=== PATIENT | male | born 1960 | race Caucasian/White ===

== ENCOUNTER 2020-06-08 12:43 | Emergency (ER) | payer MEDICARE ==
[~2020-06-08] VITALS: Ht 182.8 cm; Wt 90.7 kg
[~2020-06-08 12:43] MED LIST: ACHD5005 PO; ASP325TEC PO; ASP81CT PO; ATOR80TA PO; CARV3.122 PO; CHLO500T2 PO; CLOP75TA PO; CYCL10TA9 PO; GERD MEDICATION; HCT25T PO; ISM30TCR PO; ISOS30TA3 PO; LISI2.5T85 PO; MTP25TSR PO; NAPR-915 PO; PANT20TA2 PO; PNT40TEC PO; PRV20T PO; RANI-10 PO; RANO500T2 PO; RNT150T PO; TRAM50TA2 PO; TRM50T PO
[2020-06-08 13:00] VITALS: BP 125/80
[2020-06-08] MEDS ORDERED: KETOROLAC 30 MG/ML VIAL IM STA (13:07)
[2020-06-08] MEDS ORDERED: ORPHENADRINE 60 MG/2 ML (NORFLEX) AMP (ED ONLY) IM STA (13:07)
--- NOTE | 2020-06-08 13:10 | ED Upper Extremity ---
General Chief Complaint: Upper Extremity Stated Complaint: R SIDED NECK,BACK AND ARM PAIN Source: patient Exam Limitations: no limitations History of Present Illness Date Seen by Provider: Jun 08, 2020 Time Seen by Provider: 13:09 Initial Comments 60-year-old male presents with right sided posterior trapezius/lateral neck pain with pain it's in his right arm. Reports that he had a little bit of numbness in his fingers a results morning. Patient reports it started after couple days ago when he was replacing a heater core and vehicle. Reports his gotten worse since then. Patient denies any acute injury or trauma to the arm. Patient does not have any chest pain, shortness of breath fevers or chills. Pain gets worse with arm movement or neck movement. Allergies and Home Medications Allergies Coded Allergies: No Known Drug Allergies (Unverified , 04/20/10) Home Medications Cyclobenzaprine HCl 10 Mg Tablet, 10 MG PO Q8H Prescribed by: TACOS PATEL on 06/19/162004 Naproxen 500 Mg Tablet, 500 MG PO BID Prescribed by: TACOS PATEL on 06/19/162004 Patient Home Medication List Home Medication List Reviewed: Yes Review of Systems Constitutional: no symptoms reported EENTM: no symptoms reported Respiratory: no symptoms reported Cardiovascular: no symptoms reported Gastrointestinal: no symptoms reported Genitourinary: no symptoms reported Musculoskeletal: see HPI Skin: no symptoms reported Psychiatric/Neurological: No Symptoms Reported Past Jsqfnpi-Hwwxjd-Hbbftu Hx Past Med/Social Hx: Reviewed Nursing Past Med/Soc Hx Patient Social History Type Used: Cigarettes Recent Foreign Travel: No Contact w/Someone Who Travel: No Recent Hopitalizations: No Immunizations Up To Date Tetanus Booster (TDap): Less than 5yrs Date of Pneumonia Vaccine: Sep 04, 2012 Date of Influenza Vaccine: May 02, 2012 Seasonal Allergies Seasonal Allergies: Yes Past Medical History Appendectomy, Cardiac, Coronary Stent, Orthopedic Coronary Artery Disease, Heart Attack, High Cholesterol, Hypertension, Hypotens ion Headaches /Migraines Reproductive Disorders: No Sexually Transmitted Disease: No HIV/AIDS: No Gastroesophageal Reflux, Sandoval's Esophagus, Diverticulosis, Esophagitis Degenerate Disk Disease, Arthritis, Chronic Back Pain Physical Exam Vital Signs Vital Signs - First Documented 06/08/20 13:00 Temp 36.0 Pulse 93 Resp 18 B/P (MAP) 125/80 (95) Pulse Ox 97 O2 Delivery Room Air Capillary Refill : Height, Weight, BMI Height: 6'2" Weight: 210lbs. 0.0oz. [id number]; 28.0 BMI Method:Stated General Appearance: WD/WN, no apparent distress Neck: tender lateral (right side); No tender midline; other (symptoms are totally reproducible with palpation of the trapezius and lateral neck. Any rotation of the neck. Reproduces symptoms along with resistance of his head or even his arm through most range of motion) Cardiovascular: normal peripheral pulses, regular rate, rhythm Respiratory: lungs clear, normal breath sounds Shoulder: normal ROM, soft tissue tenderness Progress/Results/Core Measures Results/Orders My Orders Orders - LEY,CHELSEA L DO Ketorolac Injection (Toradol Injection) (06/08/20 13:07) Orphenadrine Inj (Ed Only) (Norflex Inje (06/08/20 13:07) Vital Signs/I&O 06/08/20 13:00 Temp 36.0 Pulse 93 Resp 18 B/P (MAP) 125/80 (95) Pulse Ox 97 O2 Delivery Room Air Departure Impression Primary Impression: Strain of right trapezius muscle Qualified Codes: S46.811A - Strain of other muscles, fascia and tendons at shoulder and upper arm level, right arm, initial encounter Additional Impression: Cervical strain, acute Qualified Codes: S16.1XXA - Strain of muscle, fascia and tendon at neck level, initial encounter Disposition: 01 HOME, SELF-CARE Condition: Stable Departure-Patient Inst. Referrals: [facility] (PCP/Family) Primary Care Physician Patient Instructions: Cervical Muscle Strain, Neck Pain Exercises, Muscle Strain ED Add. Discharge Instructions: Warm moist heat to the affected area 3-4 times daily 4% topical lidocaine with menthol to affected area as directed on package All discharge instructions reviewed with patient and/or family. Voiced understanding. Scripts Naproxen (Naprosyn) 500 Mg Tablet 500 MG PO BID, #30 TAB 0 Refills Prov: LEY,CHELSEA L DO 06/08/20 Cyclobenzaprine HCl (Cyclobenzaprine HCl) 10 Mg Tablet 10 MG PO Q8H PRN for SPASMS, #15 TAB 0 Refills Prov: LEY,CHELSEA L DO 06/08/20 LEY,CHELSEA L DO Jun 08, 2020 13:10
[2020-06-08] MEDS ORDERED: CYCL10TA9 PO (13:40)
[2020-06-08] MEDS ORDERED: NAPR-1071 PO (13:40)
== END 2020-06-08 13:44 | disposition home or self-care (01) ==
LOC: EDUNIT# 12:43 → ER 12:44
DX: S46.811A Strain of other muscles, fascia and tendons at shoulder and upper arm level, right arm, initial encounter (principal); S16.1XXA Strain of muscle, fascia and tendon at neck level, initial encounter; I25.2 Old myocardial infarction; Z95.5 Presence of coronary angioplasty implant and graft; X16.XXXA Contact with hot heating appliances, radiators and pipes, initial encounter
CPT/HCPCS: 99284

== ENCOUNTER 2020-12-14 12:21 | Emergency (ER) | payer MEDICARE ==
[~2020-12-14] VITALS: Ht 182 cm; Wt 83.0 kg
[~2020-12-14 12:21] MED LIST changes: +NAPR-1071 PO
--- NOTE | 2020-12-14 12:28 | ED Neurological Problem ---
General Chief Complaint: Neuro-Stroke Like Symptoms Stated Complaint: STROKE Source: patient Exam Limitations: no limitations History of Present Illness Date Seen by Provider: Dec 14, 2020 Time Seen by Provider: 12:25 Initial Comments To ER by EMS from home with reports of sudden onset left-sided weakness shortly after 11 AM today. At 11 AM he was normal. He recently quit taking all of his medications because he felt like they were making him sick. Primary care is [facility]. Ports that he worked out in the heat extensively yesterday and did have a headache yesterday evening. Timing/Duration: 1-3 hours Severity: moderate Associated Symptoms: numbness in legs/feet, slurred speech Allergies and Home Medications Allergies Coded Allergies: No Known Drug Allergies (Unverified , 04/20/10) Home Medications Cyclobenzaprine HCl 10 Mg Tablet, 10 MG PO Q8H Prescribed by: TACOS PATEL on 06/19/162004 Cyclobenzaprine HCl 10 Mg Tablet, 10 MG PO Q8H PRN for SPASMS Prescribed by: CHELSEA LEY on 06/08/20 134 Naproxen 500 Mg Tablet, 500 MG PO BID Prescribed by: TACOS PATEL on 06/19/162004 Naproxen 500 Mg Tablet, 500 MG PO BID Prescribed by: CHELSEA LEY on 06/08/20 1340 Patient Home Medication List Home Medication List Reviewed: Yes Review of Systems Review of Systems Constitutional: see HPI Eyes: No Symptoms Reported Ears, Nose, Mouth, Throat: no symptoms reported Respiratory: no symptoms reported Cardiovascular: no symptoms reported Genitourinary: no symptoms reported Musculoskeletal: no symptoms reported Skin: no symptoms reported Psychiatric/Neurological: No Symptoms Reported Endocrine: No Symptoms Reported Hematologic/Lymphatic: No Symptoms Reported Past Atlydhx-Cbyspi-Valrgd Hx Patient Social History Type Used: Cigarettes Recent Hopitalizations: No Immunizations Up To Date Tetanus Booster (TDap): Less than 5yrs Date of Pneumonia Vaccine: Sep 04, 2012 Date of Influenza Vaccine: May 02, 2012 Seasonal Allergies Seasonal Allergies: Yes Past Medical History Surgeries: Yes (carpal tunnel, appy, heart cath.) Appendectomy, Cardiac, Coronary Stent, Orthopedic Respiratory: No Cardiac: Yes (MULTIPLE STENTS) Coronary Artery Disease, Heart Attack, High Cholesterol, Hypertension, Hypotension Neurological: Yes Headaches /Migraines Reproductive Disorders: No Sexually Transmitted Disease: No HIV/AIDS: No Gastrointestinal: Yes (HX DIVERTICULITIS) Gastroesophageal Reflux, Sandoval's Esophagus, Diverticulosis, Esophagitis Musculoskeletal: Yes Degenerate Disk Disease, Arthritis, Chronic Back Pain Endocrine: Yes (BORDERLINE DM--NO MEDICATIONS) Cancer: Yes (ESOPHAGEAL) Psychosocial: No Integumentary: No Blood Disorders: No (skin tears easily) Physical Exam Vital Signs Vital Signs - First Documented 12/14/20 12:44 Temp 36.6 Pulse 93 Resp 16 B/P (MAP) 142/97 (112) Pulse Ox 95 O2 Delivery Room Air Capillary Refill : Height, Weight, BMI Height: 6'2" Weight: 210lbs. 0.0oz. 95.757905uh; 27.00 BMI Method:Stated General Appearance: WD/WN, no apparent distress HEENT: PERRL/EOMI, normal ENT inspection Respiratory: no respiratory distress, no accessory muscle use Gastrointestinal: normal bowel sounds, non tender, soft Neurologic/Psychiatric: alert, normal mood/affect, oriented x 3 Crainal Nerves: normal hearing, normal speech, PERRL Stroke Onset of Symptoms Date of Onset of Symptoms: Dec 14, 2020 Time of Symptom Onset: 11:10 Onset of Symptoms: Yes Symptoms onset unknown: No NIH Stroke Scale Assessment Select: Initial Level of Consciousness: 0=Alert (0), Level of Consciousness- Questions: 0=Answers both month/age (0), LOC Commands: 0=Performs both tasks (0), Gaze: Forced Deviation (2), Visual Esparza: 0=No visual loss (0), Facial Movement (Facial Paresis): 2=Partial paralysis (2), Motor Function-Arms Right: 0=No drift (0), Motor Function-Arms Left: 4=No movement (4), Motor Function-Legs Right: 0=No drift (0), Motor Function-Legs Left: 4=No movement (4), Limb Ataxia: 0=Absent (0), Sensory: 1=Mild to Moderate loss (1), Best Language: 0=No aphasia (0), Dysarthria: 0=Normal (0), Extinction & Inattention: 2=ProfoundHemiInattention (2), Total: 15 Stroke Thrombolytic Exclusion Age 18 or Over: No Acute intenal hemorrhage: No History of CVA: No Uncontrolled Coagulation Defec: No Intracranial Hemorrhage: No Severe Hypertension: No GI or Bleed: No Subarachnoid Hemorrhage: No Intracranial Neoplasm/Aneurysm: No Oral Anticoagulants: No Surgery or Trauma: No Puncture of Non-Compressible V: No Recent CPR: No Diabetic Hemorrhagic Retinopat: No Organ Biopsy: No Recent Obstetric Delivery: No Glucose: No Significant Hepatic Dysfunctio: No NIH Stoke Scale >22: No Bacterial Endocarditis: No Pericarditis: No Improving Symptoms: No Platelets: No TPA Contraindication: No IV - TPa Received IV - TPa Procedure Performed?: Yes IV - TPa Date: Dec 14, 2020 IV - TPa Time: 13:09 Progress/Results/Core Measures Results/Orders Lab Results Laboratory Tests Test 12/14/20 12:39 12/14/20 12:42 12/14/20 12:52 Range/Units White Blood Count 8.2 4.3-11.0 10^3/uL Red Blood Count 5.16 4.30-5.52 10^6/uL Hemoglobin 16.0 13.3-17.7 g/dL Hematocrit 46 40-54 % Mean Corpuscular Volume 88 80-99 fL Mean Corpuscular Hemoglobin 31 25-34 pg Mean Corpuscular Hemoglobin Concent 35 32-36 g/dL Red Cell Distribution Width 12.5 10.0-14.5 % Platelet Count 327 130-400 10^3/uL Mean Platelet Volume 9.8 9.0-12.2 fL Immature Granulocyte % (Auto) 0 % Neutrophils (%) (Auto) 57 42-75 % Lymphocytes (%) (Auto) 30 12-44 % Monocytes (%) (Auto) 8 0-12 % Eosinophils (%) (Auto) 4 0-10 % Basophils (%) (Auto) 1 0-10 % Neutrophils # (Auto) 4.7 1.8-7.8 10^3/uL Lymphocytes # (Auto) 2.4 1.0-4.0 10^3/uL Monocytes # (Auto) 0.7 0.0-1.0 10^3/uL Eosinophils # (Auto) 0.3 0.0-0.3 10^3/uL Basophils # (Auto) 0.1 0.0-0.1 10^3/uL Immature Granulocyte # (Auto) 0.0 0.0-0.1 10^3/uL Prothrombin Time 13.7 12.2-14.7 SEC INR Comment 1.0 0.8-1.4 Activated Partial Thromboplast Time 25 24-35 SEC D-Dimer 0.45 0.00-0.49 UG/ML Sodium Level 132 L 135-145 MMOL/L Potassium Level 4.1 3.6-5.0 MMOL/L Chloride Level 100 98-107 MMOL/L Carbon Dioxide Level 21 21-32 MMOL/L Anion Gap 11 5-14 MMOL/L Blood Urea Nitrogen 14 7-18 MG/DL Creatinine 1.01 0.60-1.30 MG/DL Estimat Glomerular Filtration Rate > 60 BUN/Creatinine Ratio 14 Glucose Level 440 *H 70-105 MG/DL Calcium Level 8.7 8.5-10.1 MG/DL Corrected Calcium 9.0 8.5-10.1 MG/DL Total Bilirubin 0.5 0.1-1.0 MG/DL Aspartate Amino Transf (AST/SGOT) 11 5-34 U/L Alanine Aminotransferase (ALT/SGPT) 18 0-55 U/L Alkaline Phosphatase 95 40-136 U/L Troponin I < 0.028 <0.028 NG/ML Total Protein 7.0 6.4-8.2 GM/DL Albumin 3.6 3.2-4.5 GM/DL Glucometer 391 H 70-110 MG/DL Urine Color YELLOW Urine Clarity SL CLOUDY Urine pH 6.0 5-9 Urine Specific [place] 1.020 1.016-1.022 Urine Protein NEGATIVE NEGATIVE Urine Glucose (UA) 3+ H NEGATIVE Urine Ketones NEGATIVE NEGATIVE Urine Nitrite NEGATIVE NEGATIVE Urine Bilirubin NEGATIVE NEGATIVE Urine Urobilinogen 0.2 < = 1.0 MG/DL Urine Leukocyte Esterase NEGATIVE NEGATIVE Urine RBC (Auto) NEGATIVE NEGATIVE Urine RBC RARE /HPF Urine WBC NONE /HPF Urine Squamous Epithelial Cells 0-2 /HPF Urine Crystals NONE /LPF Urine Bacteria NEGATIVE /HPF Urine Casts NONE /LPF Urine Mucus NEGATIVE /LPF Urine Culture Indicated NO My Orders Orders - AYAD RENDON [employer] Cbc With Automated Diff (12/14/20 12:24) Protime With Inr (12/14/20 12:24) Partial Thromboplastin Time (12/14/20 12:24) Comprehensive Metabolic Panel (12/14/20 12:24) Fibrin Degradation Products (12/14/20 12:24) Troponin I (12/14/20 12:24) Ua Culture If Indicated (12/14/20 12:24) Chest 1 View, Ap/Pa Only (12/14/20 12:24) Ekg Tracing (12/14/20 12:24) Accucheck Stat ONCE (12/14/20 12:24) Ed Iv/Invasive Line Start (12/14/20 12:24) Ed Iv/Invasive Line Start (12/14/20 12:24) Vital Signs Stroke Patient Q15M (12/14/20 12:24) Ct Head Wo-R/O Stroke (12/14/20 12:24) O2 (12/14/20 12:24) Intake & Output 06,14,22 (12/14/20 12:24) Monitor-Rhythm Ecg Trace Only (12/14/20 12:24) Dysphagia Screening Tool (12/14/20 12:24) Post Thrombolytic Adminstratio (12/14/20 12:24) Alteplase (Activase) (Activase Injection (12/14/20 12:45) Post Thrombolytic Adminstratio (12/14/20 12:40) Ct Angio Head/Neck (12/14/20 12:44) Alteplase (Activase) (Activase Injection (12/14/20 13:00) Post Thrombolytic Adminstratio (12/14/20 12:48) Iohexol Injection (Omnipaque 350 Mg/Ml 1 (12/14/20 13:00) Received Contrast (Hold Metformin- Contr (12/14/20 13:00) Sodium Chloride Flush (Catheter Flush Sy (12/14/20 13:00) Ns (Ivpb) (Sodium Chloride 0.9% Ivpb Bag (12/14/20 13:00) Alteplase (Activase) (Activase Injection (12/14/20 13:00) Alteplase (Activase) (Activase Injection (12/14/20 13:30) Lactated Ringers (Lr 1000 Ml Iv Solution (12/14/20 14:30) Medications Given in ED Vital Signs/I&O 12/14/20 12/14/20 12/14/20 12:21 12:44 15:06 Temp 36.6 Pulse 93 100 Resp 16 16 B/P (MAP) 142/97 (112) 151/121 Pulse Ox 95 96 O2 Delivery Room Air Room Air Initial ECG Impression Date: Dec 14, 2020 Initial ECG Impression Time: 12:40 Initial ECG Rate: 93 Initial ECG Rhythm: Normal Sinus Initial ECG Intervals: Normal Initial ECG Impression: Normal Diagnostic Imaging Diagonstic Imaging: Xray Comments NAME: ALBERTA HESTER [facility] REC#: [id number] PT STATUS: REG ER : 1960 PHYSICIAN: AYAD RENDON APRN ADMIT DATE: 12/14/20/ER Draft Date of Exam:12/14/20 CT HEAD WO-R/O STROKE PROCEDURE: CT head wo r/o stroke. TECHNIQUE: Multiple contiguous axial images were obtained through the brain without the use of intravenous contrast. Auto Exposure Controls were utilized during the CT exam to meet ALARA standards for radiation dose reduction. INDICATION: Neuro deficit, dizzy and fall. Left-sided weakness. COMPARISON: CT head from 11/12/2014. FINDINGS: No intracranial hyperdense hemorrhage or space-occupying mass. No hydrocephalus or midline shift. Mantilla-white matter differentiation is preserved. There is a small amount of periventricular white matter hypoattenuation that is most compatible with chronic microvascular ischemic disease. No sagging of brainstem. Pituitary is unremarkable. No concerning calvarial lesion. Mastoid air cells are clear. Small mucosal retention cysts in the right maxillary sinus is unchanged. Other paranasal sinuses are clear. Orbits are unremarkable. IMPRESSION: 1. No acute intracranial hemorrhage or features of large territorial infarct. Dictated on workstation # [id number] Dict: 12/14/20 1241 Trans: 12/14/20 1246 [facility] [id number] Interpreted by: CAN VITALE MD Electronically signed by: NAME: ALBERTA HESTER [facility] REC#: [id number] PT STATUS: REG ER : 1960 PHYSICIAN: AYAD RENDON APRN ADMIT DATE: 12/14/20/ER Draft Date of Exam:12/14/20 CT ANGIO HEAD/NECK PROCEDURE: CT angiography of the head and CT angiography of the neck with and without contrast. TECHNIQUE: Contiguous noncontrast images were obtained from the skull base through the vertex. After intravenous contrast administration, helical CT angiography of the neck was performed. Source data was reformatted into 3D MIP projections. Delayed post contrast acquisition was also obtained. Auto Exposure Controls were utilized during the CT exam to meet ALARA standards for radiation dose reduction. INDICATION: Dizziness and left-sided weakness. Artificial intelligence for large vessel occlusion screening as requested by ordering provider. COMPARISON: Noncontrast head from earlier same day. FINDINGS: CTA NECK: The common carotid arteries are patent without dissection or high-grade stenosis. Atherosclerotic plaquing at the origin of the internal carotid arteries results in less than 20% luminal narrowing per NASCET criteria. The cervical divisions of bilateral internal carotid arteries are patent without stenosis. The left vertebral artery is dominant with hypoplastic but patent right vertebral artery. There are scattered atherosclerotic plaques throughout the vertebral arteries but no severe luminal narrowing. No cervical lymphadenopathy. Emphysema is noted in the lung apices. Thyroid is normal. Multilevel rbcqrjqw-yr-kdfjdp degenerative changes throughout the cervical spine. CTA HEAD: Bilateral distal internal carotid arteries are patent and without terminal aneurysm. There is a nonocclusive filling defect in the distal M1 segment of the right MCA resulting in approximately 50 to 75% luminal narrowing. However, there is no occlusion of the M2 divisions of the MCA. The left M1 and M2 divisions are patent. No anterior communicating artery aneurysm. The anterior cerebral arteries are patent. Basilar artery is widely patent without terminal aneurysm. The posterior cerebral arteries are patent centrally. No posterior communicating artery aneurysm. Dural venous sinuses remain patent. No pathologic enhancement on delayed-phase imaging. IMPRESSION: 1. There is a focus of high-grade stenosis in the distal M1 division of the right MCA resulting in approximately 50 to 75% luminal narrowing. However, there is no occlusion of the M2 divisions of the right middle cerebral artery. 2. No additional focus of intracranial stenosis or large vessel occlusion. 3. No high-grade stenosis or arterial occlusion within the neck arteries. Finding of distal right M1 stenosis was called to Ayad Rendon by Can Vitale at 01:47 p.m. on 12/14/2020. Dictated on workstation # [id number] Dict: 12/14/20 1337 Trans: 12/14/20 1358 [id number] [id number] Interpreted by: CAN VITALE MD Electronically signed by: Departure Communication (Admissions) 1352-GCS score remains 14, symptoms are unchanged. Activase is infusing. Radiology called to report a thrombus in the distal M1 on the right. Not totally occlusive but there is about 70% luminal narrowing because of the thrombus. I spoke with transfer center nurse at [facility] who will discuss the case with Dr. Franco and they will call back with further recommendations. [facility] has called back with Dr. Franco, recommends transfer to their facility for thrombectomy. Patient and updated, agree with the plan Impression Primary Impression: Cerebrovascular accident due to cerebral artery occlusion Disposition: 02 XFER SHT-TRM HOSP Condition: Stable Transfer Transfer Reason: Exceeds level of care Time Spoke to Accepting Phy: 14:15 Departure-Patient Inst. Referrals: [facility] (PCP/Family) Primary Care Physician AYAD RENDON APRN Dec 14, 2020 12:28
[2020-12-14 12:44] LABS: BASOPHILS # (AUTO) 0.1 10^3/uL (0.0-0.1); BASOPHILS % (AUTO) 1 % (0-10); EOSINOPHILS # (AUTO) 0.3 10^3/uL (0.0-0.3); EOSINOPHILS % (AUTO) 4 % (0-10); HEMATOCRIT 46 % (40-54); LYMPHOCYTES # (AUTO) 2.4 10^3/uL (1.0-4.0); LYMPHOCYTES % (AUTO) 30 % (12-44); MEAN CORPUSCULAR HEMOGLOBIN 31 pg (25-34); MEAN CORPUSCULAR HGB CONC 35 g/dL (32-36); MEAN CORPUSCULAR VOLUME 88 fL (80-99); MEAN PLATELET VOLUME 9.8 fL (9.0-12.2); MONOCYTES # (AUTO) 0.7 10^3/uL (0.0-1.0); MONOCYTES % (AUTO) 8 % (0-12); NEUTROPHILS # (AUTO) 4.7 10^3/uL (1.8-7.8); NEUTROPHILS % (AUTO) 57 % (42-75); PLATELET COUNT 327 10^3/uL (130-400); WHITE BLOOD COUNT 8.2 10^3/uL (4.3-11.0)
[2020-12-14] MEDS ORDERED: ALTEPLASE 100 MG/VIAL (ACTIVASE) IV ONE ×4 (12:45→13:30)
--- NOTE | 2020-12-14 12:46 | Diagnostic Imaging Report ---
PROCEDURE: CT head wo r/o stroke. TECHNIQUE: Multiple contiguous axial images were obtained through the brain without the use of intravenous contrast. Auto Exposure Controls were utilized during the CT exam to meet ALARA standards for radiation dose reduction. INDICATION: Neuro deficit, dizzy and fall. Left-sided weakness. COMPARISON: CT head from 11/12/2014. FINDINGS: No intracranial hyperdense hemorrhage or space-occupying mass. No hydrocephalus or midline shift. Mantilla-white matter differentiation is preserved. There is a small amount of periventricular white matter hypoattenuation that is most compatible with chronic microvascular ischemic disease. No sagging of brainstem. Pituitary is unremarkable. No concerning calvarial lesion. Mastoid air cells are clear. Small mucosal retention cysts in the right maxillary sinus is unchanged. Other paranasal sinuses are clear. Orbits are unremarkable. IMPRESSION: 1. No acute intracranial hemorrhage or features of large territorial infarct. Dictated by: Dictated on workstation # [id number]
[2020-12-14 12:58] LABS: BILIRUBIN,URINE NEGATIVE (NEGATIVE); CLARITY,URINE SL CLOUDY; COLOR,URINE YELLOW; GLUCOSE, URINE (UA) 3+ (NEGATIVE); KETONES,URINE NEGATIVE (NEGATIVE); LEUKOCYTE ESTERASE ,URINE NEGATIVE (NEGATIVE); NITRITE,URINE NEGATIVE (NEGATIVE); PROTEIN,URINE NEGATIVE (NEGATIVE)
[2020-12-14 12:58] LABS: ALBUMIN 3.6 GM/DL (3.2-4.5); CHLORIDE 100 MMOL/L (98-107); POTASSIUM 4.1 MMOL/L (3.6-5.0); SODIUM 132 MMOL/L (135-145)
[2020-12-14 12:59] LABS: CALCIUM 8.7 MG/DL (8.5-10.1)
[2020-12-14] MEDS ORDERED: NS 100 ML (IVPB) BAG IV ONE (13:00)
[2020-12-14] MEDS ORDERED: HOLD METFORMIN - RECEIVED CONTRAST 20 ML VIAL IV SCH (13:00)
[2020-12-14] MEDS ORDERED: IOHEXOL 350 MG/ML 100 ML (OMNIPAQUE 350) VIAL IV ONE (13:00)
[2020-12-14] MEDS ORDERED: CATHETER FLUSH 10 ML SYR IV PRN (13:00)
[2020-12-14 13:02] LABS: BILIRUBIN,TOTAL 0.5 MG/DL (0.1-1.0); CARBON DIOXIDE 21 MMOL/L (21-32)
[2020-12-14 13:03] LABS: FIBRIN DEGRADATION PRODUCTS 0.45 UG/ML (0.00-0.49); PROTHROMBIN TIME PATIENT 13.7 SEC (12.2-14.7)
[2020-12-14 13:04] LABS: ALKALINE PHOSPHATASE 95 U/L (40-136); CREATININE SERUM 1.01 MG/DL (0.60-1.30); GFR ESTIMATED > 60
[2020-12-14 13:05] LABS: BUN/CREATININE RATIO 14
[2020-12-14 13:06] LABS: RBC,URINE RARE /HPF
[2020-12-14 13:07] LABS: BACTERIA,URINE NEGATIVE /HPF; SQUAMOUS EPITHELIAL CELL,UR 0-2 /HPF
[2020-12-14 13:07] LABS: ALANINE AMINOTRANSFERASE 18 U/L (0-55)
[2020-12-14 13:10] LABS: GLUCOSE 440 MG/DL (70-105)
--- NOTE | 2020-12-14 13:18 | Diagnostic Imaging Report ---
PATIENT HISTORY: Stroke. Left-sided weakness. TECHNIQUE: Single frontal view of the chest. COMPARISON: 09/04/2012. FINDINGS: The lung volumes are large. No focal consolidation is seen. No large pleural effusion or pneumothorax is seen. The cardiomediastinal silhouette is normal in size and contour. No acute osseous abnormality is seen. IMPRESSION: Large lung volumes with no acute pulmonary abnormality seen. Dictated by: Dictated on workstation # [id number]
--- NOTE | 2020-12-14 13:59 | Diagnostic Imaging Report ---
PROCEDURE: CT angiography of the head and CT angiography of the neck with and without contrast. TECHNIQUE: Contiguous noncontrast images were obtained from the skull base through the vertex. After intravenous contrast administration, helical CT angiography of the neck was performed. Source data was reformatted into 3D MIP projections. Delayed post contrast acquisition was also obtained. Auto Exposure Controls were utilized during the CT exam to meet ALARA standards for radiation dose reduction. INDICATION: Dizziness and left-sided weakness. Artificial intelligence for large vessel occlusion screening as requested by ordering provider. COMPARISON: Noncontrast head from earlier same day. FINDINGS: CTA NECK: The common carotid arteries are patent without dissection or high-grade stenosis. Atherosclerotic plaquing at the origin of the internal carotid arteries results in less than 20% luminal narrowing per NASCET criteria. The cervical divisions of bilateral internal carotid arteries are patent without stenosis. The left vertebral artery is dominant with hypoplastic but patent right vertebral artery. There are scattered atherosclerotic plaques throughout the vertebral arteries but no severe luminal narrowing. No cervical lymphadenopathy. Emphysema is noted in the lung apices. Thyroid is normal. Multilevel pncblbve-wl-sbdqhv degenerative changes throughout the cervical spine. CTA HEAD: Bilateral distal internal carotid arteries are patent and without terminal aneurysm. There is a nonocclusive filling defect in the distal M1 segment of the right MCA resulting in approximately 50 to 75% luminal narrowing. However, there is no occlusion of the M2 divisions of the MCA. The left M1 and M2 divisions are patent. No anterior communicating artery aneurysm. The anterior cerebral arteries are patent. Basilar artery is widely patent without terminal aneurysm. The posterior cerebral arteries are patent centrally. No posterior communicating artery aneurysm. Dural venous sinuses remain patent. No pathologic enhancement on delayed-phase imaging. IMPRESSION: 1. There is a focus of high-grade stenosis in the distal M1 division of the right MCA resulting in approximately 50 to 75% luminal narrowing. However, there is no occlusion of the M2 divisions of the right middle cerebral artery. 2. No additional focus of intracranial stenosis or large vessel occlusion. 3. No high-grade stenosis or arterial occlusion within the neck arteries. Finding of distal right M1 stenosis was called to [place] Rendon by Can Vitale at 01:47 p.m. on 12/14/2020. Dictated by: Dictated on workstation # [id number]
[2020-12-14] MEDS ORDERED: LACTATED RINGERS 1,000 ML IV SCH (14:30)
[2020-12-14 15:06] VITALS: BP 151/121
== END 2020-12-14 15:06 | disposition short-term general hospital (02) ==
LOC: ER 12:22
DX: I63.59 Cerebral infarction due to unspecified occlusion or stenosis of other cerebral artery (principal); I10 Essential (primary) hypertension; I25.2 Old myocardial infarction
CPT/HCPCS: 36415; 51702; 70450; 70496; 70498; 71045; 80053; 81000; 82947; 84484; 85025; 85379; 85610; 85730; 93005; 93041

== ENCOUNTER 2020-12-20 11:26 | Inpatient (IN) | payer MEDICARE ==
[~2020-12-20] VITALS: Ht 188 cm; Wt 82.4 kg
[2020-12-20] MEDS ORDERED: INSU100I14 SQ (13:29)
[2020-12-20] MEDS ORDERED: ASPI-999 PO (13:29)
[2020-12-20] MEDS ORDERED: INSU100I10 SQ (13:29)
[2020-12-20] MEDS ORDERED: MTP25TSR PO (13:29)
[2020-12-20] MEDS ORDERED: ATOR40TA70 PO (13:29)
[2020-12-20] MEDS ORDERED: ONDANSETRON 4 MG (ZOFRAN) ORAL DISSOLVE TAB PO PRN (13:45)
[2020-12-20] MEDS ORDERED: LOPERAMIDE 2 MG (IMODIUM) TABLET PO PRN (13:45)
[2020-12-20] MEDS ORDERED: guaiFENesin/CODEINE (ROBITUSSIN AC) 10ML UDC PO PRN (13:45)
[2020-12-20] MEDS ORDERED: MELATONIN 3 MG TABLET PO PRN (13:45)
[2020-12-20] MEDS ORDERED: LACTULOSE SYRUP 10GM/15ML (ENULOSE) 30ML UDC PO PRN (13:45)
[2020-12-20] MEDS ORDERED: BISACODYL 10 MG SUPP (DULCOLAX) PR PRN (13:45)
[2020-12-20] MEDS ORDERED: DOCUSATE SODIUM 100 MG (COLACE) CAP PO PRN (13:45)
[2020-12-20] MEDS ORDERED: diphenhydrAMINE 25 MG TAB (BENADRYL) PO PRN (13:45)
[2020-12-20] MEDS ORDERED: ACETAMINOPHEN 325 MG TABLET PO PRN (13:45)
[2020-12-20] MEDS ORDERED: FLEET ENEMA ADULT 1 EA BTL PR PRN (13:45)
[2020-12-20 16:42] VITALS: BP 152/96
[2020-12-20] MEDS: HYDROcodone/APAP 5 MG/325 MG (LORTAB) TAB PO PRN ×2 (17:03→21:36)
[2020-12-20] MEDS: inSUlin ASPART (NovoLOG) 1 UNIT/0.01 ML (CHARGE PER UNIT) SC SCH ×2 (17:30→21:00)
--- NOTE | 2020-12-20 17:57 | PM&R Post Admission Assessment ---
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 He presented to the ER on 12/14/2020 with left-sided wea kness and slurred speech and was given TPA after corresponding with [facility] was found to have a thrombosis in the right middle cerebral artery. He currently denies any pain. He reports his bowels are moving and bladder function is normal. He has been for 16 years. Smoking cessation counseled. He will need aggressive rehab to regain function of the left-sided weakness and dysarthria and increase independence in ADLs. LUPE BAE note: Name: Eriberto Gregorio Date Of : 1960 Age: 60 years Admit date: 12/14/2020 Discharge date: 12/20/2020 Discharge Attending: Dr Hayes Discharge Summary Completed By: Jorge Herbert MD Service: Neurology Stroke Reason for hospitalization: Thrombosis of right middle cerebral artery [I66.01] Primary Discharge Diagnosis: Same as Above Hospital Diagnoses: Hospital Problems Active Problems * (Principal) Acute ischemic right MCA stroke (HCC) CAD (coronary artery disease) Uncontrolled type II diabetes mellitus (HCC) Essential hypertension Left hemiparesis (HCC) Dysarthria Tissue plasminogen activator (tPA) administered at other facility within 24 hours before current admission Metabolic acidosis Dyslipidemia Hyponatremia Oropharyngeal dysphagia Leukocytosis Significant Past Medical History CAD (coronary artery disease) Cigarette smoker Diabetes mellitus, type II (HCC) Essential hypertension History of transient ischemic attack (TIA) Allergies Patient has no known allergies. Brief Hospital Course The patient was admitted and the following issues were addressed during this hospitalization: (with pertinent details including admission exam/imaging/labs). Mr Gregorio is a 60M with a PMH of DMII, HTN, prior TIA, and CAD who presented to OSH on 12/14 with L hemiparesis, R gaze preference, and slurred speech. CTA at OSH showed non-occlusive R M1 thrombus. He received tPA and was transferred for EVT. Found to have recanalization in IR with TICI3 without need for intervention. Patient was subsequently admitted to the NeuroICU. He was started on ASA 81mg qday 24hrs after tPA. MRI imaging demonstrated small to mod acute infarct extending from R caudate body to post R lentiform nucleus, small acute R frontal lobe infarcts, small hemorrhagic conversion at post R lentiform nucleus, chronic microvascular disease. His LDL was 161 and was started on atorvastatin 40mg qday. His A1C was 11.9 and endocrine was consulted and he was discharged an insuline regimen as below. He was briefly trialed on metformin, but it caused diarrhea. His echo demonstrated LVEF 30-35% and grade I diastolic dysfunction. Cardiology was consulted who recommended starting metoprolol SL 25mg qday while inpatient. They recommended lisinopril 5mg qday and spironolactone 12.5mg qday at discharge. Patient also was placed on 2L fluid restriction and 2gm sodium diet. He was seen by tobacco cessation who recommended wellbutrin and nicotine inhaler. He had a nicotine inhaler started at discharge. He was advanced to a mechanical soft diet prior to discharge. He was discharged to [facility] in stable condition on 12/20/20. He will be sent an event monitor. Etiology -> likely cardioembolic NIHSS -> 10 Discharge exam -> L facial droop, R gaze preference, L hemiparesis Past Cwooiax-Uxpbjh-Ylspnt Hx Past Med/Social Hx: Reviewed Nursing Past Med/Soc Hx, Reviewed and Corrections made Patient Social History Marrital Status: Employed/Student: unemployed Alcohol Use: Regular Use Smoking Status: Current Everyday Smoker Type Used: Cigarettes Recent Hopitalizations: No Immunizations Up To Date Tetanus Booster (TDap): Less than 5yrs Date of Pneumonia Vaccine: Sep 04, 2012 Date of Influenza Vaccine: May 02, 2012 Seasonal Allergies Seasonal Allergies: Yes Past Medical History Surgeries: Appendectomy, Cardiac, Coronary Stent, Orthopedic Cardiac: Coronary Artery Disease, Heart Attack, High Cholesterol, Hypertension, Hypotension Neurological: Headaches /Migraines Reproductive: No Sexually Transmitted Disease: No HIV/AIDS: No Gastrointestinal: Gastroesophageal Reflux, Sandoval's Esophagus, Diverticulosis, Esophagitis Musculoskeletal: Degenerate Disk Disease, Arthritis, Chronic Back Pain History of Blood Disorders: No (skin tears easily) PM&R Allergy/Meds/Data Review Allergies Coded Allergies: No Known Drug Allergies (Unverified , 04/20/10) Home Medications Scheduled Aspirin (Aspirin), 81 MG PO DAILY, (Reported) Atorvastatin Calcium (Atorvastatin Calcium), 40 MG PO HS, (Reported) Insulin Aspart (Novolog Flexpen), 8 UNITS SQ TIDWM, (Reported) Insulin Glargine,Hum.rec.anlog (Lantus Solostar), 18 UNIT SQ HS, (Reported) Metoprolol Succinate (Metoprolol Succinate), 25 MG PO DAILY, (Reported) Discontinued Medications Cyclobenzaprine HCl (Cyclobenzaprine HCl), 10 MG PO Q8H Discontinued Reason: No Longer Taking Cyclobenzaprine HCl (Cyclobenzaprine HCl), 10 MG PO Q8H PRN for SPASMS Discontinued Reason: No Longer Taking Naproxen (Naproxen), 500 MG PO BID Discontinued Reason: No Longer Taking Naproxen (Naprosyn), 500 MG PO BID Discontinued Reason: No Longer Taking Current Medications Current Medications Reviewed Laboratory Data Laboratory Tests 12/20/20 17:29: Glucometer 241H Review of Systems Constitutional: see HPI, malaise, weakness Psychiatric/Neurological: Depressed, Weakness Physical Exam Physical Exam Vital Signs Vital Signs - First Documented 12/20/20 16:42 Temp 36.0 Pulse 84 Resp 20 B/P (MAP) 152/96 (114) Pulse Ox 97 O2 Delivery Room Air Capillary Refill : Height, Weight, BMI Height: 6'2" Weight: 210lbs. 0.0oz. [id number]; 23.62 BMI Method:Stated General Appearance: No Apparent Distress, WD/WN, Chronically ill, Thin Eyes: Bilateral Eye Normal Inspection, Bilateral Eye PERRL HEENT: PERRL/EOMI, Normal ENT Inspection, Pharynx Normal Neck: Full Range of Motion, Normal Inspection, Non Tender, Supple, Carotid Bruit Respiratory: Chest Non Tender, Lungs Clear, Normal Breath Sounds, No Accessory Muscle Use, No Respiratory Distress Cardiovascular: Regular Rate, Rhythm, No Edema, No Gallop, No JVD, No Murmur, Normal Peripheral Pulses Gastrointestinal: Normal Bowel Sounds, No Organomegaly, No Pulsatile Mass, Non Tender, Soft Back: Normal Inspection, No CVA Tenderness, No Vertebral Tenderness Extremity: Normal Capillary Refill, Normal Inspection, Normal Range of Motion (Except left side weakness 2/5), Non Tender, No Calf Tenderness, No Pedal Edema Neurologic/Psychiatric: Alert, Oriented x3, No Motor/Sensory Deficits, Abnormal Gait, Depressed Affect, Motor Weakness (Left side weakness) Skin: Normal Color, Warm/Dry Lymphatic: No Adenopathy PM&R Medical Assessment & Plan REHAB/MEDICAL ASSESSMENT AND PLAN: REHAB IMPAIRMENT GROUP: CVA ETIOLOGIC DIAGNOSIS: CVA The comorbidities that impact the patients function and/or functional outcome by: Diabetes [id number], noncompliance, smoking history REHAB PLAN: The patient is being admitted to our comprehensive inpatient rehabilitation facility and can tolerate the intensity of service consisting of at least: 180 minutes of therapy a day, 5 out of 7 days a week Rehab treatment will consist of: PT and OT will help increase ambulatory function with assistive devices in addition to increasing ADL independence in order to return home to live with his independently The patient/family has a good understanding of our discharge process and will benefit from an interdisciplinary inpatient rehabilitation program. The patient has potential to make improvement and is in need of at least two of the following multidisciplinary therapies including but not limited to physical, occupational, speech, and prosthetics and orthotics. Additionally the patient will need services from respiratory, nutritional services, wound care, psychology, etc. (Customize this to each patient). Given the patients complex condition and risk of further medical complications, rehabilitation services cannot be safely or effectively provided at a lower level of care such as a senior living facility. BARRIERS TO DISCHARGE: Left-sided weakness ESTIMATED LOS: 10 days DISPOSITION: Home RELEVANT CHANGES SINCE PREADMISSION SCREENING: I have compared the patients medical and functional status at the time of the preadmission screening and there are: no changes PROGNOSIS: Guarded REHABILITATION GOALS: 1. PT and OT will help increase ambulatory function with assistive devices in addition to increasing ADL independence in order to return home to live with his independently All the above goals were reviewed with the patient and he/she is in agreement. By signing this document, I acknowledge that I have personally performed a full physical examination on this patient within 24 hours of admission to this inpatient rehabilitation facility and have determined the patient to be able to tolerate the above course of treatment at an intensive level for a reasonable period of time. I will be completing a detailed individualized Plan of Care for this patient by day #4 of the patients stay based upon the Preadmission Screen, the Post-Admission Evaluation, and the therapy evaluations. Admission Dx/Comorbidities: (1) Cerebrovascular accident due to cerebral artery occlusion Status: Acute ICD Codes: I63.50 - Cerebral infarction due to unspecified occlusion or st enosis of unspecified cerebral artery (2) Diabetes ICD Codes: E11.9 - Type 2 diabetes mellitus without complications (3) Smoker ICD Codes: F17.200 - Nicotine dependence, unspecified, uncomplicated (4) Hypertension ICD Codes: I10 - Essential (primary) hypertension (5) CAD (coronary artery disease) ICD Codes: I25.10 - Atherosclerotic heart disease of [place] coronary artery without angina pectoris (6) Left-sided weakness ICD Codes: R53.1 - Weakness (7) Dysarthria ICD Codes: R47.1 - Dysarthria and anarthria (8) Non-compliance Status: Acute Assessment/Plan Assessment and Plan Assess & Plan/Chief Complaint Assessment: CVA with left-sided weakness Current smoker Hypertension Diabetes insulin requiring CAD Hypertension Plan: Monitor closely Insulin Nicotine patch Inpatient rehab protocol BOYD MICHAELS DO Dec 20, 2020 17:57
[2020-12-20] MEDS ORDERED: NON-FORMULARY MEDICATION 1 EA EA (Insulin Aspart (Novolog Flexpen) 8 UNITS) SQ SCH (18:00)
[2020-12-20] MEDS ORDERED: NICOTINE 21 MG (NICODERM) PATCH TD NR (18:15)
[2020-12-20] MEDS: CALCIUM CARBONATE 500 MG (TUMS) TAB.CHEW PO PRN ×2 (18:28→23:08)
[2020-12-20] MEDS: ALPRAZolam 0.25 MG (XANAX) TAB PO PRN (18:46)
[2020-12-20 20:00] VITALS: BP 112/66
[2020-12-20] MEDS ORDERED: INSULIN GLARGINE HUM REC ANLOG 18 UNIT SQ SCH (21:00)
[2020-12-20] MEDS ORDERED: [UNRECOGNIZED DRUG - OTHER] SQ SCH (21:00)
[2020-12-20] MEDS: SENNA W/DOCUSATE (SENOKOT S) TABLET PO SCH (21:41)
[2020-12-20] MEDS: polyethylene glycoL POWDER 17 GM (MIRALAX) PACK PO SCH (21:41)
[2020-12-20] MEDS: DOCUSATE SODIUM 100 MG (COLACE) CAP PO SCH (21:41)
[2020-12-21] MEDS: inSUlin ASPART (NovoLOG) 1 UNIT/0.01 ML (CHARGE PER UNIT) SC SCH ×7 (06:00→20:56)
[2020-12-21 06:36] LABS: BASOPHILS # (AUTO) 0.1 10^3/uL (0.0-0.1); BASOPHILS % (AUTO) 1 % (0-10); EOSINOPHILS # (AUTO) 0.4 10^3/uL (0.0-0.3); EOSINOPHILS % (AUTO) 4 % (0-10); HEMATOCRIT 48 % (40-54); HEMOGLOBIN 16.5 g/dL (13.3-17.7); LYMPHOCYTES # (AUTO) 4.3 10^3/uL (1.0-4.0); LYMPHOCYTES % (AUTO) 42 % (12-44); MEAN CORPUSCULAR HEMOGLOBIN 31 pg (25-34); MEAN CORPUSCULAR HGB CONC 34 g/dL (32-36); MEAN CORPUSCULAR VOLUME 89 fL (80-99); MEAN PLATELET VOLUME 9.6 fL (9.0-12.2); MONOCYTES % (AUTO) 10 % (0-12); NEUTROPHILS # (AUTO) 4.3 10^3/uL (1.8-7.8); NEUTROPHILS % (AUTO) 43 % (42-75); PLATELET COUNT 417 10^3/uL (130-400); WHITE BLOOD COUNT 10.1 10^3/uL (4.3-11.0)
[2020-12-21 06:52] LABS: ALANINE AMINOTRANSFERASE 46 U/L (0-55); ALBUMIN 3.7 GM/DL (3.2-4.5); ALKALINE PHOSPHATASE 87 U/L (40-136); BILIRUBIN,TOTAL 0.5 MG/DL (0.1-1.0); BUN/CREATININE RATIO 16; CALCIUM 9.4 MG/DL (8.5-10.1); CARBON DIOXIDE 26 MMOL/L (21-32); CHLORIDE 103 MMOL/L (98-107); CREATININE SERUM 0.82 MG/DL (0.60-1.30); GFR ESTIMATED > 60; GLUCOSE 122 MG/DL (70-105); POTASSIUM 4.7 MMOL/L (3.6-5.0); SODIUM 136 MMOL/L (135-145)
[2020-12-21 07:49] VITALS: BP 122/67
[2020-12-21] MEDS: NICOTINE PATCH REMOVAL TP SCH (08:38)
[2020-12-21] MEDS: ASPIRIN 81 MG CHEW (CHILDREN'S ASA) PO SCH (08:39)
[2020-12-21] MEDS: ALPRAZolam 0.25 MG (XANAX) TAB PO PRN ×2 (08:39→19:45)
[2020-12-21] MEDS: CALCIUM CARBONATE 500 MG (TUMS) TAB.CHEW PO PRN (08:39)
[2020-12-21] MEDS: DOCUSATE SODIUM 100 MG (COLACE) CAP PO SCH ×2 (08:39→20:03)
[2020-12-21] MEDS: SENNA W/DOCUSATE (SENOKOT S) TABLET PO SCH ×2 (08:39→20:03)
[2020-12-21] MEDS: NICOTINE 21 MG (NICODERM) PATCH TD SCH (08:39)
[2020-12-21] MEDS: polyethylene glycoL POWDER 17 GM (MIRALAX) PACK PO SCH ×2 (08:40→20:03)
--- NOTE | 2020-12-21 09:28 | Occupational Therapy Eval ---
OT Evaluation-General/PLF Medical Diagnosis Admission Date Dec 20, 2020 at 16:27 Medical Diagnosis: CVA with left hemiparesis Onset Date: Dec 14, 2020 Therapy Diagnosis Therapy Diagnosis: Left sided weakness, Decreased ADL skills Height/Weight Height (Feet): 6 Height (Inches): 2 Weight (Pounds): 210 Weight (Ounces): 0.0 Precautions Precautions/Isolations: Fall Prevention, Standard Precautions Weight Bear Status Weight Bearing Restriction: Weight Bearing/Tolerated Referral Physician: Dr. Boone Referral Reason: Activity Tolerance, Self Care, Evaluation/Treatment, Strengthening/ROM Medical History Pertinent Medical History: Arthritis, COPD, HTN Additional Medical History Multiple back surgeries, DDD, OA, Stable angina, COPD Reviewed History: Yes Social History Home: Single Level Current Living Status: Spouse Entry Into Home: Stairs With Railing Steps Into Home: 1 ADL-Prior Level of Function SCALE: Activities may be completed with or without assistive devices. 9-Cvryaqgdvw-ssxuhgu completes the activity by him/herself with no assistance from a helper. 5-Set-up or Clean-up Assistance-helper sets up or cleans up; patient completes activity. [place] assists only prior to or following the activity. 4-Supervision or Touching Assistance-helper provides verbal cues and/or touching/steadying and/or contact guard assistance as patient completes ac tivity. Assistance may be provided throughout the activity or intermittently. 3-Partial/Moderate Assistance-helper does LESS THAN HALF the effort. [place] lifts, holds or supports trunk or limbs, but provides less than half the effort. 2-Substantial/Maximal Assistance-helper does MORE THAN HALF the effort. [place] lifts or holds trunk or limbs and provides more than half the effort. 7-Nqflreqti-pivqmw does ALL the effort. Patient does none of the effort to complete the activity. Or, the assistance of 2 or more helpers is required for the patient to complete the activity. If activity was not attempted, code reason: 7-Patient Refused. 9-Not Applicable-not attempted and the patient did not perform the activity before the current illness, exacerbation or injury. 10-Not Attempted due to Environmental Limitations-(lack of equipment, weather restraints, etc.). 88-Not Attempted due to Medical Conditions or Safety Concerns. ADL PLOF Comments Pt. states that he was independent with daily tasks such as bathing, dressing Self Care: Independent Functional Cognition: Independent DME/Equipment: Bath Chair, Tub/Shower (Large cast iron tub) DME/Equipment Comments Pt. does have cane Occupation: Disabled Drive Self: Yes OT Current Status Subjective No pain reported Appearance Pt. up in wheelchair with PT when OT entered therapy gym. Mental Status/Objective Patient Orientation: Person, Place Current Glasses/Contacts: Yes Hand Dominance: Right Upper Extremity ROM Right- WFL Left- Flaccid ADL-Treatment Eating (QC): 4 (Observed pt. drink water and take pills. No issues noted. However, did not observe food.) Oral Hygiene (QC): 88 Shower/Bathe Self (QC): 2 (Pt. able to wash upper body with assist for under arms. Required assist to wash left foot and rear ryder area while seated on shower chair.) Upper Body Dressing (QC): 2 (Hospital gown tied as shirt.) Lower Body Dressing (QC): 2 (Brief) On/Off Footwear (QC): 2 Toileting Hygiene (QC): 88 Other Treatments Pt. seen for co-treatment with PT due to need of skilled assistance x 2 for low endurance, poor strength and mobility, and decreased left sided awareness. PT focused on transfers/mobility, LE, while OT assessed UE and ADL skills. Pt. stood in parallel bars twice with max assist, and ambulated with max assist of one, and min assist of another and wheelchair follow. Pt. taken to therapy shower room and showered with max assist for sit-stand at bar with chair replacement. Noted pt. has some difficulty attending to left side without cues. Difficulty tracking to left with cues. Taken to room and transferred to bed with max assist. Sit-stand with mod assist. All needs met. Education OT Patient Education: Correct positioning, Modified ADL techniques, Progress toward Goal/Update tx plan, Purpose of tx/functional activities, Reviewed precautions, Rehab process, Transfer techniques Teaching Recipient: Patient Teaching Methods: Demonstration, Discussion Response to Teaching: Verbalize Understanding, Return Demonstration, Reinforcement Needed OT Short Term Goals Short Term Goals Time Frame: Jan 04, 2021 Eatin Oral hygiene: 4 Toileting hygiene: 3 Shower/bathe self: 3 Upper body dressin Lower body dressin Putting on/taking off footwear: 3 OT Half-Way Goals Half-Way Goals Time Frame: Jan 11, 2021 Eating (QC): 6 Oral Hygiene (QC): 5 Toileting Hygiene (QC): 5 Shower/Bathe Self (QC): 4 Upper Body Dressing (QC): 5 Lower Body Dressing (QC): 4 On/Off Footwear (QC): 5 Additional Goals: 1-Demonstrate ADL Tasks, 2-Verbalize Understanding, 3- ImproveStrength/[place] 1=Demonstrate adherence to instructed precautions during ADL tasks. 2=Patient will verbalize/demonstrate understanding of assistive devices/mod ifications for ADL. 3=Patient will improve strength/tolerance for activity to enable patient to perform ADL's. OT Education/Plan Problem List/Assessment Assessment: Decreased Activ Tolerance, Decreased UE Strength, Dependent Transfers, Impaired Bed Mobility, Impaired Coordination, Impaired Funct Balance, Impaired I ADL's, Impaired Self-Care Skills, Restricted Funct UE ROM, Visual- Perceptual Deficit Discharge Recommendations Plan/Recommendations: Continue POC Therapy Discharge Recommendati: Post Acute OT Treatment Plan/Plan of Care Treatment,Training & Education: Yes Patient would benefit from OT for education, treatment and training to promote independence in ADL's, mobility, safety and/or upper extremity function for ADL's. Plan of Care: ADL Retraining, Functional Mobility, UE Funct Exercise/Act, UE Neuromus Re-Ed/Coord, Visual/Perceptual Retrain Treatment Duration: Jan 11, 2021 Frequency: At least 5 of 7 days/Wk (IRF) Estimated Hrs Per Day: 1.5 hours per day Agreement: Yes Rehab Potential: Good Time/GCodes Start Time: 08:15 Stop Time: 09:15 Total Time Billed (hr/min): 60 Billed Treatment Time 1, EVH x 10minutes, ADL x 50minutes [id number]- OT eval [id number]- Co-treatment with PT SHERRY HAYS OT Dec 21, 2020 09:28
--- NOTE | 2020-12-21 09:39 | PM&R Progress Note ---
Subjective HPI/CC On Admission Date Seen by Provider: Dec 21, 2020 Time Seen by Provider: 09:00 Subjective/Events-last exam 12/21/2020: Patient doing pretty well Sleeping currently Was tearful a little bit today Bowels moved 2 days ago laxatives given Tums will be given on a regular basis so started Protonix in the morning and Pepcid at night Review of Systems General: Fatigue, Malaise Neurological: Weakness, Incoordination Objective Exam Vital Signs Vital Signs Date Time Temp Pulse Resp B/P (MAP) Pulse Ox O2 Delivery O2 Flow Rate FiO2 12/21/20 20:00 36.2 90 16 125/76 (92) 96 Room Air Capillary Refill : General Appearance: No Apparent Distress, WD/WN, Chronically ill, Thin HEENT: PERRL/EOMI, Normal ENT Inspection, Pharynx Normal Neck: Full Range of Motion, Normal Inspection, Non Tender, Supple, Carotid Bruit Respiratory: Chest Non Tender, Lungs Clear, Normal Breath Sounds, No Accessory Muscle Use, No Respiratory Distress Cardiovascular: Regular Rate, Rhythm, No Edema, No Gallop, No JVD, No Murmur, Normal Peripheral Pulses Gastrointestinal: Normal Bowel Sounds, No Organomegaly, No Pulsatile Mass, Non Tender, Soft Back: Normal Inspection, No CVA Tenderness, No Vertebral Tenderness Extremity: Normal Capillary Refill, Normal Inspection, Normal Range of Motion (Except left side weakness 2/5), Non Tender, No Calf Tenderness, No Pedal Edema Neurologic/Psychiatric: Alert, Oriented x3, No Motor/Sensory Deficits, Abnormal Gait, Depressed Affect, Motor Weakness (Left side weakness) Skin: Normal Color, Warm/Dry Lymphatic: No Adenopathy Results/Procedures Lab Laboratory Tests 12/21/20 06:29 Patient resulted labs reviewed. FIM Transfers Therapy Code Descriptions/Definitions Functional [place] Measure: 0=Not Assessed/NA 4=Minimal Assistance 1=Total Assistance 5=Supervision or Setup 2=Maximal Assistance 6=Modified [place] 3=Moderate Assistance 7=Complete IndependenceSCALE: Activities may be completed with or without assistive devices. 7-Jpccmmtysz-zbzqdpm completes the activity by him/herself with no assistance from a helper. 5-Set-up or Clean-up Assistance-helper sets up or cleans up; patient completes activity. [place] assists only prior to or following the activity. 4-Supervision or Touching Assistance-helper provides verbal cues and/or touching/steadying and/or contact guard assistance as patient completes activity. Assistance may be provided throughout the activity or intermittently. 3-Partial/Moderate Assistance-helper does LESS THAN HALF the effort. [place] lifts, holds or supports trunk or limbs, but provides less than half the effort. 2-Substantial/Maximal Assistance-helper does MORE THAN HALF the effort. [place] lifts or holds trunk or limbs and provides more than half the effort. 4-Ohzunikxh-nvbnbj does ALL the effort. Patient does none of the effort to complete the activity. Or, the assistance of 2 or more helpers is required for the patient to complete the activity. If activity was not attempted, code reason: 7-Patient Refused. 9-Not Applicable-not attempted and the patient did not perform the activity before the current illness, exacerbation or injury. 10-Not Attempted due to Environmental Limitations-(lack of equipment, weather restraints, etc.). 88-Not Attempted due to Medical Conditions or Safety Concerns. ADL-Treatment Eating (QC): 4 (Observed pt. drink water and take pills. No issues noted. However, did not observe food.) Oral Hygiene (QC): 88 Shower/Bathe Self (QC): 2 (Pt. able to wash upper body with assist for under arms. Required assist to wash left foot and rear ryder area while seated on shower chair.) Upper Body Dressing (QC): 2 (Hospital gown tied as shirt.) Lower Body Dressing (QC): 2 (Brief) On/Off Footwear (QC): 2 Toileting Hygiene (QC): 88 Assessment/Plan Assessment and Plan Assess & Plan/Chief Complaint Assessment: CVA with left-sided weakness Current smoker Hypertension Diabetes insulin requiring CAD Hypertension GERD Plan: Monitor closely Insulin Nicotine patch Inpatient rehab protocol 12/21/2020: Monitor blood pressure GERD treatment Aggressive treatment for left-sided weakness (1) Cerebrovascular accident due to cerebral artery occlusion Status: Acute (2) Diabetes (3) Smoker (4) Hypertension (5) CAD (coronary artery disease) (6) Left-sided weakness (7) Dysarthria (8) Non-compliance Status: Acute BOYD MICHAELS DO Dec 21, 2020 09:39
[2020-12-21] MEDS ORDERED: PANTOPRAZOLE 40 MG (PROTONIX) TAB PO ONE (09:45)
--- NOTE | 2020-12-21 09:59 | Physical Therapy Evaluation ---
PT Evaluation-General Medical Diagnosis Admission Date Dec 20, 2020 at 16:27 Medical Diagnosis: CVA with left hemiparesis Onset Date: Dec 14, 2020 Therapy Diagnosis Therapy Diagnosis: impaired mobility, strength, endurance, balance Height/Weight Height (Feet): 6 Height (Inches): 2 Weight (Pounds): 210 Weight (Ounces): 0.0 Precautions Precautions/Isolations: Fall Prevention, Standard Precautions Referral Physician: Leah Boone DO Reason for Referral: Evaluation/Treatment Medical History Pertinent Medical History: Arthritis, COPD, HTN Reviewed History: Yes Social History Home: Single Level Current Living Status: Spouse Entry Into Home: Stairs Without Railing PT Steps Into Home: 1 Prior Prior Level of Function SCALE: Activities may be completed with or without assistive devices. 2-Orqmnhcdvq-kcecgiu completes the activity by him/herself with no assistance from a helper. 5-Set-up or Clean-up Assistance-helper sets up or cleans up; patient completes activity. [place] assists only prior to or following the activity. 4-Supervision or Touching Assistance-helper provides verbal cues and/or touching/steadying and/or contact guard assistance as patient completes activity. Assistance may be provided throughout the activity or intermittently. 3-Partial/Moderate Assistance-helper does LESS THAN HALF the effort. [place] lifts, holds or supports trunk or limbs, but provides less than half the effort. 2-Substantial/Maximal Assistance-helper does MORE THAN HALF the effort. [place] lifts or holds trunk or limbs and provides more than half the effort. 0-Yijdhwamh-xqmzbk does ALL the effort. Patient does none of the effort to complete the activity. Or, the assistance of 2 or more helpers is required for the patient to complete the activity. If activity was not attempted, code reason: 7-Patient Refused. 9-Not Applicable-not attempted and the patient did not perform the activity before the current illness, exacerbation or injury. 10-Not Attempted due to Environmental Limitations-(lack of equipment, weather restraints, etc.). 88-Not Attempted due to Medical Conditions or Safety Concerns. Bed Mobility: 6 Transfers (B,C,W/C): 6 Gait: 6 Stairs: 6 Indoor Mobility (Ambulation): Independent Stairs: Independent PT Evaluation-Current Subjective Patient in bed pre tx, agrees to PT has4-5/10 pain in left side hip and back. Will be co-treating with OT for part of tx due to poor patient mobility, strength, endurance, balance, left hemiparesis, coordinate UE and LE during activity, safety and reduce risk of falls. Pt/Family Goals to be independent at home Objective Patient Orientation: Normal For Age ROM/Strength ROM Lower Extremities WNL Strength Lower Extremities RLE 5/5 grossly, LLE (hip flexion 1/5, knee flexion 0/5, knee extension 1/5, dorsiflexion 0/5) Neuromuscular (Tone, Coordination, Reflexes) Patient appears to have intact peripheral vision but has difficulty with tracking on both sides. Sensory Vision: Wears Glasses Hearing: Functional Hand Dominance: Right Sensation Right Lower Extremit: Intact Sensation Left Lower Extremity: Impaired Transfers Roll Left & Right (QC): 4 Sit to Lying (QC): 3 Lying to Sitting/Side of Bed(Q: 3 Sit to Stand (QC): 3 Chair/Sea-oh-Ulvli Xfer(QC): 3 Toilet Transfer (QC): 3 Car Transfer (QC): 3 Patient performs bed mobility with SBA, supine <-> sit min assist, sit <-> stand min assist, transfers min/mod assist, car transfer mod assist. Patient needs cues for safety and positioning, he can be impulsive. Gait Does the Patient Walk?: Yes Mode of Locomotion: Both Anticipated Mode of Locomotion: Both Walk 10 feet (QC): 88 Walk 50 ft with 2 Turns(QC): 88 Walk 150 ft (QC): 88 Walking 10ft/uneven surface-QC: 88 Distance: 6'x2 Gait Assistive Device: Parallel Bars Comments/Gait Description Patient can ambulate 6' in the parallel bars with mod assist. He needs his left knee blocked to prevent buckling and needs assist advancing his left leg. Patient would benefit from a left knee immobilizer and AFO Wheelchair Training Does the Pt Use a Wheelchair?: Yes Distance: 150'x2 Wheel 50 ft with 2 turns (QC): 3 Wheel 150 ft (QC): 3 Type of Wheelchair: Manual Patient needs occasional assist through doorways and around obstacles. Stairs 1 Step (curb) (QC): 88 4 Steps (QC): 88 12 Steps (QC): 88 Balance Sitting Static: Fair Sitting Dynamic: Fair Standing Static: Poor Standing Dynamic: Poor Picking up an Object (QC): 88 Treatment PT performed bed mobility and transfers, ambulation, WC mobiltiy, balance and safety during dressing and bathing, OT performed bathing and dressing, UE positioning and safety during activity. Assessment/Needs Patient has impaired mobility, strength, endurance, balance. Patient in room with OT to continue for a bit for ADL's. Patient needs min to mod assist for transfers and he can be impulsive. Patient has possible neglect, its hard to tell, tracking is poor. Rehab Potential: Fair PT Short Term Goals Short Term Goals Time Frame: Dec 28, 2020 Roll Left & Right: 6 Sit to lyin Lying to sitting on side of be: 4 Sit to stand: 4 Chair/hxm-ja-cesds transfer: 4 Walk 10 feet: 3 PT Automotive Service Assistant Goals Shelter Goals PT Automotive Service Assistant Goals Time Frame: Jan 11, 2021 Roll Left & Right (QC): 6 Sit to Lying (QC): 6 Lying-Sitting on Side/Bed(QC): 6 Sit to Stand (QC): 5 Chair/Wof-gm-Xejum Xfer(QC): 5 Toilet Transfer (QC): 5 Car Transfer (QC): 5 Does the Patient Walk: Yes Walk 10 feet (QC): 4 Walk 50ft with 2 Turns (QC): 4 Walk 150 ft (QC): 88 Walking 10ft on Uneven Surface: 4 1 Step (curb) (QC): 3 4 Steps (QC): 88 12 Steps (QC): 88 Picking up an Object (QC): 88 Wheel 50 feet with 2 turns (QC: 6 Wheel 150 feet: 6 PT Plan Problem List Problem List: Activity Tolerance, Functional Strength, Safety, Balance, Gait, Transfer, Bed Mobility, ROM Treatment/Plan Treatment Plan: Continue Plan of Care Treatment Plan: Bed Mobility, Education, Functional Activity Simba, Functional Strength, Group Therapy, Gait, Safety, Therapeutic Exercise, Transfers Treatment Duration: Jan 11, 2021 Frequency: At least 5 of 7 days/Wk (IRF) Estimated Hrs Per Day: 1.5 hours per day Patient and/or Family Agrees t: Yes Safety Risks/Education Patient Education: Gait Training, Transfer Techniques, Correct Positioning, W/C Management, Safety Issues Teaching Recipient: Patient Teaching Methods: Demonstration, Discussion Response to Teaching: Reinforcement Needed Discharge Recommendations Plan Patient will perform bed mobility and transfer training, balance and endurance training, functional strengthening, stair training, gait training, and education, to improve functional mobility and independence at home. Therapy Discharge Recommendati: Scheduled Assistance, Home & Family, Post Acute PT Time/GCodes Time In: 799 Time Out: 899 Total Billed Treatment Time: 50 Total Billed Treatment 1 visit EVM 15' FA 35' PT eval from [id number], OT eval from [id number], co-treat from [id number] GABRIELLE LALA PT Dec 21, 2020 09:59
--- NOTE | 2020-12-21 13:58 | Physical Therapy Daily Note ---
PT Daily Note-Current Subjective Patient in bed pre tx, agrees to PT, voiced no complaints of pain. Will be co- treating with OT due to poor patient mobility, strength, endurance, left hemiparesis, coordinate UE and LE during activity, safety and reduce risk of falls. Patient needs repositioned in order to help him finish his food, he can also sit on the side of the bed and finish it as well as work on sitting balance. Appearance Patient in WC at bedside post tx with nurse call, phone, tray, all needs met, instructed to call nurse if he needs to get back to bed. Mental Status Patient Orientation: Person, Place, Situation Transfers SCALE: Activities may be completed with or without assistive devices. 0-Nyqykhzypt-sdiqeug completes the activity by him/herself with no assistance from a helper. 5-Set-up or Clean-up Assistance-helper sets up or cleans up; patient completes activity. [place] assists only prior to or following the activity. 4-Supervision or Touching Assistance-helper provides verbal cues and/or cj maryanne/steadying and/or contact guard assistance as patient completes activity. Assistance may be provided throughout the activity or intermittently. 3-Partial/Moderate Assistance-helper does LESS THAN HALF the effort. [place] lifts, holds or supports trunk or limbs, but provides less than half the effort. 2-Substantial/Maximal Assistance-helper does MORE THAN HALF the effort. [place] lifts or holds trunk or limbs and provides more than half the effort. 9-Fjqxhgxdh-egzxcr does ALL the effort. Patient does none of the effort to complete the activity. Or, the assistance of 2 or more helpers is required for the patient to complete the activity. If activity was not attempted, code reason: 7-Patient Refused. 9-Not Applicable-not attempted and the patient did not perform the activity before the current illness, exacerbation or injury. 10-Not Attempted due to Environmental Limitations-(lack of equipment, weather restraints, etc.). 88-Not Attempted due to Medical Conditions or Safety Concerns. Lying to Sitting/Side of Bed(Q: 3 Sit to Stand (QC): 3 Chair/Ffr-ng-Brjxy Xfer(QC): 3 Wheelchair Training Does the Pt Use a Wheelchair?: Yes Wheel 50 ft with 2 turns (QC): 3 Wheel 150 ft (QC): 3 Type of Wheelchair: Manual 400'x2, min assist through doorways and around obstacles, patient tends to veer to the left side and needs cues to get back to the center of the hallway. Exercises standing x2 working on maintaining balance and therapist assist with left knee buckling Treatments PT worked on bed mobility and transfers, sitting balance, standing balance, WC mobility, OT worked on UE positioning and safety during activity Assessment Current Status: Fair Progress it seems more evident that patient has some left neglect PT Short Term Goals Short Term Goals Time Frame: Dec 28, 2020 Roll Left & Right: 6 Sit to lyin Lying to sitting on side of be: 4 Sit to stand: 4 Chair/jpp-uf-cqvoc transfer: 4 Walk 10 feet: 3 PT Custodial Goals Golf Player Assistant Goals PT Custodial Goals Time Frame: Jan 11, 2021 Roll Left & Right (QC): 6 Sit to Lying (QC): 6 Lying-Sitting on Side/Bed(QC): 6 Sit to Stand (QC): 5 Chair/Lrk-cm-Ahbvk Xfer(QC): 5 Toilet Transfer (QC): 5 Car Transfer (QC): 5 Does the Patient Walk: Yes Walk 10 feet (QC): 4 Walk 50ft with 2 Turns (QC): 4 Walk 150 ft (QC): 88 Walking 10ft on Uneven Surface: 4 1 Step (curb) (QC): 3 4 Steps (QC): 88 12 Steps (QC): 88 Picking up an Object (QC): 88 Wheel 50 feet with 2 turns (QC: 6 Wheel 150 feet: 6 PT Plan Problem List Problem List: Activity Tolerance, Functional Strength, Safety, Balance, Gait, Transfer, Bed Mobility, ROM Treatment/Plan Treatment Plan: Continue Plan of Care Treatment Plan: Bed Mobility, Education, Functional Activity Simba, Functional Strength, Group Therapy, Gait, Safety, Therapeutic Exercise, Transfers Treatment Duration: Jan 11, 2021 Frequency: At least 5 of 7 days/Wk (IRF) Estimated Hrs Per Day: 1.5 hours per day Patient and/or Family Agrees t: Yes Safety Risks/Education Patient Education: Transfer Techniques, Correct Positioning, W/C Management, Safety Issues Teaching Recipient: Patient Teaching Methods: Demonstration, Discussion Response to Teaching: Reinforcement Needed Time/GCodes Time In: 1300 Time Out: 1400 Total Billed Treatment Time: 60 Total Billed Treatment 1 visit FA 60' co-treated for 60' GABRIELLE LALA PT Dec 21, 2020 13:58
--- NOTE | 2020-12-21 14:10 | Occupational Ther Daily Note ---
OT Current Status-Daily Note Subjective No pain reported. Mental Status/Objective Patient Orientation: Person, Place ADL-Treatment Therapy Code Descriptions/Definitions Functional [place] Measure: 0=Not Assessed/NA 4=Minimal Assistance 1=Total Assistance 5=Supervision or Setup 2=Maximal Assistance 6=Modified [place] 3=Moderate Assistance 7=Complete IndependenceSCALE: Activities may be completed with or without assistive devices. 2-Wlmnaewdvl-oepsavm completes the activity by him/herself with no assistance from a helper. 5-Set-up or Clean-up Assistance-helper sets up or cleans up; patient completes activity. [place] assists only prior to or following the activity. 4-Supervision or Touching Assistance-helper provides verbal cues and/or touching/steadying and/or contact guard assistance as patient completes activity. Assistance may be provided throughout the activity or intermittently. 3-Partial/Moderate Assistance-helper does LESS THAN HALF the effort. [place] lifts, holds or supports trunk or limbs, but provides less than half the effort. 2-Substantial/Maximal Assistance-helper does MORE THAN HALF the effort. [place] lifts or holds trunk or limbs and provides more than half the effort. 4-Fuwgqukqq-xslzyc does ALL the effort. Patient does none of the effort to complete the activity. Or, the assistance of 2 or more helpers is required for the patient to complete the activity. If activity was not attempted, code reason: 7-Patient Refused. 9-Not Applicable-not attempted and the patient did not perform the activity before the current illness, exacerbation or injury. 10-Not Attempted due to Environmental Limitations-(lack of equipment, weather restraints, etc.). 88-Not Attempted due to Medical Conditions or Safety Concerns. Eating (QC): 5 (Set up and increased time to feed self.) On/Off Footwear: 2 Other Treatment Pt. seen this date for OT/PT co-treatment due to need of skilled assistance x 2. OT facilitated weight shifts and UE positioning in stance while PT focused on LE positioning and education for correct posture when standing. Pt. transferred to wheelchair and taken outside. Stood at wall with min x 2, with arm sling on for best positioning. Noted increased left sided neglect with functional task. Worked on left sided awareness and wheelchair propulsion. Pt. up in wheelchair at end of treatment. All needs met. Education OT Patient Education: Correct positioning, Modified ADL techniques, Progress toward Goal/Update tx plan, Purpose of tx/functional activities, Reviewed precautions, Rehab process, Transfer techniques Teaching Recipient: Patient Teaching Methods: Demonstration, Discussion Response to Teaching: Verbalize Understanding, Return Demonstration OT Short Term Goals Short Term Goals Time Frame: Jan 04, 2021 Eatin Oral hygiene: 4 Toileting hygiene: 3 Shower/bathe self: 3 Upper body dressin Lower body dressin Putting on/taking off footwear: 3 OT Benefits Representative Goals Benefits Representative Goals Time Frame: Jan 11, 2021 Eating (QC): 6 Oral Hygiene (QC): 5 Toileting Hygiene (QC): 5 Shower/Bathe Self (QC): 4 Upper Body Dressing (QC): 5 Lower Body Dressing (QC): 4 On/Off Footwear (QC): 5 Additional Goals: 1-Demonstrate ADL Tasks, 2-Verbalize Understanding, 3- ImproveStrength/Simba 1=Demonstrate adherence to instructed precautions during ADL tasks. 2=Patient will verbalize/demonstrate understanding of assistive devices/modifications for ADL. 3=Patient will improve strength/tolerance for activity to enable patient to perform ADL's. OT Education/Plan Problem List/Assessment Assessment: Decreased Activ Tolerance, Decreased UE Strength, Dependent Transfers, Impaired Funct Balance, Impaired I ADL's, Impaired Self-Care Skills, Restricted Funct UE ROM, Visual-Perceptual Deficit Discharge Recommendations Plan/Recommendations: Continue POC Treatment Plan/Plan of Care Treatment,Training & Education: Yes Patient would benefit from OT for education, treatment and training to promote independence in ADL's, mobility, safety and/or upper extremity function for ADL's. Plan of Care: ADL Retraining, Functional Mobility, UE Funct Exercise/Act, UE Neuromus Re-Ed/Coord, Visual/Perceptual Retrain Treatment Duration: Jan 11, 2021 Frequency: At least 5 of 7 days/Wk (IRF) Estimated Hrs Per Day: 1.5 hours per day Agreement: Yes Rehab Potential: Fair Time/GCodes Start Time: 13:00 Stop Time: 14:00 Total Time Billed (hr/min): 60 Billed Treatment Time 1, FA x 4 SHERRY HAYS OT Dec 21, 2020 14:10
[2020-12-21] MEDS: FAMOTIDINE 20 MG (PEPCID) TABLET PO SCH (19:45)
[2020-12-21] MEDS: HYDROcodone/APAP 5 MG/325 MG (LORTAB) TAB PO PRN (19:45)
[2020-12-21 20:00] VITALS: BP 125/76
--- NOTE | 2020-12-21 20:59 | Individualized Plan of Care ---
Individualized Plan of Care Rehab Nursing IPOC Order Admission Date Dec 20, 2020 at 16:27 Current Orders Orders Admission Order(Inpt,Obs,Sdc) (12/20/20 13:33) Vital Signs: Per Unit Policy ( 16,00 (12/20/20 13:33) Matt [place] (12/20/20 13:33) Sequential Compression Device .admit (12/20/20 13:33) Cabin Agent-Inpt Rehab Con (12/20/20 13:33) Rehab Nursing Orders-Ipoc (12/20/20 13:33) Physical Therapy Rehab Orders (12/20/20 13:33) Occupational Therapy Rehab Ord (12/20/20 13:33) Speech Therapy Rehab Orders (12/20/20 13:33) Cbc With Automated Diff (12/21/20 06:00) Comprehensive Metabolic Panel (12/21/20 06:00) Precautions (Aru) (12/20/20 13:33) Rehab-Intensity Of Therapy (12/20/20 13:33) Initiate Admission Nursing Pro .admission (12/20/20 13:33) Acetaminophen Tablet/Caplet (Tylenol T (12/20/20 13:45) Alprazolam Tablet (Xanax Tablet) (12/20/20 13:45) Calcium Carbonate Chew Tablet (Antacid C (12/20/20 13:45) Diphenhydramine Tablet (Benadryl Tablet) (12/20/20 13:45) Docusate Sodium Capsule (Colace Capsule) (12/20/20 21:00) Docusate Sodium Capsule (Colace Capsule) (12/20/20 13:45) Bisacodyl Suppository (Dulcolax Supposit (12/20/20 13:45) Lactulose Oral Solution (Enulose Oral So (12/20/20 13:45) Na Phos/Na Biphos Enema (Fleet Enema Lionel (12/20/20 13:45) Guaifenesin/Codeine Syrup (Robitussin Ac (12/20/20 13:45) Hydrocodone/Apap 5/325 Tablet (Lortab 5 (12/20/20 13:45) Loperamide Tablet (Imodium Tablet) (12/20/20 13:45) Melatonin Tablet (Melatonin Tablet) (12/20/20 13:45) Polyethylene Glycol Powder Pkt (Miralax (12/20/20 21:00) Ondansetron Oral Dissolve Tab (Zofran (12/20/20 13:45) Senna S Tablet (Senokot S Tablet) (12/20/20 21:00) Tramadol Tablet (Ultram Tablet) (12/20/20 13:45) Initiate Admission Nursing Pro .admission (12/20/20 13:33) Admission Arrival Bed Request (12/20/20 16:27) Aspirin Chewable Tablet (Baby Aspirin Ch (12/21/20 09:00) Atorvastatin Tablet (Lipitor) (12/20/20 21:00) Metoprolol Succinate (Xl) Tab (Toprol Xl (12/21/20 09:00) (Nf) Insulin Aspart (Novolog Flexpen) (12/20/20 18:00) (Nf) Insulin Glargine,Hum.Rec.Anlog (Guilherme (12/20/20 21:00) Cho 90g/M 0snack (25-2900 Lucien) (12/20/20 Dinner) Accucheck Achs ACHS (12/20/20 17:13) Insulin Aspart (Novolog) (Novolog (Charg (12/20/20 21:00) Insulin Aspart (Novolog) (Novolog (Charg (12/20/20 18:00) Insulin Determir (Per Unit) (Levemir (Pe (12/20/20 21:00) Nicotine Patch (Nicoderm Patch) (12/21/20 09:00) Nicotine Patch (Nicoderm Patch) (12/20/20 18:15) Patch Removal (Patch Removal) (12/21/20 08:59) Hemoglobin A1c (12/21/20 06:17) Pantoprazole Tablet (Protonix Tablet) (12/21/20 09:45) Pantoprazole Tablet (Protonix Tablet) (12/22/20 09:00) Famotidine Tablet (Pepcid Tablet) (12/21/20 21:00) Patient Visit (12/21/20 ) Pt Eval Moderate Complexity (12/21/20 ) Functional Activities, Ea 15 (12/21/20 ) Rehab Nursing Orders: Ongoing Assess. of Cognitive Status, Ongoing Assess. of Function Status, Bladder Management, Bladder Scan, Bladder Training, Bowel Management, Bowel Training, Disease Management & Educaiton, DVT Prophylaxis, Fall Prevention, Fluid/Electrolyte/Nutrition Mgmt, Infection Prevention, Medication Management & Education, Management of Risks & Complications, Management of Skin Intergrity, Nutrition Management, Pain Management, Patient/Family Support, Safety Management Intensity of Therapy to be met Patient to be seen: Min.3h per day/5 of 7d PT IPOC Problem List: Activity Tolerance, Functional Strength, Safety, Balance, Gait, Transfer, Bed Mobility, ROM Treatment Plan: Continue Plan of Care Bed Mobility, Education, Functional Activity Simba, Functional Strength, Group Therapy, Gait, Safety, Therapeutic Exercise, Transfers Treatment Duration: Jan 11, 2021 Frequency: At least 5 of 7 days/Wk (IRF) Estimated Hrs Per Day: 1.5 hours per day OT IPOC Problems: Decreased Activ Tolerance, Decreased UE Strength, Dependent Transfers, Impaired Funct Balance, Impaired I ADL's, Impaired Self-Care Skills, Restricted Funct UE ROM, Visual-Perceptual Deficit OT Treatment, Training and Edu: Yes Plan of Care: ADL Retraining, Functional Mobility, UE Funct Exercise/Act, UE Neuromus Re-Ed/Coord, Visual/Perceptual Retrain Treatment Duration: Jan 11, 2021 Frequency: At least 5 of 7 days/Wk (IRF) Estimated Hrs Per Day: 1.[address] IPOC Speech Therapy Treatment Plan: Discontinue ST Treatment Duration: Dec 21, 2020 Frequency: Modified Program (IRF) Estimated Hrs Per Day: Other Cabin Agent/Case Mgmt Cabin Agent/Case Managemen: Discharge Planning Dietitian/Hand Umbrella Tipper Dietitian/Hand Umbrella Tipper to monitor nutritional status and make changes and/or recommendations as needed and work with speech pathology on dietary upgrades as the occur. Physician IPOC Medical Issues being managed closely and that require the 24 hour availability of a physician: Recent stroke with cardiac dysfunction will require close monitoring for extension of the stroke and further decompensation Medical Issues: Bowel/Bladder Function, DVT Prophylaxis, Falls Precautions, Fluid/Electrolyte/Nutrition Balance, Infection Protection, Pain Management Brief Synthesis of Preadmission Screen, Post-Admission Evaluation, and Therapy Evaluations: PT and OT will focus on regaining function of the left sided weakness with the use of assistive devices and increasing ADL independence in order to return to independent living with his at home Medical Prognosis: Fair Anticipated Length of Stay: 14 days BOYD MICHAELS DO Dec 21, 2020 20:59
[2020-12-22] MEDS: inSUlin ASPART (NovoLOG) 1 UNIT/0.01 ML (CHARGE PER UNIT) SC SCH ×7 (06:09→21:08)
[2020-12-22 07:37] VITALS: BP 142/93
[2020-12-22] MEDS: polyethylene glycoL POWDER 17 GM (MIRALAX) PACK PO SCH ×2 (08:07→21:11)
[2020-12-22] MEDS: SENNA W/DOCUSATE (SENOKOT S) TABLET PO SCH ×2 (08:08→21:08)
[2020-12-22] MEDS: ASPIRIN 81 MG CHEW (CHILDREN'S ASA) PO SCH (08:08)
[2020-12-22] MEDS: PANTOPRAZOLE 40 MG (PROTONIX) TAB PO SCH (08:08)
[2020-12-22] MEDS: DOCUSATE SODIUM 100 MG (COLACE) CAP PO SCH ×2 (08:08→21:08)
[2020-12-22] MEDS: NICOTINE 21 MG (NICODERM) PATCH TD SCH (08:08)
[2020-12-22] MEDS: NICOTINE PATCH REMOVAL TP SCH (08:08)
[2020-12-22] MEDS: ALPRAZolam 0.25 MG (XANAX) TAB PO PRN (08:09)
--- NOTE | 2020-12-22 09:45 | PM&R Progress Note ---
Subjective HPI/CC On Admission Date Seen by Provider: Dec 22, 2020 Time Seen by Provider: 10:00 Subjective/Events-last exam 12/22/2020: Pt is doing okay today He is very cranky He would like to go smoke Last bowel movement was three days ago, pt was given laxatives Pt had a fall in the rehab unit He wants to go home so badly, but he needs to stay to recover 12/21/2020: Patient doing pretty well Sleeping currently Was tearful a little bit today Bowels moved 2 days ago laxatives given Tums will be given on a regular basis so started Protonix in the morning and Pepcid at night Review of Systems General: Fatigue, Malaise Neurological: Weakness, Incoordination Objective Exam Vital Signs Vital Signs Date Time Temp Pulse Resp B/P (MAP) Pulse Ox O2 Delivery O2 Flow Rate FiO2 12/22/20 20:00 Room Air 12/22/20 20:00 36.1 88 20 130/78 (95) 96 Capillary Refill : General Appearance: No Apparent Distress, WD/WN, Chronically ill, Thin HEENT: PERRL/EOMI, Normal ENT Inspection, Pharynx Normal Neck: Full Range of Motion, Normal Inspection, Non Tender, Supple, Carotid Bruit Respiratory: Chest Non Tender, Lungs Clear, Normal Breath Sounds, No Accessory Muscle Use, No Respiratory Distress Cardiovascular: Regular Rate, Rhythm, No Edema, No Gallop, No JVD, No Murmur, Normal Peripheral Pulses Gastrointestinal: Normal Bowel Sounds, No Organomegaly, No Pulsatile Mass, Non Tender, Soft Back: Normal Inspection, No CVA Tenderness, No Vertebral Tenderness Extremity: Normal Capillary Refill, Normal Inspection, Normal Range of Motion (Except left side weakness 2/5), Non Tender, No Calf Tenderness, No Pedal Edema Neurologic/Psychiatric: Alert, Oriented x3, No Motor/Sensory Deficits, Abnormal Gait, Depressed Affect, Motor Weakness (Left side weakness) Skin: Normal Color, Warm/Dry Lymphatic: No Adenopathy Results/Procedures Lab Patient resulted labs reviewed. FIM Transfers Therapy Code Descriptions/Definitions Functional [place] Measure: 0=Not Assessed/NA 4=Minimal Assistance 1=Total Assistance 5=Supervision or Setup 2=Maximal Assistance 6=Modified [place] 3=Moderate Assistance 7=Complete IndependenceSCALE: Activities may be completed with or without assistive devices. 1-Muoouqtocz-nmyytpt completes the activity by him/herself with no assistance from a helper. 5-Set-up or Clean-up Assistance-helper sets up or cleans up; patient completes activity. [place] assists only prior to or following the activity. 4-Supervision or Touching Assistance-helper provides verbal cues and/or touching/steadying and/or contact guard assistance as patient completes activity. Assistance may be provided throughout the activity or intermittently. 3-Partial/Moderate Assistance-helper does LESS THAN HALF the effort. [place] lifts, holds or supports trunk or limbs, but provides less than half the effort. 2-Substantial/Maximal Assistance-helper does MORE THAN HALF the effort. [place] lifts or holds trunk or limbs and provides more than half the effort. 5-Qtknykwwy-ijjkxf does ALL the effort. Patient does none of the effort to complete the activity. Or, the assistance of 2 or more helpers is required for the patient to complete the activity. If activity was not attempted, code reason: 7-Patient Refused. 9-Not Applicable-not attempted and the patient did not perform the activity before the current illness, exacerbation or injury. 10-Not Attempted due to Environmental Limitations-(lack of equipment, weather restraints, etc.). 88-Not Attempted due to Medical Conditions or Safety Concerns. Roll Left to Right (QC): 4 Sit to Lying (QC): 3 Sit to Stand (QC): 3 Chair/Urh-ig-Lxzwu Xfer(QC): 3 Car Transfer (QC): 3 Gait Training Does the Patient Walk?: Yes Walk 10 feet (QC): 88 Walk 50 ft with 2 Turns(QC): 88 Walk 150 ft (QC): 88 Walking 10ft/uneven surface-QC: 88 Gait Assistive Device: Parallel Bars Wheelchair Training Does the Pt Use a Wheelchair?: Yes Distance: 150'x2 Wheel 50 ft with 2 turns (QC): 3 Wheel 150 ft (QC): 3 Type of Wheelchair: Manual Stair Training 1 Step (curb) (QC): 88 4 Steps (QC): 88 12 Steps (QC): 88 Balance Picking up an Object (QC): 88 ADL-Treatment Eating (QC): 5 (Set up and increased time to feed self.) Oral Hygiene (QC): 88 Shower/Bathe Self (QC): 2 (Pt. able to wash upper body with assist for under arms. Required assist to wash left foot and rear ryder area while seated on shower chair.) Upper Body Dressing (QC): 2 (Hospital gown tied as shirt.) Lower Body Dressing (QC): 2 (Brief) On/Off Footwear (QC): 2 Toileting Hygiene (QC): 88 Assessment/Plan Assessment and Plan Assess & Plan/Chief Complaint Assessment: CVA with left-sided weakness Current smoker Hypertension Diabetes insulin requiring CAD Hypertension GERD Plan: Monitor closely Insulin Nicotine patch Inpatient rehab protocol 12/21/2020: Monitor blood pressure GERD treatment Aggressive treatment for left-sided weakness 12/22/2020: Nicotine patch Xanax as needed for nicotine withdrawal Supportive care Fall risk (1) Cerebrovascular accident due to cerebral artery occlusion Status: Acute (2) Diabetes (3) Smoker (4) Hypertension (5) CAD (coronary artery disease) (6) Left-sided weakness (7) Dysarthria (8) Non-compliance Status: Acute BOYD MICHAELS DO Dec 22, 2020 09:45
--- NOTE | 2020-12-22 10:01 | Occupational Ther Daily Note ---
OT Current Status-Daily Note Subjective No pain reported. Pt. does state he feels nauseated at end of treatment after standing multiple times. Pt. requests to lay down in bed. Mental Status/Objective Patient Orientation: Person, Place ADL-Treatment Therapy Code Descriptions/Definitions Functional [place] Measure: 0=Not Assessed/NA 4=Minimal Assistance 1=Total Assistance 5=Supervision or Setup 2=Maximal Assistance 6=Modified [place] 3=Moderate Assistance 7=Complete IndependenceSCALE: Activities may be completed with or without assistive devices. 9-Mcyojhelue-ijzufsq completes the activity by him/herself with no assistance from a helper. 5-Set-up or Clean-up Assistance-helper sets up or cleans up; patient completes activity. [place] assists only prior to or following the activity. 4-Supervision or Touching Assistance-helper provides verbal cues and/or touching/steadying and/or contact guard assistance as patient completes activity. Assistance may be provided throughout the activity or intermittently. 3-Partial/Moderate Assistance-helper does LESS THAN HALF the effort. [place] lifts, holds or supports trunk or limbs, but provides less than half the effort. 2-Substantial/Maximal Assistance-helper does MORE THAN HALF the effort. [place] lifts or holds trunk or limbs and provides more than half the effort. 1-Lgymlijly-jrvpgk does ALL the effort. Patient does none of the effort to complete the activity. Or, the assistance of 2 or more helpers is required for the patient to complete the activity. If activity was not attempted, code reason: 7-Patient Refused. 9-Not Applicable-not attempted and the patient did not perform the activity before the current illness, exacerbation or injury. 10-Not Attempted due to Environmental Limitations-(lack of equipment, weather restraints, etc.). 88-Not Attempted due to Medical Conditions or Safety Concerns. Lower Body Dressing (QC): 1 (Pt. able to thread right LE, but requires assist to thread left. Max assist of one person to stand pt. while another person dons boxer shorts over hips.) On/Off Footwear: 1 (Pt. dependent for socks, shoes, AFO brace.) Other Treatment Pt. seen this date for partial co-treatment with PT/OT due to need of skilled assessment x 2. Pt. sitting on EOB with PT when OT entered room. PT working on transfers and mobility while OT assessed UE placement during transfers, as well as ADL skills. Pt. requires dependent assist for footwear. Pt. has on brief and it is taken off after he is standing. PT assists with sit-stand with mod/max assist for balance while OT tears off in stance. Dons boxer shorts over hips in standing. Pt. transfers to wheelchair and is taken to therapy gym. Practiced self propulsion with cues for left sided neglect. Pt. will often bump into items on left side. PT donned knee brace on left knee, and therapy worked on sit-restorer paper and prints parallel bars. Required mod/max x 2 due to brace. At first stands, OT had placed arm sling on left UE for better positioning in standing. However, at later time OT doffed sling and positioned hand onto bar to work on grasp and weight shifts during stance. Pt. able to stand approximately 3-4 times, 2-3 minutes each time. OT completes gentle PROM to left UE after PT leaves, and pt. reports feeling nauseated. Went to room and transferred to bed with mod assist. All needs met. Education OT Patient Education: Correct positioning, Modified ADL techniques, Progress toward Goal/Update tx plan, Purpose of tx/functional activities, Reviewed precautions, Rehab process, Transfer techniques Teaching Recipient: Patient Teaching Methods: Demonstration, Discussion Response to Teaching: Verbalize Understanding, Return Demonstration OT Short Term Goals Short Term Goals Time Frame: Jan 04, 2021 Eatin Oral hygiene: 4 Toileting hygiene: 3 Shower/bathe self: 3 Upper body dressin Lower body dressin Putting on/taking off footwear: 3 OT [facility] Goals Property Loss Insurance Claim Adjuster Goals Time Frame: Jan 11, 2021 Eating (QC): 6 Oral Hygiene (QC): 5 Toileting Hygiene (QC): 5 Shower/Bathe Self (QC): 4 Upper Body Dressing (QC): 5 Lower Body Dressing (QC): 4 On/Off Footwear (QC): 5 Additional Goals: 1-Demonstrate ADL Tasks, 2-Verbalize Understanding, 3- ImproveStrength/Simba 1=Demonstrate adherence to instructed precautions during ADL tasks. 2=Patient will verbalize/demonstrate understanding of assistive devices/modifications for ADL. 3=Patient will improve strength/tolerance for activity to enable patient to perform ADL's. OT Education/Plan Problem List/Assessment Assessment: Decreased Activ Tolerance, Decreased UE Strength, Dependent Transfers, Impaired Bed Mobility, Impaired Coordination, Impaired Funct Balance, Impaired I ADL's, Impaired Self-Care Skills, Restricted Funct UE ROM, Visual- Perceptual Deficit Discharge Recommendations Plan/Recommendations: Continue POC Therapy Discharge Recommendati: Post Acute OT Treatment Plan/Plan of Care Treatment,Training & Education: Yes Patient would benefit from OT for education, treatment and training to promote independence in ADL's, mobility, safety and/or upper extremity function for ADL's. Plan of Care: ADL Retraining, Functional Mobility, UE Funct Exercise/Act, UE Neuromus Re-Ed/Coord, Visual/Perceptual Retrain Treatment Duration: Jan 11, 2021 Frequency: At least 5 of 7 days/Wk (IRF) Estimated Hrs Per Day: 1.5 hours per day Agreement: Yes Rehab Potential: Fair Time/GCodes Start Time: 08:30 Stop Time: 09:30 Total Time Billed (hr/min): 60 Billed Treatment Time 1, FA x 60minutes - Co-treat with PT - no co treatment SHERRY HAYS OT Dec 22, 2020 10:01
--- NOTE | 2020-12-22 10:01 | Physical Therapy Daily Note ---
PT Daily Note-Current Subjective Pt. in bed, agrees to Rx. States he feels he is making progress, "but I still cant use that left arm" No pain c/o Pain Numeric Pain Scale: 0-No Pain Location: No Pain Reported Mental Status Patient Orientation: Normal For Age Attachments: Other-See Comments (AFO and knee immoblizer left knee, sling left arm) Transfers SCALE: Activities may be completed with or without assistive devices. 6-Ljkltiiiea-igvqrig completes the activity by him/herself with no assistance from a helper. 5-Set-up or Clean-up Assistance-helper sets up or cleans up; patient completes activity. [place] assists only prior to or following the activity. 4-Supervision or Touching Assistance-helper provides verbal cues and/or touching/steadying and/or contact guard assistance as patient completes activity. Assistance may be provided throughout the activity or intermittently. 3-Partial/Moderate Assistance-helper does LESS THAN HALF the effort. [place] lifts, holds or supports trunk or limbs, but provides less than half the effort. 2-Substantial/Maximal Assistance-helper does MORE THAN HALF the effort. [place] lifts or holds trunk or limbs and provides more than half the effort. 4-Dqbmzfiem-bwitqa does ALL the effort. Patient does none of the effort to complete the activity. Or, the assistance of 2 or more helpers is required for the patient to complete the activity. If activity was not attempted, code reason: 7-Patient Refused. 9-Not Applicable-not attempted and the patient did not perform the activity before the current illness, exacerbation or injury. 10-Not Attempted due to Environmental Limitations-(lack of equipment, weather restraints, etc.). 88-Not Attempted due to Medical Conditions or Safety Concerns. Roll Left & Right (QC): 6 Sit to Lying (QC): 3 Lying to Sitting/Side of Bed(Q: 3 Sit to Stand (QC): 3 Chair/Zis-zj-Ojjoz Xfer(QC): 3 mod assist 1-2 TRFs ,bed and chair Gait Training Does the Patient Walk?: Yes Gait Assistive Device: Parallel Bars 7 ft x 2 mod assist of 1-2, immoblizer to stabilize LLE knee, pt. requires max assist to advance LLE and to wt shift, w/c to fillow up . PT assist with LLE advance and step as OT directs and assist LUE in sling and stabilizes trunk Wheelchair Training Does the Pt Use a Wheelchair?: Yes Wheel 50 ft with 2 turns (QC): 5 Wheel 150 ft (QC): 5 Type of Wheelchair: Manual pt. needs cued for safety on L as well as slowing movement etc and awareness Exercises Supine Ex: Bridging, Ankle pumps (HC stretch left 4 x 20 s), Quad Set, Rolling, Glut sets, Heel Slides, Scooting, Straight leg raise, Hip abd/add (assisted) Supine Reps: 15 Seated Therapy Exercises: Sit to stand, Long arc quads Seated Reps: 15 Standing: Sit to Stand Neuromuscular mirror used in stance at //bars with OT for feed back, alignment and stability and awareness etc. OT PT co Rx for sit to stand, stance and pre gait, body awareness and gait in // bars Treatments Bed exercises, bed mobility TRFs, w/c mob, gait and stance PT OT co Rx Assessment Current Status: Good Progress pt. gives full effort PT Short Term Goals Short Term Goals Time Frame: Dec 28, 2020 Roll Left & Right: 6 Sit to lyin Lying to sitting on side of be: 4 Sit to stand: 4 Chair/tvi-tx-anrrd transfer: 4 Walk 10 feet: 3 PT Executive Producer [employer] Goals Executive Producer [employer] Goals PT Executive Producer [employer] Goals Time Frame: Jan 11, 2021 Roll Left & Right (QC): 6 Sit to Lying (QC): 6 Lying-Sitting on Side/Bed(QC): 6 Sit to Stand (QC): 5 Chair/Eht-bh-Qojlv Xfer(QC): 5 Toilet Transfer (QC): 5 Car Transfer (QC): 5 Does the Patient Walk: Yes Walk 10 feet (QC): 4 Walk 50ft with 2 Turns (QC): 4 Walk 150 ft (QC): 88 Walking 10ft on Uneven Surface: 4 1 Step (curb) (QC): 3 4 Steps (QC): 88 12 Steps (QC): 88 Picking up an Object (QC): 88 Wheel 50 feet with 2 turns (QC: 6 Wheel 150 feet: 6 PT Plan Treatment/Plan Treatment Plan: Continue Plan of Care Treatment Plan: Bed Mobility, Education, Functional Activity [place], Functional Strength, Group Therapy, Gait, Safety, Therapeutic Exercise, Transfers Treatment Duration: Jan 11, 2021 Frequency: At least 5 of 7 days/Wk (IRF) Estimated Hrs Per Day: 1.5 hours per day Patient and/or Family Agrees t: Yes Safety Risks/Education Patient Education: Gait Training, Transfer Techniques, Correct Positioning, W/C Management, Disease Process, Safety Issues Teaching Recipient: Patient Teaching Methods: Demonstration, Discussion Response to Teaching: Verbalize Understanding, Return Demonstration, Reinforcement Needed Time/GCodes Time In: 755 Time Out: 915 Total Billed Treatment Time: 80 Total Billed Treatment 1,EX30m,WC15m,GT15m,FA20 MELISSA SCHUSTER ELEVATOR TECHNICIAN Dec 22, 2020 10:01
[2020-12-22] MEDS: HYDROcodone/APAP 5 MG/325 MG (LORTAB) TAB PO PRN ×2 (13:11→17:09)
--- NOTE | 2020-12-22 14:56 | Therapy Group Daily Note ---
Therapy Daily Group Note Patient Education Topic Exercises, Other List Below (planning for DC) Exercises LE Seated Exercise, UE Exercise Session Ratio (pt:therapist): 3:1 Goal of Session: UE/LE Strengthing, Other (list) (benefits of exercise) Goal Met for this Session: Yes Pt Benefit of Group: Contributions to Others, Increased Functional Strength, Socialization Other/Notes Pt. participated in group PT OT session. Pt. came and went in w/c . Pts all introduced themselves and shared briefly. Pts were educated on the benefits of exercise and all participated in seated U&L extremity exercises . Pts also participated in game of word association and used large foam rolling dice for this activity. Pts. were all supportive of one another and discussed staying focused on their goals and staying positive and driven. Pt. to room after Rx wi th [place] at hand and al needs met Start Time: 13:00 Stop Time: 14:00 Total Billed Treatment Time: 60 Total Billed Treatment 1,GRP 60 m MELISSA SCHUSTER BASS SINGER Dec 22, 2020 14:56
[2020-12-22] MEDS: ALPRAZolam 1 MG (XANAX) TAB PO PRN ×2 (15:48→21:53)
[2020-12-22 20:00] VITALS: BP 130/78
[2020-12-22] MEDS: FAMOTIDINE 20 MG (PEPCID) TABLET PO SCH (21:08)
[2020-12-23] MEDS: inSUlin ASPART (NovoLOG) 1 UNIT/0.01 ML (CHARGE PER UNIT) SC SCH ×7 (07:27→20:21)
[2020-12-23 07:29] VITALS: BP 116/87
[2020-12-23] MEDS: PANTOPRAZOLE 40 MG (PROTONIX) TAB PO SCH (08:59)
[2020-12-23] MEDS: SENNA W/DOCUSATE (SENOKOT S) TABLET PO SCH ×3 (08:59→20:21)
[2020-12-23] MEDS: ASPIRIN 81 MG CHEW (CHILDREN'S ASA) PO SCH (08:59)
[2020-12-23] MEDS: DOCUSATE SODIUM 100 MG (COLACE) CAP PO SCH ×3 (09:00→20:21)
[2020-12-23] MEDS: NICOTINE PATCH REMOVAL TP SCH (09:00)
[2020-12-23] MEDS: NICOTINE 21 MG (NICODERM) PATCH TD SCH (09:00)
--- NOTE | 2020-12-23 09:01 | Physical Therapy Daily Note ---
PT Daily Note-Current Subjective Patient in bed pre tx, agrees to PT, voices no complaints of pain. Will be co- treating with OT for part of tx due to poor patient mobility, strength, endurance, left hemiparesis, coordinate UE and LE during activity, safety and reduce risk of falls. Appearance Patient in shower to continue with OT Mental Status Patient Orientation: Person, Place, Situation Transfers SCALE: Activities may be completed with or without assistive devices. 8-Vqilagpnsk-ckoqwnu completes the activity by him/herself with no assistance from a helper. 5-Set-up or Clean-up Assistance-helper sets up or cleans up; patient completes activity. [place] assists only prior to or following the activity. 4-Supervision or Touching Assistance-helper provides verbal cues and/or touching/steadying and/or contact guard assistance as patient completes activity. Assistance may be provided throughout the activity or intermittently. 3-Partial/Moderate Assistance-helper does LESS THAN HALF the effort. [place] lifts, holds or supports trunk or limbs, but provides less than half the effort. 2-Substantial/Maximal Assistance-helper does MORE THAN HALF the effort. [place] lifts or holds trunk or limbs and provides more than half the effort. 0-Nykfdowki-qozbmd does ALL the effort. Patient does none of the effort to complete the activity. Or, the assistance of 2 or more helpers is required for the patient to complete the activity. If activity was not attempted, code reason: 7-Patient Refused. 9-Not Applicable-not attempted and the patient did not perform the activity before the current illness, exacerbation or injury. 10-Not Attempted due to Environmental Limitations-(lack of equipment, weather restraints, etc.). 88-Not Attempted due to Medical Conditions or Safety Concerns. Roll Left & Right (QC): 3 Lying to Sitting/Side of Bed(Q: 3 Sit to Stand (QC): 3 Chair/Jmo-nv-Cbzjw Xfer(QC): 3 min/mod assist with sit to stand and transfers, patient needed dressed and was dependent for LE and mod assist for UE Gait Training Distance: 10'x2 Walk 10 feet (QC): 2 Gait Persons Needed: 1 Gait Assistive Device: Walker Tobias Patient ambulates with a left AFO and knee immobilizer, he needs assist with weight shifting and advancing his left foot and balance in general, cues for foot placement and positioning Wheelchair Training Does the Pt Use a Wheelchair?: Yes Wheel 50 ft with 2 turns (QC): 3 Type of Wheelchair: Manual Exercises standing in parallel bars x3 working on reaching while maintaining balance Treatments PT worked on dressing, bed mobility and transfers, ambulation, balance, OT worked on balance training, assisted with UE positioning and safety during activity Assessment Current Status: Fair Progress leans fairly hard to the left side during ambulation but can shift weight to unload left leg to step but takes a lot of effort PT Short Term Goals Short Term Goals Time Frame: Dec 28, 2020 Roll Left & Right: 6 Sit to lyin Lying to sitting on side of be: 4 Sit to stand: 4 Chair/jyn-hg-lloyd transfer: 4 Walk 10 feet: 3 PT Tim[employer] Inspector Goals [employer] Goals PT Timers Inspector Goals Time Frame: Jan 11, 2021 Roll Left & Right (QC): 6 Sit to Lying (QC): 6 Lying-Sitting on Side/Bed(QC): 6 Sit to Stand (QC): 5 Chair/Qfc-gc-Ppccm Xfer(QC): 5 Toilet Transfer (QC): 5 Car Transfer (QC): 5 Does the Patient Walk: Yes Walk 10 feet (QC): 4 Walk 50ft with 2 Turns (QC): 4 Walk 150 ft (QC): 88 Walking 10ft on Uneven Surface: 4 1 Step (curb) (QC): 3 4 Steps (QC): 88 12 Steps (QC): 88 Picking up an Object (QC): 88 Wheel 50 feet with 2 turns (QC: 6 Wheel 150 feet: 6 PT Plan Problem List Problem List: Activity Tolerance, Functional Strength, Safety, Balance, Gait, Transfer, Bed Mobility, ROM Treatment/Plan Treatment Plan: Continue Plan of Care Treatment Plan: Bed Mobility, Education, Functional Activity [place], Functional Strength, Group Therapy, Gait, Safety, Therapeutic Exercise, Transfers Treatment Duration: Jan 11, 2021 Frequency: At least 5 of 7 days/Wk (IRF) Estimated Hrs Per Day: 1.5 hours per day Patient and/or Family Agrees t: Yes Safety Risks/Education Patient Education: Gait Training, Transfer Techniques, Correct Positioning, W/C Management, Safety Issues Teaching Recipient: Patient Teaching Methods: Demonstration, Discussion Response to Teaching: Reinforcement Needed Time/GCodes Time In: 0800 Time Out: 0900 Total Billed Treatment Time: 60 Total Billed Treatment 1 visit FA 45' NM 15' co-treated with OT from [id number] GABRIELLE LALA PT Dec 23, 2020 09:01
[2020-12-23] MEDS: polyethylene glycoL POWDER 17 GM (MIRALAX) PACK PO SCH ×2 (09:47→22:08)
[2020-12-23] MEDS: HYDROcodone/APAP 5 MG/325 MG (LORTAB) TAB PO PRN ×2 (09:48→17:43)
[2020-12-23] MEDS: ALPRAZolam 1 MG (XANAX) TAB PO PRN ×2 (09:48→16:25)
--- NOTE | 2020-12-23 10:02 | Occupational Ther Daily Note ---
OT Current Status-Daily Note Subjective Pt. reports 4/10 pain "all over" and nursing gives him pain medication at end of session. Mental Status/Objective Patient Orientation: Person, Place, Time ADL-Treatment Therapy Code Descriptions/Definitions Functional [place] Measure: 0=Not Assessed/NA 4=Minimal Assistance 1=Total Assistance 5=Supervision or Setup 2=Maximal Assistance 6=Modified [place] 3=Moderate Assistance 7=Complete IndependenceSCALE: Activities may be completed with or without assistive devices. 5-Alikahqbss-ryqjdov completes the activity by him/herself with no assistance from a helper. 5-Set-up or Clean-up Assistance-helper sets up or cleans up; patient completes activity. [place] assists only prior to or following the activity. 4-Supervision or Touching Assistance-helper provides verbal cues and/or touching /steadying and/or contact guard assistance as patient completes activity. Assistance may be provided throughout the activity or intermittently. 3-Partial/Moderate Assistance-helper does LESS THAN HALF the effort. [place] lifts, holds or supports trunk or limbs, but provides less than half the effort. 2-Substantial/Maximal Assistance-helper does MORE THAN HALF the effort. [place] lifts or holds trunk or limbs and provides more than half the effort. 8-Zigvghqxs-opqhco does ALL the effort. Patient does none of the effort to complete the activity. Or, the assistance of 2 or more helpers is required for the patient to complete the activity. If activity was not attempted, code reason: 7-Patient Refused. 9-Not Applicable-not attempted and the patient did not perform the activity before the current illness, exacerbation or injury. 10-Not Attempted due to Environmental Limitations-(lack of equipment, weather restraints, etc.). 88-Not Attempted due to Medical Conditions or Safety Concerns. Oral Hygiene (QC): 7 (Pt. declines and states that his teeth are "bad.") Shower/Bathe Self (QC): 3 (Mod assist overall. Pt. requires assist to wash under left UE, and to dry thoroughly.) Upper Body Dressing (QC): 2 Lower Body Dressing (QC): 1 (Pt. is able to thread right LE through boxer shorts and regular shorts, but unable to thread left LE. Requires assistance to stand, and assist of another person to don over hips.) On/Off Footwear: 2 Other Treatment Pt. seen for partial co-treatment with PT due to low endurance and assist x 2 needed for standing balance/reaching/endurance. PT focused on standing upright and balance while OT facilitated weight shift and reach with right UE. Required max assist for sit-stand. Pt. able to let go of parallel bar and reach in all planes, but has difficulty attending to left side visually. Pt. had to adjust stance several times and hold bar to regain balance. PT left and OT assisted pt. with shower /dressing. Worked on wheelchair mobility to therapy gym with min assist due to left sided neglect, and pt. tolerated left UE stretch in all planes, as well as e-stim x 7 matt-amps to wrist extensors and finger flexors. Tolerated well x 8 minutes each area, with movement noted during trial. No active movement of UE noted. Pt. taken back to room. Transferred to bed with mod assist. All needs met. Education OT Patient Education: Correct positioning, Exercise program, Modified ADL techniques, Progress toward Goal/Update tx plan, Purpose of tx/functional a ctivities, Reviewed precautions, Rehab process, Transfer techniques, W/C management Teaching Recipient: Patient Teaching Methods: Demonstration, Discussion Response to Teaching: Verbalize Understanding, Return Demonstration OT Short Term Goals Short Term Goals Time Frame: Jan 04, 2021 Eatin Oral hygiene: 4 Toileting hygiene: 3 Shower/bathe self: 3 Upper body dressin Lower body dressin Putting on/taking off footwear: 3 OT Hospice Patient Care Secretary Goals Hospice Patient Care Secretary Goals Time Frame: Jan 11, 2021 Eating (QC): 6 Oral Hygiene (QC): 5 Toileting Hygiene (QC): 5 Shower/Bathe Self (QC): 4 Upper Body Dressing (QC): 5 Lower Body Dressing (QC): 4 On/Off Footwear (QC): 5 Additional Goals: 1-Demonstrate ADL Tasks, 2-Verbalize Understanding, 3- ImproveStrength/[place] 1=Demonstrate adherence to instructed precautions during ADL tasks. 2=Patient will verbalize/demonstrate understanding of assistive devices/modifications for ADL. 3=Patient will improve strength/tolerance for activity to enable patient to perform ADL's. OT Education/Plan Problem List/Assessment Assessment: Decreased Activ Tolerance, Decreased UE Strength, Dependent Transfe rs, Impaired Bed Mobility, Impaired Coordination, Impaired Funct Balance, Impaired I ADL's, Impaired Self-Care Skills, Restricted Funct UE ROM, Visual- Perceptual Deficit Discharge Recommendations Plan/Recommendations: Continue POC Treatment Plan/Plan of Care Treatment,Training & Education: Yes Patient would benefit from OT for education, treatment and training to promote independence in ADL's, mobility, safety and/or upper extremity function for ADL's. Plan of Care: ADL Retraining, Functional Mobility, UE Funct Exercise/Act, UE Neuromus Re-Ed/Coord, Visual/Perceptual Retrain Treatment Duration: Jan 11, 2021 Frequency: At least 5 of 7 days/Wk (IRF) Estimated Hrs Per Day: 1.5 hours per day Agreement: Yes Rehab Potential: Fair Time/GCodes Start Time: 08:30 Stop Time: 10:00 Total Time Billed (hr/min): 90 Billed Treatment Time [id number] 1, FA x 30minutes- Co-treat with PT [id number] ADL x 30minutes, NM x 30minutes SHERRY HAYS OT Dec 23, 2020 10:02
--- NOTE | 2020-12-23 10:57 | PM&R Progress Note ---
Subjective HPI/CC On Admission Date Seen by Provider: Dec 23, 2020 Time Seen by Provider: 11:00 Subjective/Events-last exam 12/23/2020: Patient very irritable Hopefully he can adjust his attitude or he may very well leave AGAINST MEDICAL ADVICE Had a fall yesterday without injury Bowels moved on 12/19 giving laxatives Bed alarm initiated 12/22/2020: Pt is doing okay today He is very cranky He would like to go smoke Last bowel movement was three days ago, pt was given laxatives Pt had a fall in the rehab unit He wants to go home so badly, but he needs to stay to recover 12/21/2020: Patient doing pretty well Sleeping currently Was tearful a little bit today Bowels moved 2 days ago laxatives given Tums will be given on a regular basis so started Protonix in the morning and Pepcid at night Review of Systems General: Fatigue, Malaise Neurological: Weakness, Incoordination Objective Exam Vital Signs Vital Signs Date Time Temp Pulse Resp B/P (MAP) Pulse Ox O2 Delivery O2 Flow Rate FiO2 12/23/20 20:00 36.0 81 20 125/77 (93) 97 Room Air Capillary Refill : General Appearance: No Apparent Distress, WD/WN, Chronically ill, Thin HEENT: PERRL/EOMI, Normal ENT Inspection, Pharynx Normal Neck: Full Range of Motion, Normal Inspection, Non Tender, Supple, Carotid Bruit Respiratory: Chest Non Tender, Lungs Clear, Normal Breath Sounds, No Accessory Muscle Use, No Respiratory Distress Cardiovascular: Regular Rate, Rhythm, No Edema, No Gallop, No JVD, No Murmur, Normal Peripheral Pulses Gastrointestinal: Normal Bowel Sounds, No Organomegaly, No Pulsatile Mass, Non Tender, Soft Back: Normal Inspection, No CVA Tenderness, No Vertebral Tenderness Extremity: Normal Capillary Refill, Normal Inspection, Normal Range of Motion (Except left side weakness 2/5), Non Tender, No Calf Tenderness, No Pedal Edema Neurologic/Psychiatric: Alert, Oriented x3, No Motor/Sensory Deficits, Abnormal Gait, Depressed Affect, Motor Weakness (Left side weakness) Skin: Normal Color, Warm/Dry Lymphatic: No Adenopathy Results/Procedures Lab Patient resulted labs reviewed. FIM Transfers Therapy Code Descriptions/Definitions Functional [place] Measure: 0=Not Assessed/NA 4=Minimal Assistance 1=Total Assistance 5=Supervision or Setup 2=Maximal Assistance 6=Modified [place] 3=Moderate Assistance 7=Complete IndependenceSCALE: Activities may be completed with or without assistive devices. 8-Ofxtnruyez-wonyvjq completes the activity by him/herself with no assistance from a helper. 5-Set-up or Clean-up Assistance-helper sets up or cleans up; patient completes activity. [employer] assists only prior to or following the activity. 4-Supervision or Touching Assistance-helper provides verbal cues and/or touching/steadying and/or contact guard assistance as patient completes activity. Assistance may be provided throughout the activity or intermittently. 3-Partial/Moderate Assistance-helper does LESS THAN HALF the effort. [employer] lifts, holds or supports trunk or limbs, but provides less than half the effort. 2-Substantial/Maximal Assistance-helper does MORE THAN HALF the effort. [employer] lifts or holds trunk or limbs and provides more than half the effort. 7-Histjbgqh-kdsjdj does ALL the effort. Patient does none of the effort to complete the activity. Or, the assistance of 2 or more helpers is required for the patient to complete the activity. If activity was not attempted, code reason: 7-Patient Refused. 9-Not Applicable-not attempted and the patient did not perform the activity before the current illness, exacerbation or injury. 10-Not Attempted due to Environmental Limitations-(lack of equipment, weather restraints, etc.). 88-Not Attempted due to Medical Conditions or Safety Concerns. Roll Left to Right (QC): 3 Sit to Lying (QC): 3 Sit to Stand (QC): 3 Chair/Fus-gy-Cdjzj Xfer(QC): 3 Car Transfer (QC): 3 Gait Training Does the Patient Walk?: Yes Distance: 10'x2 Walk 10 feet (QC): 2 Walk 50 ft with 2 Turns(QC): 88 Walk 150 ft (QC): 88 Walking 10ft/uneven surface-QC: 88 Gait Persons Needed: 1 Gait Assistive Device: Walker Tobias Wheelchair Training Does the Pt Use a Wheelchair?: Yes Distance: 150'x2 Wheel 50 ft with 2 turns (QC): 3 Wheel 150 ft (QC): 5 Type of Wheelchair: Manual Stair Training 1 Step (curb) (QC): 88 4 Steps (QC): 88 12 Steps (QC): 88 Balance Picking up an Object (QC): 88 ADL-Treatment Eating (QC): 5 (Set up and increased time to feed self.) Oral Hygiene (QC): 7 (Pt. declines and states that his teeth are "bad.") Shower/Bathe Self (QC): 3 (Mod assist overall. Pt. requires assist to wash under left UE, and to dry thoroughly.) Upper Body Dressing (QC): 2 Lower Body Dressing (QC): 1 (Pt. is able to thread right LE through boxer shorts and regular shorts, but unable to thread left LE. Requires assistance to stand, and assist of another person to don over hips.) On/Off Footwear (QC): 2 Toileting Hygiene (QC): 88 Assessment/Plan Assessment and Plan Assess & Plan/Chief Complaint Assessment: CVA with left-sided weakness Current smoker Hypertension Diabetes insulin requiring CAD Hypertension GERD Plan: Monitor closely Insulin Nicotine patch Inpatient rehab protocol 12/21/2020: Monitor blood pressure GERD treatment Aggressive treatment for left-sided weakness 12/22/2020: Nicotine patch Xanax as needed for nicotine withdrawal Supportive care Fall risk 12/23/2020: Supportive care for irritable status Monitor closely (1) Cerebrovascular accident due to cerebral artery occlusion Status: Acute (2) Diabetes (3) Smoker (4) Hypertension (5) CAD (coronary artery disease) (6) Left-sided weakness (7) Dysarthria (8) Non-compliance Status: Acute BOYD MICHAELS DO Dec 23, 2020 10:57
--- NOTE | 2020-12-23 13:12 | ST Cognitive Linguistic Eval ---
Speech Evaluation-General Medical Diagnosis CVA with left hemiparesis Onset Date: Dec 14, 2020 Therapy Diagnosis Therapy Diagnosis: Cognitive-communication, Dysarthria Referral Referring Physician: Dr. Boone Medical History Pertinent Medical History: Arthritis, COPD, HTN Reviewed History: Yes Social History Current Living Status: Spouse Speech PLF-Current Status Prior Level of Function Patient lived at home with his where he was independent for his daily needs. Subjective Patient was pleasant and cooperative with the cognitive-communication assessment. Language Eval: Auditory Comprehends Simple Yes/No Ques: Functional Indent/Objects Multiple [place]: Functional Ident/Pics in Multiple [place]: Functional Follows 1-Step Commands: Functional Follows Complex Directions: Functional Follows General Conversations: Functional Language Eval: Verbal Language Completes Spontaneous Greeting: Functional Produces Auto, Serial Info: Functional Imitates Simple Words/Phrases: Functional Word Finding: Functional Requests Basic Needs: Functional States Basic Personal Info: Functional Expresses Complex Ideas: Mild Objective Cognitive Domain Attention: WNL Memory: Mild Problem Solving: Functional Executive Functions: WNL Visuospatial Skills: WNL Composite Severity Rating: WNL Clock Drawing Severity Rating: Mild Objective Formal/Standardized Tests [facility] Status ([facility]) Results 25/30, Mild Neurocognitive Disorder Oral Motor/Speech Production Patient exhibits mild dysarthria Impression Patient is a pleasant 60 y/o male who was admitted to the ARU s/p CVA. Patient was given the SLUMS at bedside with a score of 25/30 obtained. Patient's score is within the MNCD range of function. Patient also exhibits mild dysarthria with decreased speech intelligibility. Patient will receive skilled ST for cognitive-communication. Speech Patient Assess Expression of Ideas/Wants: Exhibits (3) Understanding Verbal Content: Usually Understands (3) Brief Interview-Mental Status: Yes Repetition of Three Words: Three (3) Temporal Orientation: Year: Correct (3) Temporal Orientation: Month: Accurate within 5 days(2) Temporal Orientation: Day: Correct (1) Recall : Wear to say "Sock": Yes,after cueing (1) Recall : Color: Yes, after cueing (1) Recall : Bed: Yes, no cue required (2) Memory/Recall Ability: Current season, That he or she is in a hsp/hsp unit Speech Short Term Goals Short Term Goals Short Term Goals 1) Patient will complete memory tasks at 90% or greater with minimal cues. 2) Patient will complete speech tasks at 90% or greater with minimal cues. Speech Intermediate Goals [place] Goals Patient will improve cognitive-communication abilities in order to complete daily tasks with minimal assist. Speech-Plan Patient/Family Goals Patient/Family Goals: Patient plans on returning to his home where he lives with his . Treatment Plan Speech Therapy Treatment Plan: Continue Plan of Care Treatment Duration: Dec 29, 2020 Frequency: 4 times per week (Patient will receive skilled ST 4-5x per week) Estimated Hrs Per Day: .5 hour per day Rehab Potential: Fair Barriers to Learning: Patient's recent CVA, cognitive deficits Pt/Family Agrees to Plan: Yes Safety Risks/Education Teaching Recipient: Patient Teaching Methods: Discussion Response to Teaching: Verbalize Understanding Education Topics Provided: Safety and communication Time Speech Therapy Time In: 10:00 Speech Therapy Time Out: 10:30 Total Billed Time: 30 Billed Treatment Time 1JACQUELINE SPSNDCOMP No [place], BETHAN[address] ST Dec 23, 2020 13:12
--- NOTE | 2020-12-23 14:15 | Occupational Ther Daily Note ---
OT Current Status-Daily Note Subjective No pain reported. Appearance Pt. in bed asleep. Does wake up and agrees to work with therapy. Noted pt. had been incontinent of urine. Mental Status/Objective Patient Orientation: Person, Place ADL-Treatment Therapy Code Descriptions/Definitions Functional [place] Measure: 0=Not Assessed/NA 4=Minimal Assistance 1=Total Assistance 5=Supervision or Setup 2=Maximal Assistance 6=Modified [place] 3=Moderate Assistance 7=Complete IndependenceSCALE: Activities may be completed with or without assistive devices. 2-Qxykiyyfgo-cbcecyz completes the activity by him/herself with no assistance from a helper. 5-Set-up or Clean-up Assistance-helper sets up or cleans up; patient completes activity. [place] assists only prior to or following the activity. 4-Supervision or Touching Assistance-helper provides verbal cues and/or touching/steadying and/or contact guard assistance as patient completes a ctivity. Assistance may be provided throughout the activity or intermittently. 3-Partial/Moderate Assistance-helper does LESS THAN HALF the effort. [place] lifts, holds or supports trunk or limbs, but provides less than half the effort. 2-Substantial/Maximal Assistance-helper does MORE THAN HALF the effort. [place] lifts or holds trunk or limbs and provides more than half the effort. 8-Xqmygphgq-ppmmxw does ALL the effort. Patient does none of the effort to complete the activity. Or, the assistance of 2 or more helpers is required for the patient to complete the activity. If activity was not attempted, code reason: 7-Patient Refused. 9-Not Applicable-not attempted and the patient did not perform the activity before the current illness, exacerbation or injury. 10-Not Attempted due to Environmental Limitations-(lack of equipment, weather restraints, etc.). 88-Not Attempted due to Medical Conditions or Safety Concerns. Lower Body Dressing (QC): 1 (Max assist to doff/don boxers and shorts over feet. Max assist of one person in stance and assist of another person to don over hips.) Toileting Hygiene (QC): 1 Other Treatment Pt. seen for co-treatment with PT due to need of skilled assistance x 2. Pt. transferred supine-sit with max assist. Stood with max assist while another person doffed shorts down over hips. Pt. sat back down and OT donned clean shorts over feet and up to thighs. PT assisted pt. again in stance while OT donned pants over hips. Pt. does attempt to help with donning shorts himself, but his balance becomes heavy to one side and he is cued to attempt upright posture and grasp PT appropriately. Transferred to wheelchair and taken to therapy gym. Stood in parallel bars x 3 without AFO or knee brace on. Max assist x 1-2 at times with assist for correct hand placement on bars, upright posture, and attention to left side. Large mirror placed in front of pt., and pt. cued to mirror upright image. Difficulty "tucking bottom" and bringing shoulders back. All needs met back in chair and pt. up in gym with PT. Education OT Patient Education: Correct positioning, Modified ADL techniques, Progress toward Goal/Update tx plan, Purpose of tx/functional activities, Reviewed precautions, Rehab process, Transfer techniques, W/C management Teaching Recipient: Patient Teaching Methods: Demonstration, Discussion Response to Teaching: Verbalize Understanding, Return Demonstration OT Short Term Goals Short Term Goals Time Frame: Jan 04, 2021 Eatin Oral hygiene: 4 Toileting hygiene: 3 Shower/bathe self: 3 Upper body dressin Lower body dressin Putting on/taking off footwear: 3 OT Coordinator Of [employer] Services Goals Alf Goals Time Frame: Jan 11, 2021 Eating (QC): 6 Oral Hygiene (QC): 5 Toileting Hygiene (QC): 5 Shower/Bathe Self (QC): 4 Upper Body Dressing (QC): 5 Lower Body Dressing (QC): 4 On/Off Footwear (QC): 5 Additional Goals: 1-Demonstrate ADL Tasks, 2-Verbalize Understanding, 3- ImproveStrength/[place] 1=Demonstrate adherence to instructed precautions during ADL tasks. 2=Patient will verbalize/demonstrate understanding of assistive devices/modifications for ADL. 3=Patient will improve strength/tolerance for activity to enable patient to perform ADL's. OT Education/Plan Problem List/Assessment Assessment: Decreased Activ Tolerance, Decreased Safety Aware, Decreased UE Strength, Dependent Transfers, Impaired Bed Mobility, Impaired Cognition, Impaired Coordination, Impaired Funct Balance, Impaired I ADL's, Impaired Self- Care Skills, Restricted Funct UE ROM, Visual-Perceptual Deficit Discharge Recommendations Plan/Recommendations: Continue POC Therapy Discharge Recommendati: 24 Hour Supervision, Home & Family, Post Acute OT Treatment Plan/Plan of Care Treatment,Training & Education: Yes Patient would benefit from OT for education, treatment and training to promote independence in ADL's, mobility, safety and/or upper extremity function for ADL's. Plan of Care: ADL Retraining, Functional Mobility, UE Funct Exercise/Act, UE Neuromus Re-Ed/Coord, Visual/Perceptual Retrain Treatment Duration: Jan 11, 2021 Frequency: At least 5 of 7 days/Wk (IRF) Estimated Hrs Per Day: 1.5 hours per day Agreement: Yes Rehab Potential: Fair Time/GCodes Start Time: 13:25 Stop Time: 14:00 Total Time Billed (hr/min): 35 Billed Treatment Time 1, ADL x 15minutes, FA x 20minutes SHERRY HAYS OT Dec 23, 2020 14:15
--- NOTE | 2020-12-23 14:34 | Physical Therapy Daily Note ---
PT Daily Note-Current Subjective Patient in bed pre tx, agrees to PT, has no complaints of pain. Will be co- treating with OT for part of tx due to poor patient mobility, strength, endurance, balance, left hemiparesis, coordinate UE and LE during activity, safety and reduce risk of falls. Appearance Patient in bed post tx with nurse call, phone, tray, bed alarm on. Mental Status Patient Orientation: Person, Place, Situation Transfers SCALE: Activities may be completed with or without assistive devices. 4-Tzbqinkrdm-uykfovg completes the activity by him/herself with no assistance from a helper. 5-Set-up or Clean-up Assistance-helper sets up or cleans up; patient completes activity. [place] assists only prior to or following the activity. 4-Supervision or Touching Assistance-helper provides verbal cues and/or touching/steadying and/or contact guard assistance as patient completes activ ity. Assistance may be provided throughout the activity or intermittently. 3-Partial/Moderate Assistance-helper does LESS THAN HALF the effort. [place] lifts, holds or supports trunk or limbs, but provides less than half the effort. 2-Substantial/Maximal Assistance-helper does MORE THAN HALF the effort. [place] lifts or holds trunk or limbs and provides more than half the effort. 2-Sdvdubpjq-gkgfml does ALL the effort. Patient does none of the effort to complete the activity. Or, the assistance of 2 or more helpers is required for the patient to complete the activity. If activity was not attempted, code reason: 7-Patient Refused. 9-Not Applicable-not attempted and the patient did not perform the activity before the current illness, exacerbation or injury. 10-Not Attempted due to Environmental Limitations-(lack of equipment, weather restraints, etc.). 88-Not Attempted due to Medical Conditions or Safety Concerns. Roll Left & Right (QC): 6 Sit to Lying (QC): 3 Lying to Sitting/Side of Bed(Q: 3 Sit to Stand (QC): 3 Chair/Orc-dp-Mlpio Xfer(QC): 3 Patient performs supine to sit with min assist, needs pants changed, stands to get pants down, sits and gets pants off and new ones on, stands to pull pants up, transfers to and goes to gym. Wheelchair Training Does the Pt Use a Wheelchair?: Yes Wheel 50 ft with 2 turns (QC): 3 Type of Wheelchair: Manual 120'x2, needs assist going through doorways and around obstacles due to neglect Exercises standing in parallel bars x3 with mod assist working on positioning with mirror and weight shifting and putting weight through left arm and leg. NuStep Minutes: 15 NuStep Workload: 3 Treatments PT performed bed mobility and transfers, standing, LE strengthening, assisted with standing and balance during dressing, OT worked on dressing, UE positioning and safety during activity. Assessment Current Status: Fair Progress very little control of left leg, needs assist to lock knee when standing PT Short Term Goals Short Term Goals Time Frame: Dec 28, 2020 Roll Left & Right: 6 Sit to lyin Lying to sitting on side of be: 4 Sit to stand: 4 Chair/mry-ck-rslom transfer: 4 Walk 10 feet: 3 PT Sugar Trucker Goals Custodial Goals PT Custodial Goals Time Frame: Jan 11, 2021 Roll Left & Right (QC): 6 Sit to Lying (QC): 6 Lying-Sitting on Side/Bed(QC): 6 Sit to Stand (QC): 5 Chair/Leb-ob-Ntaay Xfer(QC): 5 Toilet Transfer (QC): 5 Car Transfer (QC): 5 Does the Patient Walk: Yes Walk 10 feet (QC): 4 Walk 50ft with 2 Turns (QC): 4 Walk 150 ft (QC): 88 Walking 10ft on Uneven Surface: 4 1 Step (curb) (QC): 3 4 Steps (QC): 88 12 Steps (QC): 88 Picking up an Object (QC): 88 Wheel 50 feet with 2 turns (QC: 6 Wheel 150 feet: 6 PT Plan Problem List Problem List: Activity Tolerance, Functional Strength, Safety, Balance, Gait, Transfer, Bed Mobility, ROM Treatment/Plan Treatment Plan: Continue Plan of Care Treatment Plan: Bed Mobility, Education, Functional Activity Simba, Functional Strength, Group Therapy, Gait, Safety, Therapeutic Exercise, Transfers Treatment Duration: Jan 11, 2021 Frequency: At least 5 of 7 days/Wk (IRF) Estimated Hrs Per Day: 1.5 hours per day Patient and/or Family Agrees t: Yes Safety Risks/Education Patient Education: Transfer Techniques, Correct Positioning, W/C Management, Safety Issues Teaching Recipient: Patient Teaching Methods: Demonstration, Discussion Response to Teaching: Reinforcement Needed Time/GCodes Time In: 1330 Time Out: 1430 Total Billed Treatment Time: 60 Total Billed Treatment 1 visit EX 15' FA 45' co-treated with OT from [id number] GABRIELLE LALA PT Dec 23, 2020 14:34
--- NOTE | 2020-12-23 15:12 | Occupational Ther Daily Note ---
OT Current Status-Daily Note Subjective No pain reported. Appearance Pt. in bed. Agrees to OT treatment. ADL-Treatment Therapy Code Descriptions/Definitions Functional [place] Measure: 0=Not Assessed/NA 4=Minimal Assistance 1=Total Assistance 5=Supervision or Setup 2=Maximal Assistance 6=Modified [place] 3=Moderate Assistance 7=Complete IndependenceSCALE: Activities may be completed with or without assistive devices. 6-Xukcngldor-hqamrgg completes the activity by him/herself with no assistance from a helper. 5-Set-up or Clean-up Assistance-helper sets up or cleans up; patient completes activity. [place] assists only prior to or following the activity. 4-Supervision or Touching Assistance-helper provides verbal cues and/or touching/steadying and/or contact guard assistance as patient completes activity. Assistance may be provided throughout the activity or intermittently. 3-Partial/Moderate Assistance-helper does LESS THAN HALF the effort. [place] li fts, holds or supports trunk or limbs, but provides less than half the effort. 2-Substantial/Maximal Assistance-helper does MORE THAN HALF the effort. [place] lifts or holds trunk or limbs and provides more than half the effort. 0-Ovtwgxwlh-fspgvg does ALL the effort. Patient does none of the effort to complete the activity. Or, the assistance of 2 or more helpers is required for the patient to complete the activity. If activity was not attempted, code reason: 7-Patient Refused. 9-Not Applicable-not attempted and the patient did not perform the activity before the current illness, exacerbation or injury. 10-Not Attempted due to Environmental Limitations-(lack of equipment, weather restraints, etc.). 88-Not Attempted due to Medical Conditions or Safety Concerns. Other Treatment OT provided gentle PROM to left UE in all planes while pt. supine. Pt. tolerated stretch to shoulder in flexion, elbow in flexion, and wrist/fingers in flexion/extension. No active tone noted. Gentle compressions provided at shoulder level for stability due to emerging subluxation. Will continue to monitor this and provide appropriate positioning/taping if needed. Pt. tolerated all stretch well. All needs met and bed alarm on when OT left room. Pt. with call light. Education OT Patient Education: Correct positioning, Exercise program, Progress toward Goal/Update tx plan, Purpose of tx/functional activities, Reviewed precautions, Rehab process Teaching Recipient: Patient OT Short Term Goals Short Term Goals Time Frame: Jan 04, 2021 Eatin Oral hygiene: 4 Toileting hygiene: 3 Shower/bathe self: 3 Upper body dressin Lower body dressin Putting on/taking off footwear: 3 OT Boat Wrapper Goals Senior Care Goals Time Frame: Jan 11, 2021 Eating (QC): 6 Oral Hygiene (QC): 5 Toileting Hygiene (QC): 5 Shower/Bathe Self (QC): 4 Upper Body Dressing (QC): 5 Lower Body Dressing (QC): 4 On/Off Footwear (QC): 5 Additional Goals: 1-Demonstrate ADL Tasks, 2-Verbalize Understanding, 3- ImproveStrength/Simba 1=Demonstrate adherence to instructed precautions during ADL tasks. 2=Patient will verbalize/demonstrate understanding of assistive devices/modifications for ADL. 3=Patient will improve strength/tolerance for activity to enable patient to perform ADL's. OT Education/Plan Discharge Recommendations Plan/Recommendations: Continue POC Treatment Plan/Plan of Care Treatment,Training & Education: Yes Patient would benefit from OT for education, treatment and training to promote independence in ADL's, mobility, safety and/or upper extremity function for ADL's. Plan of Care: ADL Retraining, Functional Mobility, UE Funct Exercise/Act, UE Neuromus Re-Ed/Coord, Visual/Perceptual Retrain Treatment Duration: Jan 11, 2021 Frequency: At least 5 of 7 days/Wk (IRF) Estimated Hrs Per Day: 1.5 hours per day Agreement: Yes Rehab Potential: Fair Time/GCodes Start Time: 14:45 Stop Time: 15:00 Total Time Billed (hr/min): 15 Billed Treatment Time 1, Ex SHERRY HAYS OT Dec 23, 2020 15:11
[2020-12-23 20:00] VITALS: BP 125/77
[2020-12-23] MEDS: FAMOTIDINE 20 MG (PEPCID) TABLET PO SCH (20:21)
[2020-12-24] MEDS: inSUlin ASPART (NovoLOG) 1 UNIT/0.01 ML (CHARGE PER UNIT) SC SCH ×7 (06:14→21:31)
[2020-12-24 07:12] VITALS: BP 138/66
[2020-12-24] MEDS: SENNA W/DOCUSATE (SENOKOT S) TABLET PO SCH ×2 (07:51→21:29)
[2020-12-24] MEDS: PANTOPRAZOLE 40 MG (PROTONIX) TAB PO SCH (07:51)
[2020-12-24] MEDS: polyethylene glycoL POWDER 17 GM (MIRALAX) PACK PO SCH ×2 (07:51→21:34)
[2020-12-24] MEDS: HYDROcodone/APAP 5 MG/325 MG (LORTAB) TAB PO PRN ×2 (07:51→21:29)
[2020-12-24] MEDS: DOCUSATE SODIUM 100 MG (COLACE) CAP PO SCH ×2 (07:51→21:29)
[2020-12-24] MEDS: ASPIRIN 81 MG CHEW (CHILDREN'S ASA) PO SCH (07:51)
[2020-12-24] MEDS: ALPRAZolam 1 MG (XANAX) TAB PO PRN (07:51)
[2020-12-24] MEDS: NICOTINE PATCH REMOVAL TP SCH (07:52)
[2020-12-24] MEDS: NICOTINE 21 MG (NICODERM) PATCH TD SCH (07:52)
--- NOTE | 2020-12-24 08:59 | Physical Therapy Daily Note ---
PT Daily Note-Current Subjective Patient in bed pre tx, agrees to PT, has no complaints of pain. Will be co- treating with OT due to poor patient mobility, strength, endurance, balance, left hemiparesis, coordinate UE and LE during activity, safety and reduce risk of falls. Appearance Patient in recliner post tx, will continue for a bit with OT Mental Status Patient Orientation: Person, Place, Situation Transfers SCALE: Activities may be completed with or without assistive devices. 2-Tgffcdjbbq-nhmlamx completes the activity by him/herself with no assistance from a helper. 5-Set-up or Clean-up Assistance-helper sets up or cleans up; patient completes activity. [place] assists only prior to or following the activity. 4-Supervision or Touching Assistance-helper provides verbal cues and/or touching/steadying and/or contact guard assistance as patient completes activity. Assistance may be provided throughout the activity or intermittently. 3-Partial/Moderate Assistance-helper does LESS THAN HALF the effort. [place] lifts, holds or supports trunk or limbs, but provides less than half the effort. 2-Substantial/Maximal Assistance-helper does MORE THAN HALF the effort. [place] lifts or holds trunk or limbs and provides more than half the effort. 2-Ptlksnqlv-bmmyvo does ALL the effort. Patient does none of the effort to complete the activity. Or, the assistance of 2 or more helpers is required for the patient to complete the activity. If activity was not attempted, code reason: 7-Patient Refused. 9-Not Applicable-not attempted and the patient did not perform the activity before the current illness, exacerbation or injury. 10-Not Attempted due to Environmental Limitations-(lack of equipment, weather restraints, etc.). 88-Not Attempted due to Medical Conditions or Safety Concerns. Roll Left & Right (QC): 3 Lying to Sitting/Side of Bed(Q: 3 Sit to Stand (QC): 3 Chair/Ekw-mn-[place] Xfer(QC): 3 Patient transfers to , transported to his restroom to the shower and stand pivot to the shower bench OT undressing along the way, after sitting undresses all the way and performs shower, then transfers to , OT dressing along the way, sits in and finishes dressing. Gait Training Distance: 20'x2 Walk 10 feet (QC): 2 Gait Assistive Device: Walker Tobias WC follow, max assist for balance and advancing his left leg. Patient wears a left AFO and knee immobilizer. Wheelchair Training Does the Pt Use a Wheelchair?: Yes Wheel 50 ft with 2 turns (QC): 3 Type of Wheelchair: Manual 100'x2 Treatments PT performed bed mobility and transfers, balance and positioning during bathing and dressing, ambulation, WC mobility, OT performed bathing and dressing, UE positioning and safety during activity. Assessment Current Status: Poor Progress no change in functional mobility PT Short Term Goals Short Term Goals Time Frame: Dec 28, 2020 Roll Left & Right: 6 Sit to lyin Lying to sitting on side of be: 4 Sit to stand: 4 Chair/rfy-ua-ibbhb transfer: 4 Walk 10 feet: 3 PT Condominium Manager Goals Detention Goals PT Condominium Manager Goals Time Frame: Jan 11, 2021 Roll Left & Right (QC): 6 Sit to Lying (QC): 6 Lying-Sitting on Side/Bed(QC): 6 Sit to Stand (QC): 5 Chair/Lhd-ef-Qlgko Xfer(QC): 5 Toilet Transfer (QC): 5 Car Transfer (QC): 5 Does the Patient Walk: Yes Walk 10 feet (QC): 4 Walk 50ft with 2 Turns (QC): 4 Walk 150 ft (QC): 88 Walking 10ft on Uneven Surface: 4 1 Step (curb) (QC): 3 4 Steps (QC): 88 12 Steps (QC): 88 Picking up an Object (QC): 88 Wheel 50 feet with 2 turns (QC: 6 Wheel 150 feet: 6 PT Plan Problem List Problem List: Activity Tolerance, Functional Strength, Safety, Balance, Gait, Transfer, Bed Mobility, ROM Treatment/Plan Treatment Plan: Continue Plan of Care Treatment Plan: Bed Mobility, Education, Functional Activity Simba, Functional Strength, Group Therapy, Gait, Safety, Therapeutic Exercise, Transfers Treatment Duration: Jan 11, 2021 Frequency: At least 5 of 7 days/Wk (IRF) Estimated Hrs Per Day: 1.5 hours per day Patient and/or Family Agrees t: Yes Safety Risks/Education Patient Education: Gait Training, Transfer Techniques, Correct Positioning, W/C Management, Safety Issues Teaching Recipient: Patient Teaching Methods: Demonstration, Discussion Response to Teaching: Reinforcement Needed Time/GCodes Time In: 0800 Time Out: 0900 Total Billed Treatment Time: 60 Total Billed Treatment 1 visit FA 60' co-treated with OT from [id number] GABRIELLE LALA PT Dec 24, 2020 08:59
--- NOTE | 2020-12-24 09:32 | Occupational Ther Daily Note ---
OT Current Status-Daily Note Subjective Pt agrees to tx. In bed upon entry, wet from urine. Pt expresses unable to keep urinal straight in the night and soils the bed. Pt is educated on male diapers to wrap around penis for extra protection. Pt states may try. Pt states slight pain in back. Mental Status/Objective Patient Orientation: Person, Place, Situation ADL-Treatment Therapy Code Descriptions/Definitions Functional [place] Measure: 0=Not Assessed/NA 4=Minimal Assistance 1=Total Assistance 5=Supervision or Setup 2=Maximal Assistance 6=Modified [place] 3=Moderate Assistance 7=Complete IndependenceSCALE: Activities may be completed with or without assistive devices. 9-Qvgtdgsiyc-lzpcgld completes the activity by him/herself with no assistance from a helper. 5-Set-up or Clean-up Assistance-helper sets up or cleans up; patient completes activity. [place] assists only prior to or following the activity. 4-Supervision or Touching Assistance-helper provides verbal cues and/or touching/steadying and/or contact guard assistance as patient completes activity. Assistance may be provided throughout the activity or intermittently. 3-Partial/Moderate Assistance-helper does LESS THAN HALF the effort. [place] lifts, holds or supports trunk or limbs, but provides less than half the effort. 2-Substantial/Maximal Assistance-helper does MORE THAN HALF the effort. [place] lifts or holds trunk or limbs and provides more than half the effort. 1-Kvfuhuesb-dwjmjo does ALL the effort. Patient does none of the effort to complete the activity. Or, the assistance of 2 or more helpers is required for the patient to complete the activity. If activity was not attempted, code reason: 7-Patient Refused. 9-Not Applicable-not attempted and the patient did not perform the activity before the current illness, exacerbation or injury. 10-Not Attempted due to Environmental Limitations-(lack of equipment, weather restraints, etc.). 88-Not Attempted due to Medical Conditions or Safety Concerns. Eating (QC): 6 (IND eating with RUE) Oral Hygiene (QC): 6 Bathing Location: L Arm, R Arm, L Upper Leg, R Upper Leg, L Lower Leg (including foot), R Lower Leg (including foot), Chest, Abdomen, Perineal Area Shower/Bathe Self (QC): 3 (completes on shower bench within room, compeltes all tasks with SBA-CGA in sit. Requires CGA-min A during bending tasks, able to correct self, though min A for increased bending to L foot washing. Pt instructed on safety and use of LHS rather than washcloth in this case. Pt stands with PT assist while OT washes bottom with max A.) Upper Body Dressing (QC): 3 (min A LUE threading and assist pulling down in back. Pt doffs with IND.) Lower Body Dressing (QC): 1 (Ax2, however, pt able to thread BLE with CGA (pt brings LLE over R knee to thread LLE) then pulls to proximal knees. Sit to stand with PT while OT adjusts pants over hips) On/Off Footwear: 3 (min A supporting LLE on knee as pt completes. Pt dons B socks with good ability.) Toileting Hygiene (QC): 1 (TD due to need of Ax2 (PT assists with transfer and OT completes bottom care)) Toilet Transfer (QC): 3 (mod A) Other Treatment Pt bed mob with PT assist, sit to stand and SPT to the w/c with PT assist (max- mod A). Use of shower bench at this time, increased need of CGA due to decreased balance and slight impulsivity as pt bends to wash LEs/ feet and has decreased core strength. Pt able to correct with min A-CGA. Pt completes washing/ dressing LE in sit, SPT to L side with PT assist into w/c. Pt dresses in w/c with UB and requires assist for buttoning/ zipping pants. Pt is pushed to gym, shoes donned with L AFO applied. Pt completes 2 rounds of ambulation task with PT assist/ OT following with w/c. Pt is pushed back to gym, min A transfer from w/c to chair to R side. In this position, L shoulder taped due to c/o "ache/ heaviness". Humeral head approximated into socket with note of posterior sublux (slight, less than 1 finger width). Pt educated on the neurological benefits of approximation within the correct position. Pt states "more comfortable" post taping. However, tape on increased shoulder hair, may not be comfortable over time. Pt left in chair with food in front of pt, all needs met, call light in reach, LEs elevated and LUE supported by pillows. Education OT Patient Education: Correct positioning, Exercise program, Modified ADL techniques, Progress toward Goal/Update tx plan, Purpose of tx/functional activities, Rehab process, Safety issues, Transfer techniques Teaching Recipient: Patient Teaching Methods: Demonstration, Discussion Response to Teaching: Verbalize Understanding, Return Demonstration, Reinforcement Needed OT Short Term Goals Short Term Goals Time Frame: Jan 04, 2021 Eatin Oral hygiene: 4 Toileting hygiene: 3 Shower/bathe self: 3 Upper body dressin Lower body dressin Putting on/taking off footwear: 3 OT Senior Living Goals Individual Pension Consultant Goals Time Frame: Jan 11, 2021 Eating (QC): 6 Oral Hygiene (QC): 5 Toileting Hygiene (QC): 5 Shower/Bathe Self (QC): 4 Upper Body Dressing (QC): 5 Lower Body Dressing (QC): 4 On/Off Footwear (QC): 5 Additional Goals: 1-Demonstrate ADL Tasks, 2-Verbalize Understanding, 3- ImproveStrength/Simba 1=Demonstrate adherence to instructed precautions during ADL tasks. 2=Patient will verbalize/demonstrate understanding of assistive devices/modifications for ADL. 3=Patient will improve strength/tolerance for activity to enable patient to perform ADL's. OT Education/Plan Problem List/Assessment Assessment: Decreased Activ Tolerance, Decreased UE Strength, Dependent Transfers, Impaired Bed Mobility, Impaired Coordination, Impaired Funct Balance, Impaired I ADL's, Impaired Self-Care Skills Discharge Recommendations Plan/Recommendations: Continue POC Therapy Discharge Recommendati: Home & Family, Post Acute OT Treatment Plan/Plan of Care Treatment,Training & Education: Yes Patient would benefit from OT for education, treatment and training to promote independence in ADL's, mobility, safety and/or upper extremity function for ADL's. Plan of Care: ADL Retraining, Functional Mobility, UE Funct Exercise/Act, UE Neuromus Re-Ed/Coord, Visual/Perceptual Retrain Treatment Duration: Jan 11, 2021 Frequency: At least 5 of 7 days/Wk (IRF) Estimated Hrs Per Day: 1.5 hours per day Agreement: Yes Rehab Potential: Fair Time/GCodes Start Time: 08:00 Stop Time: 09:15 Total Time Billed (hr/min): 75 Billed Treatment Time 1, ADL 2, EX 2, NM= 75 NOEMI WALLACE OTR Dec 24, 2020 09:32
--- NOTE | 2020-12-24 11:45 | Physical Therapy Daily Note ---
PT Daily Note-Current Subjective Patient in bed pre tx, agrees to PT, has no complaints of pain. Appearance Patient in bed post tx with nurse call, phone, tray, bed alarm on. Mental Status Patient Orientation: Person, Place, Situation Transfers SCALE: Activities may be completed with or without assistive devices. 2-Ylsxczmrvz-hqppvll completes the activity by him/herself with no assistance from a helper. 5-Set-up or Clean-up Assistance-helper sets up or cleans up; patient completes activity. [place] assists only prior to or following the activity. 4-Supervision or Touching Assistance-helper provides verbal cues and/or touching/steadying and/or contact guard assistance as patient completes activity. Assistance may be provided throughout the activity or intermittently. 3-Partial/Moderate Assistance-helper does LESS THAN HALF the effort. [place] lifts, holds or supports trunk or limbs, but provides less than half the effort. 2-Substantial/Maximal Assistance-helper does MORE THAN HALF the effort. [place] lifts or holds trunk or limbs and provides more than half the effort. 7-Ftmvbwzrw-lwtnju does ALL the effort. Patient does none of the effort to complete the activity. Or, the assistance of 2 or more helpers is required for the patient to complete the activity. If activity was not attempted, code reason: 7-Patient Refused. 9-Not Applicable-not attempted and the patient did not perform the activity before the current illness, exacerbation or injury. 10-Not Attempted due to Environmental Limitations-(lack of equipment, weather restraints, etc.). 88-Not Attempted due to Medical Conditions or Safety Concerns. Exercises Supine Ex: Ankle pumps (RLE only), Quad Set, Glut sets, Heel Slides (AAROM on left side), Short Arc Quads (AAROM on left side), Straight leg raise (AAROM on left side), Hip abd/add (AAROM on left side) LLE stretching in all planes Treatments BLE strengthening and LLE stretching Assessment Current Status: Poor Progress Patient had very little voluntary movement in left leg PT Short Term Goals Short Term Goals Time Frame: Dec 28, 2020 Roll Left & Right: 6 Sit to lyin Lying to sitting on side of be: 4 Sit to stand: 4 Chair/mrz-yc-fqwwo transfer: 4 Walk 10 feet: 3 PT Prison Goals Flame Cutting Machine Operator Helper Goals PT Flame Cutting Machine Operator Helper Goals Time Frame: Jan 11, 2021 Roll Left & Right (QC): 6 Sit to Lying (QC): 6 Lying-Sitting on Side/Bed(QC): 6 Sit to Stand (QC): 5 Chair/Hcz-vx-Ljgvw Xfer(QC): 5 Toilet Transfer (QC): 5 Car Transfer (QC): 5 Does the Patient Walk: Yes Walk 10 feet (QC): 4 Walk 50ft with 2 Turns (QC): 4 Walk 150 ft (QC): 88 Walking 10ft on Uneven Surface: 4 1 Step (curb) (QC): 3 4 Steps (QC): 88 12 Steps (QC): 88 Picking up an Object (QC): 88 Wheel 50 feet with 2 turns (QC: 6 Wheel 150 feet: 6 PT Plan Problem List Problem List: Activity Tolerance, Functional Strength, Safety, Balance, Gait, Transfer, Bed Mobility, ROM Treatment/Plan Treatment Plan: Continue Plan of Care Treatment Plan: Bed Mobility, Education, Functional Activity Simba, Functional Strength, Group Therapy, Gait, Safety, Therapeutic Exercise, Transfers Treatment Duration: Jan 11, 2021 Frequency: At least 5 of 7 days/Wk (IRF) Estimated Hrs Per Day: 1.5 hours per day Patient and/or Family Agrees t: Yes Safety Risks/Education Patient Education: Correct Positioning, Safety Issues Teaching Recipient: Patient Teaching Methods: Demonstration, Discussion Response to Teaching: Reinforcement Needed Time/GCodes Time In: 1130 Time Out: 1145 Total Billed Treatment Time: 15 Total Billed Treatment 1 visit EX Kirt' GABRIELLE LALA PT Dec 24, 2020 11:45
--- NOTE | 2020-12-24 13:41 | Speech Therapy Daily Note ---
Speech Daily Progress Note Subjective Date Seen by Provider: Dec 24, 2020 Time Seen by Provider: 00:30 Patient was resting in his bed following his other therapies. Objective Patient completed speech exercises to improve speech rate and intelligibility at 60% with moderate verbal and/or visual cues. Assessment Assessment Current Status: Fair Progress Treatment Plan Continue Plan of Care Speech Short Term Goals Short Term Goals Short Term Goals 1) Patient will complete memory tasks at 90% or greater with minimal cues. 2) Patient will complete speech tasks at 90% or greater with minimal cues. Speech Rrts Goals Usp Goals Patient will improve cognitive-communication abilities in order to complete daily tasks with minimal assist. Speech-Plan Patient/Family Goals Patient/Family Goals: Patient plans on returning to his home where he lives with his . Treatment Plan Speech Therapy Treatment Plan: Continue Plan of Care Treatment Duration: Dec 31, 2020 Frequency: 4 times per week (Patient will receive skilled ST 4-5x per week) Estimated Hrs Per Day: .5 hour per day Rehab Potential: Fair Barriers to Learning: Patient's recent CVA Pt/Family Agrees to Plan: Yes Safety Risks/Education Teaching Recipient: Patient Teaching Methods: Demonstration, Discussion Response to Teaching: Verbalize Understanding, Return Demonstration Education Topics Provided: Continued safety and communication Time Speech Therapy Time In: 10:30 Speech Therapy Time Out: 11:00 Total Billed Time: 30 Billed Treatment Time JACQUELINE Lopez [facility] Dec 24, 2020 13:41
--- NOTE | 2020-12-24 14:12 | PM&R Progress Note ---
Subjective HPI/CC On Admission Date Seen by Provider: Dec 24, 2020 Time Seen by Provider: 14:15 Subjective/Events-last exam 12/24/2020: Patient doing a little better Better attitude Approved a PET pass Lactulose will be given due to constipation Very blood sugars 12/23/2020: Patient very irritable Hopefully he can adjust his attitude or he may very well leave AGAINST MEDICAL ADVICE Had a fall yesterday without injury Bowels moved on 12/19 giving laxatives Bed alarm initiated 12/22/2020: Pt is doing okay today He is very cranky He would like to go smoke Last bowel movement was three days ago, pt was given laxatives Pt had a fall in the rehab unit He wants to go home so badly, but he needs to stay to recover 12/21/2020: Patient doing pretty well Sleeping currently Was tearful a little bit today Bowels moved 2 days ago laxatives given Tums will be given on a regular basis so started Protonix in the morning and Pepcid at night Review of Systems General: Fatigue, Malaise Objective Exam Vital Signs Vital Signs Date Time Temp Pulse Resp B/P (MAP) Pulse Ox O2 Delivery O2 Flow Rate FiO2 12/24/20 21:30 92 Room Air 12/24/20 20:00 36.4 88 16 104/77 (86) Capillary Refill : General Appearance: No Apparent Distress, WD/WN, Chronically ill, Thin HEENT: PERRL/EOMI, Normal ENT Inspection, Pharynx Normal Neck: Full Range of Motion, Normal Inspection, Non Tender, Supple, Carotid Bruit Respiratory: Chest Non Tender, Lungs Clear, Normal Breath Sounds, No Accessory Muscle Use, No Respiratory Distress Cardiovascular: Regular Rate, Rhythm, No Edema, No Gallop, No JVD, No Murmur, Normal Peripheral Pulses Gastrointestinal: Normal Bowel Sounds, No Organomegaly, No Pulsatile Mass, Non Tender, Soft Back: Normal Inspection, No CVA Tenderness, No Vertebral Tenderness Extremity: Normal Capillary Refill, Normal Inspection, Normal Range of Motion (Except left side weakness 2/5), Non Tender, No Calf Tenderness, No Pedal Edema Neurologic/Psychiatric: Alert, Oriented x3, No Motor/Sensory Deficits, Abnormal Gait, Depressed Affect, Motor Weakness (Left side weakness) Skin: Normal Color, Warm/Dry Lymphatic: No Adenopathy Results/Procedures Lab Patient resulted labs reviewed. FIM Transfers Therapy Code Descriptions/Definitions Functional [facility] Measure: 0=Not Assessed/NA 4=Minimal Assistance 1=Total Assistance 5=Supervision or Setup 2=Maximal Assistance 6=Modified [facility] 3=Moderate Assistance 7=Complete IndependenceSCALE: Activities may be completed with or without assistive devices. 5-Mqltbiygok-hbhbhsz completes the activity by him/herself with no assistance from a helper. 5-Set-up or Clean-up Assistance-helper sets up or cleans up; patient completes activity. [place] assists only prior to or following the activity. 4-Supervision or Touching Assistance-helper provides verbal cues and/or touching/steadying and/or contact guard assistance as patient completes activity. Assistance may be provided throughout the activity or intermittently. 3-Partial/Moderate Assistance-helper does LESS THAN HALF the effort. [place] lifts, holds or supports trunk or limbs, but provides less than half the effort. 2-Substantial/Maximal Assistance-helper does MORE THAN HALF the effort. [place] lifts or holds trunk or limbs and provides more than half the effort. 8-Ubfsdlhgc-xfzoqp does ALL the effort. Patient does none of the effort to complete the activity. Or, the assistance of 2 or more helpers is required for the patient to complete the activity. If activity was not attempted, code reason: 7-Patient Refused. 9-Not Applicable-not attempted and the patient did not perform the activity before the current illness, exacerbation or injury. 10-Not Attempted due to Environmental Limitations-(lack of equipment, weather restraints, etc.). 88-Not Attempted due to Medical Conditions or Safety Concerns. Roll Left to Right (QC): 3 Sit to Lying (QC): 3 Sit to Stand (QC): 3 Chair/Bvd-xl-Gontd Xfer(QC): 3 Car Transfer (QC): 3 Gait Training Does the Patient Walk?: Yes Distance: 20'x2 Walk 10 feet (QC): 2 Walk 50 ft with 2 Turns(QC): 88 Walk 150 ft (QC): 88 Walking 10ft/uneven surface-QC: 88 Gait Persons Needed: 1 Gait Assistive Device: Walker Tobias Wheelchair Training Does the Pt Use a Wheelchair?: Yes Distance: 150'x2 Wheel 50 ft with 2 turns (QC): 3 Wheel 150 ft (QC): 5 Type of Wheelchair: Manual Stair Training 1 Step (curb) (QC): 88 4 Steps (QC): 88 12 Steps (QC): 88 Balance Picking up an Object (QC): 88 ADL-Treatment Eating (QC): 6 (IND eating with RUE) Oral Hygiene (QC): 6 Bathing Location: L Arm, R Arm, L Upper Leg, R Upper Leg, L Lower Leg (including foot), R Lower Leg (including foot), Chest, Abdomen, Perineal Area Shower/Bathe Self (QC): 3 (completes on shower bench within room, compeltes all tasks with SBA-CGA in sit. Requires CGA-min A during bending tasks, able to correct self, though min A for increased bending to L foot washing. Pt instructed on safety and use of LHS rather than washcloth in this case. Pt stands with PT assist while OT washes bottom with max A.) Upper Body Dressing (QC): 3 (min A LUE threading and assist pulling down in back. Pt doffs with IND.) Lower Body Dressing (QC): 1 (Ax2, however, pt able to thread BLE with CGA (pt brings LLE over R knee to thread LLE) then pulls to proximal knees. Sit to stand with PT while OT adjusts pants over hips) On/Off Footwear (QC): 3 (min A supporting LLE on knee as pt completes. Pt dons B socks with good ability.) Toileting Hygiene (QC): 1 (TD due to need of Ax2 (PT assists with transfer and OT completes bottom care)) Toilet Transfer (QC): 3 (mod A) Assessment/Plan Assessment and Plan Assess & Plan/Chief Complaint Assessment: CVA with left-sided weakness Current smoker Hypertension Diabetes insulin requiring CAD Hypertension GERD Plan: Monitor closely Insulin Nicotine patch Inpatient rehab protocol 12/21/2020: Monitor blood pressure GERD treatment Aggressive treatment for left-sided weakness 12/22/2020: Nicotine patch Xanax as needed for nicotine withdrawal Supportive care Fall risk 12/23/2020: Supportive care for irritable status Monitor closely 12/24/2020: Supportive care Pet Pass Bowel regimen (1) Cerebrovascular accident due to cerebral artery occlusion Status: Acute (2) Diabetes (3) Smoker (4) Hypertension (5) CAD (coronary artery disease) (6) Left-sided weakness (7) Dysarthria (8) Non-compliance Status: Acute BOYD MICHAELS DO Dec 24, 2020 14:12
[2020-12-24 20:00] VITALS: BP 104/77
[2020-12-24] MEDS: FAMOTIDINE 20 MG (PEPCID) TABLET PO SCH (21:28)
--- NOTE | 2020-12-25 05:03 | PM&R Progress Note ---
Subjective HPI/CC On Admission Date Seen by Provider: Dec 25, 2020 Time Seen by Provider: 07:45 Subjective/Events-last exam 12/25/20: Pet pass will be given today Dog is "misfit" and she is 110 pounds and is 4 yo BM yesterday a large amount after laxatives since admit Sugar 183 12/24/2020: Patient doing a little better Better attitude Approved a PET pass Lactulose will be given due to constipation Very blood sugars 12/23/2020: Patient very irritable Hopefully he can adjust his attitude or he may very well leave AGAINST MEDICAL ADVICE Had a fall yesterday without injury Bowels moved on 12/19 giving laxatives Bed alarm initiated 12/22/2020: Pt is doing okay today He is very cranky He would like to go smoke Last bowel movement was three days ago, pt was given laxatives Pt had a fall in the rehab unit He wants to go home so badly, but he needs to stay to recover 12/21/2020: Patient doing pretty well Sleeping currently Was tearful a little bit today Bowels moved 2 days ago laxatives given Tums will be given on a regular basis so started Protonix in the morning and Pepcid at night Review of Systems Neurological: Weakness, Incoordination Objective Exam Vital Signs Vital Signs Date Time Temp Pulse Resp B/P (MAP) Pulse Ox O2 Delivery O2 Flow Rate FiO2 12/25/20 07:06 36.4 77 20 107/71 (83) 97 Room Air Capillary Refill : General Appearance: No Apparent Distress, WD/WN, Chronically ill, Thin HEENT: PERRL/EOMI, Normal ENT Inspection, Pharynx Normal Neck: Full Range of Motion, Normal Inspection, Non Tender, Supple, Carotid Bruit Respiratory: Chest Non Tender, Lungs Clear, Normal Breath Sounds, No Accessory Muscle Use, No Respiratory Distress Cardiovascular: Regular Rate, Rhythm, No Edema, No Gallop, No JVD, No Murmur, Normal Peripheral Pulses Gastrointestinal: Normal Bowel Sounds, No Organomegaly, No Pulsatile Mass, Non Tender, Soft Back: Normal Inspection, No CVA Tenderness, No Vertebral Tenderness Extremity: Normal Capillary Refill, Normal Inspection, Normal Range of Motion (Except left side weakness 2/5), Non Tender, No Calf Tenderness, No Pedal Edema Neurologic/Psychiatric: Alert, Oriented x3, No Motor/Sensory Deficits, Abnormal Gait, Depressed Affect, Motor Weakness (Left side weakness) Skin: Normal Color, Warm/Dry Lymphatic: No Adenopathy Results/Procedures Lab Patient resulted labs reviewed. FIM Transfers Therapy Code Descriptions/Definitions Functional [place] Measure: 0=Not Assessed/NA 4=Minimal Assistance 1=Total Assistance 5=Supervision or Setup 2=Maximal Assistance 6=Modified [place] 3=Moderate Assistance 7=Complete IndependenceSCALE: Activities may be completed with or without assistive devices. 7-Tcnseglydc-mdpgdmg completes the activity by him/herself with no assistance from a helper. 5-Set-up or Clean-up Assistance-helper sets up or cleans up; patient completes activity. [place] assists only prior to or following the activity. 4-Supervision or Touching Assistance-helper provides verbal cues and/or touching/steadying and/or contact guard assistance as patient completes activity. Assistance may be provided throughout the activity or intermittently. 3-Partial/Moderate Assistance-helper does LESS THAN HALF the effort. [place] lifts, holds or supports trunk or limbs, but provides less than half the effort. 2-Substantial/Maximal Assistance-helper does MORE THAN HALF the effort. [place] lifts or holds trunk or limbs and provides more than half the effort. 7-Yfbvgkipf-evxayc does ALL the effort. Patient does none of the effort to complete the activity. Or, the assistance of 2 or more helpers is required for the patient to complete the activity. If activity was not attempted, code reason: 7-Patient Refused. 9-Not Applicable-not attempted and the patient did not perform the activity before the current illness, exacerbation or injury. 10-Not Attempted due to Environmental Limitations-(lack of equipment, weather restraints, etc.). 88-Not Attempted due to Medical Conditions or Safety Concerns. Roll Left to Right (QC): 3 Sit to Lying (QC): 3 Sit to Stand (QC): 3 Chair/Awj-dv-Zuxbg Xfer(QC): 3 Car Transfer (QC): 3 Gait Training Does the Patient Walk?: Yes Distance: 20'x2 Walk 10 feet (QC): 2 Walk 50 ft with 2 Turns(QC): 88 Walk 150 ft (QC): 88 Walking 10ft/uneven surface-QC: 88 Gait Persons Needed: 1 Gait Assistive Device: Walker Tobias Wheelchair Training Does the Pt Use a Wheelchair?: Yes Distance: 150'x2 Wheel 50 ft with 2 turns (QC): 3 Wheel 150 ft (QC): 5 Type of Wheelchair: Manual Stair Training 1 Step (curb) (QC): 88 4 Steps (QC): 88 12 Steps (QC): 88 Balance Picking up an Object (QC): 88 ADL-Treatment Eating (QC): 6 (IND eating with RUE) Oral Hygiene (QC): 6 Bathing Location: L Arm, R Arm, L Upper Leg, R Upper Leg, L Lower Leg (including foot), R Lower Leg (including foot), Chest, Abdomen, Perineal Area Shower/Bathe Self (QC): 3 (completes on shower bench within room, compeltes all tasks with SBA-CGA in sit. Requires CGA-min A during bending tasks, able to correct self, though min A for increased bending to L foot washing. Pt instructe d on safety and use of LHS rather than washcloth in this case. Pt stands with PT assist while OT washes bottom with max A.) Upper Body Dressing (QC): 3 (min A LUE threading and assist pulling down in back. Pt doffs with IND.) Lower Body Dressing (QC): 1 (Ax2, however, pt able to thread BLE with CGA (pt brings LLE over R knee to thread LLE) then pulls to proximal knees. Sit to stand with PT while OT adjusts pants over hips) On/Off Footwear (QC): 3 (min A supporting LLE on knee as pt completes. Pt dons B socks with good ability.) Toileting Hygiene (QC): 1 (TD due to need of Ax2 (PT assists with transfer and OT completes bottom care)) Toilet Transfer (QC): 3 (mod A) Assessment/Plan Assessment and Plan Assess & Plan/Chief Complaint Assessment: CVA with left-sided weakness Current smoker Hypertension Diabetes insulin requiring CAD Hypertension GERD Plan: Monitor closely Insulin Nicotine patch Inpatient rehab protocol 12/21/2020: Monitor blood pressure GERD treatment Aggressive treatment for left-sided weakness 12/22/2020: Nicotine patch Xanax as needed for nicotine withdrawal Supportive care Fall risk 12/23/2020: Supportive care for irritable status Monitor closely 12/24/2020: Supportive care Pet Pass Bowel regimen 12/25/20: Pet pass Monitor closely Improved attitude since fall 2 days ago (1) Cerebrovascular accident due to cerebral artery occlusion Status: Acute (2) Diabetes (3) Smoker (4) Hypertension (5) CAD (coronary artery disease) (6) Left-sided weakness (7) Dysarthria (8) Non-compliance Status: Acute BOYD MICHAELS DO Dec 25, 2020 05:03
[2020-12-25] MEDS: inSUlin ASPART (NovoLOG) 1 UNIT/0.01 ML (CHARGE PER UNIT) SC SCH ×7 (06:14→21:35)
[2020-12-25 07:06] VITALS: BP 107/71
[2020-12-25] MEDS: NICOTINE PATCH REMOVAL TP SCH (08:11)
[2020-12-25] MEDS: SENNA W/DOCUSATE (SENOKOT S) TABLET PO SCH ×2 (08:12→21:48)
[2020-12-25] MEDS: PANTOPRAZOLE 40 MG (PROTONIX) TAB PO SCH (08:12)
[2020-12-25] MEDS: HYDROcodone/APAP 5 MG/325 MG (LORTAB) TAB PO PRN ×3 (08:12→21:41)
[2020-12-25] MEDS: NICOTINE 21 MG (NICODERM) PATCH TD SCH (08:12)
[2020-12-25] MEDS: DOCUSATE SODIUM 100 MG (COLACE) CAP PO SCH ×2 (08:12→21:48)
[2020-12-25] MEDS: ASPIRIN 81 MG CHEW (CHILDREN'S ASA) PO SCH (08:12)
[2020-12-25] MEDS: polyethylene glycoL POWDER 17 GM (MIRALAX) PACK PO SCH ×2 (08:13→21:48)
--- NOTE | 2020-12-25 08:16 | Physical Therapy Daily Note ---
PT Daily Note-Current Subjective Agreeable to PT. Reprots he did not sleep well last night, could not get comfortable. His dog is coming to visit today and he is looking forward to this. Transfers SCALE: Activities may be completed with or without assistive devices. 6-Gcwyjwxctn-wuoovoj completes the activity by him/herself with no assistance from a helper. 5-Set-up or Clean-up Assistance-helper sets up or cleans up; patient completes activity. [place] assists only prior to or following the activity. 4-Supervision or Touching Assistance-helper provides verbal cues and/or touching/steadying and/or contact guard assistance as patient completes activity. Assistance may be provided throughout the activity or intermittently. 3-Partial/Moderate Assistance-helper does LESS THAN HALF the effort. [place] lifts, holds or supports trunk or limbs, but provides less than half the effort. 2-Substantial/Maximal Assistance-helper does MORE THAN HALF the effort. [place] lifts or holds trunk or limbs and provides more than half the effort. 6-Psqmdosyj-yihpgr does ALL the effort. Patient does none of the effort to complete the activity. Or, the assistance of 2 or more helpers is required for the patient to complete the activity. If activity was not attempted, code reason: 7-Patient Refused. 9-Not Applicable-not attempted and the patient did not perform the activity before the current illness, exacerbation or injury. 10-Not Attempted due to Environmental Limitations-(lack of equipment, weather restraints, etc.). 88-Not Attempted due to Medical Conditions or Safety Concerns. Sit to Lying (QC): 4 Lying to Sitting/Side of Bed(Q: 4 (SBA with sit to from Supine for safety but able to complete without touch assist. ) Sit to Stand (QC): 4 (CGA with sit to stand. ) Chair/Kus-ti-Uamsq Xfer(QC): 4 (CGA and turns to the right, reaching across for the arm of the chair. ) Gait Training Pt walked 8 ' x 4 in // bars with min assist; intermittent assist to advance left LE and skilled cues for left knee extension. AFO L. Wheelchair Training Wheel 50 ft with 2 turns (QC): 4 Wheel 150 ft (QC): 4 (SBA for safety due to decreased awareness left side. ) Assessment Current Status: Good Progress No LOB noted with SPT and able to transfer to the right fairly well. Did not attempt to the left. Poor quad control in standing but with cues and time able to extend. Pt in bed post treatment with call light in reach. PT Short Term Goals Short Term Goals Time Frame: Dec 28, 2020 Roll Left & Right: 6 Sit to lyin Lying to sitting on side of be: 4 Sit to stand: 4 Chair/yvv-pm-mdigw transfer: 4 Walk 10 feet: 3 PT Mcfp Goals Mcfp Goals PT Mcfp Goals Time Frame: Jan 11, 2021 Roll Left & Right (QC): 6 Sit to Lying (QC): 6 Lying-Sitting on Side/Bed(QC): 6 Sit to Stand (QC): 5 Chair/Nin-kh-Eaeae Xfer(QC): 5 Toilet Transfer (QC): 5 Car Transfer (QC): 5 Does the Patient Walk: Yes Walk 10 feet (QC): 4 Walk 50ft with 2 Turns (QC): 4 Walk 150 ft (QC): 88 Walking 10ft on Uneven Surface: 4 1 Step (curb) (QC): 3 4 Steps (QC): 88 12 Steps (QC): 88 Picking up an Object (QC): 88 Wheel 50 feet with 2 turns (QC: 6 Wheel 150 feet: 6 PT Plan Problem List Problem List: Activity Tolerance, Functional Strength, Safety, Balance, Gait, Transfer, Bed Mobility Treatment/Plan Treatment Plan: Continue Plan of Care Treatment Plan: Bed Mobility, Education, Functional Activity [place], Functional Strength, Group Therapy, Gait, Safety, Therapeutic Exercise, Transfers Treatment Duration: Jan 11, 2021 Frequency: At least 5 of 7 days/Wk (IRF) Estimated Hrs Per Day: 1.5 hours per day Patient and/or Family Agrees t: Yes Safety Risks/Education Patient Education: Safety Issues Teaching Recipient: Patient Teaching Methods: Discussion Response to Teaching: Reinforcement Needed Time/GCodes Time In: 730 Time Out: 810 Total Billed Treatment Time: 40 Total Billed Treatment visit FA 30 WC 10 JUAN PUGA PT Dec 25, 2020 08:16
[2020-12-25 20:00] VITALS: BP 116/72
[2020-12-25] MEDS: FAMOTIDINE 20 MG (PEPCID) TABLET PO SCH (21:39)
[2020-12-26] MEDS: inSUlin ASPART (NovoLOG) 1 UNIT/0.01 ML (CHARGE PER UNIT) SC SCH ×7 (05:54→21:31)
[2020-12-26 08:29] VITALS: BP 140/79
[2020-12-26] MEDS: NICOTINE PATCH REMOVAL TP SCH (08:58)
[2020-12-26] MEDS: DOCUSATE SODIUM 100 MG (COLACE) CAP PO SCH ×2 (08:58→21:26)
[2020-12-26] MEDS: PANTOPRAZOLE 40 MG (PROTONIX) TAB PO SCH (08:58)
[2020-12-26] MEDS: ALPRAZolam 1 MG (XANAX) TAB PO PRN (08:59)
[2020-12-26] MEDS: ASPIRIN 81 MG CHEW (CHILDREN'S ASA) PO SCH (08:59)
[2020-12-26] MEDS: SENNA W/DOCUSATE (SENOKOT S) TABLET PO SCH ×2 (08:59→21:26)
[2020-12-26] MEDS: NICOTINE 21 MG (NICODERM) PATCH TD SCH (08:59)
[2020-12-26] MEDS: polyethylene glycoL POWDER 17 GM (MIRALAX) PACK PO SCH ×2 (08:59→21:35)
--- NOTE | 2020-12-26 17:18 | PM&R Progress Note ---
Subjective HPI/CC On Admission Date Seen by Provider: Dec 26, 2020 Time Seen by Provider: 17:20 Subjective/Events-last exam 12/26/20: Patient doing better Marital problems stated to the nurse Tearful at times, Xanax given Pet pass pending BM 12/24 Temp 99.2 12/25/20: Pet pass will be given today Dog is "misfit" and she is 110 pounds and is 4 yo BM yesterday a large amount after laxatives since admit Sugar 183 12/24/2020: Patient doing a little better Better attitude Approved a PET pass Lactulose will be given due to constipation Very blood sugars 12/23/2020: Patient very irritable Hopefully he can adjust his attitude or he may very well leave AGAINST MEDICAL ADVICE Had a fall yesterday without injury Bowels moved on 12/19 giving laxatives Bed alarm initiated 12/22/2020: Pt is doing okay today He is very cranky He would like to go smoke Last bowel movement was three days ago, pt was given laxatives Pt had a fall in the rehab unit He wants to go home so badly, but he needs to stay to recover 12/21/2020: Patient doing pretty well Sleeping currently Was tearful a little bit today Bowels moved 2 days ago laxatives given Tums will be given on a regular basis so started Protonix in the morning and P epcid at night Review of Systems General: Fatigue, Malaise Neurological: Weakness, Incoordination Objective Exam Vital Signs Vital Signs Date Time Temp Pulse Resp B/P (MAP) Pulse Ox O2 Delivery O2 Flow Rate FiO2 12/26/20 21:27 98 Room Air 12/26/20 20:00 36.4 88 16 110/66 (81) Capillary Refill : General Appearance: No Apparent Distress, WD/WN, Chronically ill, Thin HEENT: PERRL/EOMI, Normal ENT Inspection, Pharynx Normal Neck: Full Range of Motion, Normal Inspection, Non Tender, Supple, Carotid Bru it Respiratory: Chest Non Tender, Lungs Clear, Normal Breath Sounds, No Accessory Muscle Use, No Respiratory Distress Cardiovascular: Regular Rate, Rhythm, No Edema, No Gallop, No JVD, No Murmur, Normal Peripheral Pulses Gastrointestinal: Normal Bowel Sounds, No Organomegaly, No Pulsatile Mass, Non Tender, Soft Back: Normal Inspection, No CVA Tenderness, No Vertebral Tenderness Extremity: Normal Capillary Refill, Normal Inspection, Normal Range of Motion (Except left side weakness 2/5), Non Tender, No Calf Tenderness, No Pedal Edema Neurologic/Psychiatric: Alert, Oriented x3, No Motor/Sensory Deficits, Abnormal Gait, Depressed Affect, Motor Weakness (Left side weakness) Skin: Normal Color, Warm/Dry Lymphatic: No Adenopathy Results/Procedures Lab Laboratory Tests 12/27/20 05:15 Patient resulted labs reviewed. FIM Transfers Therapy Code Descriptions/Definitions Functional [place] Measure: 0=Not Assessed/NA 4=Minimal Assistance 1=Total Assistance 5=Supervision or Setup 2=Maximal Assistance 6=Modified [place] 3=Moderate Assistance 7=Complete IndependenceSCALE: Activities may be completed with or without assistive devices. 3-Cngdnqkpcp-taiwskl completes the activity by him/herself with no assistance from a helper. 5-Set-up or Clean-up Assistance-helper sets up or cleans up; patient completes activity. [place] assists only prior to or following the activity. 4-Supervision or Touching Assistance-helper provides verbal cues and/or to uching/steadying and/or contact guard assistance as patient completes activity. Assistance may be provided throughout the activity or intermittently. 3-Partial/Moderate Assistance-helper does LESS THAN HALF the effort. [place] lifts, holds or supports trunk or limbs, but provides less than half the effort. 2-Substantial/Maximal Assistance-helper does MORE THAN HALF the effort. [place] lifts or holds trunk or limbs and provides more than half the effort. 7-Rybbfpkmm-qdhkkk does ALL the effort. Patient does none of the effort to complete the activity. Or, the assistance of 2 or more helpers is required for the patient to complete the activity. If activity was not attempted, code reason: 7-Patient Refused. 9-Not Applicable-not attempted and the patient did not perform the activity before the current illness, exacerbation or injury. 10-Not Attempted due to Environmental Limitations-(lack of equipment, weather restraints, etc.). 88-Not Attempted due to Medical Conditions or Safety Concerns. Roll Left to Right (QC): 3 Sit to Lying (QC): 4 Sit to Stand (QC): 4 (CGA with sit to stand. ) Chair/Wni-mo-Iasey Xfer(QC): 4 (CGA and turns to the right, reaching across for the arm of the chair. ) Car Transfer (QC): 3 Gait Training Does the Patient Walk?: Yes Distance: 20'x2 Walk 10 feet (QC): 2 Walk 50 ft with 2 Turns(QC): 88 Walk 150 ft (QC): 88 Walking 10ft/uneven surface-QC: 88 Gait Persons Needed: 1 Gait Assistive Device: Walker Tobias Wheelchair Training Does the Pt Use a Wheelchair?: Yes Distance: 150'x2 Wheel 50 ft with 2 turns (QC): 4 Wheel 150 ft (QC): 4 (SBA for safety due to decreased awareness left side. ) Type of Wheelchair: Manual Stair Training 1 Step (curb) (QC): 88 4 Steps (QC): 88 12 Steps (QC): 88 Balance Picking up an Object (QC): 88 ADL-Treatment Eating (QC): 6 (IND eating with RUE) Oral Hygiene (QC): 6 Bathing Location: L Arm, R Arm, L Upper Leg, R Upper Leg, L Lower Leg (including foot), R Lower Leg (including foot), Chest, Abdomen, Perineal Area Shower/Bathe Self (QC): 3 (completes on shower bench within room, compeltes all tasks with SBA-CGA in sit. Requires CGA-min A during bending tasks, able to correct self, though min A for increased bending to L foot washing. Pt instructed on safety and use of LHS rather than washcloth in this case. Pt stands with PT assist while OT washes bottom with max A.) Upper Body Dressing (QC): 3 (min A LUE threading and assist pulling down in back. Pt doffs with IND.) Lower Body Dressing (QC): 1 (Ax2, however, pt able to thread BLE with CGA (pt brings LLE over R knee to thread LLE) then pulls to proximal knees. Sit to stand with PT while OT adjusts pants over hips) On/Off Footwear (QC): 3 (min A supporting LLE on knee as pt completes. Pt dons B socks with good ability.) Toileting Hygiene (QC): 1 (TD due to need of Ax2 (PT assists with transfer and OT completes bottom care)) Toilet Transfer (QC): 3 (mod A) Assessment/Plan Assessment and Plan Assess & Plan/Chief Complaint Assessment: CVA with left-sided weakness Current smoker Hypertension Diabetes insulin requiring CAD Hypertension GERD Plan: Monitor closely Insulin Nicotine patch Inpatient rehab protocol 12/21/2020: Monitor blood pressure GERD treatment Aggressive treatment for left-sided weakness 12/22/2020: Nicotine patch Xanax as needed for nicotine withdrawal Supportive care Fall risk 12/23/2020: Supportive care for irritable status Monitor closely 12/24/2020: Supportive care Pet Pass Bowel regimen 12/25/20: Pet pass Monitor closely Improved attitude since fall 2 days ago 12/26/20: Intense therapy Monitor BP and BS (1) Cerebrovascular accident due to cerebral artery occlusion Status: Acute (2) Diabetes (3) Smoker (4) Hypertension (5) CAD (coronary artery disease) (6) Left-sided weakness (7) Dysarthria (8) Non-compliance Status: Acute BOYD MICHAELS DO Dec 26, 2020 17:18
[2020-12-26 20:00] VITALS: BP 110/66
[2020-12-26] MEDS: HYDROcodone/APAP 5 MG/325 MG (LORTAB) TAB PO PRN (21:26)
[2020-12-26] MEDS: FAMOTIDINE 20 MG (PEPCID) TABLET PO SCH (21:26)
[2020-12-27 05:20] LABS: BASOPHILS # (AUTO) 0.1 10^3/uL (0.0-0.1); BASOPHILS % (AUTO) 1 % (0-10); EOSINOPHILS # (AUTO) 0.3 10^3/uL (0.0-0.3); EOSINOPHILS % (AUTO) 3 % (0-10); HEMATOCRIT 49 % (40-54); HEMOGLOBIN 16.8 g/dL (13.3-17.7); LYMPHOCYTES # (AUTO) 4.6 10^3/uL (1.0-4.0); LYMPHOCYTES % (AUTO) 43 % (12-44); MEAN CORPUSCULAR HEMOGLOBIN 31 pg (25-34); MEAN CORPUSCULAR HGB CONC 34 g/dL (32-36); MEAN CORPUSCULAR VOLUME 89 fL (80-99); MEAN PLATELET VOLUME 9.4 fL (9.0-12.2); MONOCYTES # (AUTO) 1.1 10^3/uL (0.0-1.0); MONOCYTES % (AUTO) 11 % (0-12); NEUTROPHILS # (AUTO) 4.5 10^3/uL (1.8-7.8); NEUTROPHILS % (AUTO) 42 % (42-75); PLATELET COUNT 433 10^3/uL (130-400); WHITE BLOOD COUNT 10.7 10^3/uL (4.3-11.0)
[2020-12-27 05:29] LABS: ALBUMIN 3.8 GM/DL (3.2-4.5)
[2020-12-27 05:30] LABS: CHLORIDE 103 MMOL/L (98-107); POTASSIUM 4.7 MMOL/L (3.6-5.0); SODIUM 135 MMOL/L (135-145)
[2020-12-27 05:31] LABS: CALCIUM 9.2 MG/DL (8.5-10.1)
[2020-12-27 05:32] LABS: GLUCOSE 163 MG/DL (70-105); TOTAL PROTEIN 7.3 GM/DL (6.4-8.2)
[2020-12-27 05:33] LABS: CARBON DIOXIDE 19 MMOL/L (21-32)
[2020-12-27 05:34] LABS: BILIRUBIN,TOTAL 0.4 MG/DL (0.1-1.0)
[2020-12-27 05:36] LABS: ALKALINE PHOSPHATASE 83 U/L (40-136); CREATININE SERUM 0.86 MG/DL (0.60-1.30); GFR ESTIMATED > 60
[2020-12-27 05:37] LABS: BUN/CREATININE RATIO 26
[2020-12-27 05:39] LABS: ALANINE AMINOTRANSFERASE 34 U/L (0-55)
[2020-12-27] MEDS: inSUlin ASPART (NovoLOG) 1 UNIT/0.01 ML (CHARGE PER UNIT) SC SCH ×7 (06:01→20:27)
--- NOTE | 2020-12-27 06:30 | PM&R Progress Note ---
Subjective HPI/CC On Admission Date Seen by Provider: Dec 27, 2020 Time Seen by Provider: 10:45 Subjective/Events-last exam 12/27/2020: Pt in good spirits today No bowel movement for 3 days Blood sugar 163 Doing well visited today 12/26/20: Patient doing better Marital problems stated to the nurse Tearful at times, Xanax given Pet pass pending BM 12/24 Temp 99.2 12/25/20: Pet pass will be given today Dog is "misfit" and she is 110 pounds and is 4 yo BM yesterday a large amount after laxatives since admit Sugar 183 12/24/2020: Patient doing a little better Better attitude Approved a PET pass Lactulose will be given due to constipation Very blood sugars 12/23/2020: Patient very irritable Hopefully he can adjust his attitude or he may very well leave AGAINST MEDICAL ADVICE Had a fall yesterday without injury Bowels moved on 12/19 giving laxatives Bed alarm initiated 12/22/2020: Pt is doing okay today He is very cranky He would like to go smoke Last bowel movement was three days ago, pt was given laxatives Pt had a fall in the rehab unit He wants to go home so badly, but he needs to stay to recover 12/21/2020: Patient doing pretty well Sleeping currently Was tearful a little bit today Bowels moved 2 days ago laxatives given Tums will be given on a regular basis so started Protonix in the morning and Pepcid at night Review of Systems General: Fatigue, Malaise Neurological: Weakness, Incoordination Objective Exam Vital Signs Vital Signs Date Time Temp Pulse Resp B/P (MAP) Pulse Ox O2 Delivery O2 Flow Rate FiO2 12/27/20 20:01 35.9 93 18 117/76 (90) 95 Room Air Capillary Refill : General Appearance: No Apparent Distress, WD/WN, Chronically ill, Thin HEENT: PERRL/EOMI, Normal ENT Inspection, Pharynx Normal Neck: Full Range of Motion, Normal Inspection, Non Tender, Supple, Carotid Bruit Respiratory: Chest Non Tender, Lungs Clear, Normal Breath Sounds, No Accessory Muscle Use, No Respiratory Distress Cardiovascular: Regular Rate, Rhythm, No Edema, No Gallop, No JVD, No Murmur, Normal Peripheral Pulses Gastrointestinal: Normal Bowel Sounds, No Organomegaly, No Pulsatile Mass, Non Tender, Soft Back: Normal Inspection, No CVA Tenderness, No Vertebral Tenderness Extremity: Normal Capillary Refill, Normal Inspection, Normal Range of Motion (Except left side weakness 2/5), Non Tender, No Calf Tenderness, No Pedal Edema Neurologic/Psychiatric: Alert, Oriented x3, No Motor/Sensory Deficits, Abnormal Gait, Depressed Affect, Motor Weakness (Left side weakness) Skin: Normal Color, Warm/Dry Lymphatic: No Adenopathy Results/Procedures Lab Laboratory Tests 12/27/20 05:15 Patient resulted labs reviewed. FIM Transfers Therapy Code Descriptions/Definitions Functional [place] Measure: 0=Not Assessed/NA 4=Minimal Assistance 1=Total Assistance 5=Supervision or Setup 2=Maximal Assistance 6=Modified [place] 3=Moderate Assistance 7=Complete IndependenceSCALE: Activities may be completed with or without assistive devices. 0-Culjvcrrjb-ncxxbaz completes the activity by him/herself with no assistance from a helper. 5-Set-up or Clean-up Assistance-helper sets up or cleans up; patient completes activity. [place] assists only prior to or following the activity. 4-Supervision or Touching Assistance-helper provides verbal cues and/or touching/steadying and/or contact guard assistance as patient completes activity. Assistance may be provided throughout the activity or intermittently. 3-Partial/Moderate Assistance-helper does LESS THAN HALF the effort. [place] lifts, holds or supports trunk or limbs, but provides less than half the effort. 2-Substantial/Maximal Assistance-helper does MORE THAN HALF the effort. [place] lifts or holds trunk or limbs and provides more than half the effort. 2-Nxhqsgnnu-aczdoa does ALL the effort. Patient does none of the effort to complete the activity. Or, the assistance of 2 or more helpers is required for the patient to complete the activity. If activity was not attempted, code reason: 7-Patient Refused. 9-Not Applicable-not attempted and the patient did not perform the activity before the current illness, exacerbation or injury. 10-Not Attempted due to Environmental Limitations-(lack of equipment, weather restraints, etc.). 88-Not Attempted due to Medical Conditions or Safety Concerns. Roll Left to Right (QC): 3 Sit to Lying (QC): 4 Sit to Stand (QC): 4 (CGA with sit to stand. ) Chair/Atl-ge-Mpxrx Xfer(QC): 4 (CGA and turns to the right, reaching across for the arm of the chair. ) Car Transfer (QC): 3 Gait Training Does the Patient Walk?: Yes Distance: 20'x2 Walk 10 feet (QC): 2 Walk 50 ft with 2 Turns(QC): 88 Walk 150 ft (QC): 88 Walking 10ft/uneven surface-QC: 88 Gait Persons Needed: 1 Gait Assistive Device: Walker Tobias Wheelchair Training Does the Pt Use a Wheelchair?: Yes Distance: 150'x2 Wheel 50 ft with 2 turns (QC): 4 Wheel 150 ft (QC): 4 (SBA for safety due to decreased awareness left side. ) Type of Wheelchair: Manual Stair Training 1 Step (curb) (QC): 88 4 Steps (QC): 88 12 Steps (QC): 88 Balance Picking up an Object (QC): 88 ADL-Treatment Eating (QC): 6 (IND eating with RUE) Oral Hygiene (QC): 6 Bathing Location: L Arm, R Arm, L Upper Leg, R Upper Leg, L Lower Leg (including foot), R Lower Leg (including foot), Chest, Abdomen, Perineal Area Shower/Bathe Self (QC): 3 (completes on shower bench within room, compeltes all tasks with SBA-CGA in sit. Requires CGA-min A during bending tasks, able to correct self, though min A for increased bending to L foot washing. Pt instructed on safety and use of LHS rather than washcloth in this case. Pt stands with PT assist while OT washes bottom with max A.) Upper Body Dressing (QC): 3 (min A LUE threading and assist pulling down in back. Pt doffs with IND.) Lower Body Dressing (QC): 1 (Ax2, however, pt able to thread BLE with CGA (pt brings LLE over R knee to thread LLE) then pulls to proximal knees. Sit to stand with PT while OT adjusts pants over hips) On/Off Footwear (QC): 3 (min A supporting LLE on knee as pt completes. Pt dons B socks with good ability.) Toileting Hygiene (QC): 1 (TD due to need of Ax2 (PT assists with transfer and OT completes bottom care)) Toilet Transfer (QC): 3 (mod A) Assessment/Plan Assessment and Plan Assess & Plan/Chief Complaint Assessment: CVA with left-sided weakness Current smoker Hypertension Diabetes insulin requiring CAD Hypertension GERD Plan: Monitor closely Insulin Nicotine patch Inpatient rehab protocol 12/21/2020: Monitor blood pressure GERD treatment Aggressive treatment for left-sided weakness 12/22/2020: Nicotine patch Xanax as needed for nicotine withdrawal Supportive care Fall risk 12/23/2020: Supportive care for irritable status Monitor closely 12/24/2020: Supportive care Pet Pass Bowel regimen 12/25/20: Pet pass Monitor closely Improved attitude since fall 2 days ago 12/26/20: Intense therapy Monitor BP and BS 12/27/2020: Monitor sugar Fall risk (1) Cerebrovascular accident due to cerebral artery occlusion Status: Acute (2) Diabetes (3) Smoker (4) Hypertension (5) CAD (coronary artery disease) (6) Left-sided weakness (7) Dysarthria (8) Non-compliance Status: Acute BOYD MICHAELS DO Dec 27, 2020 06:30
[2020-12-27 07:17] VITALS: BP 115/69
[2020-12-27] MEDS: HYDROcodone/APAP 5 MG/325 MG (LORTAB) TAB PO PRN ×2 (07:55→20:22)
[2020-12-27] MEDS: SENNA W/DOCUSATE (SENOKOT S) TABLET PO SCH ×2 (07:56→20:22)
[2020-12-27] MEDS: PANTOPRAZOLE 40 MG (PROTONIX) TAB PO SCH (07:56)
[2020-12-27] MEDS: NICOTINE 21 MG (NICODERM) PATCH TD SCH (07:56)
[2020-12-27] MEDS: DOCUSATE SODIUM 100 MG (COLACE) CAP PO SCH ×2 (07:56→20:22)
[2020-12-27] MEDS: polyethylene glycoL POWDER 17 GM (MIRALAX) PACK PO SCH ×2 (07:56→20:06)
[2020-12-27] MEDS: ASPIRIN 81 MG CHEW (CHILDREN'S ASA) PO SCH (07:56)
[2020-12-27] MEDS: NICOTINE PATCH REMOVAL TP SCH (07:56)
--- NOTE | 2020-12-27 11:02 | Speech Therapy Daily Note ---
Speech Daily Progress Note Subjective Date Seen by Provider: Dec 27, 2020 Time Seen by Provider: 00:30 Patient was resting in his bed following his PT session. Patient's was present. Objective Patient completed speech activities at the conversational level with 90% intelligibility with minimal cuing Assessment Assessment Current Status: Good Progress Treatment Plan Continue Plan of Care Speech Short Term Goals Short Term Goals Short Term Goals 1) Patient will complete memory tasks at 90% or greater with minimal cues. 2) Patient will complete speech tasks at 90% or greater with minimal cues. Speech Skilled Nursing Goals Skilled Nursing Goals Patient will improve cognitive-communication abilities in order to complete daily tasks with minimal assist. Speech-Plan Patient/Family Goals Patient/Family Goals: Patient plans on returning to his home where he lives with his . Treatment Plan Speech Therapy Treatment Plan: Continue Plan of Care Treatment Duration: Dec 31, 2020 Frequency: 4 times per week (Patient will receive skilled ST 4-5x per week) Estimated Hrs Per Day: .5 hour per day Rehab Potential: Fair Barriers to Learning: Patient's recent CVA, medical history Pt/Family Agrees to Plan: Yes Safety Risks/Education Teaching Recipient: Patient, Significant Other Teaching Methods: Demonstration, Discussion Response to Teaching: Verbalize Understanding, Return Demonstration Education Topics Provided: Continued safety and communication Time Speech Therapy Time In: 10:00 Speech Therapy Time Out: 10:30 Total Billed Time: 30 Billed Treatment Time 1JACQUELINE [address] ST Dec 27, 2020 11:02
--- NOTE | 2020-12-27 11:28 | Physical Therapy Daily Note ---
PT Daily Note-Current Subjective Patient in bed pre tx, agrees to PT, has no complaints of pain. Will be co- treating with OT for part of tx due to poor patient mobility, strength, endurance, balance, left hemiparesis, coordinate UE and LE during activity, safety and reduce risk of falls. Appearance Patient in therapy gym post tx, will continue to work with OT. Mental Status Patient Orientation: Person, Place, Situation Transfers SCALE: Activities may be completed with or without assistive devices. 1-Lqwryoknnh-ezxoyvv completes the activity by him/herself with no assistance from a helper. 5-Set-up or Clean-up Assistance-helper sets up or cleans up; patient completes activity. [place] assists only prior to or following the activity. 4-Supervision or Touching Assistance-helper provides verbal cues and/or touching/steadying and/or contact guard assistance as patient completes activity. Assistance may be provided throughout the activity or intermittently. 3-Partial/Moderate Assistance-helper does LESS THAN HALF the effort. [place] lifts, holds or supports trunk or limbs, but provides less than half the effort. 2-Substantial/Maximal Assistance-helper does MORE THAN HALF the effort. [place] lifts or holds trunk or limbs and provides more than half the effort. 1-Qodbyqjai-pxrwqp does ALL the effort. Patient does none of the effort to complete the activity. Or, the assistance of 2 or more helpers is required for the patient to complete the activity. If activity was not attempted, code reason: 7-Patient Refused. 9-Not Applicable-not attempted and the patient did not perform the activity before the current illness, exacerbation or injury. 10-Not Attempted due to Environmental Limitations-(lack of equipment, weather restraints, etc.). 88-Not Attempted due to Medical Conditions or Safety Concerns. Roll Left & Right (QC): 6 Lying to Sitting/Side of Bed(Q: 3 Sit to Stand (QC): 3 Chair/Ymt-xr-Cpdpq Xfer(QC): 3 Min assist to sit on the side of the bed, patient needs dressed and is dependent for lowers, and can get his shirt on with max assist. Patient then transfers to after dressing (he has to stand and get his pants all the way up) Gait Training Distance: 20'x2 Walk 10 feet (QC): 2 Gait Assistive Device: Walker Tobias WC follow, uses left knee immobilizer and AFO, needs assist to advance his left leg and balance assist. Wheelchair Training Does the Pt Use a Wheelchair?: Yes Wheel 50 ft with 2 turns (QC): 3 Wheel 150 ft (QC): 3 Type of Wheelchair: Manual 300', patient has a very deviated path, left neglect, often needs cues for obstacles, he can get around them with the cues but without them he will run into things Exercises seated balance training working on push/pull, leaning side to side, reaching NuStep Minutes: 15 NuStep Workload: 4 Treatments PT worked on bed mobility and transfers, dressing, WC mobility, ambulation, positioning and safety during balance training, functional strengthening, OT worked on UE positioning and safety during ambulation, balance training Assessment Current Status: Poor Progress Patient is making some progress with functional mobility but it is slow, he is still not able to bear weight on his left leg without knee buckling PT Short Term Goals Short Term Goals Time Frame: Dec 28, 2020 Roll Left & Right: 6 Sit to lyin Lying to sitting on side of be: 4 Sit to stand: 4 Chair/umf-pg-rrvhp transfer: 4 Walk 10 feet: 3 PT Fpc Goals Manager Portable Goals PT Manager Portable Goals Time Frame: Jan 11, 2021 Roll Left & Right (QC): 6 Sit to Lying (QC): 6 Lying-Sitting on Side/Bed(QC): 6 Sit to Stand (QC): 5 Chair/Wad-gd-Nbucn Xfer(QC): 5 Toilet Transfer (QC): 5 Car Transfer (QC): 5 Does the Patient Walk: Yes Walk 10 feet (QC): 4 Walk 50ft with 2 Turns (QC): 4 Walk 150 ft (QC): 88 Walking 10ft on Uneven Surface: 4 1 Step (curb) (QC): 3 4 Steps (QC): 88 12 Steps (QC): 88 Picking up an Object (QC): 88 Wheel 50 feet with 2 turns (QC: 6 Wheel 150 feet: 6 PT Plan Problem List Problem List: Activity Tolerance, Functional Strength, Safety, Balance, Gait, Transfer, Bed Mobility, ROM Treatment/Plan Treatment Plan: Continue Plan of Care Treatment Plan: Bed Mobility, Education, Functional Activity [place], Functional Strength, Group Therapy, Gait, Safety, Therapeutic Exercise, Transfers Treatment Duration: Jan 11, 2021 Frequency: At least 5 of 7 days/Wk (IRF) Estimated Hrs Per Day: 1.5 hours per day Patient and/or Family Agrees t: Yes Safety Risks/Education Patient Education: Gait Training, Transfer Techniques, Correct Positioning, W/C Management, Safety Issues Teaching Recipient: Patient Teaching Methods: Demonstration, Discussion Response to Teaching: Reinforcement Needed Time/GCodes Time In: 0800 Time Out: 0900 Total Billed Treatment Time: 60 Total Billed Treatment 1 visit EX 30' FA 30' co-treated with OT from [id number] GABRIELLE LALA PT Dec 27, 2020 11:28
--- NOTE | 2020-12-27 11:55 | Physical Therapy Daily Note ---
PT Daily Note-Current Subjective Patient in bed pre tx, agrees to PT, has no complaints of pain Appearance Patient in bed post tx with nurse call, phone, tray, all needs met. Mental Status Patient Orientation: Person, Place, Situation Transfers SCALE: Activities may be completed with or without assistive devices. 9-Jotilkwutt-btvlugp completes the activity by him/herself with no assistance from a helper. 5-Set-up or Clean-up Assistance-helper sets up or cleans up; patient completes activity. [place] assists only prior to or following the activity. 4-Supervision or Touching Assistance-helper provides verbal cues and/or touching/steadying and/or contact guard assistance as patient completes activity. Assistance may be provided throughout the activity or intermittently. 3-Partial/Moderate Assistance-helper does LESS THAN HALF the effort. [place] lifts, holds or supports trunk or limbs, but provides less than half the effort. 2-Substantial/Maximal Assistance-helper does MORE THAN HALF the effort. [place] lifts or holds trunk or limbs and provides more than half the effort. 9-Mwgzicnpy-ioaago does ALL the effort. Patient does none of the effort to complete the activity. Or, the assistance of 2 or more helpers is required for the patient to complete the activity. If activity was not attempted, code reason: 7-Patient Refused. 9-Not Applicable-not attempted and the patient did not perform the activity before the current illness, exacerbation or injury. 10-Not Attempted due to Environmental Limitations-(lack of equipment, weather restraints, etc.). 88-Not Attempted due to Medical Conditions or Safety Concerns. Exercises Supine Ex: Quad Set, Glut sets, Heel Slides (AAROM), Short Arc Quads (AAROM), Straight leg raise (AAROM), Hip abd/add (AAROM) Supine Reps: 20 (LLE) LLE stretching in all planes Treatments LLE strengthening and stretching Assessment Current Status: Fair Progress improved hip flexion strength PT Short Term Goals Short Term Goals Time Frame: Dec 28, 2020 Roll Left & Right: 6 Sit to lyin Lying to sitting on side of be: 4 Sit to stand: 4 Chair/lfj-cm-atjhx transfer: 4 Walk 10 feet: 3 PT Health Club Manager Goals Health Club Manager Goals PT Health Club Manager Goals Time Frame: Jan 11, 2021 Roll Left & Right (QC): 6 Sit to Lying (QC): 6 Lying-Sitting on Side/Bed(QC): 6 Sit to Stand (QC): 5 Chair/Oev-ml-Rasgr Xfer(QC): 5 Toilet Transfer (QC): 5 Car Transfer (QC): 5 Does the Patient Walk: Yes Walk 10 feet (QC): 4 Walk 50ft with 2 Turns (QC): 4 Walk 150 ft (QC): 88 Walking 10ft on Uneven Surface: 4 1 Step (curb) (QC): 3 4 Steps (QC): 88 12 Steps (QC): 88 Picking up an Object (QC): 88 Wheel 50 feet with 2 turns (QC: 6 Wheel 150 feet: 6 PT Plan Problem List Problem List: Activity Tolerance, Functional Strength, Safety, Balance, Gait, Transfer, Bed Mobility, ROM Treatment/Plan Treatment Plan: Continue Plan of Care Treatment Plan: Bed Mobility, Education, Functional Activity Simba, Functional Strength, Group Therapy, Gait, Safety, Therapeutic Exercise, Transfers Treatment Duration: Jan 11, 2021 Frequency: At least 5 of 7 days/Wk (IRF) Estimated Hrs Per Day: 1.5 hours per day Patient and/or Family Agrees t: Yes Safety Risks/Education Patient Education: Correct Positioning, Safety Issues Teaching Recipient: Patient Teaching Methods: Demonstration, Discussion Response to Teaching: Reinforcement Needed Time/GCodes Time In: 1140 Time Out: 1155 Total Billed Treatment Time: 15 Total Billed Treatment 1 visit EX GABRIELLE CASAS PT Dec 27, 2020 11:55
--- NOTE | 2020-12-27 12:02 | Occupational Ther Daily Note ---
OT Current Status-Daily Note Subjective No pain reported. Mental Status/Objective Patient Orientation: Person, Place ADL-Treatment Therapy Code Descriptions/Definitions Functional [place] Measure: 0=Not Assessed/NA 4=Minimal Assistance 1=Total Assistance 5=Supervision or Setup 2=Maximal Assistance 6=Modified [place] 3=Moderate Assistance 7=Complete IndependenceSCALE: Activities may be completed with or without assistive devices. 5-Husnehmkyz-fnhhdny completes the activity by him/herself with no assistance from a helper. 5-Set-up or Clean-up Assistance-helper sets up or cleans up; patient completes activity. [place] assists only prior to or following the activity. 4-Supervision or Touching Assistance-helper provides verbal cues and/or touching/steadying and/or contact guard assistance as patient completes activity. Assistance may be provided throughout the activity or intermittently. 3-Partial/Moderate Assistance-helper does LESS THAN HALF the effort. [place] lifts, holds or supports trunk or limbs, but provides less than half the effort. 2-Substantial/Maximal Assistance-helper does MORE THAN HALF the effort. [place] lifts or holds trunk or limbs and provides more than half the effort. 8-Rhzqchelc-zgconk does ALL the effort. Patient does none of the effort to complete the activity. Or, the assistance of 2 or more helpers is required for the patient to complete the activity. If activity was not attempted, code reason: 7-Patient Refused. 9-Not Applicable-not attempted and the patient did not perform the activity before the current illness, exacerbation or injury. 10-Not Attempted due to Environmental Limitations-(lack of equipment, weather restraints, etc.). 88-Not Attempted due to Medical Conditions or Safety Concerns. Oral Hygiene (QC): 7 (Declines brushing teeth.) Upper Body Dressing (QC): 2 (Per PT) Lower Body Dressing (QC): 1 (Per PT) Toileting Hygiene (QC): 3 (Mod assist for placement and clothing management with urinal.) Other Treatment Pt. seen this date for partial co-treatment with PT due to low endurance/ability. PT assisted pt. with dressing prior to OT working with pt. OT facilitated other UE activities, with emphasis on weight shifts and hand placement during ambulation. PT focused on LE advancement and balance. Worked on sitting balance, leaning side to side with PNF pattern for right UE. Mod sit-stand. Max ambulation with min of another person for controlled balance with lefty cane and wheelchair follow. No active movement noted in left UE. Rigid tape still intact for shoulder subluxation, so OT will address tomorrow. Completed gentle PROM to left shoulder in all planes, with scapular glides and pectoral stretch. Note continued left sided neglect with cues to attend during functional activities. When OT present, pt. worked on sit-stands from wheelchair at parallel bar, with [place] assist to keep left hand on bar. OT blocked left knee and stabilized in stance for upright posture and stance. Pt. self propelled back to room and all needs met. Transferred to bed with mod assist. Education OT Patient Education: Correct positioning, Exercise program, Modified ADL techniques, Progress toward Goal/Update tx plan, Purpose of tx/functional activities, Reviewed precautions, Rehab process, Transfer techniques Teaching Recipient: Patient Teaching Methods: Demonstration, Discussion Response to Teaching: Verbalize Understanding, Return Demonstration OT Short Term Goals Short Term Goals Time Frame: Jan 04, 2021 Eatin Oral hygiene: 4 Toileting hygiene: 3 Shower/bathe self: 3 Upper body dressin Lower body dressin Putting on/taking off footwear: 3 OT [facility] Goals [facility] Goals Time Frame: Jan 11, 2021 Eating (QC): 6 Oral Hygiene (QC): 5 Toileting Hygiene (QC): 5 Shower/Bathe Self (QC): 4 Upper Body Dressing (QC): 5 Lower Body Dressing (QC): 4 On/Off Footwear (QC): 5 Additional Goals: 1-Demonstrate ADL Tasks, 2-Verbalize Understanding, 3- ImproveStrength/Simba 1=Demonstrate adherence to instructed precautions during ADL tasks. 2=Patient will verbalize/demonstrate understanding of assistive devices/modifications for ADL. 3=Patient will improve strength/tolerance for activity to enable patient to perform ADL's. OT Education/Plan Problem List/Assessment Assessment: Decreased Activ Tolerance, Decreased UE Strength, Dependent Transfers, Impaired Bed Mobility, Impaired Coordination, Impaired Funct Balance, Impaired I ADL's, Impaired Self-Care Skills, Restricted Funct UE ROM, Visual- Perceptual Deficit Discharge Recommendations Plan/Recommendations: Continue POC Therapy Discharge Recommendati: Post Acute OT Treatment Plan/Plan of Care Treatment,Training & Education: Yes Patient would benefit from OT for education, treatment and training to promote independence in ADL's, mobility, safety and/or upper extremity function for ADL's. Plan of Care: ADL Retraining, Functional Mobility, UE Funct Exercise/Act, UE Neuromus Re-Ed/Coord, Visual/Perceptual Retrain Treatment Duration: Jan 11, 2021 Frequency: At least 5 of 7 days/Wk (IRF) Estimated Hrs Per Day: 1.5 hours per day Agreement: Yes Rehab Potential: Fair Time/GCodes Start Time: 08:30 Stop Time: 09:45 Total Time Billed (hr/min): 75 Billed Treatment Time 1, FA x 30minutes, NM x 30minutes, ADL x 15minutes SHERRY HAYS OT Dec 27, 2020 12:02
[2020-12-27 20:01] VITALS: BP 117/76
[2020-12-27] MEDS: ALPRAZolam 1 MG (XANAX) TAB PO PRN (20:22)
[2020-12-27] MEDS: FAMOTIDINE 20 MG (PEPCID) TABLET PO SCH (20:22)
[2020-12-28] MEDS: inSUlin ASPART (NovoLOG) 1 UNIT/0.01 ML (CHARGE PER UNIT) SC SCH ×7 (06:06→20:17)
--- NOTE | 2020-12-28 06:41 | PM&R Progress Note ---
Subjective HPI/CC On Admission Date Seen by Provider: Dec 28, 2020 Time Seen by Provider: 10:00 Subjective/Events-last exam 12/28/2020: Pt sleeping now Bowels moved yesterday Blood sugar good at 140 Diabetic education with the Pt and After rounds he became irate and wanted to go home and cannot take care of him so we will continue to be supportive 12/27/2020: Pt in good spirits today No bowel movement for 3 days Blood sugar 163 Doing well visited today 12/26/20: Patient doing better Marital problems stated to the nurse Tearful at times, Xanax given Pet pass pending BM 12/24 Temp 99.2 12/25/20: Pet pass will be given today Dog is "misfit" and she is 110 pounds and is 4 yo BM yesterday a large amount after laxatives since admit Sugar 183 12/24/2020: Patient doing a little better Better attitude Approved a PET pass Lactulose will be given due to constipation Very blood sugars 12/23/2020: Patient very irritable Hopefully he can adjust his attitude or he may very well leave AGAINST MEDICAL ADVICE Had a fall yesterday without injury Bowels moved on 12/19 giving laxatives Bed alarm initiated 12/22/2020: Pt is doing okay today He is very cranky He would like to go smoke Last bowel movement was three days ago, pt was given laxatives Pt had a fall in the rehab unit He wants to go home so badly, but he needs to stay to recover 12/21/2020: Patient doing pretty well Sleeping currently Was tearful a little bit today Bowels moved 2 days ago laxatives given Tums will be given on a regular basis so started Protonix in the morning and Pepcid at night Review of Systems General: Fatigue, Malaise Neurological: Weakness, Incoordination Objective Exam Vital Signs Vital Signs Date Time Temp Pulse Resp B/P (MAP) Pulse Ox O2 Delivery O2 Flow Rate FiO2 12/28/20 20:00 Room Air 12/28/20 20:00 36.3 71 16 125/69 (87) 96 Capillary Refill : General Appearance: No Apparent Distress, WD/WN, Chronically ill, Thin HEENT: PERRL/EOMI, Normal ENT Inspection, Pharynx Normal Neck: Full Range of Motion, Normal Inspection, Non Tender, Supple, Carotid Bruit Respiratory: Chest Non Tender, Lungs Clear, Normal Breath Sounds, No Accessory Muscle Use, No Respiratory Distress Cardiovascular: Regular Rate, Rhythm, No Edema, No Gallop, No JVD, No Murmur, Normal Peripheral Pulses Gastrointestinal: Normal Bowel Sounds, No Organomegaly, No Pulsatile Mass, Non Tender, Soft Back: Normal Inspection, No CVA Tenderness, No Vertebral Tenderness Extremity: Normal Capillary Refill, Normal Inspection, Normal Range of Motion (Except left side weakness 2/5), Non Tender, No Calf Tenderness, No Pedal Edema Neurologic/Psychiatric: Alert, Oriented x3, No Motor/Sensory Deficits, Abnormal Gait, Depressed Affect, Motor Weakness (Left side weakness) Skin: Normal Color, Warm/Dry Lymphatic: No Adenopathy Results/Procedures Lab Patient resulted labs reviewed. FIM Transfers Therapy Code Descriptions/Definitions Functional [place] Measure: 0=Not Assessed/NA 4=Minimal Assistance 1=Total Assistance 5=Supervision or Setup 2=Maximal Assistance 6=Modified [place] 3=Moderate Assistance 7=Complete IndependenceSCALE: Activities may be completed with or without assistive devices. 2-Ehdncawomj-nlhpray completes the activity by him/herself with no assistance from a helper. 5-Set-up or Clean-up Assistance-helper sets up or cleans up; patient completes activity. [place] assists only prior to or following the activity. 4-Supervision or Touching Assistance-helper provides verbal cues and/or touching/steadying and/or contact guard assistance as patient completes activity. Assistance may be provided throughout the activity or intermittently. 3-Partial/Moderate Assistance-helper does LESS THAN HALF the effort. [place] lifts, holds or supports trunk or limbs, but provides less than half the effort. 2-Substantial/Maximal Assistance-helper does MORE THAN HALF the effort. [place] lifts or holds trunk or limbs and provides more than half the effort. 7-Cnnsdudlw-hlspxq does ALL the effort. Patient does none of the effort to complete the activity. Or, the assistance of 2 or more helpers is required for the patient to complete the activity. If activity was not attempted, code reason: 7-Patient Refused. 9-Not Applicable-not attempted and the patient did not perform the activity before the current illness, exacerbation or injury. 10-Not Attempted due to Environmental Limitations-(lack of equipment, weather restraints, etc.). 88-Not Attempted due to Medical Conditions or Safety Concerns. Roll Left to Right (QC): 6 Sit to Lying (QC): 4 Sit to Stand (QC): 3 Chair/Cyf-oy-Bpgvw Xfer(QC): 3 Car Transfer (QC): 3 Gait Training Does the Patient Walk?: Yes Distance: 20'x2 Walk 10 feet (QC): 2 Walk 50 ft with 2 Turns(QC): 88 Walk 150 ft (QC): 88 Walking 10ft/uneven surface-QC: 88 Gait Persons Needed: 1 Gait Assistive Device: Walker Tobias Wheelchair Training Does the Pt Use a Wheelchair?: Yes Distance: 150'x2 Wheel 50 ft with 2 turns (QC): 3 Wheel 150 ft (QC): 3 Type of Wheelchair: Manual Stair Training 1 Step (curb) (QC): 88 4 Steps (QC): 88 12 Steps (QC): 88 Balance Picking up an Object (QC): 88 ADL-Treatment Eating (QC): 6 (IND eating with RUE) Oral Hygiene (QC): 7 (Declines brushing teeth.) Bathing Location: L Arm, R Arm, L Upper Leg, R Upper Leg, L Lower Leg (inclu ding foot), R Lower Leg (including foot), Chest, Abdomen, Perineal Area Shower/Bathe Self (QC): 3 (completes on shower bench within room, compeltes all tasks with SBA-CGA in sit. Requires CGA-min A during bending tasks, able to correct self, though min A for increased bending to L foot washing. Pt instructed on safety and use of LHS rather than washcloth in this case. Pt stands with PT assist while OT washes bottom with max A.) Upper Body Dressing (QC): 2 (Per PT) Lower Body Dressing (QC): 1 (Per PT) On/Off Footwear (QC): 3 (min A supporting LLE on knee as pt completes. Pt dons B socks with good ability.) Toileting Hygiene (QC): 3 (Mod assist for placement and clothing management with urinal.) Toilet Transfer (QC): 3 (mod A) Assessment/Plan Assessment and Plan Assess & Plan/Chief Complaint Assessment: CVA with left-sided weakness Current smoker Hypertension Diabetes insulin requiring CAD Hypertension GERD Plan: Monitor closely Insulin Nicotine patch Inpatient rehab protocol 12/21/2020: Monitor blood pressure GERD treatment Aggressive treatment for left-sided weakness 12/22/2020: Nicotine patch Xanax as needed for nicotine withdrawal Supportive care Fall risk 12/23/2020: Supportive care for irritable status Monitor closely 12/24/2020: Supportive care Pet Pass Bowel regimen 12/25/20: Pet pass Monitor closely Improved attitude since fall 2 days ago 12/26/20: Intense therapy Monitor BP and BS 12/27/2020: Monitor sugar Fall risk 12/28/2020: Continue therapy Monitor closely Supportive care but very labile behaviors (1) Cerebrovascular accident due to cerebral artery occlusion Status: Acute (2) Diabetes (3) Smoker (4) Hypertension (5) CAD (coronary artery disease) (6) Left-sided weakness (7) Dysarthria (8) Non-compliance Status: Acute BOYD MICHAELS DO Dec 28, 2020 06:41
[2020-12-28 07:51] VITALS: BP 119/81
[2020-12-28] MEDS: NICOTINE PATCH REMOVAL TP SCH (08:22)
[2020-12-28] MEDS: NICOTINE 21 MG (NICODERM) PATCH TD SCH (08:22)
[2020-12-28] MEDS: ASPIRIN 81 MG CHEW (CHILDREN'S ASA) PO SCH (08:22)
[2020-12-28] MEDS: SENNA W/DOCUSATE (SENOKOT S) TABLET PO SCH ×2 (08:22→20:21)
[2020-12-28] MEDS: DOCUSATE SODIUM 100 MG (COLACE) CAP PO SCH ×2 (08:22→20:20)
[2020-12-28] MEDS: polyethylene glycoL POWDER 17 GM (MIRALAX) PACK PO SCH ×2 (08:23→20:21)
[2020-12-28] MEDS: PANTOPRAZOLE 40 MG (PROTONIX) TAB PO SCH (08:23)
[2020-12-28] MEDS: HYDROcodone/APAP 5 MG/325 MG (LORTAB) TAB PO PRN ×2 (08:23→20:21)
--- NOTE | 2020-12-28 09:58 | Physical Therapy Daily Note ---
PT Daily Note-Current Subjective Patient in shower pre tx, already working with OT, has no complaints of pain. Will be co-treating with OT due to poor patient mobility, strength, endurance, balance, left hemiparesis, coordinate UE and LE during activity, safety and reduce risk of falls. Appearance Patient in WC at bedside post tx with nurse call, phone, tray, all needs met. Mental Status Patient Orientation: Person, Place, Situation Transfers SCALE: Activities may be completed with or without assistive devices. 0-Thvhhglflq-hcmrowi completes the activity by him/herself with no assistance from a helper. 5-Set-up or Clean-up Assistance-helper sets up or cleans up; patient completes activity. [place] assists only prior to or following the activity. 4-Supervision or Touching Assistance-helper provides verbal cues and/or touching/steadying and/or contact guard assistance as patient completes activity. Assistance may be provided throughout the activity or intermittently. 3-Partial/Moderate Assistance-helper does LESS THAN HALF the effort. [place] lifts, holds or supports trunk or limbs, but provides less than half the effort. 2-Substantial/Maximal Assistance-helper does MORE THAN HALF the effort. [place] lifts or holds trunk or limbs and provides more than half the effort. 4-Toorbdmtk-ogvojm does ALL the effort. Patient does none of the effort to complete the activity. Or, the assistance of 2 or more helpers is required for the patient to complete the activity. If activity was not attempted, code reason: 7-Patient Refused. 9-Not Applicable-not attempted and the patient did not perform the activity before the current illness, exacerbation or injury. 10-Not Attempted due to Environmental Limitations-(lack of equipment, weather restraints, etc.). 88-Not Attempted due to Medical Conditions or Safety Concerns. Sit to Stand (QC): 3 Chair/Hkt-qi-Robii Xfer(QC): 3 Patient is mostly dressed when PT starts, assist with standing and balance while OT dresses him completely. Gait Training Distance: 20'x2 Walk 10 feet (QC): 2 Gait Assistive Device: Walker Tobias patient uses a left knee immobilizer and AFO, needs assist with balance and advancing his left leg, WC follow Wheelchair Training Does the Pt Use a Wheelchair?: Yes Wheel 50 ft with 2 turns (QC): 4 Wheel 150 ft (QC): 4 Type of Wheelchair: Manual 100', 350', cues for safety going through doorways and around obstacles Exercises seated balance training reaching for cones, turning, working on limits of stability Treatments PT worked on standing and balance during dressing, assist and positioning during seated balance training, transfers, ambulation, WC mobility, OT worked on dressing, balance training, UE positioning and safety during activity Assessment Current Status: Fair Progress patient is still not able to bear weight on left leg without knee buckling PT Short Term Goals Short Term Goals Time Frame: Dec 28, 2020 Roll Left & Right: 6 Sit to lyin Lying to sitting on side of be: 4 Sit to stand: 4 Chair/ldd-jl-lrevq transfer: 4 Walk 10 feet: 3 PT Insurance Business Analyst Goals Correction Goals PT Insurance Business Analyst Goals Time Frame: Jan 11, 2021 Roll Left & Right (QC): 6 Sit to Lying (QC): 6 Lying-Sitting on Side/Bed(QC): 6 Sit to Stand (QC): 5 Chair/Zdi-au-Nyoww Xfer(QC): 5 Toilet Transfer (QC): 5 Car Transfer (QC): 5 Does the Patient Walk: Yes Walk 10 feet (QC): 4 Walk 50ft with 2 Turns (QC): 4 Walk 150 ft (QC): 88 Walking 10ft on Uneven Surface: 4 1 Step (curb) (QC): 3 4 Steps (QC): 88 12 Steps (QC): 88 Picking up an Object (QC): 88 Wheel 50 feet with 2 turns (QC: 6 Wheel 150 feet: 6 PT Plan Problem List Problem List: Activity Tolerance, Functional Strength, Safety, Balance, Gait, Transfer, Bed Mobility, ROM Treatment/Plan Treatment Plan: Continue Plan of Care Treatment Plan: Bed Mobility, Education, Functional Activity [place], Functional Strength, Group Therapy, Gait, Safety, Therapeutic Exercise, Transfers Treatment Duration: Jan 11, 2021 Frequency: At least 5 of 7 days/Wk (IRF) Estimated Hrs Per Day: 1.5 hours per day Patient and/or Family Agrees t: Yes Safety Risks/Education Patient Education: Gait Training, Transfer Techniques, Correct Positioning, W/C Management, Safety Issues Teaching Recipient: Patient Teaching Methods: Demonstration, Discussion Response to Teaching: Reinforcement Needed Time/GCodes Time In: 0900 Time Out: 1000 Total Billed Treatment Time: 60 Total Billed Treatment 1 visit NM 15' FA 15' GT 30' co-treated with OT from GABRIELLE LALA PT Dec 28, 2020 09:58
[2020-12-28] MEDS: ALPRAZolam 1 MG (XANAX) TAB PO PRN ×2 (11:05→20:21)
--- NOTE | 2020-12-28 11:43 | Speech Therapy Daily Note ---
Speech Daily Progress Note Subjective Date Seen by Provider: Dec 28, 2020 Time Seen by Provider: 00:30 Patient was sitting up in his wheelchair following his PT session when I entered his room. He stated their refrigerator had quit at home and they were having to replace it before they lost $500 worth of food. Objective Patient complete a series of speech tasks for improved intelligibility which is at 90% without cues. Assessment Assessment Current Status: Good Progress Treatment Plan Continue Plan of Care Speech Short Term Goals Short Term Goals Short Term Goals 1) Patient will complete memory tasks at 90% or greater with minimal cues. 2) Patient will complete speech tasks at 90% or greater with minimal cues. Speech Enamel Burner Goals Enamel Burner Goals Patient will improve cognitive-communication abilities in order to complete daily tasks with minimal assist. Speech-Plan Patient/Family Goals Patient/Family Goals: Patient will discharge to his home where he lives with his who will assist with daily needs. Treatment Plan Speech Therapy Treatment Plan: Continue Plan of Care Treatment Duration: Dec 31, 2020 Frequency: 4 times per week (Patient will receive skilled ST 4-5x per week) Estimated Hrs Per Day: .5 hour per day Rehab Potential: Fair Barriers to Learning: Patient's recent CVA and other health issues Pt/Family Agrees to Plan: Yes Safety Risks/Education Teaching Recipient: Patient Teaching Methods: Demonstration, Discussion Response to Teaching: Verbalize Understanding, Return Demonstration Education Topics Provided: Continued safety awareness within his room and communication of wants/needs Time Speech Therapy Time In: 10:00 Speech Therapy Time Out: 10:30 Total Billed Time: 30 Billed Treatment Time 1, MIKAEL Marie Dec 28, 2020 11:43
--- NOTE | 2020-12-28 11:47 | Physical Therapy Daily Note ---
PT Daily Note-Current Subjective Patient in bed pre tx, agrees to PT, has no complaints of pain. Appearance Patient in bed post tx with nurse call, phone, tray, all needs met. Mental Status Patient Orientation: Person, Place, Situation Transfers SCALE: Activities may be completed with or without assistive devices. 2-Vamzobggao-shmwzwm completes the activity by him/herself with no assistance from a helper. 5-Set-up or Clean-up Assistance-helper sets up or cleans up; patient completes activity. [place] assists only prior to or following the activity. 4-Supervision or Touching Assistance-helper provides verbal cues and/or touching/steadying and/or contact guard assistance as patient completes activity. Assistance may be provided throughout the activity or intermittently. 3-Partial/Moderate Assistance-helper does LESS THAN HALF the effort. Bend lifts, holds or supports trunk or limbs, but provides less than half the effort. 2-Substantial/Maximal Assistance-helper does MORE THAN HALF the effort. [place] lifts or holds trunk or limbs and provides more than half the effort. 8-Kfqisjqdl-iplklb does ALL the effort. Patient does none of the effort to complete the activity. Or, the assistance of 2 or more helpers is required for the patient to complete the activity. If activity was not attempted, code reason: 7-Patient Refused. 9-Not Applicable-not attempted and the patient did not perform the activity before the current illness, exacerbation or injury. 10-Not Attempted due to Environmental Limitations-(lack of equipment, weather restraints, etc.). 88-Not Attempted due to Medical Conditions or Safety Concerns. Exercises Supine Ex: Quad Set, Glut sets, Heel Slides (AAROM), Short Arc Quads (AAROM), Straight leg raise (AAROM), Hip abd/add (AAROM) Supine Reps: 20 (LLE) LLE stretching in all planes Treatments LLE strengthening/stretching Assessment Current Status: Fair Progress improving hip flexion strength PT Short Term Goals Short Term Goals Time Frame: Dec 28, 2020 Roll Left & Right: 6 Sit to lyin Lying to sitting on side of be: 4 Sit to stand: 4 Chair/vcg-no-lshlv transfer: 4 Walk 10 feet: 3 PT Program And Research Coordinator Goals Usp Goals PT Usp Goals Time Frame: Jan 11, 2021 Roll Left & Right (QC): 6 Sit to Lying (QC): 6 Lying-Sitting on Side/Bed(QC): 6 Sit to Stand (QC): 5 Chair/Vhs-vw-Gbfoi Xfer(QC): 5 Toilet Transfer (QC): 5 Car Transfer (QC): 5 Does the Patient Walk: Yes Walk 10 feet (QC): 4 Walk 50ft with 2 Turns (QC): 4 Walk 150 ft (QC): 88 Walking 10ft on Uneven Surface: 4 1 Step (curb) (QC): 3 4 Steps (QC): 88 12 Steps (QC): 88 Picking up an Object (QC): 88 Wheel 50 feet with 2 turns (QC: 6 Wheel 150 feet: 6 PT Plan Problem List Problem List: Activity Tolerance, Functional Strength, Safety, Balance, Gait, Transfer, Bed Mobility, ROM Treatment/Plan Treatment Plan: Continue Plan of Care Treatment Plan: Bed Mobility, Education, Functional Activity Simba, Functional Strength, Group Therapy, Gait, Safety, Therapeutic Exercise, Transfers Treatment Duration: Jan 11, 2021 Frequency: At least 5 of 7 days/Wk (IRF) Estimated Hrs Per Day: 1.5 hours per day Patient and/or Family Agrees t: Yes Safety Risks/Education Patient Education: Correct Positioning, Safety Issues Teaching Recipient: Patient Teaching Methods: Demonstration, Discussion Response to Teaching: Reinforcement Needed Time/GCodes Time In: 1135 Time Out: 1150 Total Billed Treatment Time: 15 Total Billed Treatment 1 visit EX GABRIELLE CASAS PT Dec 28, 2020 11:47
--- NOTE | 2020-12-28 13:57 | Occupational Ther Daily Note ---
OT Current Status-Daily Note Subjective No pain reported. Appearance Pt. in bed. Agrees to work with OT. Mental Status/Objective Patient Orientation: Person, Place ADL-Treatment Therapy Code Descriptions/Definitions Functional Mathews Measure: 0=Not Assessed/NA 4=Minimal Assistance 1=Total Assistance 5=Supervision or Setup 2=Maximal Assistance 6=Modified Mathews 3=Moderate Assistance 7=Complete IndependenceSCALE: Activities may be completed with or without assistive devices. 8-Jqamouqdlr-amgxpez completes the activity by him/herself with no assistance from a helper. 5-Set-up or Clean-up Assistance-helper sets up or cleans up; patient completes activity. [place] assists only prior to or following the activity. 4-Supervision or Touching Assistance-helper provides verbal cues and/or touching/steadying and/or contact guard assistance as patient completes activity. Assistance may be provided throughout the activity or intermittently. 3-Partial/Moderate Assistance-helper does LESS THAN HALF the effort. [place] lifts, holds or supports trunk or limbs, but provides less than half the effort. 2-Substantial/Maximal Assistance-helper does MORE THAN HALF the effort. [place] lifts or holds trunk or limbs and provides more than half the effort. 6-Pyixxtxqq-gqetzv does ALL the effort. Patient does none of the effort to complete the activity. Or, the assistance of 2 or more helpers is required for the patient to complete the activity. If activity was not attempted, code reason: 7-Patient Refused. 9-Not Applicable-not attempted and the patient did not perform the activity before the current illness, exacerbation or injury. 10-Not Attempted due to Environmental Limitations-(lack of equipment, weather restraints, etc.). 88-Not Attempted due to Medical Conditions or Safety Concerns. Oral Hygiene (QC): 7 Shower/Bathe Self (QC): 4 (SBA/CGA seated on shower chair. Pt. given LH sponge for feet. Cues for safety.) Upper Body Dressing (QC): 3 (Min assist to doff shirt, mod assist to don shirt.) Lower Body Dressing (QC): 1 (Pt. requires assistance to don underwear and shorts over left foot while he dons over right foot. Pt. requires max assist in stance to don pants over hips while another person assists him to stand.) On/Off Footwear: 2 Other Treatment Pt. seen for partial co-treatment with PT due to need of skilled assistance x 2. Pt. in bed while OT assists pt. to side of bed with mod assist. Pt. transfers to shower chair with mod assist. After ADLs, PT assists pt. in stance while OT dons pants over hips. Pt. transfers to wheelchair with mod assist and is able to self propel to therapy gym. Ambulates with max support from PT, with min assist for continued balance and wheelchair follow from OT. See PT note for distance and trials. Transferred to mat and worked on sitting balance, weight shifts, left UE weight bearing, PROM with scapular glides and joint compressions. Removed rigid tape and will allow arm to rest before adding more. Pt. up in gym with PT at end of OT session. Education OT Patient Education: Correct positioning, Exercise program, Modified ADL techniques, Progress toward Goal/Update tx plan, Purpose of tx/functional activities, Reviewed precautions, Rehab process, Transfer techniques Teaching Recipient: Patient Teaching Methods: Demonstration, Discussion Response to Teaching: Verbalize Understanding, Return Demonstration, Reinforcement Needed OT Short Term Goals Short Term Goals Time Frame: Jan 04, 2021 Eatin Oral hygiene: 4 Toileting hygiene: 3 Shower/bathe self: 3 Upper body dressin Lower body dressin Putting on/taking off footwear: 3 OT Senior Care Goals Senior Care Goals Time Frame: Jan 11, 2021 Eating (QC): 6 Oral Hygiene (QC): 5 Toileting Hygiene (QC): 5 Shower/Bathe Self (QC): 4 Upper Body Dressing (QC): 5 Lower Body Dressing (QC): 4 On/Off Footwear (QC): 5 Additional Goals: 1-Demonstrate ADL Tasks, 2-Verbalize Understanding, 3- ImproveStrength/Simba 1=Demonstrate adherence to instructed precautions during ADL tasks. 2=Patient will verbalize/demonstrate understanding of assistive devices/modifications for ADL. 3=Patient will improve strength/tolerance for activity to enable patient to perform ADL's. OT Education/Plan Problem List/Assessment Assessment: Decreased Activ Tolerance, Decreased UE Strength, Dependent Transfers, Impaired Bed Mobility, Impaired Coordination, Impaired Funct Balance, Impaired I ADL's, Impaired Self-Care Skills, Restricted Funct UE ROM, Visual- Perceptual Deficit Discharge Recommendations Plan/Recommendations: Continue POC Therapy Discharge Recommendati: 24 Hour Supervision, Post Acute OT Treatment Plan/Plan of Care Treatment,Training & Education: Yes Patient would benefit from OT for education, treatment and training to promote independence in ADL's, mobility, safety and/or upper extremity function for ADL's. Plan of Care: ADL Retraining, Functional Mobility, UE Funct Exercise/Act, UE Neuromus Re-Ed/Coord, Visual/Perceptual Retrain Treatment Duration: Jan 11, 2021 Frequency: At least 5 of 7 days/Wk (IRF) Estimated Hrs Per Day: 1.5 hours per day Agreement: Yes Rehab Potential: Fair Time/GCodes Start Time: 08:30 Stop Time: 09:45 Total Time Billed (hr/min): 75 Billed Treatment Time 1, ADL x 45minutes, FA x 30minutes [id number] 1, ADL x 2 [id number] ADL x 1, FA x 2- Co-treat with PT SHERRY HAYS OT Dec 28, 2020 13:57
[2020-12-28 20:00] VITALS: BP 125/69
[2020-12-28] MEDS: FAMOTIDINE 20 MG (PEPCID) TABLET PO SCH (20:21)
[2020-12-29] MEDS: inSUlin ASPART (NovoLOG) 1 UNIT/0.01 ML (CHARGE PER UNIT) SC SCH ×7 (06:00→20:52)
--- NOTE | 2020-12-29 06:37 | PM&R Progress Note ---
Subjective HPI/CC On Admission Date Seen by Provider: Dec 29, 2020 Time Seen by Provider: 10:30 Subjective/Events-last exam 12/29/2020: Pt doing pretty well Diabetic education maintained Family education on Sunday will ensue Bowels moved yesterday Discharge on 01/05/21 Xanax BID and Hydrocodone helps the pain Working with him to not spill the urinal Had a fall early evening when he fell out of his wheelchair so we will monitor patient closely 12/28/2020: Pt sleeping now Bowels moved yesterday Blood sugar good at 140 Diabetic education with the Pt and After rounds he became irate and wanted to go home and cannot take care of him so we will continue to be supportive 12/27/2020: Pt in good spirits today No bowel movement for 3 days Blood sugar 163 Doing well visited today 12/26/20: Patient doing better Marital problems stated to the nurse Tearful at times, Xanax given Pet pass pending BM 12/24 Temp 99.2 12/25/20: Pet pass will be given today Dog is "misfit" and she is 110 pounds and is 4 yo BM yesterday a large amount after laxatives since admit Sugar 183 12/24/2020: Patient doing a little better Better attitude Approved a PET pass Lactulose will be given due to constipation Very blood sugars 12/23/2020: Patient very irritable Hopefully he can adjust his attitude or he may very well leave AGAINST MEDICAL ADVICE Had a fall yesterday without injury Bowels moved on 12/19 giving laxatives Bed alarm initiated 12/22/2020: Pt is doing okay today He is very cranky He would like to go smoke Last bowel movement was three days ago, pt was given laxatives Pt had a fall in the rehab unit He wants to go home so badly, but he needs to stay to recover 12/21/2020: Patient doing pretty well Sleeping currently Was tearful a little bit today Bowels moved 2 days ago laxatives given Tums will be given on a regular basis so started Protonix in the morning and Pepcid at night Review of Systems General: Fatigue, Malaise Neurological: Weakness, Incoordination Objective Exam Vital Signs Vital Signs Date Time Temp Pulse Resp B/P (MAP) Pulse Ox O2 Delivery O2 Flow Rate FiO2 12/29/20 20:16 Room Air 12/29/20 19:51 35.9 79 20 142/81 (101) 97 Capillary Refill : General Appearance: No Apparent Distress, WD/WN, Chronically ill, Thin HEENT: PERRL/EOMI, Normal ENT Inspection, Pharynx Normal Neck: Full Range of Motion, Normal Inspection, Non Tender, Supple, Carotid Bruit Respiratory: Chest Non Tender, Lungs Clear, Normal Breath Sounds, No Accessory Muscle Use, No Respiratory Distress Cardiovascular: Regular Rate, Rhythm, No Edema, No Gallop, No JVD, No Murmur, Normal Peripheral Pulses Gastrointestinal: Normal Bowel Sounds, No Organomegaly, No Pulsatile Mass, Non Tender, Soft Back: Normal Inspection, No CVA Tenderness, No Vertebral Tenderness Extremity: Normal Capillary Refill, Normal Inspection, Normal Range of Motion (Except left side weakness 2/5), Non Tender, No Calf Tenderness, No Pedal Edema Neurologic/Psychiatric: Alert, Oriented x3, No Motor/Sensory Deficits, Abnormal Gait, Depressed Affect, Motor Weakness (Left side weakness) Skin: Normal Color, Warm/Dry Lymphatic: No Adenopathy Results/Procedures Lab Patient resulted labs reviewed. FIM Transfers Therapy Code Descriptions/Definitions Functional Williams Measure: 0=Not Assessed/NA 4=Minimal Assistance 1=Total Assistance 5=Supervision or Setup 2=Maximal Assistance 6=Modified Williams 3=Moderate Assistance 7=Complete IndependenceSCALE: Activities may be completed with or without assistive devices. 5-Rihjkxcqtk-yefvuem completes the activity by him/herself with no assistance from a helper. 5-Set-up or Clean-up Assistance-helper sets up or cleans up; patient completes activity. [place] assists only prior to or following the activity. 4-Supervision or Touching Assistance-helper provides verbal cues and/or touching/steadying and/or contact guard assistance as patient completes activity. Assistance may be provided throughout the activity or intermittently. 3-Partial/Moderate Assistance-helper does LESS THAN HALF the effort. [place] lifts, holds or supports trunk or limbs, but provides less than half the effort. 2-Substantial/Maximal Assistance-helper does MORE THAN HALF the effort. [place] lifts or holds trunk or limbs and provides more than half the effort. 2-Uapbameml-jtksbr does ALL the effort. Patient does none of the effort to compl ete the activity. Or, the assistance of 2 or more helpers is required for the patient to complete the activity. If activity was not attempted, code reason: 7-Patient Refused. 9-Not Applicable-not attempted and the patient did not perform the activity before the current illness, exacerbation or injury. 10-Not Attempted due to Environmental Limitations-(lack of equipment, weather restraints, etc.). 88-Not Attempted due to Medical Conditions or Safety Concerns. Roll Left to Right (QC): 6 Sit to Lying (QC): 4 Sit to Stand (QC): 3 Chair/Juh-vy-Aduxt Xfer(QC): 3 Car Transfer (QC): 3 Gait Training Does the Patient Walk?: Yes Distance: 20'x2 Walk 10 feet (QC): 2 Walk 50 ft with 2 Turns(QC): 88 Walk 150 ft (QC): 88 Walking 10ft/uneven surface-QC: 88 Gait Persons Needed: 1 Gait Assistive Device: Walker Tobias Wheelchair Training Does the Pt Use a Wheelchair?: Yes Distance: 150'x2 Wheel 50 ft with 2 turns (QC): 4 Wheel 150 ft (QC): 4 Type of Wheelchair: Manual Stair Training 1 Step (curb) (QC): 88 4 Steps (QC): 88 12 Steps (QC): 88 Balance Picking up an Object (QC): 88 ADL-Treatment Eating (QC): 6 (IND eating with RUE) Oral Hygiene (QC): 7 Bathing Location: L Arm, R Arm, L Upper Leg, R Upper Leg, L Lower Leg (including foot), R Lower Leg (including foot), Chest, Abdomen, Perineal Area Shower/Bathe Self (QC): 4 (SBA/CGA seated on shower chair. Pt. given LH sponge for feet. Cues for safety.) Upper Body Dressing (QC): 3 (Min assist to doff shirt, mod assist to don shirt.) Lower Body Dressing (QC): 1 (Pt. requires assistance to don underwear and shorts over left foot while he dons over right foot. Pt. requires max assist in stance to don pants over hips while another person assists him to stand.) On/Off Footwear (QC): 2 Toileting Hygiene (QC): 3 (Mod assist for placement and clothing management with urinal.) Toilet Transfer (QC): 3 (mod A) Assessment/Plan Assessment and Plan Assess & Plan/Chief Complaint Assessment: CVA with left-sided weakness Current smoker Hypertension Diabetes insulin requiring CAD Hypertension GERD Plan: Monitor closely Insulin Nicotine patch Inpatient rehab protocol 12/21/2020: Monitor blood pressure GERD treatment Aggressive treatment for left-sided weakness 12/22/2020: Nicotine patch Xanax as needed for nicotine withdrawal Supportive care Fall risk 12/23/2020: Supportive care for irritable status Monitor closely 12/24/2020: Supportive care Pet Pass Bowel regimen 12/25/20: Pet pass Monitor closely Improved attitude since fall 2 days ago 12/26/20: Intense therapy Monitor BP and BS 12/27/2020: Monitor sugar Fall risk 12/28/2020: Continue therapy Monitor closely Supportive care but very labile behaviors 12/29/2020: Patient is a major fall risk Monitor closely Labile behaviors (1) Cerebrovascular accident due to cerebral artery occlusion Status: Acute (2) Diabetes (3) Smoker (4) Hypertension (5) CAD (coronary artery disease) (6) Left-sided weakness (7) Dysarthria (8) Non-compliance Status: Acute BOYD MICHAELS DO Dec 29, 2020 06:37
[2020-12-29] MEDS: DOCUSATE SODIUM 100 MG (COLACE) CAP PO SCH ×2 (07:40→19:46)
[2020-12-29] MEDS: ASPIRIN 81 MG CHEW (CHILDREN'S ASA) PO SCH (07:40)
[2020-12-29] MEDS: PANTOPRAZOLE 40 MG (PROTONIX) TAB PO SCH (07:40)
[2020-12-29] MEDS: SENNA W/DOCUSATE (SENOKOT S) TABLET PO SCH ×2 (07:41→19:46)
[2020-12-29] MEDS: HYDROcodone/APAP 5 MG/325 MG (LORTAB) TAB PO PRN ×2 (07:41→17:59)
[2020-12-29] MEDS: NICOTINE 21 MG (NICODERM) PATCH TD SCH (07:41)
[2020-12-29] MEDS: polyethylene glycoL POWDER 17 GM (MIRALAX) PACK PO SCH ×2 (07:41→19:46)
[2020-12-29] MEDS: ALPRAZolam 1 MG (XANAX) TAB PO PRN ×2 (07:46→17:59)
[2020-12-29 07:54] VITALS: BP 128/73
--- NOTE | 2020-12-29 08:47 | Speech Therapy Daily Note ---
Speech Daily Progress Note Subjective Date Seen by Provider: Dec 29, 2020 Time Seen by Provider: 00:30 Patient was just waking up when I entered his room. Objective Patient completed conversational speech tasks related to daily needs at 90% intelligible. Assessment Assessment Current Status: Good Progress Treatment Plan Continue Plan of Care Speech Short Term Goals Short Term Goals Short Term Goals 1) Patient will complete memory tasks at 90% or greater with minimal cues. 2) Patient will complete speech tasks at 90% or greater with minimal cues. Speech Alf Goals Alf Goals Patient will improve cognitive-communication abilities in order to complete daily tasks with minimal assist. Speech-Plan Patient/Family Goals Patient/Family Goals: Patient plans on returning to his home where he lives with his . Treatment Plan Speech Therapy Treatment Plan: Continue Plan of Care Treatment Duration: Dec 31, 2020 Frequency: 4 times per week (Patient will receive skilled ST 4-5x per week) Estimated Hrs Per Day: .5 hour per day Rehab Potential: Fair Barriers to Learning: Patient's recent CVA, other health issues Pt/Family Agrees to Plan: Yes Safety Risks/Education Teaching Recipient: Patient Teaching Methods: Demonstration, Discussion Response to Teaching: Verbalize Understanding, Return Demonstration Education Topics Provided: Continued safety and communication Time Speech Therapy Time In: 08:30 Speech Therapy Time Out: 09:00 Total Billed Time: 30 Billed Treatment Time 1JACQUELINE BETH[address] ST Dec 29, 2020 08:47
--- NOTE | 2020-12-29 09:55 | Physical Therapy Daily Note ---
PT Daily Note-Current Subjective Pt laying Supine in bed upon arrival. Pt agrees to PT/OT co-treat. Pain Numeric Pain Scale: 5-Moderate Pain Location Body Site: Shoulder Pain Description: Ache, Tightness Mental Status Patient Orientation: Person, Place, Situation Attachments: Other-See Comments (Knee immobilzer & AFO for L LE) Transfers SCALE: Activities may be completed with or without assistive devices. 9-Monhqttgeu-gzepoxy completes the activity by him/herself with no assistance from a helper. 5-Set-up or Clean-up Assistance-helper sets up or cleans up; patient completes activity. [place] assists only prior to or following the activity. 4-Supervision or Touching Assistance-helper provides verbal cues and/or touching/steadying and/or contact guard assistance as patient completes acti vity. Assistance may be provided throughout the activity or intermittently. 3-Partial/Moderate Assistance-helper does LESS THAN HALF the effort. [place] lifts, holds or supports trunk or limbs, but provides less than half the effort. 2-Substantial/Maximal Assistance-helper does MORE THAN HALF the effort. [place] lifts or holds trunk or limbs and provides more than half the effort. 3-Wcgypdqor-sqoceh does ALL the effort. Patient does none of the effort to complete the activity. Or, the assistance of 2 or more helpers is required for the patient to complete the activity. If activity was not attempted, code reason: 7-Patient Refused. 9-Not Applicable-not attempted and the patient did not perform the activity before the current illness, exacerbation or injury. 10-Not Attempted due to Environmental Limitations-(lack of equipment, weather restraints, etc.). 88-Not Attempted due to Medical Conditions or Safety Concerns. Roll Left & Right (QC): 3 Sit to Lying (QC): 3 Lying to Sitting/Side of Bed(Q: 3 Sit to Stand (QC): 3 Chair/Mqu-lr-Ahrlm Xfer(QC): 3 Toilet Transfer (QC): 7 Car Transfer (QC): 3 Weight Bearing Full Weight Bearing Full Weight Bearing Gait Training Does the Patient Walk?: Yes Distance: 30' x2 Walk 10 feet (QC): 3 Walk 50 ft with 2 Turns(QC): 3 Walk 150 ft (QC): 88 Walking 10ft/uneven surface-QC: 88 Gait Persons Needed: 1 Gait Assistive Device: Walker Tobias VC for advancing & sequencing during ambulation. Wheelchair Training Does the Pt Use a Wheelchair?: Yes Wheel 50 ft with 2 turns (QC): 3 Wheel 150 ft (QC): 3 Type of Wheelchair: Manual Stair Training 1 Step (curb) (QC): 88 4 Steps (QC): 88 12 Steps (QC): 88 Balance Picking up an Object (QC): 88 Treatments Pt. seen for co-treatment of PT/OT due to need of skilled assessment x2. PT assisted with sitting balance dynamically on EOB while OT facilitated dressing skills. Worked on transfers with AFO and knee brace on, with mod assist needed. Ambulated in therapy gym with mod assist sit-stand, and Mod/max assist for ambulation, weight shifts, left LE foot progression, and overall balance. Pt completes QC scoring items listed above. OT completed gentle PROM to left UE at end of session in all planes, with scapular glide and joint compressions. All needs met, call light in hand. Assessment Current Status: Fair Progress Pt is impulsive at times and needs VC to safely complete tasks at times. PT Short Term Goals Short Term Goals Time Frame: Dec 28, 2020 Roll Left & Right: 6 Sit to lyin Lying to sitting on side of be: 4 Sit to stand: 4 Chair/jpb-ek-iemer transfer: 4 Walk 10 feet: 3 PT Care Home Goals Care Home Goals PT Care Home Goals Time Frame: Jan 11, 2021 Roll Left & Right (QC): 6 Sit to Lying (QC): 6 Lying-Sitting on Side/Bed(QC): 6 Sit to Stand (QC): 5 Chair/Yic-yp-Echss Xfer(QC): 5 Toilet Transfer (QC): 5 Car Transfer (QC): 5 Does the Patient Walk: Yes Walk 10 feet (QC): 4 Walk 50ft with 2 Turns (QC): 4 Walk 150 ft (QC): 88 Walking 10ft on Uneven Surface: 4 1 Step (curb) (QC): 3 4 Steps (QC): 88 12 Steps (QC): 88 Picking up an Object (QC): 88 Wheel 50 feet with 2 turns (QC: 6 Wheel 150 feet: 6 PT Plan Problem List Problem List: Activity Tolerance, Functional Strength, Safety, Transfer Treatment/Plan Treatment Plan: Continue Plan of Care Treatment Plan: Bed Mobility, Education, Functional Activity Simba, Functional Strength, Group Therapy, Gait, Safety, Therapeutic Exercise, Transfers Treatment Duration: Jan 11, 2021 Frequency: At least 5 of 7 days/Wk (IRF) Estimated Hrs Per Day: 1.5 hours per day Patient and/or Family Agrees t: Yes Safety Risks/Education Patient Education: Gait Training, Transfer Techniques, Correct Positioning, Safety Issues Teaching Recipient: Patient Teaching Methods: Discussion Response to Teaching: Verbalize Understanding Time/GCodes Time In: 900 Time Out: 1000 Total Billed Treatment Time: 60 Total Billed Treatment Co-treat with Ot for 45m 1, FA x3 (45m) CHRISTIANO LOZA PTA Dec 29, 2020 09:55
[2020-12-29] MEDS: NICOTINE PATCH REMOVAL TP SCH (10:02)
--- NOTE | 2020-12-29 11:20 | Occupational Ther Daily Note ---
OT Current Status-Daily Note Subjective No pain reported. Mental Status/Objective Patient Orientation: Person, Place ADL-Treatment Therapy Code Descriptions/Definitions Functional [place] Measure: 0=Not Assessed/NA 4=Minimal Assistance 1=Total Assistance 5=Supervision or Setup 2=Maximal Assistance 6=Modified [place] 3=Moderate Assistance 7=Complete IndependenceSCALE: Activities may be completed with or without assistive devices. 9-Wxscwcytuy-mvzjelr completes the activity by him/herself with no assistance from a helper. 5-Set-up or Clean-up Assistance-helper sets up or cleans up; patient completes activity. [place] assists only prior to or following the activity. 4-Supervision or Touching Assistance-helper provides verbal cues and/or touching/steadying and/or contact guard assistance as patient completes activity. Assistance may be provided throughout the activity or intermittently. 3-Partial/Moderate Assistance-helper does LESS THAN HALF the effort. [place] lifts, holds or supports trunk or limbs, but provides less than half the effort. 2-Substantial/Maximal Assistance-helper does MORE THAN HALF the effort. [place] lifts or holds trunk or limbs and provides more than half the effort. 9-Cjhdjtpnr-fmejmm does ALL the effort. Patient does none of the effort to complete the activity. Or, the assistance of 2 or more helpers is required for the patient to complete the activity. If activity was not attempted, code reason: 7-Patient Refused. 9-Not Applicable-not attempted and the patient did not perform the activity before the current illness, exacerbation or injury. 10-Not Attempted due to Environmental Limitations-(lack of equipment, weather restraints, etc.). 88-Not Attempted due to Medical Conditions or Safety Concerns. Upper Body Dressing (QC): 3 (Mod assist sitting on EOB.) Lower Body Dressing (QC): 1 (Assist of two people due to needing assist in stance of one person, and assist of another to don over hips.) On/Off Footwear: 2 Other Treatment Pt. seen for co-treatment of PT/OT due to need of skilled assessment x2. PT assisted with sitting balance dynamically on EOB while OT facilitated dressing skills. Worked on transfers with AFO and knee brace on, with mod assist needed. Ambulated in therapy gym with mod assist sit-stand, and Mod/max assist for ambulation, weight shifts, left LE foot progression, and overall balance. OT completed gentle PROM to left UE at end of session in all planes, with scapular glide and joint compressions. All needs met. Education OT Patient Education: Correct positioning, Exercise program, Modified ADL techniques, Progress toward Goal/Update tx plan, Purpose of tx/functional activities, Reviewed precautions, Rehab process, Transfer techniques Teaching Recipient: Patient Teaching Methods: Demonstration, Discussion Response to Teaching: Verbalize Understanding, Return Demonstration OT Short Term Goals Short Term Goals Time Frame: Jan 04, 2021 Eatin Oral hygiene: 4 Toileting hygiene: 3 Shower/bathe self: 3 Upper body dressin Lower body dressin Putting on/taking off footwear: 3 OT Correction Goals Correction Goals Time Frame: Jan 11, 2021 Eating (QC): 6 Oral Hygiene (QC): 5 Toileting Hygiene (QC): 5 Shower/Bathe Self (QC): 4 Upper Body Dressing (QC): 5 Lower Body Dressing (QC): 4 On/Off Footwear (QC): 5 Additional Goals: 1-Demonstrate ADL Tasks, 2-Verbalize Understanding, 3- ImproveStrength/[place] 1=Demonstrate adherence to instructed precautions during ADL tasks. 2=Patient will verbalize/demonstrate understanding of assistive devices/modif ications for ADL. 3=Patient will improve strength/tolerance for activity to enable patient to perform ADL's. OT Education/Plan Problem List/Assessment Assessment: Decreased Activ Tolerance, Decreased UE Strength, Dependent Transfers, Impaired Bed Mobility, Impaired Coordination, Impaired Funct Balance, Impaired I ADL's, Impaired Self-Care Skills, Restricted Funct UE ROM, Visual- Perceptual Deficit Discharge Recommendations Plan/Recommendations: Continue POC Therapy Discharge Recommendati: Post Acute OT Treatment Plan/Plan of Care Treatment,Training & Education: Yes Patient would benefit from OT for education, treatment and training to promote independence in ADL's, mobility, safety and/or upper extremity function for ADL's. Plan of Care: ADL Retraining, Functional Mobility, UE Funct Exercise/Act, UE Neuromus Re-Ed/Coord, Visual/Perceptual Retrain Treatment Duration: Jan 11, 2021 Frequency: At least 5 of 7 days/Wk (IRF) Estimated Hrs Per Day: 1.5 hours per day Agreement: Yes Rehab Potential: Fair Time/GCodes Start Time: 09:15 Stop Time: 10:00 Total Time Billed (hr/min): 45 Billed Treatment Time 1, ADL x 15minutes, FA x 30minutes SHERRY HAYS OT Dec 29, 2020 11:20
--- NOTE | 2020-12-29 14:55 | Therapy Group Daily Note ---
Therapy Daily Group Note Patient Education Topic Other List Below (memory) Exercises LE Seated Exercise, UE Exercise Session Ratio (pt:therapist): 6:2 Goal of Session: Memory Strategies, UE/LE Strengthing Goal Met for this Session: Yes Pt Benefit of Group: Contributions to Others, F/U Use of Strategies @Home, Increased Functional Safety, Increased Functional Strength, Improved Cognition, Recognition of Peers, Socialization Other/Notes Pt propelled w/c to [facility] for OT/PT group. Group consisted of introductions (name, place born, most trouble in childhood), socialization, se ated B UE/LE exercises, memory activity and education on memory strategies. Pt introduced self appropriately and actively listened to peers. Pt able to complete B UE/LE seated exercises with modifications with one handed technique, 1 set 10 reps of each. Pt acknowledged understanding of memory education and gave personal strategies for memory aides. Pt participated fully in memory activity and was able to complete 2 out 4 attempts. After therapy, pt lying in bed with call light/phone in reach. All needs met in room. Start Time: 13:00 Stop Time: 14:15 Total Billed Treatment Time: 75 Total Billed Treatment 1-GRP JUAN PEREZ Dec 29, 2020 14:55
[2020-12-29 19:51] VITALS: BP 142/81
[2020-12-29] MEDS: FAMOTIDINE 20 MG (PEPCID) TABLET PO SCH (20:14)
[2020-12-30] MEDS: inSUlin ASPART (NovoLOG) 1 UNIT/0.01 ML (CHARGE PER UNIT) SC SCH ×7 (05:39→20:57)
--- NOTE | 2020-12-30 06:09 | PM&R Progress Note ---
Subjective HPI/CC On Admission Date Seen by Provider: Dec 30, 2020 Time Seen by Provider: 11:30 Subjective/Events-last exam 12/30/2020: Pt doing pretty well since fall yesterday On a bed alarm now Upset all of the time it seems Family education on the 12/29/2020: Pt doing pretty well Diabetic education maintained Family education on Sunday will ensue Bowels moved yesterday Discharge on 01/05/21 Xanax BID and Hydrocodone helps the pain Working with him to not spill the urinal Had a fall early evening when he fell out of his wheelchair so we will monitor patient closely 12/28/2020: Pt sleeping now Bowels moved yesterday Blood sugar good at 140 Diabetic education with the Pt and After rounds he became irate and wanted to go home and cannot take care of him so we will continue to be supportive 12/27/2020: Pt in good spirits today No bowel movement for 3 days Blood sugar 163 Doing well visited today 12/26/20: Patient doing better Marital problems stated to the nurse Tearful at times, Xanax given Pet pass pending BM 12/24 Temp 99.2 12/25/20: Pet pass will be given today Dog is "misfit" and she is 110 pounds and is 4 yo BM yesterday a large amount after laxatives since admit Sugar 183 12/24/2020: Patient doing a little better Better attitude Approved a PET pass Lactulose will be given due to constipation Very blood sugars 12/23/2020: Patient very irritable Hopefully he can adjust his attitude or he may very well leave AGAINST MEDICAL ADVICE Had a fall yesterday without injury Bowels moved on 12/19 giving laxatives Bed alarm initiated 12/22/2020: Pt is doing okay today He is very cranky He would like to go smoke Last bowel movement was three days ago, pt was given laxatives Pt had a fall in the rehab unit He wants to go home so badly, but he needs to stay to recover 12/21/2020: Patient doing pretty well Sleeping currently Was tearful a little bit today Bowels moved 2 days ago laxatives given Tums will be given on a regular basis so started Protonix in the morning and Pepcid at night Review of Systems Neurological: Weakness, Incoordination Objective Exam Vital Signs Vital Signs Date Time Temp Pulse Resp B/P (MAP) Pulse Ox O2 Delivery O2 Flow Rate FiO2 12/30/20 20:10 Room Air 12/30/20 20:00 35.8 87 14 118/71 (87) 95 Capillary Refill : General Appearance: No Apparent Distress, WD/WN, Chronically ill, Thin HEENT: PERRL/EOMI, Normal ENT Inspection, Pharynx Normal Neck: Full Range of Motion, Normal Inspection, Non Tender, Supple, Carotid Bruit Respiratory: Chest Non Tender, Lungs Clear, Normal Breath Sounds, No Accessory Muscle Use, No Respiratory Distress Cardiovascular: Regular Rate, Rhythm, No Edema, No Gallop, No JVD, No Murmur, Normal Peripheral Pulses Gastrointestinal: Normal Bowel Sounds, No Organomegaly, No Pulsatile Mass, Non Tender, Soft Back: Normal Inspection, No CVA Tenderness, No Vertebral Tenderness Extremity: Normal Capillary Refill, Normal Inspection, Normal Range of Motion (Except left side weakness 2/5), Non Tender, No Calf Tenderness, No Pedal Edema Neurologic/Psychiatric: Alert, Oriented x3, No Motor/Sensory Deficits, Abnormal Gait, Depressed Affect, Motor Weakness (Left side weakness) Skin: Normal Color, Warm/Dry Lymphatic: No Adenopathy Results/Procedures Lab Patient resulted labs reviewed. FIM Transfers Therapy Code Descriptions/Definitions Functional [place] Measure: 0=Not Assessed/NA 4=Minimal Assistance 1=Total Assistance 5=Supervision or Setup 2=Maximal Assistance 6=Modified [place] 3=Moderate Assistance 7=Complete IndependenceSCALE: Activities may be completed with or without assistive devices. 3-Enbslkwuol-kpbolxr completes the activity by him/herself with no assistance from a helper. 5-Set-up or Clean-up Assistance-helper sets up or cleans up; patient completes activity. [place] assists only prior to or following the activity. 4-Supervision or Touching Assistance-helper provides verbal cues and/or touching/steadying and/or contact guard assistance as patient completes activity. Assistance may be provided throughout the activity or intermittently. 3-Partial/Moderate Assistance-helper does LESS THAN HALF the effort. [place] lifts, holds or supports trunk or limbs, but provides less than half the effort. 2-Substantial/Maximal Assistance-helper does MORE THAN HALF the effort. [place] lifts or holds trunk or limbs and provides more than half the effort. 5-Rmbrfdetp-cksejt does ALL the effort. Patient does none of the effort to complete the activity. Or, the assistance of 2 or more helpers is required for the patient to complete the activity. If activity was not attempted, code reason: 7-Patient Refused. 9-Not Applicable-not attempted and the patient did not perform the activity before the current illness, exacerbation or injury. 10-Not Attempted due to Environmental Limitations-(lack of equipment, weather restraints, etc.). 88-Not Attempted due to Medical Conditions or Safety Concerns. Roll Left to Right (QC): 3 Sit to Lying (QC): 3 Sit to Stand (QC): 3 Chair/Ucv-eu-Ijnrl Xfer(QC): 3 Car Transfer (QC): 3 Gait Training Does the Patient Walk?: Yes Distance: 30' x2 Walk 10 feet (QC): 3 Walk 50 ft with 2 Turns(QC): 3 Walk 150 ft (QC): 88 Walking 10ft/uneven surface-QC: 88 Gait Persons Needed: 1 Gait Assistive Device: Walker Tobias Wheelchair Training Does the Pt Use a Wheelchair?: Yes Distance: 150'x2 Wheel 50 ft with 2 turns (QC): 3 Wheel 150 ft (QC): 3 Type of Wheelchair: Manual Stair Training 1 Step (curb) (QC): 88 4 Steps (QC): 88 12 Steps (QC): 88 Balance Picking up an Object (QC): 88 ADL-Treatment Eating (QC): 6 (IND eating with RUE) Oral Hygiene (QC): 7 Bathing Location: L Arm, R Arm, L Upper Leg, R Upper Leg, L Lower Leg (includin g foot), R Lower Leg (including foot), Chest, Abdomen, Perineal Area Shower/Bathe Self (QC): 4 (SBA/CGA seated on shower chair. Pt. given LH sponge for feet. Cues for safety.) Upper Body Dressing (QC): 3 (Mod assist sitting on EOB.) Lower Body Dressing (QC): 1 (Assist of two people due to needing assist in stance of one person, and assist of another to don over hips.) On/Off Footwear (QC): 2 Toileting Hygiene (QC): 3 (Mod assist for placement and clothing management with urinal.) Toilet Transfer (QC): 3 (mod A) Assessment/Plan Assessment and Plan Assess & Plan/Chief Complaint Assessment: CVA with left-sided weakness Current smoker Hypertension Diabetes insulin requiring CAD Hypertension GERD Plan: Monitor closely Insulin Nicotine patch Inpatient rehab protocol 12/21/2020: Monitor blood pressure GERD treatment Aggressive treatment for left-sided weakness 12/22/2020: Nicotine patch Xanax as needed for nicotine withdrawal Supportive care Fall risk 12/23/2020: Supportive care for irritable status Monitor closely 12/24/2020: Supportive care Pet Pass Bowel regimen 12/25/20: Pet pass Monitor closely Improved attitude since fall 2 days ago 12/26/20: Intense therapy Monitor BP and BS 12/27/2020: Monitor sugar Fall risk 12/28/2020: Continue therapy Monitor closely Supportive care but very labile behaviors 12/29/2020: Patient is a major fall risk Monitor closely Labile behaviors 12/30/2020: Supportive care Blood sugar management Fall risk (1) Cerebrovascular accident due to cerebral artery occlusion Status: Acute (2) Diabetes (3) Smoker (4) Hypertension (5) CAD (coronary artery disease) (6) Left-sided weakness (7) Dysarthria (8) Non-compliance Status: Acute BOYD MICHAELS DO Dec 30, 2020 06:09
[2020-12-30 07:23] VITALS: BP 116/74
[2020-12-30] MEDS: NICOTINE 21 MG (NICODERM) PATCH TD SCH (08:28)
[2020-12-30] MEDS: HYDROcodone/APAP 5 MG/325 MG (LORTAB) TAB PO PRN ×2 (08:28→17:23)
[2020-12-30] MEDS: PANTOPRAZOLE 40 MG (PROTONIX) TAB PO SCH (08:28)
[2020-12-30] MEDS: ASPIRIN 81 MG CHEW (CHILDREN'S ASA) PO SCH (08:28)
[2020-12-30] MEDS: NICOTINE PATCH REMOVAL TP SCH (08:29)
[2020-12-30] MEDS: polyethylene glycoL POWDER 17 GM (MIRALAX) PACK PO SCH ×2 (09:10→19:45)
[2020-12-30] MEDS: DOCUSATE SODIUM 100 MG (COLACE) CAP PO SCH ×2 (09:10→19:45)
[2020-12-30] MEDS: SENNA W/DOCUSATE (SENOKOT S) TABLET PO SCH ×2 (09:10→19:45)
--- NOTE | 2020-12-30 10:13 | Physical Therapy Daily Note ---
PT Daily Note-Current Subjective Patient in bed pre tx, agrees to PT, has no complaints of pain, will be co- treating with OT due to poor patient mobility, strength, endurance, balance, left hemiparesis, coordinate UE and LE during activity, safety and reduce risk of falls. Patient need a shower today Appearance Patient in bed post tx with nurse call, phone, tray, bed alarm on, all needs met. Mental Status Patient Orientation: Person, Place, Situation Transfers SCALE: Activities may be completed with or without assistive devices. 7-Ximqdrztja-wyzuhua completes the activity by him/herself with no assistance from a helper. 5-Set-up or Clean-up Assistance-helper sets up or cleans up; patient completes activity. [place] assists only prior to or following the activity. 4-Supervision or Touching Assistance-helper provides verbal cues and/or touching/steadying and/or contact guard assistance as patient completes activity. Assistance may be provided throughout the activity or intermittently. 3-Partial/Moderate Assistance-helper does LESS THAN HALF the effort. [place] lifts, holds or supports trunk or limbs, but provides less than half the effort. 2-Substantial/Maximal Assistance-helper does MORE THAN HALF the effort. [place] lifts or holds trunk or limbs and provides more than half the effort. 3-Vxjpmesoh-wmsywj does ALL the effort. Patient does none of the effort to complete the activity. Or, the assistance of 2 or more helpers is required for the patient to complete the activity. If activity was not attempted, code reason: 7-Patient Refused. 9-Not Applicable-not attempted and the patient did not perform the activity before the current illness, exacerbation or injury. 10-Not Attempted due to Environmental Limitations-(lack of equipment, weather restraints, etc.). 88-Not Attempted due to Medical Conditions or Safety Concerns. Roll Left & Right (QC): 6 Sit to Lying (QC): 3 Lying to Sitting/Side of Bed(Q: 3 Sit to Stand (QC): 3 Chair/Hzw-bt-Elqkp Xfer(QC): 3 Patient transfers from bed to after undressing, is taken to his shower, transfers to shower bench, showers, mostly dresses, standing and completes dressing, transfers to and then goes to therapy gym. Weight Bearing Full Weight Bearing Full Weight Bearing Gait Training Distance: 20', 30'x2 Walk 10 feet (QC): 3 Gait Assistive Device: Walker Tobias Uses left AFO and knee immobilizer, needs min/mod assist for balance but he was able to shift weight good enough to the right side to unload left leg and advance it himself today, still has left knee hyperextension even with brace on. Wheelchair Training Does the Pt Use a Wheelchair?: Yes Wheel 50 ft with 2 turns (QC): 4 Wheel 150 ft (QC): 4 Type of Wheelchair: Manual 300', getting better at maneuvering around obstacles and through doorways Treatments PT performed bed mobility and transfers, ambulation, WC mobility, standing and balance during bathing and dressing, OT performed bathing and dressing and UE positioning and safety during activity. Assessment Current Status: Fair Progress improved ambulation PT Short Term Goals Short Term Goals Time Frame: Dec 28, 2020 Roll Left & Right: 6 Sit to lyin Lying to sitting on side of be: 4 Sit to stand: 4 Chair/qay-em-vtxcd transfer: 4 Walk 10 feet: 3 PT Wire Stitcher Goals Wire Stitcher Goals PT Wire Stitcher Goals Time Frame: Jan 11, 2021 Roll Left & Right (QC): 6 Sit to Lying (QC): 6 Lying-Sitting on Side/Bed(QC): 6 Sit to Stand (QC): 5 Chair/Ics-le-Axzou Xfer(QC): 5 Toilet Transfer (QC): 5 Car Transfer (QC): 5 Does the Patient Walk: Yes Walk 10 feet (QC): 4 Walk 50ft with 2 Turns (QC): 4 Walk 150 ft (QC): 88 Walking 10ft on Uneven Surface: 4 1 Step (curb) (QC): 3 4 Steps (QC): 88 12 Steps (QC): 88 Picking up an Object (QC): 88 Wheel 50 feet with 2 turns (QC: 6 Wheel 150 feet: 6 PT Plan Problem List Problem List: Activity Tolerance, Functional Strength, Safety, Balance, Gait, Transfer, Bed Mobility, ROM Treatment/Plan Treatment Plan: Continue Plan of Care Treatment Plan: Bed Mobility, Education, Functional Activity [place], Functional Strength, Group Therapy, Gait, Safety, Therapeutic Exercise, Transfers Treatment Duration: Jan 11, 2021 Frequency: At least 5 of 7 days/Wk (IRF) Estimated Hrs Per Day: 1.5 hours per day Patient and/or Family Agrees t: Yes Safety Risks/Education Patient Education: Gait Training, Transfer Techniques, Correct Positioning, W/C Management, Safety Issues Teaching Recipient: Patient Teaching Methods: Demonstration, Discussion Response to Teaching: Reinforcement Needed Time/GCodes Time In: 0900 Time Out: 1015 Total Billed Treatment Time: 75 Total Billed Treatment 1 visit FA 75' co-treated for 75' GABRIELLE LALA PT Dec 30, 2020 10:13
--- NOTE | 2020-12-30 10:13 | Occupational Ther Daily Note ---
OT Current Status-Daily Note Subjective Pt alert in bed this am. Sheets soiled with urine. States he "got tangled up in the sheets and fell out of bed." Nursing states pt was in w/c and fell from chair last night per report. Pt agrees to tx, does not c/o pain. OT/ PT co-treat this am due to increased need/ safety concerns. OT addresses ADLs, scanning, UE movement, problem solving while PT addresses w/c mob, transfers, LE movement, etc. Mental Status/Objective Patient Orientation: Person, Place, Situation ADL-Treatment Therapy Code Descriptions/Definitions Functional [place] Measure: 0=Not Assessed/NA 4=Minimal Assistance 1=Total Assistance 5=Supervision or Setup 2=Maximal Assistance 6=Modified [place] 3=Moderate Assistance 7=Complete IndependenceSCALE: Activities may be completed with or without assistive devices. 3-Viixhxgdgl-ldiuwad completes the activity by him/herself with no assistance from a helper. 5-Set-up or Clean-up Assistance-helper sets up or cleans up; patient completes activity. [place] assists only prior to or following the activity. 4-Supervision or Touching Assistance-helper provides verbal cues and/or touching/steadying and/or contact guard assistance as patient completes acti vity. Assistance may be provided throughout the activity or intermittently. 3-Partial/Moderate Assistance-helper does LESS THAN HALF the effort. [place] lifts, holds or supports trunk or limbs, but provides less than half the effort. 2-Substantial/Maximal Assistance-helper does MORE THAN HALF the effort. [place] lifts or holds trunk or limbs and provides more than half the effort. 8-Jjzwepcey-neehym does ALL the effort. Patient does none of the effort to complete the activity. Or, the assistance of 2 or more helpers is required for the patient to complete the activity. If activity was not attempted, code reason: 7-Patient Refused. 9-Not Applicable-not attempted and the patient did not perform the activity before the current illness, exacerbation or injury. 10-Not Attempted due to Environmental Limitations-(lack of equipment, weather restraints, etc.). 88-Not Attempted due to Medical Conditions or Safety Concerns. Eating (QC): 6 Oral Hygiene (QC): 7 Shower/Bathe Self (QC): 4 (CGA in sit, cues for safety (educated prior to start to use LHS/ no bending due to decreased balance, however, continued cues required for safety while in shower).) Upper Body Dressing (QC): 3 (min A LUE and positioning) Lower Body Dressing (QC): 1 (TD due to need of 2 person in stance to compelte hike over hips. Pt able to thread bilaterally with CGA-SBA, then pull up in stance (TD) and buttoning TD. Pt bridges in bed to doff pants with CGA/ min A) On/Off Footwear: 4 (SBA, s/u of socks, cues to lower LLE slowly.) Toileting Hygiene (QC): 1 (TD in stance (Ax2)) Toilet Transfer (QC): 3 (CGA to R/ strong side, mod A to L/ flaccid side.) Other Treatment Pt completes bed mob with increased time, sits EOB fair balance. Pt SPT to w/c, agrees to shower, completes showering/ dressing in shower as outlined. Pt then propels to gym with use of L leg rest, cues for positioning in doorways. Pt completes 5 bouts of ambulation with PT assist/ OT following in w/c. Upon RB, OT completes PROM to full range distal joints and to 90* shoulder abduction/ flexion/ scaption with noted good scapular mobility and no pain. W/c mob addressed within doran, able to roll around obstacles with min cues, no instances of hitting. Pt completes chair to bed transfer and desires to doff pants as outlined in bridge positioning. Pt left in bed with call light in reach, all needs met, bed alarm set. Education OT Patient Education: Correct positioning, Exercise program, Home exercise program, Modified ADL techniques, Purpose of tx/functional activities, Safety issues, Transfer techniques, W/C management Teaching Recipient: Patient Teaching Methods: Demonstration, Discussion Response to Teaching: Verbalize Understanding, Return Demonstration, Reinforcement Needed OT Short Term Goals Short Term Goals Time Frame: Jan 04, 2021 Eatin Oral hygiene: 4 Toileting hygiene: 3 Shower/bathe self: 3 Upper body dressin Lower body dressin Putting on/taking off footwear: 3 OT Lathe Scalper Operator Goals Lathe Scalper Operator Goals Time Frame: Jan 11, 2021 Eating (QC): 6 Oral Hygiene (QC): 5 Toileting Hygiene (QC): 5 Shower/Bathe Self (QC): 4 Upper Body Dressing (QC): 5 Lower Body Dressing (QC): 4 On/Off Footwear (QC): 5 Additional Goals: 1-Demonstrate ADL Tasks, 2-Verbalize Understanding, 3- ImproveStrength/Simba 1=Demonstrate adherence to instructed precautions during ADL tasks. 2=Patient will verbalize/demonstrate understanding of assistive devices/modifications for ADL. 3=Patient will improve strength/tolerance for activity to enable patient to perform ADL's. OT Education/Plan Problem List/Assessment Assessment: Decreased Activ Tolerance, Decreased Safety Aware, Decreased UE Strength, Dependent Transfers, Impaired Bed Mobility, Impaired Cognition, Impaired Coordination, Impaired Funct Balance, Impaired I ADL's, Impaired Self- Care Skills, Restricted Funct UE ROM, Visual-Perceptual Deficit Discharge Recommendations Plan/Recommendations: Continue POC Therapy Discharge Recommendati: 24 Hour Supervision, Bath Aide, Post Acute OT Treatment Plan/Plan of Care Treatment,Training & Education: Yes Patient would benefit from OT for education, treatment and training to promote independence in ADL's, mobility, safety and/or upper extremity function for ADL's. Plan of Care: ADL Retraining, Functional Mobility, UE Funct Exercise/Act, UE Neuromus Re-Ed/Coord, Visual/Perceptual Retrain Treatment Duration: Jan 11, 2021 Frequency: At least 5 of 7 days/Wk (IRF) Estimated Hrs Per Day: 1.5 hours per day Agreement: Yes Rehab Potential: Fair Time/GCodes Start Time: 09:00 Stop Time: 10:15 Total Time Billed (hr/min): 75 Billed Treatment Time OT/ PT co-treat this am due to increased need/ safety concerns. OT addresses ADLs, scanning, UE movement, problem solving while PT addresses w/c mob, transfers, LE movement, etc. 1, ADL 2 (30), EX 2(30), WC (15)= 75 NOEMI WALLACE OTR Dec 30, 2020 10:13
--- NOTE | 2020-12-30 10:18 | Speech Therapy Daily Note ---
Speech Daily Progress Note Subjective Date Seen by Provider: Dec 30, 2020 Time Seen by Provider: 00:30 Patient was laying awake in his bed when I entered his room. He was not happy about having to stay longer in the hospital than this weekend. Objective Patient completed speech tasks/conversation with 90% intelligibility. Assessment Assessment Current Status: Good Progress Treatment Plan Continue Plan of Care Speech Short Term Goals Short Term Goals Short Term Goals 1) Patient will complete memory tasks at 90% or greater with minimal cues. 2) Patient will complete speech tasks at 90% or greater with minimal cues. Speech [place] Goals [place] Goals Patient will improve cognitive-communication abilities in order to complete daily tasks with minimal assist. Speech-Plan Patient/Family Goals Patient/Family Goals: Patient plans on returning to his home where he lives with his . Treatment Plan Speech Therapy Treatment Plan: Continue Plan of Care Treatment Duration: Jan 07, 2021 Frequency: 4 times per week (Patient will receive skilled ST 4-5x per week) Estimated Hrs Per Day: .5 hour per day Rehab Potential: Fair Barriers to Learning: Patient's CVA, other health issues Pt/Family Agrees to Plan: Yes Safety Risks/Education Teaching Recipient: Patient Teaching Methods: Demonstration, Discussion Response to Teaching: Verbalize Understanding, Return Demonstration Education Topics Provided: Continued safety within his room, communication of wants/needs Time Speech Therapy Time In: 08:30 Speech Therapy Time Out: 09:00 Total Billed Time: 30 Billed Treatment Time 1JACQUELINE B[address] ST Dec 30, 2020 10:18
[2020-12-30 20:00] VITALS: BP 118/71
[2020-12-30] MEDS: FAMOTIDINE 20 MG (PEPCID) TABLET PO SCH (20:06)
[2020-12-30] MEDS: ALPRAZolam 1 MG (XANAX) TAB PO PRN (20:06)
[2020-12-31] MEDS: inSUlin ASPART (NovoLOG) 1 UNIT/0.01 ML (CHARGE PER UNIT) SC SCH ×7 (05:13→20:48)
--- NOTE | 2020-12-31 06:49 | PM&R Progress Note ---
Subjective HPI/CC On Admission Date Seen by Provider: Dec 31, 2020 Time Seen by Provider: 11:00 Subjective/Events-last exam 12/31/20: Patient doing well Cranky at times Sling not worn and his trapezius sore so wearing sling Voltaren gel ordered 12/30/2020: Pt doing pretty well since fall yesterday On a bed alarm now Upset all of the time it seems Family education on the 12/29/2020: Pt doing pretty well Diabetic education maintained Family education on Sunday will ensue Bowels moved yesterday Discharge on 01/05/21 Xanax BID and Hydrocodone helps the pain Working with him to not spill the urinal Had a fall early evening when he fell out of his wheelchair so we will monitor patient closely 12/28/2020: Pt sleeping now Bowels moved yesterday Blood sugar good at 140 Diabetic education with the Pt and After rounds he became irate and wanted to go home and cannot take care of him so we will continue to be supportive 12/27/2020: Pt in good spirits today No bowel movement for 3 days Blood sugar 163 Doing well visited today 12/26/20: Patient doing better Marital problems stated to the nurse Tearful at times, Xanax given Pet pass pending BM 12/24 Temp 99.2 12/25/20: Pet pass will be given today Dog is "misfit" and she is 110 pounds and is 4 yo BM yesterday a large amount after laxatives since admit Sugar 183 12/24/2020: Patient doing a little better Better attitude Approved a PET pass Lactulose will be given due to constipation Very blood sugars 12/23/2020: Patient very irritable Hopefully he can adjust his attitude or he may very well leave AGAINST MEDICAL ADVICE Had a fall yesterday without injury Bowels moved on 12/19 giving laxatives Bed alarm initiated 12/22/2020: Pt is doing okay today He is very cranky He would like to go smoke Last bowel movement was three days ago, pt was given laxatives Pt had a fall in the rehab unit He wants to go home so badly, but he needs to stay to recover 12/21/2020: Patient doing pretty well Sleeping currently Was tearful a little bit today Bowels moved 2 days ago laxatives given Tums will be given on a regular basis so started Protonix in the morning and Pepcid at night Review of Systems Neurological: Weakness, Incoordination Objective Exam Vital Signs Vital Signs Date Time Temp Pulse Resp B/P (MAP) Pulse Ox O2 Delivery O2 Flow Rate FiO2 12/31/20 20:00 36.5 77 16 92/62 (72) 95 12/31/20 20:00 Room Air Capillary Refill : General Appearance: No Apparent Distress, WD/WN, Chronically ill, Thin HEENT: PERRL/EOMI, Normal ENT Inspection, Pharynx Normal Neck: Full Range of Motion, Normal Inspection, Non Tender, Supple, Carotid Bruit Respiratory: Chest Non Tender, Lungs Clear, Normal Breath Sounds, No Accessory Muscle Use, No Respiratory Distress Cardiovascular: Regular Rate, Rhythm, No Edema, No Gallop, No JVD, No Murmur, Normal Peripheral Pulses Gastrointestinal: Normal Bowel Sounds, No Organomegaly, No Pulsatile Mass, Non Tender, Soft Back: Normal Inspection, No CVA Tenderness, No Vertebral Tenderness Extremity: Normal Capillary Refill, Normal Inspection, Normal Range of Motion, Non Tender, No Calf Tenderness, No Pedal Edema Neurologic/Psychiatric: Alert, Oriented x3, No Motor/Sensory Deficits, Abnormal Gait, Depressed Affect, Motor Weakness Skin: Normal Color, Warm/Dry Lymphatic: No Adenopathy Results/Procedures Lab Patient resulted labs reviewed. FIM Transfers Therapy Code Descriptions/Definitions Functional [place] Measure: 0=Not Assessed/NA 4=Minimal Assistance 1=Total Assistance 5=Supervision or Setup 2=Maximal Assistance 6=Modified [place] 3=Moderate Assistance 7=Complete IndependenceSCALE: Activities may be completed with or without assistive devices. 0-Bmjficddam-bxunvrz completes the activity by him/herself with no assistance from a helper. 5-Set-up or Clean-up Assistance-helper sets up or cleans up; patient completes activity. [place] assists only prior to or following the activity. 4-Supervision or Touching Assistance-helper provides verbal cues and/or touching/steadying and/or contact guard assistance as patient completes activity. Assistance may be provided throughout the activity or intermittently. 3-Partial/Moderate Assistance-helper does LESS THAN HALF the effort. [place] lifts, holds or supports trunk or limbs, but provides less than half the effort. 2-Substantial/Maximal Assistance-helper does MORE THAN HALF the effort. Mobile lifts or holds trunk or limbs and provides more than half the effort. 0-Lqwzlztkq-kwrxyz does ALL the effort. Patient does none of the effort to complete the activity. Or, the assistance of 2 or more helpers is required for the patient to complete the activity. If activity was not attempted, code reason: 7-Patient Refused. 9-Not Applicable-not attempted and the patient did not perform the activity before the current illness, exacerbation or injury. 10-Not Attempted due to Environmental Limitations-(lack of equipment, weather restraints, etc.). 88-Not Attempted due to Medical Conditions or Safety Concerns. Roll Left to Right (QC): 6 Sit to Lying (QC): 3 Sit to Stand (QC): 3 Chair/Gwp-gj-Iullw Xfer(QC): 3 Car Transfer (QC): 3 Gait Training Does the Patient Walk?: Yes Distance: 20', 30'x2 Walk 10 feet (QC): 3 Walk 50 ft with 2 Turns(QC): 3 Walk 150 ft (QC): 88 Walking 10ft/uneven surface-QC: 88 Gait Persons Needed: 1 Gait Assistive Device: Walker Tobias Wheelchair Training Does the Pt Use a Wheelchair?: Yes Distance: 150'x2 Wheel 50 ft with 2 turns (QC): 4 Wheel 150 ft (QC): 4 Type of Wheelchair: Manual Stair Training 1 Step (curb) (QC): 88 4 Steps (QC): 88 12 Steps (QC): 88 Balance Picking up an Object (QC): 88 ADL-Treatment Eating (QC): 6 Oral Hygiene (QC): 7 Bathing Location: L Arm, R Arm, L Upper Leg, R Upper Leg, L Lower Leg (including foot), R Lower Leg (including foot), Chest, Abdomen, Perineal Area Shower/Bathe Self (QC): 4 (CGA in sit, cues for safety (educated prior to start to use LHS/ no bending due to decreased balance, however, continued cues required for safety while in shower).) Upper Body Dressing (QC): 3 (min A LUE and positioning) Lower Body Dressing (QC): 1 (TD due to need of 2 person in stance to compelte hike over hips. Pt able to thread bilaterally with CGA-SBA, then pull up in stance (TD) and buttoning TD. Pt bridges in bed to doff pants with CGA/ min A) On/Off Footwear (QC): 4 (SBA, s/u of socks, cues to lower LLE slowly.) Toileting Hygiene (QC): 1 (TD in stance (Ax2)) Toilet Transfer (QC): 3 (CGA to R/ strong side, mod A to L/ flaccid side.) Assessment/Plan Assessment and Plan Assess & Plan/Chief Complaint Assessment: CVA with left-sided weakness Current smoker Hypertension Diabetes insulin requiring CAD Hypertension GERD Plan: Monitor closely Insulin Nicotine patch Inpatient rehab protocol 12/21/2020: Monitor blood pressure GERD treatment Aggressive treatment for left-sided weakness 12/22/2020: Nicotine patch Xanax as needed for nicotine withdrawal Supportive care Fall risk 12/23/2020: Supportive care for irritable status Monitor closely 12/24/2020: Supportive care Pet Pass Bowel regimen 12/25/20: Pet pass Monitor closely Improved attitude since fall 2 days ago 12/26/20: Intense therapy Monitor BP and BS 12/27/2020: Monitor sugar Fall risk 12/28/2020: Continue therapy Monitor closely Supportive care but very labile behaviors 12/29/2020: Patient is a major fall risk Monitor closely Labile behaviors 12/30/2020: Supportive care Blood sugar management Fall risk 12/31/20: Monitor closely Voltaren gel Sling (1) Cerebrovascular accident due to cerebral artery occlusion Status: Acute (2) Diabetes (3) Smoker (4) Hypertension (5) CAD (coronary artery disease) (6) Left-sided weakness (7) Dysarthria (8) Non-compliance Status: Acute BOYD MICHAELS DO Dec 31, 2020 06:49
[2020-12-31] MEDS: NICOTINE 21 MG (NICODERM) PATCH TD SCH (07:35)
[2020-12-31] MEDS: ASPIRIN 81 MG CHEW (CHILDREN'S ASA) PO SCH (07:36)
[2020-12-31] MEDS: PANTOPRAZOLE 40 MG (PROTONIX) TAB PO SCH (07:36)
[2020-12-31] MEDS: DOCUSATE SODIUM 100 MG (COLACE) CAP PO SCH ×2 (07:36→20:47)
[2020-12-31] MEDS: NICOTINE PATCH REMOVAL TP SCH (07:37)
[2020-12-31] MEDS: SENNA W/DOCUSATE (SENOKOT S) TABLET PO SCH ×2 (07:37→20:47)
[2020-12-31] MEDS: HYDROcodone/APAP 5 MG/325 MG (LORTAB) TAB PO PRN ×2 (07:37→19:38)
[2020-12-31 08:00] VITALS: BP 110/65
--- NOTE | 2020-12-31 09:02 | Speech Therapy Daily Note ---
Speech Daily Progress Note Subjective Date Seen by Provider: Dec 31, 2020 Time Seen by Provider: 00:30 Patient was resting in his bed, awake and alert, participated well. Objective Patient completed speech tasks for improved intelligibility at 90% with cues to slow down. Assessment Assessment Current Status: Good Progress Treatment Plan Continue Plan of Care Speech Short Term Goals Short Term Goals Short Term Goals 1) Patient will complete memory tasks at 90% or greater with minimal cues. 2) Patient will complete speech tasks at 90% or greater with minimal cues. Speech Group Home Goals Research Support Specialist Goals Patient will improve cognitive-communication abilities in order to complete daily tasks with minimal assist. Speech-Plan Patient/Family Goals Patient/Family Goals: Patient plans on returning to his home where he lives with his . He did mention today that he would be ok with going to a SNF for a short time to get better. Treatment Plan Speech Therapy Treatment Plan: Continue Plan of Care Treatment Duration: Jan 07, 2021 Frequency: 4 times per week (Patient will receive skilled ST 4-5x per week) Estimated Hrs Per Day: .5 hour per day Rehab Potential: Fair Barriers to Learning: Patient's recent CVA and other medical conditions Pt/Family Agrees to Plan: Yes Safety Risks/Education Teaching Recipient: Patient Teaching Methods: Demonstration, Discussion Response to Teaching: Verbalize Understanding, Return Demonstration Education Topics Provided: Continued safety upon discharge, Communication Time Speech Therapy Time In: 08:30 Speech Therapy Time Out: 09:00 Total Billed Time: 30 Billed Treatment Time 1, MIKAEL Marie Dec 31, 2020 09:02
[2020-12-31] MEDS: polyethylene glycoL POWDER 17 GM (MIRALAX) PACK PO SCH ×2 (09:29→20:45)
[2020-12-31] MEDS: DICLOFENAC 1% GEL 100 GM (VOLTAREN) TUBE TOP PRN (10:59)
--- NOTE | 2020-12-31 11:10 | Occupational Ther Daily Note ---
OT Current Status-Daily Note Subjective Pt AxO, agrees to treatment. Pt states pain in the L shoulder and in the chest. Pt's nurse aware. OT individual tx: [id number] OT/ PT co-treat with OT addressing L UE, ROM, w/c mob, scanning, sensation, and ADLs while PT addresses fx transfers, LE movement, w/c mob, etc. Mental Status/Objective Patient Orientation: Person, Place, Situation ADL-Treatment Therapy Code Descriptions/Definitions Functional [place] Measure: 0=Not Assessed/NA 4=Minimal Assistance 1=Total Assistance 5=Supervision or Setup 2=Maximal Assistance 6=Modified [place] 3=Moderate Assistance 7=Complete IndependenceSCALE: Activities may be completed with or without assistive devices. 8-Zuagvxoovt-qdqahxd completes the activity by him/herself with no assistance from a helper. 5-Set-up or Clean-up Assistance-helper sets up or cleans up; patient completes activity. [place] assists only prior to or following the activity. 4-Supervision or Touching Assistance-helper provides verbal cues and/or touching/steadying and/or contact guard assistance as patient completes activ ity. Assistance may be provided throughout the activity or intermittently. 3-Partial/Moderate Assistance-helper does LESS THAN HALF the effort. [place] lifts, holds or supports trunk or limbs, but provides less than half the effort. 2-Substantial/Maximal Assistance-helper does MORE THAN HALF the effort. [place] lifts or holds trunk or limbs and provides more than half the effort. 6-Pflcbplpg-eejqij does ALL the effort. Patient does none of the effort to complete the activity. Or, the assistance of 2 or more helpers is required for the patient to complete the activity. If activity was not attempted, code reason: 7-Patient Refused. 9-Not Applicable-not attempted and the patient did not perform the activity before the current illness, exacerbation or injury. 10-Not Attempted due to Environmental Limitations-(lack of equipment, weather restraints, etc.). 88-Not Attempted due to Medical Conditions or Safety Concerns. Eating (QC): 6 Oral Hygiene (QC): 7 Shower/Bathe Self (QC): 7 Lower Body Dressing (QC): 3 (Pt requires min A for L LE stabilization in bed while completing bridging in bed. Requires max A for buttoning task.) On/Off Footwear: 4 (CGA in w/c during sock doffing/ donning.) Other Treatment Pt completes threading and donning of pants in bed. Pt reaches EOB with SBA, pt SPT to R side to w/c with CGA. Pt completes w/c mobility with SBA, completes face washing and hair care. Desires outdoor tasks this am. Pt w/c mob into small laundry room, able to maneuver with increased time. Pt w/c mob with increased time and cues for L side scanning. Pt reaches 1st floor with elevator, able to push chair with increased time through different obstacles: tile, light carpet, thresholds, and cement/ ramps. Ramp completed with max cues. Pt completes ambulation back in therapy gym (3 rounds). OT completes follow with w/c and then utilizes RB to complete L UE PROM. Pt expresses no pain during PROM, however, some pain upon rest. Use of wash cloth and education on sensation purpose for L hand to increase sensation and attention to L hand. Pt is left with PT end of session. Education OT Patient Education: Correct positioning, Exercise program, Home exercise program, Modified ADL techniques, Progress toward Goal/Update tx plan, Purpose of tx/functional activities, Safety issues, Transfer techniques, W/C management Teaching Recipient: Patient Teaching Methods: Demonstration, Discussion Response to Teaching: Verbalize Understanding, Return Demonstration OT Short Term Goals Short Term Goals Time Frame: Jan 04, 2021 Eatin Oral hygiene: 4 Toileting hygiene: 3 Shower/bathe self: 3 Upper body dressin Lower body dressin Putting on/taking off footwear: 3 OT Prison Goals Prison Goals Time Frame: Jan 11, 2021 Eating (QC): 6 Oral Hygiene (QC): 5 Toileting Hygiene (QC): 5 Shower/Bathe Self (QC): 4 Upper Body Dressing (QC): 5 Lower Body Dressing (QC): 4 On/Off Footwear (QC): 5 Additional Goals: 1-Demonstrate ADL Tasks, 2-Verbalize Understanding, 3- ImproveStrength/[place] 1=Demonstrate adherence to instructed precautions during ADL tasks. 2=Patient will verbalize/demonstrate understanding of assistive devices/modifications for ADL. 3=Patient will improve strength/tolerance for activity to enable patient to perform ADL's. OT Education/Plan Problem List/Assessment Assessment: Decreased Activ Tolerance, Decreased UE Strength, Dependent Transfers, Impaired Bed Mobility, Impaired Coordination, Impaired Funct Balance, Impaired I ADL's, Impaired Self-Care Skills, Restricted Funct UE ROM Discharge Recommendations Plan/Recommendations: Continue POC Therapy Discharge Recommendati: 24 Hour Supervision, Bath Aide, Post Acute OT Treatment Plan/Plan of Care Treatment,Training & Education: Yes Patient would benefit from OT for education, treatment and training to promote independence in ADL's, mobility, safety and/or upper extremity function for ADL's. Plan of Care: ADL Retraining, Functional Mobility, UE Funct Exercise/Act, UE Neuromus Re-Ed/Coord, Visual/Perceptual Retrain Treatment Duration: Jan 11, 2021 Frequency: At least 5 of 7 days/Wk (IRF) Estimated Hrs Per Day: 1.5 hours per day Agreement: Yes Rehab Potential: Fair Time/GCodes Start Time: 09:45 Stop Time: 11:00 Total Time Billed (hr/min): 75 Billed Treatment Time OT individual tx: [id number] OT/ PT co-treat with OT addressing L UE, ROM, w/c mob, scanning, sensation, and ADLs while PT addresses fx transfers, LE movement, w/c mob, etc. 1, ADL, EX 3, SEN (75) NOEMI WALLACE OTR Dec 31, 2020 11:10
--- NOTE | 2020-12-31 11:14 | Physical Therapy Daily Note ---
PT Daily Note-Current Subjective Patient in pre tx, agrees to PT, has no complaints of pain, has already been working with OT for a bit. Will be co-treating with OT for part of tx due to poor patient mobility, strength,endurance, left hemiparesis, coordinate UE and LE during activity, safety and reduce risk of falls. Appearance Patient in bed post tx with nurse call, phone, tray, bed alarm on. Mental Status Patient Orientation: Person, Place, Situation Transfers SCALE: Activities may be completed with or without assistive devices. 0-Tqudmiqvlr-ybquozq completes the activity by him/herself with no assistance from a helper. 5-Set-up or Clean-up Assistance-helper sets up or cleans up; patient completes activity. [place] assists only prior to or following the activity. 4-Supervision or Touching Assistance-helper provides verbal cues and/or touching/steadying and/or contact guard assistance as patient completes activity. Assistance may be provided throughout the activity or intermittently. 3-Partial/Moderate Assistance-helper does LESS THAN HALF the effort. [place] lifts, holds or supports trunk or limbs, but provides less than half the effort. 2-Substantial/Maximal Assistance-helper does MORE THAN HALF the effort. [place] lifts or holds trunk or limbs and provides more than half the effort. 5-Jtulxeeuo-dugiuf does ALL the effort. Patient does none of the effort to complete the activity. Or, the assistance of 2 or more helpers is required for the patient to complete the activity. If activity was not attempted, code reason: 7-Patient Refused. 9-Not Applicable-not attempted and the patient did not perform the activity before the current illness, exacerbation or injury. 10-Not Attempted due to Environmental Limitations-(lack of equipment, weather restraints, etc.). 88-Not Attempted due to Medical Conditions or Safety Concerns. Roll Left & Right (QC): 4 Sit to Lying (QC): 3 Lying to Sitting/Side of Bed(Q: 3 Sit to Stand (QC): 3 Chair/Qot-ex-[place] Xfer(QC): 3 Weight Bearing Full Weight Bearing Full Weight Bearing Gait Training Distance: 20'x3 Walk 10 feet (QC): 3 Gait Assistive Device: Walker Tobias follow, wears a left AFO and knee immobilizer, has left knee hyperextension even when wearing the immobilizer, needs assist with balance and some weight shifting and is now able to advance his left leg on his own. Wheelchair Training Does the Pt Use a Wheelchair?: Yes Wheel 50 ft with 2 turns (QC): 3 Wheel 150 ft (QC): 3 Type of Wheelchair: Manual Min assist to sometimes get around obstacles and through doorways, has some left neglect and tends to drift toward the left wall. Practiced outside, over sidewalks and up and down ramps. Exercises NuStep Minutes: 15 NuStep Workload: 4 Treatments PT performed bed mobility and transfers, ambulation, WC mobility, functional strengthening, OT performed UE positioning and safety during activity, UE ROM. Assessment Current Status: Fair Progress Patient still cannot bear weight on his left knee without buckling (if not using the immobilizer) PT Short Term Goals Short Term Goals Time Frame: Dec 28, 2020 Roll Left & Right: 6 Sit to lyin Lying to sitting on side of be: 4 Sit to stand: 4 Chair/rki-bs-unkwz transfer: 4 Walk 10 feet: 3 PT Subpoena Server Goals Fdc Goals PT Subpoena Server Goals Time Frame: Jan 11, 2021 Roll Left & Right (QC): 6 Sit to Lying (QC): 6 Lying-Sitting on Side/Bed(QC): 6 Sit to Stand (QC): 5 Chair/Szy-ii-Icqsr Xfer(QC): 5 Toilet Transfer (QC): 5 Car Transfer (QC): 5 Does the Patient Walk: Yes Walk 10 feet (QC): 4 Walk 50ft with 2 Turns (QC): 4 Walk 150 ft (QC): 88 Walking 10ft on Uneven Surface: 4 1 Step (curb) (QC): 3 4 Steps (QC): 88 12 Steps (QC): 88 Picking up an Object (QC): 88 Wheel 50 feet with 2 turns (QC: 6 Wheel 150 feet: 6 PT Plan Problem List Problem List: Activity Tolerance, Functional Strength, Safety, Balance, Gait, Transfer, Bed Mobility, ROM Treatment/Plan Treatment Plan: Continue Plan of Care Treatment Plan: Bed Mobility, Education, Functional Activity Simba, Functional Strength, Group Therapy, Gait, Safety, Therapeutic Exercise, Transfers Treatment Duration: Jan 11, 2021 Frequency: At least 5 of 7 days/Wk (IRF) Estimated Hrs Per Day: 1.5 hours per day Patient and/or Family Agrees t: Yes Safety Risks/Education Patient Education: Gait Training, Transfer Techniques, Correct Positioning, W/C Management, Safety Issues Teaching Recipient: Patient Teaching Methods: Demonstration, Discussion Response to Teaching: Reinforcement Needed Time/GCodes Time In: 1000 Time Out: 1115 Total Billed Treatment Time: 75 Total Billed Treatment 1 visit EX 15' FA 60' co-treated with OT from [id number] GABRIELLE LALA PT Dec 31, 2020 11:14
[2020-12-31 20:00] VITALS: BP 92/62
[2020-12-31] MEDS: FAMOTIDINE 20 MG (PEPCID) TABLET PO SCH (20:47)
[2020-12-31] MEDS: ALPRAZolam 1 MG (XANAX) TAB PO PRN (20:50)
[2021-01-01] MEDS: inSUlin ASPART (NovoLOG) 1 UNIT/0.01 ML (CHARGE PER UNIT) SC SCH ×7 (06:03→21:48)
[2021-01-01 07:14] VITALS: BP 112/78
[2021-01-01] MEDS: DICLOFENAC 1% GEL 100 GM (VOLTAREN) TUBE TOP PRN ×2 (08:03→11:32)
[2021-01-01] MEDS: HYDROcodone/APAP 5 MG/325 MG (LORTAB) TAB PO PRN ×2 (08:15→16:37)
[2021-01-01] MEDS: SENNA W/DOCUSATE (SENOKOT S) TABLET PO SCH ×2 (08:15→21:47)
[2021-01-01] MEDS: ASPIRIN 81 MG CHEW (CHILDREN'S ASA) PO SCH (08:15)
[2021-01-01] MEDS: DOCUSATE SODIUM 100 MG (COLACE) CAP PO SCH ×2 (08:16→21:47)
[2021-01-01] MEDS: PANTOPRAZOLE 40 MG (PROTONIX) TAB PO SCH (08:16)
[2021-01-01] MEDS: polyethylene glycoL POWDER 17 GM (MIRALAX) PACK PO SCH ×2 (08:21→21:45)
[2021-01-01] MEDS: NICOTINE PATCH REMOVAL TP SCH (08:21)
[2021-01-01] MEDS: NICOTINE 21 MG (NICODERM) PATCH TD SCH (08:22)
--- NOTE | 2021-01-01 10:18 | Physical Therapy Daily Note ---
PT Daily Note-Current Subjective States that his chest has been hurting him when he does too much. Agrees to bed exercises. Transfers SCALE: Activities may be completed with or without assistive devices. 0-Awlavnnlvb-ihtzoss completes the activity by him/herself with no assistance from a helper. 5-Set-up or Clean-up Assistance-helper sets up or cleans up; patient completes activity. [place] assists only prior to or following the activity. 4-Supervision or Touching Assistance-helper provides verbal cues and/or touching/steadying and/or contact guard assistance as patient completes activity. Assistance may be provided throughout the activity or intermittently. 3-Partial/Moderate Assistance-helper does LESS THAN HALF the effort. [place] lifts, holds or supports trunk or limbs, but provides less than half the effort. 2-Substantial/Maximal Assistance-helper does MORE THAN HALF the effort. [place] lifts or holds trunk or limbs and provides more than half the effort. 4-Gcerpqccb-xcrlaz does ALL the effort. Patient does none of the effort to complete the activity. Or, the assistance of 2 or more helpers is required for the patient to complete the activity. If activity was not attempted, code reason: 7-Patient Refused. 9-Not Applicable-not attempted and the patient did not perform the activity before the current illness, exacerbation or injury. 10-Not Attempted due to Environmental Limitations-(lack of equipment, weather restraints, etc.). 88-Not Attempted due to Medical Conditions or Safety Concerns. Weight Bearing Full Weight Bearing Full Weight Bearing Exercises Supine Ex: LE Protocol Supine Reps: 20 Assessment Current Status: Good Progress Patient had no chest pain with any exercises today. PT Short Term Goals Short Term Goals Time Frame: Dec 28, 2020 Roll Left & Right: 6 Sit to lyin Lying to sitting on side of be: 4 Sit to stand: 4 Chair/zoa-dm-zmkmf transfer: 4 Walk 10 feet: 3 PT Care Home Goals Care Home Goals PT Internet Marketing Assistant Goals Time Frame: Jan 11, 2021 Roll Left & Right (QC): 6 Sit to Lying (QC): 6 Lying-Sitting on Side/Bed(QC): 6 Sit to Stand (QC): 5 Chair/Ahf-wr-Rsqqh Xfer(QC): 5 Toilet Transfer (QC): 5 Car Transfer (QC): 5 Does the Patient Walk: Yes Walk 10 feet (QC): 4 Walk 50ft with 2 Turns (QC): 4 Walk 150 ft (QC): 88 Walking 10ft on Uneven Surface: 4 1 Step (curb) (QC): 3 4 Steps (QC): 88 12 Steps (QC): 88 Picking up an Object (QC): 88 Wheel 50 feet with 2 turns (QC: 6 Wheel 150 feet: 6 PT Plan Treatment/Plan Treatment Plan: Continue Plan of Care Treatment Plan: Bed Mobility, Education, Functional Activity Simba, Functional Strength, Group Therapy, Gait, Safety, Therapeutic Exercise, Transfers Treatment Duration: Jan 11, 2021 Frequency: At least 5 of 7 days/Wk (IRF) Estimated Hrs Per Day: 1.5 hours per day Patient and/or Family Agrees t: Yes Time/GCodes Time In: 1000 Time Out: 1015 Total Billed Treatment Time: 15 Total Billed Treatment 1, EX x 15' TODD CARTER PT Jan 01, 2021 10:18
--- NOTE | 2021-01-01 12:21 | PM&R Progress Note ---
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 Sliding scale maintained 12/31/20: Patient doing well Cranky at times Sling not worn and his trapezius sore so wearing sling Voltaren gel ordered 12/30/2020: Pt doing pretty well since fall yesterday On a bed alarm now Upset all of the time it seems Family education on the 12/29/2020: Pt doing pretty well Diabetic education maintained Family education on Sunday will ensue Bowels moved yesterday Discharge on 01/05/21 Xanax BID and Hydrocodone helps the pain Working with him to not spill the urinal Had a fall early evening when he fell out of his wheelchair so we will monitor patient closely 12/28/2020: Pt sleeping now Bowels moved yesterday Blood sugar good at 140 Diabetic education with the Pt and After rounds he became irate and wanted to go home and cannot take care of him so we will continue to be supportive 12/27/2020: Pt in good spirits today No bowel movement for 3 days Blood sugar 163 Doing well visited today 12/26/20: Patient doing better Marital problems stated to the nurse Tearful at times, Xanax given Pet pass pending BM 12/24 Temp 99.2 12/25/20: Pet pass will be given today Dog is "misfit" and she is 110 pounds and is 4 yo BM yesterday a large amount after laxatives since admit Sugar 183 12/24/2020: Patient doing a little better Better attitude Approved a PET pass Lactulose will be given due to constipation Very blood sugars 12/23/2020: Patient very irritable Hopefully he can adjust his attitude or he may very well leave AGAINST MEDICAL ADVICE Had a fall yesterday without injury Bowels moved on 12/19 giving laxatives Bed alarm initiated 12/22/2020: Pt is doing okay today He is very cranky He would like to go smoke Last bowel movement was three days ago, pt was given laxatives Pt had a fall in the rehab unit He wants to go home so badly, but he needs to stay to recover 12/21/2020: Patient doing pretty well Sleeping currently Was tearful a little bit today Bowels moved 2 days ago laxatives given Tums will be given on a regular basis so started Protonix in the morning and Pepcid at night Review of Systems General: Fatigue Neurological: Weakness, Incoordination Objective Exam Vital Signs Vital Signs Date Time Temp Pulse Resp B/P (MAP) Pulse Ox O2 Delivery O2 Flow Rate FiO2 01/01/21 19:38 36.0 77 16 119/58 (78) 95 01/01/21 09:00 Room Air Capillary Refill : General Appearance: No Apparent Distress, WD/WN, Chronically ill, Thin HEENT: PERRL/EOMI, Normal ENT Inspection, Pharynx Normal Neck: Full Range of Motion, Normal Inspection, Non Tender, Supple, Carotid Bruit Respiratory: Chest Non Tender, Lungs Clear, Normal Breath Sounds, No Accessory Muscle Use, No Respiratory Distress Cardiovascular: Regular Rate, Rhythm, No Edema, No Gallop, No JVD, No Murmur, Normal Peripheral Pulses Gastrointestinal: Normal Bowel Sounds, No Organomegaly, No Pulsatile Mass, Non Tender, Soft Back: Normal Inspection, No CVA Tenderness, No Vertebral Tenderness Extremity: Normal Capillary Refill, Normal Inspection, Normal Range of Motion, Non Tender, No Calf Tenderness, No Pedal Edema Neurologic/Psychiatric: Alert, Oriented x3, No Motor/Sensory Deficits, Abnormal Gait, Depressed Affect, Motor Weakness Skin: Normal Color, Warm/Dry Lymphatic: No Adenopathy Results/Procedures Lab Patient resulted labs reviewed. FIM Transfers Therapy Code Descriptions/Definitions Functional [place] Measure: 0=Not Assessed/NA 4=Minimal Assistance 1=Total Assistance 5=Supervision or Setup 2=Maximal Assistance 6=Modified [place] 3=Moderate Assistance 7=Complete IndependenceSCALE: Activities may be completed with or without assistive devices. 7-Rzjciufybt-dqgrjon completes the activity by him/herself with no assistance from a helper. 5-Set-up or Clean-up Assistance-helper sets up or cleans up; patient completes activity. [place] assists only prior to or following the activity. 4-Supervision or Touching Assistance-helper provides verbal cues and/or touching/steadying and/or contact guard assistance as patient completes activity. Assistance may be provided throughout the activity or intermittently. 3-Partial/Moderate Assistance-helper does LESS THAN HALF the effort. [place] lifts, holds or supports trunk or limbs, but provides less than half the effort. 2-Substantial/Maximal Assistance-helper does MORE THAN HALF the effort. [place] lifts or holds trunk or limbs and provides more than half the effort. 0-Pmdtkwpne-gbtkko does ALL the effort. Patient does none of the effort to complete the activity. Or, the assistance of 2 or more helpers is required for the patient to complete the activity. If activity was not attempted, code reason: 7-Patient Refused. 9-Not Applicable-not attempted and the patient did not perform the activity before the current illness, exacerbation or injury. 10-Not Attempted due to Environmental Limitations-(lack of equipment, weather restraints, etc.). 88-Not Attempted due to Medical Conditions or Safety Concerns. Roll Left to Right (QC): 4 Sit to Lying (QC): 3 Sit to Stand (QC): 3 Chair/Cui-ez-Zvzdt Xfer(QC): 3 Car Transfer (QC): 3 Gait Training Does the Patient Walk?: Yes Distance: 20'x3 Walk 10 feet (QC): 3 Walk 50 ft with 2 Turns(QC): 3 Walk 150 ft (QC): 88 Walking 10ft/uneven surface-QC: 88 Gait Persons Needed: 1 Gait Assistive Device: Walker Tobias Wheelchair Training Does the Pt Use a Wheelchair?: Yes Distance: 150'x2 Wheel 50 ft with 2 turns (QC): 3 Wheel 150 ft (QC): 3 Type of Wheelchair: Manual Stair Training 1 Step (curb) (QC): 88 4 Steps (QC): 88 12 Steps (QC): 88 Balance Picking up an Object (QC): 88 ADL-Treatment Eating (QC): 6 Oral Hygiene (QC): 7 Bathing Location: L Arm, R Arm, L Upper Leg, R Upper Leg, L Lower Leg (including foot), R Lower Leg (including foot), Chest, Abdomen, Perineal Area Shower/Bathe Self (QC): 7 Upper Body Dressing (QC): 3 (min A LUE and positioning) Lower Body Dressing (QC): 3 (Pt requires min A for L LE stabilization in bed while completing bridging in bed. Requires max A for buttoning task.) On/Off Footwear (QC): 4 (CGA in w/c during sock doffing/ donning.) Toileting Hygiene (QC): 1 (TD in stance (Ax2)) Toilet Transfer (QC): 3 (CGA to R/ strong side, mod A to L/ flaccid side.) Assessment/Plan Assessment and Plan Assess & Plan/Chief Complaint Assessment: CVA with left-sided weakness Current smoker Hypertension Diabetes insulin requiring CAD Hypertension GERD Plan: Monitor closely Insulin Nicotine patch Inpatient rehab protocol 12/21/2020: Monitor blood pressure GERD treatment Aggressive treatment for left-sided weakness 12/22/2020: Nicotine patch Xanax as needed for nicotine withdrawal Supportive care Fall risk 12/23/2020: Supportive care for irritable status Monitor closely 12/24/2020: Supportive care Pet Pass Bowel regimen 12/25/20: Pet pass Monitor closely Improved attitude since fall 2 days ago 12/26/20: Intense therapy Monitor BP and BS 12/27/2020: Monitor sugar Fall risk 12/28/2020: Continue therapy Monitor closely Supportive care but very labile behaviors 12/29/2020: Patient is a major fall risk Monitor closely Labile behaviors 12/30/2020: Supportive care Blood sugar management Fall risk 12/31/20: Monitor closely Voltaren gel Sling 01/01/2021: Sliding-scale insulin Voltaren gel sling (1) Cerebrovascular accident due to cerebral artery occlusion Status: Acute (2) Diabetes (3) Smoker (4) Hypertension (5) CAD (coronary artery disease) (6) Left-sided weakness (7) Dysarthria (8) Non-compliance Status: Acute BOYD MICHAELS DO Jan 01, 2021 12:21
[2021-01-01 19:38] VITALS: BP 119/58
[2021-01-01] MEDS: FAMOTIDINE 20 MG (PEPCID) TABLET PO SCH (21:48)
[2021-01-02] MEDS: inSUlin ASPART (NovoLOG) 1 UNIT/0.01 ML (CHARGE PER UNIT) SC SCH ×7 (06:34→21:26)
--- NOTE | 2021-01-02 07:00 | PM&R Progress Note ---
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 Sliding scale maintained 12/31/20: Patient doing well Cranky at times Sling not worn and his trapezius sore so wearing sling Voltaren gel ordered 12/30/2020: Pt doing pretty well since fall yesterday On a bed alarm now Upset all of the time it seems Family education on the 12/29/2020: Pt doing pretty well Diabetic education maintained Family education on Sunday will ensue Bowels moved yesterday Discharge on 01/05/21 Xanax BID and Hydrocodone helps the pain Working with him to not spill the urinal Had a fall early evening when he fell out of his wheelchair so we will monitor patient closely 12/28/2020: Pt sleeping now Bowels moved yesterday Blood sugar good at 140 Diabetic education with the Pt and After rounds he became irate and wanted to go home and cannot take care of him so we will continue to be supportive 12/27/2020: Pt in good spirits today No bowel movement for 3 days Blood sugar 163 Doing well visited today 12/26/20: Patient doing better Marital problems stated to the nurse Tearful at times, Xanax given Pet pass pending BM 12/24 Temp 99.2 12/25/20: Pet pass will be given today Dog is "misfit" and she is 110 pounds and is 4 yo BM yesterday a large amount after laxatives since admit Sugar 183 12/24/2020: Patient doing a little better Better attitude Approved a PET pass Lactulose will be given due to constipation Very blood sugars 12/23/2020: Patient very irritable Hopefully he can adjust his attitude or he may very well leave AGAINST MEDICAL ADVICE Had a fall yesterday without injury Bowels moved on 12/19 giving laxatives Bed alarm initiated 12/22/2020: Pt is doing okay today He is very cranky He would like to go smoke Last bowel movement was three days ago, pt was given laxatives Pt had a fall in the rehab unit He wants to go home so badly, but he needs to stay to recover 12/21/2020: Patient doing pretty well Sleeping currently Was tearful a little bit today Bowels moved 2 days ago laxatives given Tums will be given on a regular basis so started Protonix in the morning and Pepcid at night Review of Systems Neurological: Weakness, Incoordination Objective Exam Vital Signs Vital Signs Date Time Temp Pulse Resp B/P (MAP) Pulse Ox O2 Delivery O2 Flow Rate FiO2 01/02/21 09:00 Room Air 01/02/21 07:01 36.4 73 16 109/74 (86) 96 Capillary Refill : General Appearance: No Apparent Distress, WD/WN, Chronically ill, Thin HEENT: PERRL/EOMI, Normal ENT Inspection, Pharynx Normal Neck: Full Range of Motion, Normal Inspection, Non Tender, Supple, Carotid Bruit Respiratory: Chest Non Tender, Lungs Clear, Normal Breath Sounds, No Accessory Muscle Use, No Respiratory Distress Cardiovascular: Regular Rate, Rhythm, No Edema, No Gallop, No JVD, No Murmur, Normal Peripheral Pulses Gastrointestinal: Normal Bowel Sounds, No Organomegaly, No Pulsatile Mass, Non Tender, Soft Back: Normal Inspection, No CVA Tenderness, No Vertebral Tenderness Extremity: Normal Capillary Refill, Normal Inspection, Normal Range of Motion, Non Tender, No Calf Tenderness, No Pedal Edema Neurologic/Psychiatric: Alert, Oriented x3, No Motor/Sensory Deficits, Abnormal Gait, Depressed Affect, Motor Weakness Skin: Normal Color, Warm/Dry Lymphatic: No Adenopathy Results/Procedures Lab Patient resulted labs reviewed. FIM Transfers Therapy Code Descriptions/Definitions Functional [place] Measure: 0=Not Assessed/NA 4=Minimal Assistance 1=Total Assistance 5=Supervision or Setup 2=Maximal Assistance 6=Modified [place] 3=Moderate Assistance 7=Complete IndependenceSCALE: Activities may be completed with or without assistive devices. 6-Ibuauhsegm-eygtemr completes the activity by him/herself with no assistance from a helper. 5-Set-up or Clean-up Assistance-helper sets up or cleans up; patient completes activity. [place] assists only prior to or following the activity. 4-Supervision or Touching Assistance-helper provides verbal cues and/or to uching/steadying and/or contact guard assistance as patient completes activity. Assistance may be provided throughout the activity or intermittently. 3-Partial/Moderate Assistance-helper does LESS THAN HALF the effort. [place] lifts, holds or supports trunk or limbs, but provides less than half the effort. 2-Substantial/Maximal Assistance-helper does MORE THAN HALF the effort. [place] lifts or holds trunk or limbs and provides more than half the effort. 3-Xdgbasjub-wwunwa does ALL the effort. Patient does none of the effort to complete the activity. Or, the assistance of 2 or more helpers is required for the patient to complete the activity. If activity was not attempted, code reason: 7-Patient Refused. 9-Not Applicable-not attempted and the patient did not perform the activity before the current illness, exacerbation or injury. 10-Not Attempted due to Environmental Limitations-(lack of equipment, weather restraints, etc.). 88-Not Attempted due to Medical Conditions or Safety Concerns. Roll Left to Right (QC): 4 Sit to Lying (QC): 3 Sit to Stand (QC): 3 Chair/Gio-ee-Bmspp Xfer(QC): 3 Car Transfer (QC): 3 Gait Training Does the Patient Walk?: Yes Distance: 20'x3 Walk 10 feet (QC): 3 Walk 50 ft with 2 Turns(QC): 3 Walk 150 ft (QC): 88 Walking 10ft/uneven surface-QC: 88 Gait Persons Needed: 1 Gait Assistive Device: Walker Tobias Wheelchair Training Does the Pt Use a Wheelchair?: Yes Distance: 150'x2 Wheel 50 ft with 2 turns (QC): 3 Wheel 150 ft (QC): 3 Type of Wheelchair: Manual Stair Training 1 Step (curb) (QC): 88 4 Steps (QC): 88 12 Steps (QC): 88 Balance Picking up an Object (QC): 88 ADL-Treatment Eating (QC): 6 Oral Hygiene (QC): 7 Bathing Location: L Arm, R Arm, L Upper Leg, R Upper Leg, L Lower Leg (including foot), R Lower Leg (including foot), Chest, Abdomen, Perineal Area Shower/Bathe Self (QC): 7 Upper Body Dressing (QC): 3 (min A LUE and positioning) Lower Body Dressing (QC): 3 (Pt requires min A for L LE stabilization in bed while completing bridging in bed. Requires max A for buttoning task.) On/Off Footwear (QC): 4 (CGA in w/c during sock doffing/ donning.) Toileting Hygiene (QC): 1 (TD in stance (Ax2)) Toilet Transfer (QC): 3 (CGA to R/ strong side, mod A to L/ flaccid side.) Assessment/Plan Assessment and Plan Assess & Plan/Chief Complaint Assessment: CVA with left-sided weakness Current smoker Hypertension Diabetes insulin requiring CAD Hypertension GERD Plan: Monitor closely Insulin Nicotine patch Inpatient rehab protocol 12/21/2020: Monitor blood pressure GERD treatment Aggressive treatment for left-sided weakness 12/22/2020: Nicotine patch Xanax as needed for nicotine withdrawal Supportive care Fall risk 12/23/2020: Supportive care for irritable status Monitor closely 12/24/2020: Supportive care Pet Pass Bowel regimen 12/25/20: Pet pass Monitor closely Improved attitude since fall 2 days ago 12/26/20: Intense therapy Monitor BP and BS 12/27/2020: Monitor sugar Fall risk 12/28/2020: Continue therapy Monitor closely Supportive care but very labile behaviors 12/29/2020: Patient is a major fall risk Monitor closely Labile behaviors 12/30/2020: Supportive care Blood sugar management Fall risk 12/31/20: Monitor closely Voltaren gel Sling 01/01/2021: Sliding-scale insulin Voltaren gel sling 01/02/2021: Maintain aggressive therapy Check labs in a.m. Monitor blood sugar with sliding scale (1) Cerebrovascular accident due to cerebral artery occlusion Status: Acute (2) Diabetes (3) Smoker (4) Hypertension (5) CAD (coronary artery disease) (6) Left-sided weakness (7) Dysarthria (8) Non-compliance Status: Acute BOYD MICHAELS DO Jan 02, 2021 07:00
[2021-01-02 07:01] VITALS: BP 109/74
[2021-01-02] MEDS: ASPIRIN 81 MG CHEW (CHILDREN'S ASA) PO SCH (08:58)
[2021-01-02] MEDS: PANTOPRAZOLE 40 MG (PROTONIX) TAB PO SCH (08:58)
[2021-01-02] MEDS: SENNA W/DOCUSATE (SENOKOT S) TABLET PO SCH ×2 (08:59→21:30)
[2021-01-02] MEDS: NICOTINE PATCH REMOVAL TP SCH (08:59)
[2021-01-02] MEDS: DOCUSATE SODIUM 100 MG (COLACE) CAP PO SCH ×2 (08:59→21:30)
[2021-01-02] MEDS: NICOTINE 21 MG (NICODERM) PATCH TD SCH (08:59)
[2021-01-02] MEDS: polyethylene glycoL POWDER 17 GM (MIRALAX) PACK PO SCH ×2 (09:00→21:30)
[2021-01-02] MEDS: ALPRAZolam 1 MG (XANAX) TAB PO PRN (09:07)
[2021-01-02] MEDS: HYDROcodone/APAP 5 MG/325 MG (LORTAB) TAB PO PRN ×3 (09:07→21:21)
[2021-01-02 20:00] VITALS: BP 120/76
[2021-01-02] MEDS: FAMOTIDINE 20 MG (PEPCID) TABLET PO SCH (21:21)
[2021-01-03] MEDS: inSUlin ASPART (NovoLOG) 1 UNIT/0.01 ML (CHARGE PER UNIT) SC SCH ×7 (05:57→21:03)
[2021-01-03 06:54] LABS: BASOPHILS # (AUTO) 0.1 10^3/uL (0.0-0.1); BASOPHILS % (AUTO) 1 % (0-10); EOSINOPHILS # (AUTO) 0.3 10^3/uL (0.0-0.3); EOSINOPHILS % (AUTO) 3 % (0-10); HEMATOCRIT 47 % (40-54); LYMPHOCYTES # (AUTO) 3.2 10^3/uL (1.0-4.0); LYMPHOCYTES % (AUTO) 34 % (12-44); MEAN CORPUSCULAR HEMOGLOBIN 30 pg (25-34); MEAN CORPUSCULAR HGB CONC 34 g/dL (32-36); MEAN CORPUSCULAR VOLUME 88 fL (80-99); MEAN PLATELET VOLUME 9.7 fL (9.0-12.2); MONOCYTES # (AUTO) 0.9 10^3/uL (0.0-1.0); MONOCYTES % (AUTO) 10 % (0-12); NEUTROPHILS % (AUTO) 52 % (42-75); PLATELET COUNT 461 10^3/uL (130-400); WHITE BLOOD COUNT 9.7 10^3/uL (4.3-11.0)
[2021-01-03 07:19] LABS: ALANINE AMINOTRANSFERASE 61 U/L (0-55); ALBUMIN 3.7 GM/DL (3.2-4.5); ALKALINE PHOSPHATASE 84 U/L (40-136); BILIRUBIN,TOTAL 0.3 MG/DL (0.1-1.0); BUN/CREATININE RATIO 21; CALCIUM 9.4 MG/DL (8.5-10.1); CARBON DIOXIDE 22 MMOL/L (21-32); CHLORIDE 105 MMOL/L (98-107); CREATININE SERUM 0.85 MG/DL (0.60-1.30); GFR ESTIMATED > 60; GLUCOSE 157 MG/DL (70-105); POTASSIUM 4.6 MMOL/L (3.6-5.0); SODIUM 135 MMOL/L (135-145); TOTAL PROTEIN 7.1 GM/DL (6.4-8.2)
[2021-01-03 07:29] VITALS: BP 123/75
[2021-01-03] MEDS: HYDROcodone/APAP 5 MG/325 MG (LORTAB) TAB PO PRN ×3 (07:43→20:59)
[2021-01-03] MEDS: SENNA W/DOCUSATE (SENOKOT S) TABLET PO SCH ×2 (07:43→20:59)
[2021-01-03] MEDS: DOCUSATE SODIUM 100 MG (COLACE) CAP PO SCH ×2 (07:43→20:59)
[2021-01-03] MEDS: ALPRAZolam 1 MG (XANAX) TAB PO PRN ×2 (07:43→15:42)
[2021-01-03] MEDS: ASPIRIN 81 MG CHEW (CHILDREN'S ASA) PO SCH (07:43)
[2021-01-03] MEDS: PANTOPRAZOLE 40 MG (PROTONIX) TAB PO SCH (07:43)
[2021-01-03] MEDS: NICOTINE 21 MG (NICODERM) PATCH TD SCH (07:44)
[2021-01-03] MEDS: NICOTINE PATCH REMOVAL TP SCH (07:44)
[2021-01-03] MEDS: polyethylene glycoL POWDER 17 GM (MIRALAX) PACK PO SCH ×2 (07:44→21:05)
--- NOTE | 2021-01-03 09:01 | Occupational Ther Daily Note ---
OT Current Status-Daily Note Subjective Pt alert, agrees to therapy this am. OT/ PT co-treat to address family training this am, present for family training. OT addresses dressing/ ADLs, UE activity, safety, w/c mob and home modifications as PT addresses LE movement, strength, transfers, etc. Mental Status/Objective Patient Orientation: Person, Place, Situation ADL-Treatment Therapy Code Descriptions/Definitions Functional [place] Measure: 0=Not Assessed/NA 4=Minimal Assistance 1=Total Assistance 5=Supervision or Setup 2=Maximal Assistance 6=Modified [place] 3=Moderate Assistance 7=Complete IndependenceSCALE: Activities may be completed with or without assistive devices. 5-Digblrylaf-wbjjnho completes the activity by him/herself with no assistance from a helper. 5-Set-up or Clean-up Assistance-helper sets up or cleans up; patient completes activity. [place] assists only prior to or following the activity. 4-Supervision or Touching Assistance-helper provides verbal cues and/or touching/steadying and/or contact guard assistance as patient completes activity. Assistance may be provided throughout the activity or intermittently. 3-Partial/Moderate Assistance-helper does LESS THAN HALF the effort. [place] lifts, holds or supports trunk or limbs, but provides less than half the effort. 2-Substantial/Maximal Assistance-helper does MORE THAN HALF the effort. [place] lifts or holds trunk or limbs and provides more than half the effort. 0-Rswbekpsf-ezvmwc does ALL the effort. Patient does none of the effort to complete the activity. Or, the assistance of 2 or more helpers is required for the patient to complete the activity. If activity was not attempted, code reason: 7-Patient Refused. 9-Not Applicable-not attempted and the patient did not perform the activity before the current illness, exacerbation or injury. 10-Not Attempted due to Environmental Limitations-(lack of equipment, weather restraints, etc.). 88-Not Attempted due to Medical Conditions or Safety Concerns. Eating (QC): 6 Oral Hygiene (QC): 7 Shower/Bathe Self (QC): 4 (SBA-CGA. ) Upper Body Dressing (QC): 3 (s/u and min A) Lower Body Dressing (QC): 1 (TD due to max Ax2 in stance. Pt completes threading of BLE in sit.) On/Off Footwear: 1 (TD (shoes)) Toileting Hygiene (QC): 3 (SBA, min A and CGA on toilet.) Toilet Transfer (QC): 2 (max A to L side and CGA R side.) Other Treatment Pt completes family training with present. educated on LB dressing in bed, toilet transfers, home modifications, shower safety, etc. Pt completes showering/ dressing in shower, CGA R transfer, max A L transfer. Educated on use of bars, however, likely utilize sponge baths in bed and travel to sister's 1x a week for full shower due to height of tub and unlikely able to utilize TTB with good safety. Education on use of BSC for safety in sit as pt has decreased balance wiping bottom when leaning. Pt's works intermittently (3-4 hours) a day. Pt completes w/c mob with fair ability (min difficulty to R side). Pt ambulates with PT with OT to follow, see PT notes for this. Pt returns to bed, education on stabilization of LLE during bridging for LB dressing. Completes doffing with min A for LLE. Pt's and pt educated on PROM of LUE and positioning in bed. All needs met, call light in reach. Education OT Patient Education: Correct positioning, Disease process, Exercise program, Home exercise program, Instructions to caregiver, Modified ADL techniques, Progress toward Goal/Update tx plan, Purpose of tx/functional activities, Rehab process, Safety issues, Transfer techniques, Use of adapted equipment, W/C management, Other (family training) Teaching Recipient: Patient, Significant Other Teaching Methods: Demonstration, Discussion Response to Teaching: Verbalize Understanding, Return Demonstration, Reinforcement Needed OT Short Term Goals Short Term Goals Time Frame: Jan 04, 2021 Eatin Oral hygiene: 4 Toileting hygiene: 3 Shower/bathe self: 3 Upper body dressin Lower body dressin Putting on/taking off footwear: 3 OT Prison Goals Prison Goals Time Frame: Jan 11, 2021 Eating (QC): 6 Oral Hygiene (QC): 5 Toileting Hygiene (QC): 5 Shower/Bathe Self (QC): 4 Upper Body Dressing (QC): 5 Lower Body Dressing (QC): 4 On/Off Footwear (QC): 5 Additional Goals: 1-Demonstrate ADL Tasks, 2-Verbalize Understanding, 3- ImproveStrength/[place] 1=Demonstrate adherence to instructed precautions during ADL tasks. 2=Patient will verbalize/demonstrate understanding of assistive devices/modifications for ADL. 3=Patient will improve strength/tolerance for activity to enable patient to perform ADL's. OT Education/Plan Problem List/Assessment Assessment: Decreased Activ Tolerance, Decreased Safety Aware, Decreased UE Strength, Dependent Transfers, Impaired Bed Mobility, Impaired Coordination, Impaired Funct Balance, Impaired I ADL's, Impaired Self-Care Skills, Restricted Funct UE ROM, Visual-Perceptual Deficit Discharge Recommendations Plan/Recommendations: Continue POC Therapy Discharge Recommendati: 24 Hour Supervision, Assisted Living, Post Acute OT Treatment Plan/Plan of Care Treatment,Training & Education: Yes Patient would benefit from OT for education, treatment and training to promote independence in ADL's, mobility, safety and/or upper extremity function for ADL's. Plan of Care: ADL Retraining, Functional Mobility, UE Funct Exercise/Act, UE Neuromus Re-Ed/Coord, Visual/Perceptual Retrain Treatment Duration: Jan 11, 2021 Frequency: At least 5 of 7 days/Wk (IRF) Estimated Hrs Per Day: 1.5 hours per day Agreement: Yes Rehab Potential: Fair Time/GCodes Start Time: 09:00 Stop Time: 10:15 Total Time Billed (hr/min): 75 Billed Treatment Time OT/ PT co-treat to address family training this am, present for family training. OT addresses dressing/ ADLs, UE activity, safety, w/c mob and home modifications as PT addresses LE movement, strength, transfers, etc. 1, ADL 3, EX 2=(75) NOEMI WALLACE OTR Jan 03, 2021 09:01
--- NOTE | 2021-01-03 09:32 | Speech Therapy Daily Note ---
Speech Daily Progress Note Subjective Date Seen by Provider: Jan 03, 2021 Time Seen by Provider: 00:30 Patient was awake resting in his bed when I entered his room. He turned on his call light and requested to be transferred to his . Patient was being transferred when his arrived. Objective Patient completed a series of conversational tasks relted to daily needs with 905 given 10% cues. Assessment Assessment Current Status: Good Progress Treatment Plan Continue Plan of Care Speech Short Term Goals Short Term Goals Short Term Goals 1) Patient will complete memory tasks at 90% or greater with minimal cues. 2) Patient will complete speech tasks at 90% or greater with minimal cues. Speech Assisted Goals Assisted Goals Patient will improve cognitive-communication abilities in order to complete daily tasks with minimal assist. Speech-Plan Patient/Family Goals Patient/Family Goals: Patient is scheduled to discharge to home where he lives with his on , 01/06/2021. Treatment Plan Speech Therapy Treatment Plan: Continue Plan of Care Treatment Duration: Jan 07, 2021 Frequency: 4 times per week (Patient will receive skilled ST 4-5x per week) Estimated Hrs Per Day: .5 hour per day Rehab Potential: Fair Barriers to Learning: Patient's recent CVA and other health issues Pt/Family Agrees to Plan: Yes Safety Risks/Education Teaching Recipient: Patient, Significant Other Teaching Methods: Demonstration, Discussion Response to Teaching: Verbalize Understanding, Return Demonstration Education Topics Provided: Continued safety awareness upon his return home Time Speech Therapy Time In: 08:30 Speech Therapy Time Out: 09:00 Total Billed Time: 30 Billed Treatment Time 1, MIKAEL PORTILLO Jan 03, 2021 09:32
--- NOTE | 2021-01-03 10:34 | Physical Therapy Daily Note ---
PT Daily Note-Current Subjective Patient in WC pre tx, agrees to PT, has no complaints of pain. Will be co- treating with OT for family training and due to poor patient mobility, strength, endurance, left hemiparesis, coordinate UE and LE during activity, safety and reduce risk of falls. Appearance Patient in bed post tx, will continue with OT for a bit. Mental Status Patient Orientation: Person, Place, Situation Transfers SCALE: Activities may be completed with or without assistive devices. 7-Vysedsyypa-ielwtar completes the activity by him/herself with no assistance from a helper. 5-Set-up or Clean-up Assistance-helper sets up or cleans up; patient completes activity. [place] assists only prior to or following the activity. 4-Supervision or Touching Assistance-helper provides verbal cues and/or touching/steadying and/or contact guard assistance as patient completes activity. Assistance may be provided throughout the activity or intermittently. 3-Partial/Moderate Assistance-helper does LESS THAN HALF the effort. [place] lifts, holds or supports trunk or limbs, but provides less than half the effort. 2-Substantial/Maximal Assistance-helper does MORE THAN HALF the effort. [place] lifts or holds trunk or limbs and provides more than half the effort. 4-Mnwvpgydq-cxqdvd does ALL the effort. Patient does none of the effort to complete the activity. Or, the assistance of 2 or more helpers is required for the patient to complete the activity. If activity was not attempted, code reason: 7-Patient Refused. 9-Not Applicable-not attempted and the patient did not perform the activity before the current illness, exacerbation or injury. 10-Not Attempted due to Environmental Limitations-(lack of equipment, weather restraints, etc.). 88-Not Attempted due to Medical Conditions or Safety Concerns. Roll Left & Right (QC): 6 Sit to Lying (QC): 3 Lying to Sitting/Side of Bed(Q: 3 Sit to Stand (QC): 3 Chair/Jdb-oi-Wummw Xfer(QC): 3 educated on assist needed and technique for supine <-> sit and sit to stand and transfers. understood and was able to recall directions. Patient needed a shower and dressing. Weight Bearing Full Weight Bearing Full Weight Bearing Gait Training Distance: 30'x3 Walk 10 feet (QC): 3 Gait Assistive Device: Walker Tobias Patient ambulated 30'x3 with a hemiwalker and a left AFO and knee immobilizer. He requires a hard mod assist to maintain balance and to assist with weight shifting (he is getting better with weight shifting though). He is able to advance his own left leg now. Walking this way is not a functional activity he will be doing at home with his family, he should continue to do it with therapy. Wheelchair Training Does the Pt Use a Wheelchair?: Yes Wheel 50 ft with 2 turns (QC): 5 Wheel 150 ft (QC): 5 Type of Wheelchair: Manual 300' Treatments PT worked on bed mobility and transfers, standing and balance during bathing and dressing, ambulation, WC mobility, OT worked on dressing, bathing, UE positioning and safety during activity. Assessment Current Status: Poor Progress Patient hasn't really made any progress with functional mobility since last week, he may have reached a plateau for now. PT Short Term Goals Short Term Goals Time Frame: Dec 28, 2020 Roll Left & Right: 6 Sit to lyin Lying to sitting on side of be: 4 Sit to stand: 4 Chair/wbk-hi-lgqek transfer: 4 Walk 10 feet: 3 PT Detention Goals Detention Goals PT Detention Goals Time Frame: Jan 11, 2021 Roll Left & Right (QC): 6 Sit to Lying (QC): 6 Lying-Sitting on Side/Bed(QC): 6 Sit to Stand (QC): 5 Chair/Bsm-sc-Kiffw Xfer(QC): 5 Toilet Transfer (QC): 5 Car Transfer (QC): 5 Does the Patient Walk: Yes Walk 10 feet (QC): 4 Walk 50ft with 2 Turns (QC): 4 Walk 150 ft (QC): 88 Walking 10ft on Uneven Surface: 4 1 Step (curb) (QC): 3 4 Steps (QC): 88 12 Steps (QC): 88 Picking up an Object (QC): 88 Wheel 50 feet with 2 turns (QC: 6 Wheel 150 feet: 6 PT Plan Problem List Problem List: Activity Tolerance, Functional Strength, Safety, Balance, Gait, Transfer, Bed Mobility, ROM Treatment/Plan Treatment Plan: Continue Plan of Care Treatment Plan: Bed Mobility, Education, Functional Activity Simba, Functional Strength, Group Therapy, Gait, Safety, Therapeutic Exercise, Transfers Treatment Duration: Jan 11, 2021 Frequency: At least 5 of 7 days/Wk (IRF) Estimated Hrs Per Day: 1.5 hours per day Patient and/or Family Agrees t: Yes Safety Risks/Education Patient Education: Gait Training, Transfer Techniques, Correct Positioning, W/C Management, Safety Issues Teaching Recipient: Patient Teaching Methods: Demonstration, Discussion Response to Teaching: Reinforcement Needed Time/GCodes Time In: 0900 Time Out: 1000 Total Billed Treatment Time: 60 Total Billed Treatment 1 visit FA 60' co-treated for 60' GABRIELLE LALA PT Jan 03, 2021 10:34
--- NOTE | 2021-01-03 10:58 | PM&R Progress Note ---
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 Sliding scale maintained 12/31/20: Patient doing well Cranky at times Sling not worn and his trapezius sore so wearing sling Voltaren gel ordered 12/30/2020: Pt doing pretty well since fall yesterday On a bed alarm now Upset all of the time it seems Family education on the 12/29/2020: Pt doing pretty well Diabetic education maintained Family education on Sunday will ensue Bowels moved yesterday Discharge on 01/05/21 Xanax BID and Hydrocodone helps the pain Working with him to not spill the urinal Had a fall early evening when he fell out of his wheelchair so we will monitor patient closely 12/28/2020: Pt sleeping now Bowels moved yesterday Blood sugar good at 140 Diabetic education with the Pt and After rounds he became irate and wanted to go home and cannot take care of him so we will continue to be supportive 12/27/2020: Pt in good spirits today No bowel movement for 3 days Blood sugar 163 Doing well visited today 12/26/20: Patient doing better Marital problems stated to the nurse Tearful at times, Xanax given Pet pass pending BM 12/24 Temp 99.2 12/25/20: Pet pass will be given today Dog is "misfit" and she is 110 pounds and is 4 yo BM yesterday a large amount after laxatives since admit Sugar 183 12/24/2020: Patient doing a little better Better attitude Approved a PET pass Lactulose will be given due to constipation Very blood sugars 12/23/2020: Patient very irritable Hopefully he can adjust his attitude or he may very well leave AGAINST MEDICAL ADVICE Had a fall yesterday without injury Bowels moved on 12/19 giving laxatives Bed alarm initiated 12/22/2020: Pt is doing okay today He is very cranky He would like to go smoke Last bowel movement was three days ago, pt was given laxatives Pt had a fall in the rehab unit He wants to go home so badly, but he needs to stay to recover 12/21/2020: Patient doing pretty well Sleeping currently Was tearful a little bit today Bowels moved 2 days ago laxatives given Tums will be given on a regular basis so started Protonix in the morning and Pepcid at night Review of Systems General: Fatigue, Malaise Neurological: Weakness, Incoordination Objective Exam Vital Signs Vital Signs Date Time Temp Pulse Resp B/P (MAP) Pulse Ox O2 Delivery O2 Flow Rate FiO2 01/03/21 21:00 94 Room Air 01/03/21 19:56 36.7 89 16 105/68 (80) Capillary Refill : General Appearance: No Apparent Distress, WD/WN, Chronically ill, Thin HEENT: PERRL/EOMI, Normal ENT Inspection, Pharynx Normal Neck: Full Range of Motion, Normal Inspection, Non Tender, Supple, Carotid Bruit Respiratory: Chest Non Tender, Lungs Clear, Normal Breath Sounds, No Accessory Muscle Use, No Respiratory Distress Cardiovascular: Regular Rate, Rhythm, No Edema, No Gallop, No JVD, No Murmur, Normal Peripheral Pulses Gastrointestinal: Normal Bowel Sounds, No Organomegaly, No Pulsatile Mass, Non Tender, Soft Back: Normal Inspection, No CVA Tenderness, No Vertebral Tenderness Extremity: Normal Capillary Refill, Normal Inspection, Normal Range of Motion, Non Tender, No Calf Tenderness, No Pedal Edema Neurologic/Psychiatric: Alert, Oriented x3, No Motor/Sensory Deficits, Abnormal Gait, Depressed Affect, Motor Weakness Skin: Normal Color, Warm/Dry Lymphatic: No Adenopathy Results/Procedures Lab Patient resulted labs reviewed. FIM Transfers Therapy Code Descriptions/Definitions Functional [place] Measure: 0=Not Assessed/NA 4=Minimal Assistance 1=Total Assistance 5=Supervision or Setup 2=Maximal Assistance 6=Modified [place] 3=Moderate Assistance 7=Complete IndependenceSCALE: Activities may be completed with or without assistive devices. 7-Gjtciukbnm-asegnwb completes the activity by him/herself with no assistance from a helper. 5-Set-up or Clean-up Assistance-helper sets up or cleans up; patient completes activity. [place] assists only prior to or following the activity. 4-Supervision or Touching Assistance-helper provides verbal cues and/or touching/steadying and/or contact guard assistance as patient completes activity. Assistance may be provided throughout the activity or intermittently. 3-Partial/Moderate Assistance-helper does LESS THAN HALF the effort. [place] lifts, holds or supports trunk or limbs, but provides less than half the effort. 2-Substantial/Maximal Assistance-helper does MORE THAN HALF the effort. [place] lifts or holds trunk or limbs and provides more than half the effort. 4-Hapibjtud-tehyrj does ALL the effort. Patient does none of the effort to complete the activity. Or, the assistance of 2 or more helpers is required for the patient to complete the activity. If activity was not attempted, code reason: 7-Patient Refused. 9-Not Applicable-not attempted and the patient did not perform the activity before the current illness, exacerbation or injury. 10-Not Attempted due to Environmental Limitations-(lack of equipment, weather restraints, etc.). 88-Not Attempted due to Medical Conditions or Safety Concerns. Roll Left to Right (QC): 6 Sit to Lying (QC): 3 Sit to Stand (QC): 3 Chair/Wny-pk-Ydacf Xfer(QC): 3 Car Transfer (QC): 3 Gait Training Does the Patient Walk?: Yes Distance: 30'x3 Walk 10 feet (QC): 3 Walk 50 ft with 2 Turns(QC): 3 Walk 150 ft (QC): 88 Walking 10ft/uneven surface-QC: 88 Gait Persons Needed: 1 Gait Assistive Device: Walker Tobias Wheelchair Training Does the Pt Use a Wheelchair?: Yes Distance: 150'x2 Wheel 50 ft with 2 turns (QC): 5 Wheel 150 ft (QC): 5 Type of Wheelchair: Manual Stair Training 1 Step (curb) (QC): 88 4 Steps (QC): 88 12 Steps (QC): 88 Balance Picking up an Object (QC): 88 ADL-Treatment Eating (QC): 6 Oral Hygiene (QC): 7 Bathing Location: L Arm, R Arm, L Upper Leg, R Upper Leg, L Lower Leg (including foot), R Lower Leg (including foot), Chest, Abdomen, Perineal Area Shower/Bathe Self (QC): 4 (SBA-CGA. ) Upper Body Dressing (QC): 3 (s/u and min A) Lower Body Dressing (QC): 1 (TD due to max Ax2 in stance. Pt completes threading of BLE in sit.) On/Off Footwear (QC): 1 (TD (shoes)) Toileting Hygiene (QC): 3 (SBA, min A and CGA on toilet.) Toilet Transfer (QC): 2 (max A to L side and CGA R side.) Assessment/Plan Assessment and Plan Assess & Plan/Chief Complaint Assessment: CVA with left-sided weakness Current smoker Hypertension Diabetes insulin requiring CAD Hypertension GERD Plan: Monitor closely Insulin Nicotine patch Inpatient rehab protocol 12/21/2020: Monitor blood pressure GERD treatment Aggressive treatment for left-sided weakness 12/22/2020: Nicotine patch Xanax as needed for nicotine withdrawal Supportive care Fall risk 12/23/2020: Supportive care for irritable status Monitor closely 12/24/2020: Supportive care Pet Pass Bowel regimen 12/25/20: Pet pass Monitor closely Improved attitude since fall 2 days ago 12/26/20: Intense therapy Monitor BP and BS 12/27/2020: Monitor sugar Fall risk 12/28/2020: Continue therapy Monitor closely Supportive care but very labile behaviors 12/29/2020: Patient is a major fall risk Monitor closely Labile behaviors 12/30/2020: Supportive care Blood sugar management Fall risk 12/31/20: Monitor closely Voltaren gel Sling 01/01/2021: Sliding-scale insulin Voltaren gel sling 01/02/2021: Maintain aggressive therapy Check labs in a.m. Monitor blood sugar with sliding scale 01/03/2021: Continue aggressive therapy Monitor blood sugar Monitor blood pressure (1) Cerebrovascular accident due to cerebral artery occlusion Status: Acute (2) Diabetes (3) Smoker (4) Hypertension (5) CAD (coronary artery disease) (6) Left-sided weakness (7) Dysarthria (8) Non-compliance Status: Acute BOYD MICHAELS DO Jan 03, 2021 10:58
--- NOTE | 2021-01-03 14:17 | Physical Therapy Daily Note ---
PT Daily Note-Current Subjective Patient in bed pre tx, agrees to PT, has no complaints of pain. Appearance Patient in bed post tx with nurse call, phone, tray, all needs met. Mental Status Patient Orientation: Person, Place, Situation Transfers SCALE: Activities may be completed with or without assistive devices. 8-Gqqhmhupvh-snupzdd completes the activity by him/herself with no assistance from a helper. 5-Set-up or Clean-up Assistance-helper sets up or cleans up; patient completes activity. [place] assists only prior to or following the activity. 4-Supervision or Touching Assistance-helper provides verbal cues and/or touching/steadying and/or contact guard assistance as patient completes activity. Assistance may be provided throughout the activity or intermittently. 3-Partial/Moderate Assistance-helper does LESS THAN HALF the effort. Rule lifts, holds or supports trunk or limbs, but provides less than half the effort. 2-Substantial/Maximal Assistance-helper does MORE THAN HALF the effort. Rule lifts or holds trunk or limbs and provides more than half the effort. 5-Bmgpvzbjf-iljowr does ALL the effort. Patient does none of the effort to complete the activity. Or, the assistance of 2 or more helpers is required for the patient to complete the activity. If activity was not attempted, code reason: 7-Patient Refused. 9-Not Applicable-not attempted and the patient did not perform the activity before the current illness, exacerbation or injury. 10-Not Attempted due to Environmental Limitations-(lack of equipment, weather restraints, etc.). 88-Not Attempted due to Medical Conditions or Safety Concerns. Weight Bearing Full Weight Bearing Full Weight Bearing Exercises Supine Ex: Quad Set, Glut sets, Heel Slides (AAROM), Short Arc Quads (AAROM), Straight leg raise (AAROM), Hip abd/add (AAROM) Supine Reps: 20 (all exercises with LLE except for QS and GS which was done with both.) LLE stretching in all planes Treatments LLE strengthening and stretching Assessment Current Status: Fair Progress hip strength improving PT Short Term Goals Short Term Goals Time Frame: Dec 28, 2020 Roll Left & Right: 6 Sit to lyin Lying to sitting on side of be: 4 Sit to stand: 4 Chair/frz-mu-jbzqa transfer: 4 Walk 10 feet: 3 PT Supervisor Wet Room Goals Group Home Goals PT Supervisor Wet Room Goals Time Frame: Jan 11, 2021 Roll Left & Right (QC): 6 Sit to Lying (QC): 6 Lying-Sitting on Side/Bed(QC): 6 Sit to Stand (QC): 5 Chair/Rdd-tn-Wtmca Xfer(QC): 5 Toilet Transfer (QC): 5 Car Transfer (QC): 5 Does the Patient Walk: Yes Walk 10 feet (QC): 4 Walk 50ft with 2 Turns (QC): 4 Walk 150 ft (QC): 88 Walking 10ft on Uneven Surface: 4 1 Step (curb) (QC): 3 4 Steps (QC): 88 12 Steps (QC): 88 Picking up an Object (QC): 88 Wheel 50 feet with 2 turns (QC: 6 Wheel 150 feet: 6 PT Plan Problem List Problem List: Activity Tolerance, Functional Strength, Safety, Balance, Gait, Transfer, Bed Mobility, ROM Treatment/Plan Treatment Plan: Continue Plan of Care Treatment Plan: Bed Mobility, Education, Functional Activity [place], Functional Strength, Group Therapy, Gait, Safety, Therapeutic Exercise, Transfers Treatment Duration: Jan 11, 2021 Frequency: At least 5 of 7 days/Wk (IRF) Estimated Hrs Per Day: 1.5 hours per day Patient and/or Family Agrees t: Yes Safety Risks/Education Patient Education: Correct Positioning, Safety Issues Teaching Recipient: Patient Teaching Methods: Demonstration, Discussion Response to Teaching: Reinforcement Needed Time/GCodes Time In: 1400 Time Out: 1415 Total Billed Treatment Time: 15 Total Billed Treatment 1 visit EX 15' GABRIELLE LALA PT Jan 03, 2021 14:17
[2021-01-03 19:56] VITALS: BP 105/68
[2021-01-03] MEDS: FAMOTIDINE 20 MG (PEPCID) TABLET PO SCH (20:59)
[2021-01-04] MEDS: inSUlin ASPART (NovoLOG) 1 UNIT/0.01 ML (CHARGE PER UNIT) SC SCH ×6 (06:00→21:33)
--- NOTE | 2021-01-04 06:33 | PM&R Progress Note ---
Subjective HPI/CC On Admission Date Seen by Provider: Jan 04, 2021 Time Seen by Provider: 09:00 Subjective/Events-last exam 01/04/2021: Patient in a good mood Ready for discharge tomorrow Switched insulin to glyburide temporarily 01/03/2021: Patient doing pretty well today No major issues Had a bowel movement yesterday In a good mood today Lortab and Xanax helped his overall ability to participate Labs stable 01/02/2021: Patient having no new issues Bowels move this morning Blood sugars managed Check meds and labs 01/01/2021: Patient having no new issues Patient feeling good I met his today She 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 at [employer] 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 the 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 Sliding scale maintained 12/31/20: Patient doing well Cranky at times Sling not worn and his trapezius sore so wearing sling Voltaren gel ordered 12/30/2020: Pt doing pretty well since fall yesterday On a bed alarm now Upset all of the time it seems Family education on the 12/29/2020: Pt doing pretty well Diabetic education maintained Family education on Sunday will ensue Bowels moved yesterday Discharge on 01/05/21 Xanax BID and Hydrocodone helps the pain Working with him to not spill the urinal Had a fall early evening when he fell out of his wheelchair so we will monitor patient closely 12/28/2020: Pt sleeping now Bowels moved yesterday Blood sugar good at 140 Diabetic education with the Pt and After rounds he became irate and wanted to go home and cannot take care of him so we will continue to be supportive 12/27/2020: Pt in good spirits today No bowel movement for 3 days Blood sugar 163 Doing well visited today 12/26/20: Patient doing better Marital problems stated to the nurse Tearful at times, Xanax given Pet pass pending BM 12/24 Temp 99.2 12/25/20: Pet pass will be given today Dog is "misfit" and she is 110 pounds and is 4 yo BM yesterday a large amount after laxatives since admit Sugar 183 12/24/2020: Patient doing a little better Better attitude Approved a PET pass Lactulose will be given due to constipation Very blood sugars 12/23/2020: Patient very irritable Hopefully he can adjust his attitude or he may very well leave AGAINST MEDICAL ADVICE Had a fall yesterday without injury Bowels moved on 12/19 giving laxatives Bed alarm initiated 12/22/2020: Pt is doing okay today He is very cranky He would like to go smoke Last bowel movement was three days ago, pt was given laxatives Pt had a fall in the rehab unit He wants to go home so badly, but he needs to stay to recover 12/21/2020: Patient doing pretty well Sleeping currently Was tearful a little bit today Bowels moved 2 days ago laxatives given Tums will be given on a regular basis so started Protonix in the morning and Pepcid at night Review of Systems General: Fatigue, Malaise Neurological: Weakness, Incoordination Objective Exam Vital Signs Vital Signs Date Time Temp Pulse Resp B/P (MAP) Pulse Ox O2 Delivery O2 Flow Rate FiO2 01/04/21 21:30 98 Room Air 01/04/21 20:00 36.0 78 16 110/77 (88) Capillary Refill : General Appearance: No Apparent Distress, WD/WN, Chronically ill, Thin HEENT: PERRL/EOMI, Normal ENT Inspection, Pharynx Normal Neck: Full Range of Motion, Normal Inspection, Non Tender, Supple, Carotid Bruit Respiratory: Chest Non Tender, Lungs Clear, Normal Breath Sounds, No Accessory Muscle Use, No Respiratory Distress Cardiovascular: Regular Rate, Rhythm, No Edema, No Gallop, No JVD, No Murmur, Normal Peripheral Pulses Gastrointestinal: Normal Bowel Sounds, No Organomegaly, No Pulsatile Mass, Non Tender, Soft Back: Normal Inspection, No CVA Tenderness, No Vertebral Tenderness Extremity: Normal Capillary Refill, Normal Inspection, Normal Range of Motion, Non Tender, No Calf Tenderness, No Pedal Edema Neurologic/Psychiatric: Alert, Oriented x3, No Motor/Sensory Deficits, Abnormal Gait, Depressed Affect, Motor Weakness Skin: Normal Color, Warm/Dry Lymphatic: No Adenopathy Results/Procedures Lab Patient resulted labs reviewed. FIM Transfers Therapy Code Descriptions/Definitions Functional [place] Measure: 0=Not Assessed/NA 4=Minimal Assistance 1=Total Assistance 5=Supervision or Setup 2=Maximal Assistance 6=Modified [place] 3=Moderate Assistance 7=Complete IndependenceSCALE: Activities may be completed with or without assistive devices. 8-Bbvnfbzogv-lriwmlo completes the activity by him/herself with no assistance from a helper. 5-Set-up or Clean-up Assistance-helper sets up or cleans up; patient completes activity. [place] assists only prior to or following the activity. 4-Supervision or Touching Assistance-helper provides verbal cues and/or touching/steadying and/or contact guard assistance as patient completes activity. Assistance may be provided throughout the activity or intermittently. 3-Partial/Moderate Assistance-helper does LESS THAN HALF the effort. [place] lifts, holds or supports trunk or limbs, but provides less than half the effort. 2-Substantial/Maximal Assistance-helper does MORE THAN HALF the effort. [place] lifts or holds trunk or limbs and provides more than half the effort. 2-Fdfljdamk-etdtoy does ALL the effort. Patient does none of the effort to complete the activity. Or, the assistance of 2 or more helpers is required for the patient to complete the activity. If activity was not attempted, code reason: 7-Patient Refused. 9-Not Applicable-not attempted and the patient did not perform the activity before the current illness, exacerbation or injury. 10-Not Attempted due to Environmental Limitations-(lack of equipment, weather restraints, etc.). 88-Not Attempted due to Medical Conditions or Safety Concerns. Roll Left to Right (QC): 6 Sit to Lying (QC): 3 Sit to Stand (QC): 3 Chair/Sjp-jv-Rcxdx Xfer(QC): 3 Car Transfer (QC): 3 Gait Training Does the Patient Walk?: Yes Distance: 30'x3 Walk 10 feet (QC): 3 Walk 50 ft with 2 Turns(QC): 3 Walk 150 ft (QC): 88 Walking 10ft/uneven surface-QC: 88 Gait Persons Needed: 1 Gait Assistive Device: Walker Tobias Wheelchair Training Does the Pt Use a Wheelchair?: Yes Distance: 150'x2 Wheel 50 ft with 2 turns (QC): 5 Wheel 150 ft (QC): 5 Type of Wheelchair: Manual Stair Training 1 Step (curb) (QC): 88 4 Steps (QC): 88 12 Steps (QC): 88 Balance Picking up an Object (QC): 88 ADL-Treatment Eating (QC): 6 Oral Hygiene (QC): 7 Bathing Location: L Arm, R Arm, L Upper Leg, R Upper Leg, L Lower Leg (including foot), R Lower Leg (including foot), Chest, Abdomen, Perineal Area Shower/Bathe Self (QC): 4 (SBA-CGA. ) Upper Body Dressing (QC): 3 (s/u and min A) Lower Body Dressing (QC): 1 (TD due to max Ax2 in stance. Pt completes threading of BLE in sit.) On/Off Footwear (QC): 1 (TD (shoes)) Toileting Hygiene (QC): 3 (SBA, min A and CGA on toilet.) Toilet Transfer (QC): 2 (max A to L side and CGA R side.) Assessment/Plan Assessment and Plan Assess & Plan/Chief Complaint Assessment: CVA with left-sided weakness Current smoker Hypertension Diabetes insulin requiring CAD Hypertension GERD Plan: Monitor closely Insulin Nicotine patch Inpatient rehab protocol 12/21/2020: Monitor blood pressure GERD treatment Aggressive treatment for left-sided weakness 12/22/2020: Nicotine patch Xanax as needed for nicotine withdrawal Supportive care Fall risk 12/23/2020: Supportive care for irritable status Monitor closely 12/24/2020: Supportive care Pet Pass Bowel regimen 12/25/20: Pet pass Monitor closely Improved attitude since fall 2 days ago 12/26/20: Intense therapy Monitor BP and BS 12/27/2020: Monitor sugar Fall risk 12/28/2020: Continue therapy Monitor closely Supportive care but very labile behaviors 12/29/2020: Patient is a major fall risk Monitor closely Labile behaviors 12/30/2020: Supportive care Blood sugar management Fall risk 12/31/20: Monitor closely Voltaren gel Sling 01/01/2021: Sliding-scale insulin Voltaren gel sling 01/02/2021: Maintain aggressive therapy Check labs in a.m. 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
[2021-01-04 07:22] VITALS: BP 124/75
[2021-01-04] MEDS: NICOTINE 21 MG (NICODERM) PATCH TD SCH (07:49)
[2021-01-04] MEDS: HYDROcodone/APAP 5 MG/325 MG (LORTAB) TAB PO PRN ×3 (07:50→21:43)
[2021-01-04] MEDS: DOCUSATE SODIUM 100 MG (COLACE) CAP PO SCH ×2 (07:50→21:31)
[2021-01-04] MEDS: DICLOFENAC 1% GEL 100 GM (VOLTAREN) TUBE TOP PRN (07:50)
[2021-01-04] MEDS: PANTOPRAZOLE 40 MG (PROTONIX) TAB PO SCH (07:50)
[2021-01-04] MEDS: ASPIRIN 81 MG CHEW (CHILDREN'S ASA) PO SCH (07:50)
[2021-01-04] MEDS: ALPRAZolam 1 MG (XANAX) TAB PO PRN ×2 (07:50→14:38)
[2021-01-04] MEDS: NICOTINE PATCH REMOVAL TP SCH (07:51)
--- NOTE | 2021-01-04 08:31 | Speech Therapy Daily Note ---
Speech Daily Progress Note Subjective Date Seen by Provider: Jan 04, 2021 Time Seen by Provider: 00:30 Patient was resting in his bed when I entered his room. He stated he had another rough night and he is ready to go back home to his own bed. Objective Patient recalled safety awareness tasks he will need upon his return home at 95% with 10% cues. Speech intelligibility at 85-90% with slower speech. Assessment Assessment Current Status: Good Progress Treatment Plan Discontinue ST, Goals Met Speech Short Term Goals Short Term Goals Short Term Goals 1) Patient will complete memory tasks at 90% or greater with minimal cues. 2) Patient will complete speech tasks at 90% or greater with minimal cues. Speech Opal Miner Goals Jail Goals Patient will improve cognitive-communication abilities in order to complete daily tasks with minimal assist. Speech-Plan Patient/Family Goals Patient/Family Goals: Patient is scheduled to return to his home where he lives with his . Treatment Plan Speech Therapy Treatment Plan: Discontinue ST, Goals Met Treatment Duration: Jan 07, 2021 Frequency: 4 times per week (Patient will receive skilled ST 4-5x per week) Estimated Hrs Per Day: .5 hour per day Rehab Potential: Fair Barriers to Learning: Patient's recent CVA, impulsivity and other medical conditions Pt/Family Agrees to Plan: Yes Safety Risks/Education Teaching Recipient: Patient Teaching Methods: Demonstration, Discussion Response to Teaching: Verbalize Understanding, Return Demonstration Education Topics Provided: Continued safety upon his return home Time Speech Therapy Time In: 08:30 Speech Therapy Time Out: 09:00 Total Billed Time: 30 Billed Treatment Time 1, SLTS No QUALITY CODES: EXPRESSION OF IDEAS/WANTS: 4 UNDERSTANDING VERBAL CONTENT: 4 BRIEF INTERVIEW MENTAL STATUS: YES REPETITION OF 3 WORDS: 3 TEMPORAL ORIENTATION: YEAR, CORRECT, MONTH, CORRECT, DAY, CORRECT RECALL SOCK: YES WITH CUE, COLOR: YES, BED: YES WITH CUE MEMORY/RECALL ABILITY: SEASON, LOCATION OF ROOM, THAT HE/SHE IS IN THE HOSPITAL MIKAEL BECERRIL Jan 04, 2021 08:31
[2021-01-04] MEDS: SENNA W/DOCUSATE (SENOKOT S) TABLET PO SCH ×2 (09:03→21:31)
[2021-01-04] MEDS: polyethylene glycoL POWDER 17 GM (MIRALAX) PACK PO SCH ×2 (09:03→21:45)
--- NOTE | 2021-01-04 09:59 | Physical Therapy Daily Note ---
PT Daily Note-Current Subjective Patient in bed pre tx, agrees to PT, has no complaints of pain at rest, needs dressed, will be co-treating with OT for part of tx due to poor patient mobility, strength, endurance, balance, left hemiparesis, coordinate UE and LE during activity, safety and reduce risk of falls. Patient puts on shorts with max assist and shirt with mod assist. Appearance Patient in therapy gym post tx to continue with OT for a bit. Mental Status Patient Orientation: Person, Place, Situation Transfers SCALE: Activities may be completed with or without assistive devices. 0-Nazcamdotj-oipdlvy completes the activity by him/herself with no assistance from a helper. 5-Set-up or Clean-up Assistance-helper sets up or cleans up; patient completes activity. [place] assists only prior to or following the activity. 4-Supervision or Touching Assistance-helper provides verbal cues and/or touching/steadying and/or contact guard assistance as patient completes activity. Assistance may be provided throughout the activity or intermittently. 3-Partial/Moderate Assistance-helper does LESS THAN HALF the effort. [place] lifts, holds or supports trunk or limbs, but provides less than half the effort. 2-Substantial/Maximal Assistance-helper does MORE THAN HALF the effort. [place] lifts or holds trunk or limbs and provides more than half the effort. 6-Kcxjdpjjl-uuldkk does ALL the effort. Patient does none of the effort to complete the activity. Or, the assistance of 2 or more helpers is required for the patient to complete the activity. If activity was not attempted, code reason: 7-Patient Refused. 9-Not Applicable-not attempted and the patient did not perform the activity before the current illness, exacerbation or injury. 10-Not Attempted due to Environmental Limitations-(lack of equipment, weather restraints, etc.). 88-Not Attempted due to Medical Conditions or Safety Concerns. Roll Left & Right (QC): 6 Sit to Lying (QC): 3 Lying to Sitting/Side of Bed(Q: 3 Sit to Stand (QC): 3 Chair/Veg-bw-Hbbhi Xfer(QC): 3 Toilet Transfer (QC): 3 Car Transfer (QC): 3 Patient performs bed mobility with independence, supine <-> sit with min assist, sit <-> stand and transfers to the left side with mod assist, transfer to the right side with min assist, car transfer mod assist. Needs occasional cues for hand placement and positioning. Weight Bearing Full Weight Bearing Full Weight Bearing Gait Training Distance: 30'x3 Walk 10 feet (QC): 3 Walk 50 ft with 2 Turns(QC): 88 Walk 150 ft (QC): 88 Walking 10ft/uneven surface-QC: 88 Gait Assistive Device: Walker Tobias Patient can ambulate 30' with a hemiwalker with mod assist. He is able to advance his left leg but with difficulty, needs assist with balance and some with weight shifting. Patient is pretty unsteady and ambulating over an uneven surface is not safe at this time. Patient also uses a left knee immobilizer and AFO. He has left knee hyperextension even with wearing the knee immobilizer. Wheelchair Training Does the Pt Use a Wheelchair?: Yes Wheel 50 ft with 2 turns (QC): 4 Wheel 150 ft (QC): 4 Type of Wheelchair: Manual Patient can propel a manual WC 400' with SBA. He needs occasional cues for obstacles or doorways but does much better noticing the environment on the left side. Stair Training 1 Step (curb) (QC): 88 4 Steps (QC): 88 12 Steps (QC): 88 Balance Picking up an Object (QC): 88 Treatments PT performed dressing, bed mobility and transfers, ambulation, WC mobility, OT performed UE positioning and safety during activity, UE ROM, assisted with transfers and ambulation. Assessment Current Status: Poor Progress No change in functional mobility. Still requires mod assist to stand and transfer to the left side. PT Short Term Goals Short Term Goals Time Frame: Dec 28, 2020 Roll Left & Right: 6 Sit to lyin Lying to sitting on side of be: 4 Sit to stand: 4 Chair/pnz-ev-tkwgp transfer: 4 Walk 10 feet: 3 PT Senior Living Goals Lithographic Photographer Apprentice Goals PT Senior Living Goals Time Frame: Jan 11, 2021 Roll Left & Right (QC): 6 Sit to Lying (QC): 6 Lying-Sitting on Side/Bed(QC): 6 Sit to Stand (QC): 5 Chair/Owv-ph-Mntpw Xfer(QC): 5 Toilet Transfer (QC): 5 Car Transfer (QC): 5 Does the Patient Walk: Yes Walk 10 feet (QC): 4 Walk 50ft with 2 Turns (QC): 4 Walk 150 ft (QC): 88 Walking 10ft on Uneven Surface: 4 1 Step (curb) (QC): 3 4 Steps (QC): 88 12 Steps (QC): 88 Picking up an Object (QC): 88 Wheel 50 feet with 2 turns (QC: 6 Wheel 150 feet: 6 PT Plan Problem List Problem List: Activity Tolerance, Functional Strength, Safety, Balance, Gait, Transfer, Bed Mobility, ROM Treatment/Plan Treatment Plan: Continue Plan of Care Treatment Plan: Bed Mobility, Education, Functional Activity [place], Functional Strength, Group Therapy, Gait, Safety, Therapeutic Exercise, Transfers Treatment Duration: Jan 11, 2021 Frequency: At least 5 of 7 days/Wk (IRF) Estimated Hrs Per Day: 1.5 hours per day Patient and/or Family Agrees t: Yes Safety Risks/Education Patient Education: Gait Training, Transfer Techniques, Correct Positioning, W/C Management, Safety Issues Teaching Recipient: Patient Teaching Methods: Demonstration, Discussion Response to Teaching: Reinforcement Needed Time/GCodes Time In: 0900 Time Out: 1000 Total Billed Treatment Time: 60 Total Billed Treatment 1 visit FA 60' co-treated with OT from [id number] GABRIELLE LALA PT Jan 04, 2021 09:59
[2021-01-04] MEDS ORDERED: INSU100V16 SC (10:25)
[2021-01-04] MEDS ORDERED: MTP25TSR PO (10:25)
[2021-01-04] MEDS ORDERED: NICO1PAT34 TD (10:25)
[2021-01-04] MEDS ORDERED: ASPI-1238 PO (10:25)
[2021-01-04] MEDS ORDERED: INSU100V5 SQ (10:25)
[2021-01-04] MEDS ORDERED: PANT40TA52 PO (10:25)
[2021-01-04] MEDS ORDERED: PEN-53 MC (10:25)
[2021-01-04] MEDS ORDERED: FAMO20TA5 PO (10:25)
[2021-01-04] MEDS ORDERED: DICL100G13 TOP (10:25)
[2021-01-04] MEDS ORDERED: ACHD5005 PO ×2 (10:25→15:21)
[2021-01-04] MEDS ORDERED: ALPR1TAB7 PO (10:25)
[2021-01-04] MEDS ORDERED: ATOR40TA PO (10:25)
--- NOTE | 2021-01-04 10:28 | D/C HH Face to Face Order ---
D/C Face to Face Orders Reconcile Patient Problems Problems Reviewed?: Yes Instructions for Patient Via [facility], Patient Instructions/FollowUp: [facility] 1 week Physician to follow Patient: [facility] Discharge Diet for Home: ADA Diet Patient Problems: CVA DM Patient Data-Allergies,Ht & Wt Patient Allergies: Coded Allergies: No Known Drug Allergies (Unverified , 04/20/10) Height (Feet): 6 Height (Inches): 2 Weight (Pounds): 210 Weight (Ounces): 0.0 Home Health Need/Face to Face Date of Face to Face: Jan 04, 2021 Clinical Findings: Generalized weakness and fatigue, Instability, Muscle weakness, Unsteady gait I have seen Pt bsfl-pl-ernq: Yes Discharged To: Home Diagnosis/Conditions: CVA Patient is Homebound due to: Jeanine fall risk due to instabilty, Muscle weakness Homebound Status Due to the above stated illness, injury or surgical procedure (medical condition or diagnosis) and associated clinical findings, the patient is homebound because of his/her inability to leave home except with aid of a supportive device and/or person AND leaving the home requires a considerable and taxing effort or is medically contraindicated. Pt req the following assistanc: Walker, Wheelchair Home Health Nursing Orders Home Health Services Order: Nursing Services, Cooperative Extension Agent-Evaluate & Treat, Physical Therapy-Evaluate & Treat Certify Stmt I certify that this patient is under my care and that I, a nurse practitioner or a physician; a state tested nursing assistant working with me, had a face to face encounter that - meets the physician face to face encounter requirements with this patient as dated. BOYD MICHAELS DO Jan 04, 2021 10:28
--- NOTE | 2021-01-04 10:47 | Occupational Ther Daily Note ---
OT Current Status-Daily Note Subjective Pt seen with PT present. Pt agrees to tx, denies pain. OT/ PT co-treat with OT addressing UE activity, core balance, UE ROM and home environment/ safety while PT addresses functional transfers, ambulation, LE movement, etc. Mental Status/Objective Patient Orientation: Person, Place, Situation ADL-Treatment Therapy Code Descriptions/Definitions Functional [place] Measure: 0=Not Assessed/NA 4=Minimal Assistance 1=Total Assistance 5=Supervision or Setup 2=Maximal Assistance 6=Modified [place] 3=Moderate Assistance 7=Complete IndependenceSCALE: Activities may be completed with or without assistive devices. 6-Okbeovdyoa-wkyftdl completes the activity by him/herself with no assistance from a helper. 5-Set-up or Clean-up Assistance-helper sets up or cleans up; patient completes activity. [place] assists only prior to or following the activity. 4-Supervision or Touching Assistance-helper provides verbal cues and/or touching/steadying and/or contact guard assistance as patient completes activity. Assistance may be provided throughout the activity or intermittently. 3-Partial/Moderate Assistance-helper does LESS THAN HALF the effort. [place] lifts, holds or supports trunk or limbs, but provides less than half the effort. 2-Substantial/Maximal Assistance-helper does MORE THAN HALF the effort. [place] lifts or holds trunk or limbs and provides more than half the effort. 1-Oteizchco-zzkwkr does ALL the effort. Patient does none of the effort to complete the activity. Or, the assistance of 2 or more helpers is required for the patient to complete the activity. If activity was not attempted, code reason: 7-Patient Refused. 9-Not Applicable-not attempted and the patient did not perform the activity before the current illness, exacerbation or injury. 10-Not Attempted due to Environmental Limitations-(lack of equipment, weather restraints, etc.). 88-Not Attempted due to Medical Conditions or Safety Concerns. Eating (QC): 6 Oral Hygiene (QC): 7 On/Off Footwear: 2 (min A socks, max A shoes ) Other Treatment Pt completes car transfer with PT assist, see notes. W/c mobility with barriers, good ability to complete without hitting items. Pt completes ambulation with PT/ OT assist with LLE knee brace and lefty cane to RUE. Pt requires RB, OT addresses LUE ROM/ sling donning/ doffing. Pt is educated on core exercises, including pull ups at parallel bars (CGA) then desires toileting. Pt is pushed to room and completes toileting with s/u with urinal in w/c. Pt and OT discuss transferring home from w/c to BSC, and probable safety issue transferring back from BSC to w/c due to weak L side and continued need for mod A. Pt is encouraged to utilize urinal rather than BSC when not present. Pt agrees. Pt transfers to bed with CGA to R side. Completes 3 reps of 5-10 of the following core ex: modified sit ups, core twists, and lateral side bends. Pt requires CGA only during these activities. Pt returns to bed with min A, positioned for comfort, all needs met, call light in reach. D/c tomorrow. Education OT Patient Education: Correct positioning, Exercise program, Home exercise program, Modified ADL techniques, Progress toward Goal/Update tx plan, Purpose of tx/functional activities, Safety issues, Transfer techniques, W/C management Teaching Recipient: Patient Teaching Methods: Demonstration, Discussion Response to Teaching: Verbalize Understanding, Return Demonstration, Reinfo rcement Needed OT Short Term Goals Short Term Goals Time Frame: Jan 04, 2021 Eatin Oral hygiene: 4 Toileting hygiene: 3 Shower/bathe self: 3 Upper body dressin Lower body dressin Putting on/taking off footwear: 3 OT Mud Worker Goals Intermediate Goals Time Frame: Jan 11, 2021 Eating (QC): 6 Oral Hygiene (QC): 5 Toileting Hygiene (QC): 5 Shower/Bathe Self (QC): 4 Upper Body Dressing (QC): 5 Lower Body Dressing (QC): 4 On/Off Footwear (QC): 5 Additional Goals: 1-Demonstrate ADL Tasks, 2-Verbalize Understanding, 3- ImproveStrength/[place]ba 1=Demonstrate adherence to instructed precautions during ADL tasks. 2=Patient will verbalize/demonstrate understanding of assistive devices/modifications for ADL. 3=Patient will improve strength/tolerance for activity to enable patient to perform ADL's. OT Education/Plan Problem List/Assessment Assessment: Decreased Activ Tolerance, Decreased Safety Aware, Decreased UE Strength, Dependent Transfers, Impaired Bed Mobility, Impaired Cognition, Impaired Coordination, Impaired Funct Balance, Impaired I ADL's, Impaired Self- Care Skills, Restricted Funct UE ROM, Visual-Perceptual Deficit Discharge Recommendations Plan/Recommendations: Continue POC Therapy Discharge Recommendati: 24 Hour Supervision, Post Acute OT Treatment Plan/Plan of Care Treatment,Training & Education: Yes Patient would benefit from OT for education, treatment and training to promote independence in ADL's, mobility, safety and/or upper extremity function for ADL's. Plan of Care: ADL Retraining, Functional Mobility, UE Funct Exercise/Act, UE Neuromus Re-Ed/Coord, Visual/Perceptual Retrain Treatment Duration: Jan 11, 2021 Frequency: At least 5 of 7 days/Wk (IRF) Estimated Hrs Per Day: 1.5 hours per day Agreement: Yes Rehab Potential: Fair Time/GCodes Start Time: 09:15 Stop Time: 10:30 Total Time Billed (hr/min): 75 Billed Treatment Time 1, ADL, EX 4= 75 NOEMI WALLACE OTR Jan 04, 2021 10:47
--- NOTE | 2021-01-04 11:56 | Physical Therapy Daily Note ---
PT Daily Note-Current Subjective Patient in WC in room pre tx, agrees to PT, has no complaints of pain. Patient has a new WC for home use, it needs some adjusting due to leg length. Transfers SCALE: Activities may be completed with or without assistive devices. 8-Jvlygyxvoo-vestpgm completes the activity by him/herself with no assistance from a helper. 5-Set-up or Clean-up Assistance-helper sets up or cleans up; patient completes activity. [place] assists only prior to or following the activity. 4-Supervision or Touching Assistance-helper provides verbal cues and/or touching/steadying and/or contact guard assistance as patient completes activity. Assistance may be provided throughout the activity or intermittently. 3-Partial/Moderate Assistance-helper does LESS THAN HALF the effort. [place] lifts, holds or supports trunk or limbs, but provides less than half the effort. 2-Substantial/Maximal Assistance-helper does MORE THAN HALF the effort. [place] lifts or holds trunk or limbs and provides more than half the effort. 7-Agzliihmv-wkleol does ALL the effort. Patient does none of the effort to complete the activity. Or, the assistance of 2 or more helpers is required for the patient to complete the activity. If activity was not attempted, code reason: 7-Patient Refused. 9-Not Applicable-not attempted and the patient did not perform the activity before the current illness, exacerbation or injury. 10-Not Attempted due to Environmental Limitations-(lack of equipment, weather restraints, etc.). 88-Not Attempted due to Medical Conditions or Safety Concerns. Weight Bearing Full Weight Bearing Full Weight Bearing Wheelchair Training Does the Pt Use a Wheelchair?: Yes Wheel 50 ft with 2 turns (QC): 4 Wheel 150 ft (QC): 4 Type of Wheelchair: Manual 500', SBA, occasional cues for doorways or obstacles. Patient is able to propel this WC much better than the hospital use one. Adjustments made to account for leg length. Assessment Current Status: Fair Progress Patient states he will be able to propel this WC in his home. Patient in WC post tx, instructed to call nurse if he needs to get back to bed, patient states he would comply with that. PT Short Term Goals Short Term Goals Time Frame: Dec 28, 2020 Roll Left & Right: 6 Sit to lyin Lying to sitting on side of be: 4 Sit to stand: 4 Chair/orz-pu-tmwnb transfer: 4 Walk 10 feet: 3 PT Residential Goals Hadoop Administrator Goals PT Residential Goals Time Frame: Jan 11, 2021 Roll Left & Right (QC): 6 Sit to Lying (QC): 6 Lying-Sitting on Side/Bed(QC): 6 Sit to Stand (QC): 5 Chair/Pdq-xq-Jyfwp Xfer(QC): 5 Toilet Transfer (QC): 5 Car Transfer (QC): 5 Does the Patient Walk: Yes Walk 10 feet (QC): 4 Walk 50ft with 2 Turns (QC): 4 Walk 150 ft (QC): 88 Walking 10ft on Uneven Surface: 4 1 Step (curb) (QC): 3 4 Steps (QC): 88 12 Steps (QC): 88 Picking up an Object (QC): 88 Wheel 50 feet with 2 turns (QC: 6 Wheel 150 feet: 6 PT Plan Problem List Problem List: Activity Tolerance, Functional Strength, Safety, Balance, Gait, Transfer, Bed Mobility, ROM Treatment/Plan Treatment Plan: Continue Plan of Care Treatment Plan: Bed Mobility, Education, Functional Activity [place], Functional Strength, Group Therapy, Gait, Safety, Therapeutic Exercise, Transfers Treatment Duration: Jan 11, 2021 Frequency: At least 5 of 7 days/Wk (IRF) Estimated Hrs Per Day: 1.5 hours per day Patient and/or Family Agrees t: Yes Safety Risks/Education Patient Education: W/C Management, Safety Issues Teaching Recipient: Patient Teaching Methods: Demonstration, Discussion Response to Teaching: Reinforcement Needed Time/GCodes Time In: 1130 Time Out: 1145 Total Billed Treatment Time: 15 Total Billed Treatment 1 visit [facility] GABRIELLE CASAS PT Jan 04, 2021 11:56
[2021-01-04] MEDS ORDERED: FAMO-119 PO (15:21)
[2021-01-04] MEDS ORDERED: ALPR1TAB2 PO (15:21)
[2021-01-04] MEDS ORDERED: GLYB1.253 PO (15:21)
[2021-01-04] MEDS ORDERED: glyBURIDE 2.5 MG (MICRONASE) TAB PO SCH (17:00)
[2021-01-04 20:00] VITALS: BP 110/77
[2021-01-04] MEDS: FAMOTIDINE 20 MG (PEPCID) TABLET PO SCH (21:31)
[2021-01-05] MEDS: inSUlin ASPART (NovoLOG) 1 UNIT/0.01 ML (CHARGE PER UNIT) SC SCH (06:00)
[2021-01-05] MEDS ORDERED: glyBURIDE 2.5 MG (MICRONASE) TAB PO SCH (07:00)
[2021-01-05] MEDS: HYDROcodone/APAP 5 MG/325 MG (LORTAB) TAB PO PRN (07:08)
--- NOTE | 2021-01-05 07:44 | Discharge Summary ---
Diagnosis/Chief Complaint Date of Admission Dec 20, 2020 at 16:27 Date of Discharge Discharge Date: Jan 05, 2021 Discharge Diagnosis Assessment: CVA with left-sided weakness Current smoker Hypertension Diabetes insulin requiring CAD Hypertension GERD Plan: Monitor closely Insulin Nicotine patch Inpatient rehab protocol 12/21/2020: Monitor blood pressure GERD treatment Aggressive treatment for left-sided weakness 12/22/2020: Nicotine patch Xanax as needed for nicotine withdrawal Supportive care Fall risk 12/23/2020: Supportive care for irritable status Monitor closely 12/24/2020: Supportive care Pet Pass Bowel regimen 12/25/20: Pet pass Monitor closely Improved attitude since fall 2 days ago 12/26/20: Intense therapy Monitor BP and BS 12/27/2020: Monitor sugar Fall risk 12/28/2020: Continue therapy Monitor closely Supportive care but very labile behaviors 12/29/2020: Patient is a major fall risk Monitor closely Labile behaviors 12/30/2020: Supportive care Blood sugar management Fall risk 12/31/20: Monitor closely Voltaren gel Sling 01/01/2021: Sliding-scale insulin Voltaren gel sling 01/02/2021: Maintain aggressive therapy Check labs in a.m. 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 use Diabetes mellitus complication status: with circulatory complication Diabetes mellitus complication detail: with other circulatory complications Qualified Codes: E11.59 - Type 2 diabetes mellitus with other circulatory complications; Z79.4 - FPC (current) use of insulin (3) Smoker (4) Hypertension (5) CAD (coronary artery disease) (6) Left-sided weakness (7) Dysarthria (8) Non-compliance Status: Acute Discharge Summary Discharge Physical Examination Allergies: Coded Allergies: No Known Drug Allergies (Unverified , 04/20/10) Vitals & I&Os Vital Signs Date Time Temp Pulse Resp B/P (MAP) Pulse Ox O2 Delivery O2 Flow Rate FiO2 01/05/21 09:13 Room Air 01/05/21 08:01 36.4 82 16 112/71 (85) 97 General Appearance: Alert, Oriented X3, Cooperative Respiratory: Clear to Auscultation Cardiovascular: Regular Rate Psych/Mental Status: Mental Status NL Hospital Course Was the Problem List Reviewed?: Yes Patient had a standard inpatient rehab hospital course. He was admitted after suffering a stroke with left-sided hemiparesis. Nicotine patch maintained for nicotine withdrawal due to heavy smoking use currently. Cessation counseled. Patient was monitored closely with insulin and blood pressure management. He had good recovery of function with the use of assistive devices and his left leg improved quite a bit in order to help him ambulate with a wheelchair. Overall he was very labile with his moods but he was discharged in improved condition with his with close follow-up with PCP. Labs (last 24 hrs) Laboratory Tests 12/20/20 17:29: Glucometer 241H 12/20/20 21:31: Glucometer 160H 12/21/20 05:59: Glucometer 118H 12/21/20 06:29: White Blood Count 10.1, Red Blood Count 5.39, Hemoglobin 16.5, Hematocrit 48, Mean Corpuscular Volume 89, Mean Corpuscular Hemoglobin 31, Mean Corpuscular Hemoglobin Concent 34, Red Cell Distribution Width 12.6, Platelet Count 417H, Mean Platelet Volume 9.6, Immature Granulocyte % (Auto) 0, Neutrophils (%) (Auto) 43, Lymphocytes (%) (Auto) 42, Monocytes (%) (Auto) 10, Eosinophils (%) (Auto) 4, Basophils (%) (Auto) 1, Neutrophils # (Auto) 4.3, Lymphocytes # (Auto) 4.3H, Monocytes # (Auto) 1.0, Eosinophils # (Auto) 0.4H, Basophils # (Auto) 0.1, Immature Granulocyte # (Auto) 0.0, Sodium Level 136, Potassium Level 4.7, Chloride Level 103, Carbon Dioxide Level 26, Anion Gap 7, Blood Urea Nitrogen 13, Creatinine 0.82, Estimat Glomerular Filtration Rate > 60, BUN/Creatinine Ratio 16, Glucose Level 122H, Mean Blood Glucose 260H, Hemoglobin A1c 10.7H, Calcium Level 9.4, Corrected Calcium 9.6, Total Bilirubin 0.5, Aspartate Amino Transf (AST/SGOT) 43H, Alanine Aminotransferase (ALT/SGPT) 46, Alkaline Phosphatase 87, Total Protein 7.0, Albumin 3.7 12/21/20 11:00: Glucometer 186H 12/21/20 15:33: Glucometer 126H 12/21/20 20:52: Glucometer 267H 12/22/20 06:08: Glucometer 146H 12/22/20 10:56: Glucometer 276H 12/22/20 15:16: Glucometer 197H 12/22/20 20:31: Glucometer 198H 12/23/20 06:13: Glucometer 195H 12/23/20 11:00: Glucometer 273H 12/23/20 16:22: Glucometer 177H 12/23/20 20:03: Glucometer 206H 12/24/20 05:59: Glucometer 179H 12/24/20 11:06: Glucometer 338H 12/24/20 14:05: Glucometer 302H 12/24/20 15:28: Glucometer 177H 12/24/20 20:15: Glucometer 193H 12/25/20 05:59: Glucometer 183H 12/25/20 10:55: Glucometer 185H 12/25/20 16:30: Glucometer 184H 12/25/20 18:15: Glucometer 198H 12/25/20 21:37: Glucometer 154H 12/26/20 05:45: Glucometer 154H 12/26/20 11:28: Glucometer 200H 12/26/20 16:48: Glucometer 181H 12/26/20 21:21: Glucometer 167H 12/27/20 05:15: White Blood Count 10.7, Red Blood Count 5.49, Hemoglobin 16.8, Hematocrit 49, Mean Corpuscular Volume 89, Mean Corpuscular Hemoglobin 31, Mean Corpuscular Hemoglobin Concent 34, Red Cell Distribution Width 12.4, Platelet Count 433H, Mean Platelet Volume 9.4, Immature Granulocyte % (Auto) 0, Neutrophils (%) (Auto) 42, Lymphocytes (%) (Auto) 43, Monocytes (%) (Auto) 11, Eosinophils (%) (Auto) 3, Basophils (%) (Auto) 1, Neutrophils # (Auto) 4.5, Lymphocytes # (Auto) 4.6H, Monocytes # (Auto) 1.1H, Eosinophils # (Auto) 0.3, Basophils # (Auto) 0.1, Immature Granulocyte # (Auto) 0.0, Sodium Level 135, Potassium Level 4.7, Chloride Level 103, Carbon Dioxide Level 19L, Anion Gap 13, Blood Urea Nitrogen 22H, Creatinine 0.86, Estimat Glomerular Filtration Rate > 60, BUN/Creatinine Ratio 26, Glucose Level 163H, Calcium Level 9.2, Corrected Calcium 9.4, Total Bilirubin 0.4, Aspartate Amino Transf (AST/SGOT) 18, Alanine Aminotransferase (ALT/SGPT) 34, Alkaline Phosphatase 83, Total Protein 7.3, Albumin 3.8 12/27/20 11:09: Glucometer 242H 12/27/20 16:38: Glucometer 184H 12/27/20 20:21: Glucometer 243H 12/28/20 05:43: Glucometer 140H 12/28/20 11:07: Glucometer 218H 12/28/20 15:35: Glucometer 157H 12/28/20 20:14: Glucometer 158H 12/29/20 05:41: Glucometer 159H 12/29/20 10:53: Glucometer 133H 12/29/20 15:31: Glucometer 126H 12/29/20 20:48: Glucometer 233H 12/30/20 05:37: Glucometer 158H 12/30/20 10:50: Glucometer 261H 12/30/20 15:18: Glucometer 103 12/30/20 20:47: Glucometer 246H 12/31/20 05:11: Glucometer 133H 12/31/20 10:52: Glucometer 129H 12/31/20 15:35: Glucometer 171H 12/31/20 20:24: Glucometer 193H 01/01/21 05:56: Glucometer 140H 01/01/21 10:44: Glucometer 237H 01/01/21 15:26: Glucometer 132H 01/01/21 20:34: Glucometer 197H 01/02/21 06:30: Glucometer 149H 01/02/21 11:15: Glucometer 257H 01/02/21 16:39: Glucometer 206H 01/02/21 21:18: Glucometer 203H 01/03/21 05:46: Glucometer 170H 01/03/21 05:57: White Blood Count 9.7, Red Blood Count 5.33, Hemoglobin 16.0, Hematocrit 47, Mean Corpuscular Volume 88, Mean Corpuscular Hemoglobin 30, Mean Corpuscular He moglobin Concent 34, Red Cell Distribution Width 12.5, Platelet Count 461H, Mean Platelet Volume 9.7, Immature Granulocyte % (Auto) 0, Neutrophils (%) (Auto) 52, Lymphocytes (%) (Auto) 34, Monocytes (%) (Auto) 10, Eosinophils (%) (Auto) 3, Basophils (%) (Auto) 1, Neutrophils # (Auto) 5.0, Lymphocytes # (Auto) 3.2, Monocytes # (Auto) 0.9, Eosinophils # (Auto) 0.3, Basophils # (Auto) 0.1, Immature Granulocyte # (Auto) 0.0, Sodium Level 135, Potassium Level 4.6, Chloride Level 105, Carbon Dioxide Level 22, Anion Gap 8, Blood Urea Nitrogen 18, Creatinine 0.85, Estimat Glomerular Filtration Rate > 60, BUN/Creatinine Ratio 21, Glucose Level 157H, Calcium Level 9.4, Corrected Calcium 9.6, Total Bilirubin 0.3, Aspartate Amino Transf (AST/SGOT) 27, Alanine Aminotransferase (ALT/SGPT) 61H, Alkaline Phosphatase 84, Total Protein 7.1, Albumin 3.7 01/03/21 11:00: Glucometer 222H 01/03/21 15:28: Glucometer 192H 01/03/21 20:48: Glucometer 237H 01/04/21 06:07: Glucometer 154H 01/04/21 10:52: Glucometer 213H 01/04/21 15:38: Glucometer 158H 01/04/21 21:23: Glucometer 235H 01/05/21 05:57: Glucometer 164H 01/05/21 11:06: Glucometer 183H Pending Labs Laboratory Tests 12/20/20 17:29: Glucometer 241 12/20/20 21:31: Glucometer 160 12/21/20 05:59: Glucometer 118 12/21/20 06:29: White Blood Count 10.1, Red Blood Count 5.39, Hemoglobin 16.5, Hematocrit 48, Mean Corpuscular Volume 89, Mean Corpuscular Hemoglobin 31, Mean Corpuscular Hemoglobin Concent 34, Red Cell Distribution Width 12.6, Platelet Count 417, Mean Platelet Volume 9.6, Immature Granulocyte % (Auto) 0, Neutrophils (%) (Auto) 43, Lymphocytes (%) (Auto) 42, Monocytes (%) (Auto) 10, Eosinophils (%) (Auto) 4, Basophils (%) (Auto) 1, Neutrophils # (Auto) 4.3, Lymphocytes # (Auto) 4.3, Monocytes # (Auto) 1.0, Eosinophils # (Auto) 0.4, Basophils # (Auto) 0.1, Immature Granulocyte # (Auto) 0.0, Sodium Level 136, Potassium Level 4.7, Chloride Level 103, Carbon Dioxide Level 26, Anion Gap 7, Blood Urea Nitrogen 13, Creatinine 0.82, Estimat Glomerular Filtration Rate > 60, BUN/Creatinine Ratio 16, Glucose Level 122, Mean Blood Glucose 260, Hemoglobin A1c 10.7, Calcium Level 9.4, Corrected Calcium 9.6, Total Bilirubin 0.5, Aspartate Amino Transf (AST/SGOT) 43, Alanine Aminotransferase (ALT/SGPT) 46, Alkaline Phosphatase 87, Total Protein 7.0, Albumin 3.7 12/21/20 11:00: Glucometer 186 12/21/20 15:33: Glucometer 126 12/21/20 20:52: Glucometer 267 12/22/20 06:08: Glucometer 146 12/22/20 10:56: Glucometer 276 12/22/20 15:16: Glucometer 197 12/22/20 20:31: Glucometer 198 12/23/20 06:13: Glucometer 195 12/23/20 11:00: Glucometer 273 12/23/20 16:22: Glucometer 177 12/23/20 20:03: Glucometer 206 12/24/20 05:59: Glucometer 179 12/24/20 11:06: Glucometer 338 12/24/20 14:05: Glucometer 302 12/24/20 15:28: Glucometer 177 12/24/20 20:15: Glucometer 193 12/25/20 05:59: Glucometer 183 12/25/20 10:55: Glucometer 185 12/25/20 16:30: Glucometer 184 12/25/20 18:15: Glucometer 198 12/25/20 21:37: Glucometer 154 12/26/20 05:45: Glucometer 154 12/26/20 11:28: Glucometer 200 12/26/20 16:48: Glucometer 181 12/26/20 21:21: Glucometer 167 12/27/20 05:15: White Blood Count 10.7, Red Blood Count 5.49, Hemoglobin 16.8, Hematocrit 49, Mean Corpuscular Volume 89, Mean Corpuscular Hemoglobin 31, Mean Corpuscular Hemoglobin Concent 34, Red Cell Distribution Width 12.4, Platelet Count 433, Mean Platelet Volume 9.4, Immature Granulocyte % (Auto) 0, Neutrophils (%) (Auto) 42, Lymphocytes (%) (Auto) 43, Monocytes (%) (Auto) 11, Eosinophils (%) (Auto) 3, Basophils (%) (Auto) 1, Neutrophils # (Auto) 4.5, Lymphocytes # (Auto) 4.6, Monocytes # (Auto) 1.1, Eosinophils # (Auto) 0.3, Basophils # (Auto) 0.1, Immature Granulocyte # (Auto) 0.0, Sodium Level 135, Potassium Level 4.7, Chloride Level 103, Carbon Dioxide Level 19, Anion Gap 13, Blood Urea Nitrogen 22, Creatinine 0.86, Estimat Glomerular Filtration Rate > 60, BUN/Creatinine Ratio 26, Glucose Level 163, Calcium Level 9.2, Corrected Calcium 9.4, Total Bilirubin 0.4, Aspartate Amino Transf (AST/SGOT) 18, Alanine Aminotransferase (ALT/SGPT) 34, Alkaline Phosphatase 83, Total Protein 7.3, Albumin 3.8 12/27/20 11:09: Glucometer 242 12/27/20 16:38: Glucometer 184 12/27/20 20:21: Glucometer 243 12/28/20 05:43: Glucometer 140 12/28/20 11:07: Glucometer 218 12/28/20 15:35: Glucometer 157 12/28/20 20:14: Glucometer 158 12/29/20 05:41: Glucometer 159 12/29/20 10:53: Glucometer 133 12/29/20 15:31: Glucometer 126 12/29/20 20:48: Glucometer 233 12/30/20 05:37: Glucometer 158 12/30/20 10:50: Glucometer 261 12/30/20 15:18: Glucometer 103 12/30/20 20:47: Glucometer 246 12/31/20 05:11: Glucometer 133 12/31/20 10:52: Glucometer 129 12/31/20 15:35: Glucometer 171 12/31/20 20:24: Glucometer 193 01/01/21 05:56: Glucometer 140 01/01/21 10:44: Glucometer 237 01/01/21 15:26: Glucometer 132 01/01/21 20:34: Glucometer 197 01/02/21 06:30: Glucometer 149 01/02/21 11:15: Glucometer 257 01/02/21 16:39: Glucometer 206 01/02/21 21:18: Glucometer 203 01/03/21 05:46: Glucometer 170 01/03/21 05:57: White Blood Count 9.7, Red Blood Count 5.33, Hemoglobin 16.0, Hematocrit 47, Mean Corpuscular Volume 88, Mean Corpuscular Hemoglobin 30, Mean Corpuscular Hemoglobin Concent 34, Red Cell Distribution Width 12.5, Platelet Count 461, Mean Platelet Volume 9.7, Immature Granulocyte % (Auto) 0, Neutrophils (%) (Auto) 52, Lymphocytes (%) (Auto) 34, Monocytes (%) (Auto) 10, Eosinophils (%) (Auto) 3, Basophils (%) (Auto) 1, Neutrophils # (Auto) 5.0, Lymphocytes # (Auto) 3.2, Monocytes # (Auto) 0.9, Eosinophils # (Auto) 0.3, Basophils # (Auto) 0.1, Immature Granulocyte # (Auto) 0.0, Sodium Level 135, Potassium Level 4.6, Chloride Level 105, Carbon Dioxide Level 22, Anion Gap 8, Blood Urea Nitrogen 18, Creatinine 0.85, Estimat Glomerular Filtration Rate > 60, BUN/Creatinine Ratio 21, Glucose Level 157, Calcium Level 9.4, Corrected Calcium 9.6, Total Bilirubin 0.3, Aspartate Amino Transf (AST/SGOT) 27, Alanine Aminotransferase (ALT/SGPT) 61, Alkaline Phosphatase 84, Total Protein 7.1, Albumin 3.7 01/03/21 11:00: Glucometer 222 01/03/21 15:28: Glucometer 192 01/03/21 20:48: Glucometer 237 01/04/21 06:07: Glucometer 154 01/04/21 10:52: Glucometer 213 01/04/21 15:38: Glucometer 158 01/04/21 21:23: Glucometer 235 01/05/21 05:57: Glucometer 164 01/05/21 11:06: Glucometer 183 Discharge Home Medications: Active Scripts Active Hydrocodone-Acetamin 5-325 mg (Hydrocodone/Acetaminophen) 1 Each Tablet 1 Tab PO BID PRN Xanax (Alprazolam) 1 Mg Tablet 1 Mg PO BID Glyburide 1.25 Mg Tablet 1.25 Mg PO BID Pepcid (Famotidine) 20 Mg Tablet 20 Mg PO BID Aspirin EC (Aspirin) 81 Mg Tablet.dr 81 Mg PO DAILY Diclofenac Sodium 100 Gm Gel..gram. 1 Gm TOP QID PRN Metoprolol Succinate 25 Mg Tab.er.24h 25 Mg PO DAILY Lipitor (Atorvastatin Calcium) 40 Mg Tablet 40 Mg PO HS Nicoderm Cq (Nicotine) 1 Each Patch.td24 21 Mg TD DAILY@0900 Instructions to patient/family Please see electronic discharge instructions given to patient. 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
--- NOTE | 2021-01-05 07:55 | Therapy Team Discharge Summary ---
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 Upon admission, pt's QC's include: eating 4, oral care 88 (though did not complete prior), showering/UB dress/ LB dress/ footwear and toilet tx 2, and toilet hygiene 3. Pt and OT staff work towards higher level IND with UE training, scanning patterns, safety training, family training, w/c mobility, I/ADLs, adaptive techniques, home HEP. Pt d/c's with the following QC's, not reaching all LTGs but d/c'ing home with : eating 6, oral care 09, showering 4, UB dressing/ toilet hygiene 3, LB dressing 1 (unless in bed and then 4 for CGA for L LE stabilization as has been educated on), and footwear 2. Pt limited by impulsivity, decreased vision, and L side weakness. Pt to d/c home wiht support, BSC and w/c recommended with HH OT. D/c acute OT at this time. Decreased Activ Tolerance, Decreased Safety Aware, Decreased UE Strength, Dependent Transfers, Impaired Bed Mobility, Impaired Cognition, Impaired Coordination, Impaired Funct Balance, Impaired I ADL's, Impaired Self-Care Skills, Restricted Funct UE ROM, Visual-Perceptual Deficit PT Correction Goals Correction Goals PT Biological Photographer Goals Time Frame: Jan 11, 2021 Roll Left to Right (QC): 6 Sit to Lying (QC): 6 Lying-Sitting on Side/Bed(QC): 6 Sit to Stand (QC): 5 Chair/Uxv-sg-Jfepn Xfer(QC): 5 Car Transfer (QC): 5 Does the Patient Walk: Yes Walk 10 feet (QC): 4 Walk 10ft-Uneven Surface(QC): 4 Walk 50ft with 2 Turns (QC): 4 Walk 150 ft (QC): 88 Wheel 50 feet with 2 turns (QC: 6 1 Step (curb) (QC): 3 4 Steps (QC): 88 12 Steps (QC): 88 Picking up an Object (QC): 88 OT Biological Photographer Goals Correction Goals Time Frame: Jan 11, 2021 Eating (QC): 6 Oral Hygiene (QC): 5 Shower/Bathe Self (QC): 4 Upper Body Dressing (QC): 5 Lower Body Dressing (QC): 4 On/Off Footwear (QC): 5 Toileting Hygiene (QC): 5 Toilet/Commode Transfer (QC): 5 Additional Goals: 1-Demonstrate ADL Tasks, 2-Verbalize Understanding, 3- ImproveStrength/Simba 1=Demonstrate adherence to instructed precautions during ADL tasks. 2=Patient will verbalize/demonstrate understanding of assistive devices/modifications for ADL. 3=Patient will improve strength/tolerance for activity to enable patient to perform ADL's. Speech Biological Photographer Goals Correction Goals Patient will improve cognitive-communication abilities in order to complete daily tasks with minimal assist. NOEMI WALLACE OTR Jan 05, 2021 07:55
[2021-01-05 08:01] VITALS: BP 112/71
[2021-01-05] MEDS: NICOTINE 21 MG (NICODERM) PATCH TD SCH (08:21)
[2021-01-05] MEDS: ASPIRIN 81 MG CHEW (CHILDREN'S ASA) PO SCH (08:22)
[2021-01-05] MEDS: DOCUSATE SODIUM 100 MG (COLACE) CAP PO SCH (08:22)
[2021-01-05] MEDS: DICLOFENAC 1% GEL 100 GM (VOLTAREN) TUBE TOP PRN (08:22)
[2021-01-05] MEDS: NICOTINE PATCH REMOVAL TP SCH (08:22)
[2021-01-05] MEDS: PANTOPRAZOLE 40 MG (PROTONIX) TAB PO SCH (08:22)
--- NOTE | 2021-01-05 08:38 | Therapy Team Discharge Summary ---
Therapy Discharge Summary Discharge Recommendations Date of Discharge Occupational Therapy Decreased Activ Tolerance, Decreased Safety Aware, Decreased UE Strength, Dependent Transfers, Impaired Bed Mobility, Impaired Cognition, Impaired Coordination, Impaired Funct Balance, Impaired I ADL's, Impaired Self-Care Skil ls, Restricted Funct UE ROM, Visual-Perceptual Deficit Speech-Language Pathology Patient was admitted to the [facility] s/p CVA. Patient exhibited mild cognitive deficits and dysarthria. 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 All ST goals. PT Residential Goals Residential Goals PT Tassel Snipper Goals Time Frame: Jan 11, 2021 Roll Left to Right (QC): 6 Sit to Lying (QC): 6 Lying-Sitting on Side/Bed(QC): 6 Sit to Stand (QC): 5 Chair/Ujd-ul-Uwsvc Xfer(QC): 5 Car Transfer (QC): 5 Does the Patient Walk: Yes Walk 10 feet (QC): 4 Walk 10ft-Uneven Surface(QC): 4 Walk 50ft with 2 Turns (QC): 4 Walk 150 ft (QC): 88 Wheel 50 feet with 2 turns (QC: 6 1 Step (curb) (QC): 3 4 Steps (QC): 88 12 Steps (QC): 88 Picking up an Object (QC): 88 OT Residential Goals Tassel Snipper Goals Time Frame: Jan 11, 2021 Eating (QC): 6 Oral Hygiene (QC): 5 Shower/Bathe Self (QC): 4 Upper Body Dressing (QC): 5 Lower Body Dressing (QC): 4 On/Off Footwear (QC): 5 Toileting Hygiene (QC): 5 Toilet/Commode Transfer (QC): 5 Additional Goals: 1-Demonstrate ADL Tasks, 2-Verbalize Understanding, 3- ImproveStrength/Simba 1=Demonstrate adherence to instructed precautions during ADL tasks. 2=Patient will verbalize/demonstrate understanding of assistive devices/modifications for ADL. 3=Patient will improve strength/tolerance for activity to enable patient to perform ADL's. Speech Residential Goals Tassel Snipper Goals Patient will improve cognitive-communication abilities in order to complete jt ly tasks with minimal assist. MIKAEL BECERRIL Jan 05, 2021 08:38
[2021-01-05] MEDS: polyethylene glycoL POWDER 17 GM (MIRALAX) PACK PO SCH (09:08)
[2021-01-05] MEDS: SENNA W/DOCUSATE (SENOKOT S) TABLET PO SCH (09:09)
--- NOTE | 2021-01-05 12:14 | Therapy Team Discharge Summary ---
Therapy Discharge Summary Discharge Recommendations Date of Discharge Physical Therapy Patient came to rehab following a CVA. Upon admission patient performed bed mobility with SBA, supine <-> sit min assist, sit <-> stand min assist, transfers min/mod assist, car transfer mod assist, ambulated 6' in the parallel bars with mod assist, and propelled a manual WC 150' with min assist. Patient has been performing bed mobility and transfer training, balance and endurance training, functional strengthening, gait training, and education. Patient has made some progress but has only met his [facility] goal for bed mobility. Now, patient performs bed mobility with independence, supine <-> sit with min assist, sit <-> stand and transfers to the left side with mod assist, transfer to the right side with min assist, car transfer mod assist, ambulates 30' with a hemiwalker with mod assist (using a left knee immobilizer and AFO), and propels a manual WC 400' with SBA. Patient was discharged from this facility today and will be discharged from PT at this time. Occupational Therapy Decreased Activ Tolerance, Decreased Safety Aware, Decreased UE Strength, Dependent Transfers, Impaired Bed Mobility, Impaired Cognition, Impaired Coordination, Impaired Funct Balance, Impaired I ADL's, Impaired Self-Care Skills, Restricted Funct UE ROM, Visual-Perceptual Deficit PT Fresh Foods Cake Decorator Goals Fresh Foods Cake Decorator Goals PT Longterm Goals Time Frame: Jan 11, 2021 Roll Left to Right (QC): 6 Sit to Lying (QC): 6 Lying-Sitting on Side/Bed(QC): 6 Sit to Stand (QC): 5 Chair/Rpt-at-Qgslo Xfer(QC): 5 Car Transfer (QC): 5 Does the Patient Walk: Yes Walk 10 feet (QC): 4 Walk 10ft-Uneven Surface(QC): 4 Walk 50ft with 2 Turns (QC): 4 Walk 150 ft (QC): 88 Wheel 50 feet with 2 turns (QC: 6 1 Step (curb) (QC): 3 4 Steps (QC): 88 12 Steps (QC): 88 Picking up an Object (QC): 88 OT Fresh Foods Cake Decorator Goals Longterm Goals Time Frame: Jan 11, 2021 Eating (QC): 6 Oral Hygiene (QC): 5 Shower/Bathe Self (QC): 4 Upper Body Dressing (QC): 5 Lower Body Dressing (QC): 4 On/Off Footwear (QC): 5 Toileting Hygiene (QC): 5 Toilet/Commode Transfer (QC): 5 Additional Goals: 1-Demonstrate ADL Tasks, 2-Verbalize Understanding, 3- ImproveStrength/Simba 1=Demonstrate adherence to instructed precautions during ADL tasks. 2=Patient will verbalize/demonstrate understanding of assistive de vices/modifications for ADL. 3=Patient will improve strength/tolerance for activity to enable patient to perform ADL's. Speech Fresh Foods Cake Decorator Goals Longterm Goals Patient will improve cognitive-communication abilities in order to complete daily tasks with minimal assist. GABRIELLE LALA PT Jan 05, 2021 12:14
== END 2021-01-05 11:30 | disposition home health service (06) | DRG 57 ==
PROVIDERS: ADMIT Internal Medicine; ATTEND Internal Medicine
DX: I69.354 Hemiplegia and hemiparesis following cerebral infarction affecting left non-dominant side (principal); I69.322 Dysarthria following cerebral infarction; R13.12 Dysphagia, oropharyngeal phase; I25.10 Atherosclerotic heart disease of native coronary artery without angina pectoris; E11.9 Type 2 diabetes mellitus without complications; I10 Essential (primary) hypertension; E78.5 Hyperlipidemia, unspecified; E78.00 Pure hypercholesterolemia, unspecified; F17.210 Nicotine dependence, cigarettes, uncomplicated; K21.9 Gastro-esophageal reflux disease without esophagitis; M19.91 Primary osteoarthritis, unspecified site; M54.9 Dorsalgia, unspecified; Z91.19 Patient's noncompliance with other medical treatment and regimen; Z86.73 Personal history of transient ischemic attack (TIA), and cerebral infarction without residual deficits; I25.2 Old myocardial infarction; Z79.82 Long term (current) use of aspirin; Z79.4 Long term (current) use of insulin
CPT/HCPCS: 36415; 80053; 82947; 83036; 85025

== ENCOUNTER 2021-01-25 21:10 | Emergency (ER) | payer MEDICARE ==
[~2021-01-25 21:10] MED LIST changes: +ALPR1TAB2 PO; +ALPR1TAB7 PO; +ASPI-1238 PO; +ASPI-999 PO; +ATOR40TA PO; +ATOR40TA70 PO; +DICL100G13 TOP; +FAMO-119 PO; +FAMO20TA5 PO; +GLYB1.253 PO; +INSU100I10 SQ; +INSU100I14 SQ; +INSU100V16 SC; +INSU100V5 SQ; +NICO1PAT34 TD; +PANT40TA52 PO; +PEN-53 MC
[2021-01-25] MEDS ORDERED: TETANUS,DIPTH,PERTUSS P/F (BOOSTRIX) 0.5 ML VIAL IM ONE (23:00)
--- NOTE | 2021-01-25 23:02 | ED Fall/Injury ---
General Chief Complaint: Trauma-Non Activation Stated Complaint: FALL Source: patient Exam Limitations: no limitations History of Present Illness Date Seen by Provider: Jan 25, 2021 Time Seen by Provider: 22:43 Initial Comments Here with report of fall at home and scratch to the anterior aspect of the chest/abdomen. Apparently he lost his footing and fell between a cabinet in a bucket and scratched his chest wall. They were worried because it swollen up for a little bit but is better now. Does have history of stroke with left-sided weakness and so he is unable to catch himself with his left leg. Did land on his left leg. Denies any significant pain now and actually was not wanting to stay but did elect to stay for exam. Tetanus is not up-to-date. Denies hitting his head or loss of consciousness. Otherwise feels normal now without shortness of air. Main concern is the scratch and wanted to make sure that things were okay on his chest and abdomen. Denies any significant abdominal pain, nausea, vomiting, vision problems or breathing problems. Occurred: just prior to arrival (Approximately 2 hours ago) Severity: mild Injuries/Pain Location: chest, abdomen Context: slipped Loss of Consciousness: no loss of consciousness Modifying Factors: Improves With Rest Associated Symptoms (Fall): No Abdominal Pain, No Chest Pain, No Nausea/Vomiting, No Neck Pain, No Shortness of Air Allergies and Home Medications Allergies Coded Allergies: No Known Drug Allergies (Unverified , 04/20/10) Home Medications Alprazolam 1 Mg Tablet, 1 MG PO BID Prescribed by: BOYD MICHAELS on 01/04/21 1522 Aspirin 81 Mg Tablet.dr, 81 MG PO DAILY Prescribed by: BOYD MICHAELS on 01/04/21 1025 Atorvastatin Calcium 40 Mg Tablet, 40 MG PO HS Prescribed by: BOYD MICHAELS on 01/04/21 1025 Diclofenac Sodium 100 Gm Gel..gram., 1 GM TOP QID PRN for Pain Prescribed by: BOYD MICHAELS on 01/04/21 1025 Famotidine 20 Mg Tablet, 20 MG PO BID Prescribed by: BOYD MICHAELS on 01/04/21 1521 Glyburide 1.25 Mg Tablet, 1.25 MG PO BID Prescribed by: BOYD MICHAELS on 01/04/21 1521 Hydrocodone/Acetaminophen 1 Each Tablet, 1 TAB PO BID PRN for PAIN-MODERATE (5- 7) Prescribed by: BOYD MICHAELS on 01/04/21 1522 Metoprolol Succinate 25 Mg Tab.er.24h, 25 MG PO DAILY Prescribed by: BOYD MICHAELS on 01/04/21 1025 Nicotine 1 Each Patch.td24, 21 MG TD DAILY@0900 Prescribed by: BOYD MICHAELS on 01/04/21 1025 Patient Home Medication List Home Medication List Reviewed: Yes Review of Systems Review of Systems Constitutional: see HPI; No chills, No fever Eyes: No Symptoms Reported Ears, Nose, Mouth, Throat: no symptoms reported Respiratory: No short of breath, No wheezing Cardiovascular: no symptoms reported Gastrointestinal: No abdominal pain, No nausea, No vomiting Musculoskeletal: No back pain, No joint pain Skin: change in color, lesions Psychiatric/Neurological: Denies Headache; Pre-Existing Deficit Past Rpoobss-Nbfzam-Nohrji Hx Patient Social History Tobacco Use?: Yes Smoking Status: Current Everyday Smoker Immunizations Up To Date Tetanus Booster (TDap): Less than 5yrs Seasonal Allergies Seasonal Allergies: Yes Past Medical History Surgeries: Yes (carpal tunnel, appy, heart cath.) Appendectomy, Cardiac, Coronary Stent, Orthopedic Respiratory: No Cardiac: Yes (MULTIPLE STENTS) Coronary Artery Disease, Heart Attack, High Cholesterol, Hypertension, Hypotension Neurological: Yes Headaches /Migraines Reproductive Disorders: No Sexually Transmitted Disease: No HIV/AIDS: No Gastrointestinal: Yes (HX DIVERTICULITIS) Gastroesophageal Reflux, Sandoval's Esophagus, Diverticulosis, Esophagitis Musculoskeletal: Yes Degenerate Disk Disease, Arthritis, Chronic Back Pain Endocrine: Yes (BORDERLINE DM--NO MEDICATIONS) Cancer: Yes (ESOPHAGEAL - NOT TREATED. ) Psychosocial: No Integumentary: No Blood Disorders: No (skin tears easily) Family Medical History Reviewed Nursing Family Hx Physical Exam Vital Signs Capillary Refill : Height, Weight, BMI Height: 6'2" Weight: 210lbs. 0.0oz. 95.542919gq; 23.62 BMI Method:Stated General Appearance: WD/WN, no apparent distress HEENT: PERRL/EOMI, TMs normal, pharynx normal Neck: non-tender, full range of motion, supple, normal inspection Cardiovascular: regular rate, rhythm, no murmur Respiratory: lungs clear, normal breath sounds Gastrointestinal: non tender, soft Neurologic/Psychiatric: alert Skin: warm/dry, other (Superficial linear abrasion that is approximately 12 cm long without significant bleeding currently. No requirement for suturing. This is on the area of the left anterior lower chest wall upper abdominal wall.) Progress/Results/Core Measures Results/Orders My Orders Orders - JUAN CARLOS PIMENTEL MD Tdap (Boostrix) Im (01/25/21 23:00) Progress Progress Note : Progress Note Seen and evaluated. Tetanus updated. I did discuss with him at length regarding return precautions as patient would like to go ahead and go home and has declined x-ray or further evaluation. This is reasonable given his current physical exam although he was cautioned for worsening shortness of breath or head injury concerns. Patient and family verbalized understanding. Discharged home with return precautions. Patient and family verbalized understanding of instructions and agreement with plan. Departure Impression Primary Impression: Abdominal wall abrasion Qualified Codes: S30.811A - Abrasion of abdominal wall, initial encounter Additional Impression: Fall Qualified Codes: W19.XXXA - Unspecified fall, initial encounter Disposition: HOME, SELF-CARE Condition: Stable Departure-Patient Inst. Decision time for Depature: 23:01 Referrals: EMILY BURLESON (PCP) Primary Care Physician [facility] (Family) Primary Care Physician Patient Instructions: Skin Abrasions, Preventing Falls ED Add. Discharge Instructions: All discharge instructions reviewed with patient and/or family. Voiced understanding. Follow-up with your doctor in a few days for recheck as needed. Return for worse pain, breathing problems, vision problems, headache, vomiting or other concerns as needed. Use antibiotic ointment and dressing over wound changing once or twice daily for the next several days and then as needed. Continue home medications as previously prescribed. JUAN CARLOS PIMENTEL MD Jan 25, 2021 23:02
[2021-01-25 23:58] VITALS: BP 112/74
== END 2021-01-25 23:08 | disposition home or self-care (01) ==
LOC: EDUNIT# 21:10 → ER 21:12
DX: S30.811A Abrasion of abdominal wall, initial encounter (principal); I10 Essential (primary) hypertension; I25.10 Atherosclerotic heart disease of native coronary artery without angina pectoris; I25.2 Old myocardial infarction; E78.00 Pure hypercholesterolemia, unspecified; G43.909 Migraine, unspecified, not intractable, without status migrainosus; K21.9 Gastro-esophageal reflux disease without esophagitis; G89.29 Other chronic pain; M54.9 Dorsalgia, unspecified; F17.200 Nicotine dependence, unspecified, uncomplicated; Z95.5 Presence of coronary angioplasty implant and graft; Z79.82 Long term (current) use of aspirin; Z79.891 Long term (current) use of opiate analgesic; Z79.899 Other long term (current) drug therapy; Z23 Encounter for immunization; W18.39XA Other fall on same level, initial encounter; Y92.009 Unspecified place in unspecified non-institutional (private) residence as the place of occurrence of the external cause
CPT/HCPCS: 90471; 90715

== ENCOUNTER 2021-05-04 08:00 | Outpatient (RCR) | payer MEDICARE, OTHER | END 2021-05-05 | disposition home or self-care (01) | PROVIDERS: ATTEND Physician Assistant | DX: I69.354 Hemiplegia and hemiparesis following cerebral infarction affecting left non-dominant side (principal); I69.398 Other sequelae of cerebral infarction; R26.89 Other abnormalities of gait and mobility; E11.9 Type 2 diabetes mellitus without complications ==

== ENCOUNTER 2021-05-09 19:11 | Emergency (ER) | payer MEDICARE ==
[~2021-05-09] VITALS: Ht 185.5 cm; Wt 79.4 kg
[2021-05-09 19:30] VITALS: BP 121/79
--- NOTE | 2021-05-09 19:41 | ED Lower Extremity ---
General Stated Complaint: L FOOT SWELLING Source: patient, family History of Present Illness Date Seen by Provider: May 09, 2021 Time Seen by Provider: 19:21 Initial Comments Patient to ER by private conveyance from home with chief complaint of left foot swelling and pain noticed today. Was at physical therapy at [facility] and was told to go get it checked out. He went home elevated and it did not get any better so he decided to bring it in. He had a stroke in November 2020 and has been doing rehab since then. He has left-sided persistent paralysis. He does have some increased pain over normal. He has not taken anything for the pain. He does take a blood thinner. He does not know the name of it however. Smokes pack cigarettes a day. No history of DVTs. Allergies and Home Medications Allergies Coded Allergies: No Known Drug Allergies (Unverified , 04/20/10) Patient Home Medication List Home Medication List Reviewed: Yes Alprazolam (Xanax) 1 Mg Tablet, 1 MG PO BID Prescribed by: BOYD MICHAELS on 01/04/21 152 Aspirin (Aspirin EC) 81 Mg Tablet.dr, 81 MG PO DAILY Prescribed by: BOYD MICHAELS on 01/04/21 1025 Atorvastatin Calcium (Lipitor) 40 Mg Tablet, 40 MG PO HS Prescribed by: BOYD MICHAELS on 01/04/21 1025 Diclofenac Sodium (Diclofenac Sodium) 100 Gm Gel..gram., 1 GM TOP QID PRN for Pain Prescribed by: BOYD MICHAELS on 01/04/21 1025 Famotidine (Pepcid) 20 Mg Tablet, 20 MG PO BID Prescribed by: BOYD MICHAELS on 01/04/21 1521 Glyburide (Glyburide) 1.25 Mg Tablet, 1.25 MG PO BID Prescribed by: BOYD MICHAELS on 01/04/21 1521 Hydrocodone/Acetaminophen (Hydrocodone-Acetamin 5-325 mg) 1 Each Tablet, 1 TAB PO BID PRN for PAIN-MODERATE (5-7) Prescribed by: BOYD MICHAELS on 01/04/21 1522 Metoprolol Succinate (Metoprolol Succinate) 25 Mg Tab.er.24h, 25 MG PO DAILY Prescribed by: BOYD MICHAELS on 01/04/21 1025 Nicotine (Nicoderm Cq) 1 Each Patch.td24, 21 MG TD DAILY@0900 Prescribed by: BOYD MICHAELS on 01/04/21 1025 Review of Systems Constitutional: No chills, No fever, No malaise EENTM: No ear discharge, No ear pain Respiratory: No cough, No short of breath Cardiovascular: No chest pain, No edema Gastrointestinal: No abdominal pain, No nausea, No vomiting Genitourinary: No discharge, No dysuria Musculoskeletal: No back pain; joint pain (Left foot), joint swelling (Left foot) Skin: other (Redness and swelling left foot) All Other Systems Reviewed Negative Unless Noted: Yes Past Cuctchw-Madovo-Illeqv Hx Patient Social History Tobacco Use?: Yes Tobacco type used: Cigarettes Smoking Status: Current Everyday Smoker (Pack per day) Use of E-Cig and/or Vaping dev: No Immunizations Up To Date Tetanus Booster (TDap): Less than 5yrs Seasonal Allergies Seasonal Allergies: Yes Past Medical History Surgeries: Yes (carpal tunnel, appy, heart cath.) Appendectomy, Cardiac, Coronary Stent, Orthopedic Respiratory: No Cardiac: Yes (MULTIPLE STENTS) Coronary Artery Disease, Heart Attack, High Cholesterol, Hypertension, Hypotension Neurological: Yes Headaches /Migraines Reproductive Disorders: No Sexually Transmitted Disease: No HIV/AIDS: No Gastrointestinal: Yes (HX DIVERTICULITIS) Gastroesophageal Reflux, Sandoval's Esophagus, Diverticulosis, Esophagitis Musculoskeletal: Yes Degenerate Disk Disease, Arthritis, Chronic Back Pain Endocrine: Yes (BORDERLINE DM--NO MEDICATIONS) Cancer: Yes (ESOPHAGEAL - NOT TREATED. ) Psychosocial: No Integumentary: No Blood Disorders: No (skin tears easily) Physical Exam Vital Signs Vital Signs - First Documented 05/09/21 19:30 Temp 36.7 Pulse 83 Resp 18 B/P (MAP) 121/79 (93) Pulse Ox 99 O2 Delivery Room Air Capillary Refill : Height, Weight, BMI Height: 6'2" Weight: 210lbs. 0.0oz. 95.280522ku; 23.62 BMI Method:Stated General Appearance: WD/WN, mild distress HEENT: PERRL/EOMI, pharynx normal Neck: full range of motion, normal inspection Cardiovascular: normal peripheral pulses, regular rate, rhythm Respiratory: no respiratory distress, no accessory muscle use Gastrointestinal: non tender, soft Legs: left leg other (Small excoriation/ulcer/abrasion mid tibia left leg with some surrounding erythema but no induration or abscess.) Ankles: bilateral ankle non-tender, bilateral ankle normal inspection, bilateral ankle normal range of motion, bilateral ankle no evidence of injury Feet: right foot non-tender, right foot normal inspection, right foot normal range of motion, right foot no evidence of injury; left foot bone tenderness (1st and 2nd metatarsal), left foot swelling Neurologic/Tendon: normal sensation, normal tendon functions, responds to pain Neurologic/Psychiatric: alert, oriented x 3 Skin: other (Redness, swelling tenderness left foot) Progress/Results/Core Measures Results/Orders My Orders Orders - MANJINDER CANTU Foot, Left, 3 Views (05/09/21 19:35) Vital Signs/I&O 05/09/21 19:30 Temp 36.7 Pulse 83 Resp 18 B/P (MAP) 121/79 (93) Pulse Ox 99 O2 Delivery Room Air Progress Progress Note #1: Time: 19:39 Progress Note Tenderness over the 1st and 2nd metatarsal, suspect a pathologic fracture. If x-rays are negative we can get him set up for ultrasound tomorrow and cover him with some antibiotics against a cellulitis. He does have a small wound on his anterior left leg mid tibia. Progress Note #2: Time: 20:39 Progress Note Plan to give him a course of antibiotics for presumed cellulitis. Ultrasound left lower extremity venous duplex in the morning. Diagnostic Imaging Diagonstic Imaging: Xray Plain Films/CT/US/NM/MRI: other (Left foot) Comments [facility], [place] NAME: [facility]BERT[facility] REC#: [id number] PT STATUS: REG ER : 1960 PHYSICIAN: MANJINDER CANTU MD ADMIT DATE: 05/09/21/ER Draft Date of Exam:05/09/21 FOOT, LEFT, 3 VIEWS EXAM: FOOT, LEFT, 3 VIEWS INDICATION: Left foot pain and swelling. COMPARISON: None. FINDINGS: Hallux valgus. No fractures. No suspicious osteoblastic or lytic lesions. No radiopaque foreign bodies. IMPRESSION: No acute radiographic findings in the left foot. Dictated on workstation # [id number] Dict: 05/09/211950 Trans: 05/09/211952 [facility] [id number] Interpreted by: JUAN DANIEL RORDIGUEZ MD Electronically signed by: Reviewed: Reviewed by Me Departure Impression Primary Impression: Cellulitis of left lower extremity Additional Impression: Suspected deep vein thrombosis (DVT) Disposition: 01 HOME, SELF-CARE Condition: Stable Departure-Patient Inst. Decision time for Depature: 20:40 Referrals: [facility] (PCP) Primary Care Physician EMILY BURLESON (Family) Primary Care Physician Patient Instructions: Deep Vein Thrombosis (Blood Clots in the Legs) (DC), Cellulitis (Skin Infection), Adult ED Add. Discharge Instructions: I suspect you have a cellulitis or an infection of the soft tissue of your foot. Cephalexin 1 capsule 4 times a day for the next week and follow-up in 1 week with primary care. Tomorrow morning call and set up an appointment with ultrasound to get an ultrasound of your leg done. If there is anything wrong with it they can contact the ER doctor on-call for instructions otherwise you may follow-up with your primary care team for instructions. Keep the foot elevated above the level of your heart and wrapped with an Sylvain wrap to reduce swelling and pain Scripts Cephalexin (Cephalexin) 500 Mg Tablet 500 MG PO QID for 7 Days, #28 TAB 0 Refills Prov: MANJINDER CANTU 05/09/21 Copy Copies To 1: NETTE AVILES TITUS J May 09, 2021 19:40
--- NOTE | 2021-05-09 19:53 | Diagnostic Imaging Report ---
EXAM: FOOT, LEFT, 3 VIEWS INDICATION: Left foot pain and swelling. COMPARISON: None. FINDINGS: Hallux valgus. No fractures. No suspicious osteoblastic or lytic lesions. No radiopaque foreign bodies. IMPRESSION: No acute radiographic findings in the left foot. Dictated by: Dictated on workstation # [id number]
[2021-05-09] MEDS ORDERED: CEPH500T PO (20:43)
[2021-05-09] MEDS ORDERED: CEPHALEXIN 250 MG (KEFLEX) CAP PO ONE (20:45)
== END 2021-05-09 21:00 | disposition home or self-care (01) ==
LOC: EDUNIT# 19:11 → ER 19:12
DX: L03.116 Cellulitis of left lower limb (principal); I10 Essential (primary) hypertension; I25.2 Old myocardial infarction; K21.9 Gastro-esophageal reflux disease without esophagitis; G89.29 Other chronic pain; M54.9 Dorsalgia, unspecified; E78.00 Pure hypercholesterolemia, unspecified; I25.10 Atherosclerotic heart disease of native coronary artery without angina pectoris; F17.210 Nicotine dependence, cigarettes, uncomplicated; Z79.82 Long term (current) use of aspirin; Z79.899 Other long term (current) drug therapy; Z79.891 Long term (current) use of opiate analgesic
CPT/HCPCS: 73630; 99281

== ENCOUNTER → 2021-05-12 | Outpatient (CLI) | payer MEDICARE ==
[~2021-05-12] MED LIST changes: +CEPH500T PO
--- NOTE | 2021-05-12 14:46 | Diagnostic Imaging Report ---
INDICATION: Left lower extremity swelling. History of stroke. TECHNIQUE: Multiple real-time grayscale images were obtained over the left lower extremity in various projections, bilaterally. Additional duplex Doppler and color Doppler images were also obtained. CORRELATION STUDY: None FINDINGS: Color and grayscale sonographic images demonstrate no intraluminal defect within the visualized portion of the common femoral, superficial femoral and/or popliteal veins to suggest thrombus formation. Mild sluggish flow at the popliteal vein. These vessels demonstrate normal response to compression and augmentation. No soft tissue fluid collection. IMPRESSION: 1. Negative for deep venous thrombosis of the left leg. Dictated by: Dictated on workstation # [id number]
== END ==
LOC: RAD 14:30
PROVIDERS: ATTEND Emergency Medicine
DX: M79.89 Other specified soft tissue disorders (principal); Z86.73 Personal history of transient ischemic attack (TIA), and cerebral infarction without residual deficits

== ENCOUNTER 2021-06-29 14:38 | Outpatient (RCR) | payer MEDICARE, MEDICAID, OTHER ==
[~2021-06-29 14:38] MED LIST changes: +CYCL10TA25 PO; -CYCL10TA9 PO
== END 2021-07-01 | disposition home or self-care (01) ==
PROVIDERS: ATTEND Physician Assistant
DX: G81.94 Hemiplegia, unspecified affecting left nondominant side (principal); I63.311 Cerebral infarction due to thrombosis of right middle cerebral artery; E11.9 Type 2 diabetes mellitus without complications

== ENCOUNTER → 2021-07-13 | Outpatient (CLI) | payer MEDICAID, MEDICARE, OTHER | LOC: WOUNDCARE 13:26 | PROVIDERS: ATTEND Family Medicine | DX: L89.213 Pressure ulcer of right hip, stage 3 (principal); L03.115 Cellulitis of right lower limb; G81.94 Hemiplegia, unspecified affecting left nondominant side; E11.622 Type 2 diabetes mellitus with other skin ulcer; F17.210 Nicotine dependence, cigarettes, uncomplicated | CPT/HCPCS: 11042; A6212; G0463 ==

== ENCOUNTER → 2021-07-18 | Outpatient (CLI) | payer MEDICARE | LOC: WOUNDCARE 15:10 | PROVIDERS: ATTEND Family Medicine | DX: L89.213 Pressure ulcer of right hip, stage 3 (principal); L03.115 Cellulitis of right lower limb; G81.94 Hemiplegia, unspecified affecting left nondominant side; E11.622 Type 2 diabetes mellitus with other skin ulcer; E11.52 Type 2 diabetes mellitus with diabetic peripheral angiopathy with gangrene; F17.210 Nicotine dependence, cigarettes, uncomplicated | CPT/HCPCS: 11042; A6197; A6212; G0463 ==

== ENCOUNTER → 2021-07-25 | Outpatient (CLI) | payer MEDICARE | LOC: WOUNDCARE 14:39 | PROVIDERS: ATTEND Family Medicine | DX: L89.213 Pressure ulcer of right hip, stage 3 (principal); L03.115 Cellulitis of right lower limb; G81.94 Hemiplegia, unspecified affecting left nondominant side; E11.622 Type 2 diabetes mellitus with other skin ulcer; B34.2 Coronavirus infection, unspecified; E11.52 Type 2 diabetes mellitus with diabetic peripheral angiopathy with gangrene; F17.210 Nicotine dependence, cigarettes, uncomplicated | CPT/HCPCS: 11042; A6212; G0463 ==

== ENCOUNTER 2021-07-29 15:08 | Outpatient (RCR) | payer MEDICARE, MEDICAID, OTHER | END 2021-08-01 | disposition home or self-care (01) | PROVIDERS: ATTEND Physician Assistant | DX: G81.94 Hemiplegia, unspecified affecting left nondominant side (principal); I63.311 Cerebral infarction due to thrombosis of right middle cerebral artery; E11.9 Type 2 diabetes mellitus without complications ==

== ENCOUNTER → 2021-08-02 | Outpatient (CLI) | payer MEDICARE | LOC: WOUNDCARE 14:40 | PROVIDERS: ATTEND Family Medicine | DX: L89.213 Pressure ulcer of right hip, stage 3 (principal); G81.94 Hemiplegia, unspecified affecting left nondominant side; E11.622 Type 2 diabetes mellitus with other skin ulcer; F17.210 Nicotine dependence, cigarettes, uncomplicated | CPT/HCPCS: 99212 ==

== ENCOUNTER → 2021-08-08 | Outpatient (CLI) | payer MEDICARE, MEDICAID, OTHER | LOC: WOUNDCARE 14:48 | PROVIDERS: ATTEND Family Medicine | DX: L89.213 Pressure ulcer of right hip, stage 3 (principal); G81.94 Hemiplegia, unspecified affecting left nondominant side; E11.622 Type 2 diabetes mellitus with other skin ulcer; E11.52 Type 2 diabetes mellitus with diabetic peripheral angiopathy with gangrene; L89.121 Pressure ulcer of left upper back, stage 1; L89.151 Pressure ulcer of sacral region, stage 1; F17.210 Nicotine dependence, cigarettes, uncomplicated | CPT/HCPCS: 11042; A6212; G0463 ==

== ENCOUNTER 2021-08-11 15:20 | Outpatient (RCR) | payer MEDICARE, MEDICAID, OTHER | END 2021-08-11 16:19 | disposition home or self-care (01) | PROVIDERS: ATTEND Physician Assistant | DX: I69.354 Hemiplegia and hemiparesis following cerebral infarction affecting left non-dominant side (principal); E11.9 Type 2 diabetes mellitus without complications ==

== ENCOUNTER → 2021-08-15 | Outpatient (CLI) | payer MEDICARE, MEDICAID, OTHER | LOC: WOUNDCARE 13:55 | PROVIDERS: ATTEND Family Medicine | DX: L89.213 Pressure ulcer of right hip, stage 3 (principal); G81.94 Hemiplegia, unspecified affecting left nondominant side; E11.622 Type 2 diabetes mellitus with other skin ulcer; E11.52 Type 2 diabetes mellitus with diabetic peripheral angiopathy with gangrene; F17.210 Nicotine dependence, cigarettes, uncomplicated; L89.151 Pressure ulcer of sacral region, stage 1; L03.115 Cellulitis of right lower limb | CPT/HCPCS: 11042; A6212; G0463 ==

== ENCOUNTER → 2021-08-22 | Outpatient (CLI) | payer MEDICARE, MEDICAID, OTHER | LOC: WOUNDCARE 14:35 | PROVIDERS: ATTEND Family Medicine | DX: E11.52 Type 2 diabetes mellitus with diabetic peripheral angiopathy with gangrene (principal); E11.622 Type 2 diabetes mellitus with other skin ulcer; L89.213 Pressure ulcer of right hip, stage 3; I96 Gangrene, not elsewhere classified; L03.115 Cellulitis of right lower limb; G81.94 Hemiplegia, unspecified affecting left nondominant side; F17.210 Nicotine dependence, cigarettes, uncomplicated; L89.151 Pressure ulcer of sacral region, stage 1 | CPT/HCPCS: 11042; A6212; G0463 ==

== ENCOUNTER → 2021-08-29 | Outpatient (CLI) | payer MEDICARE, MEDICAID, OTHER | LOC: WOUNDCARE 14:24 | PROVIDERS: ATTEND Family Medicine | DX: L89.213 Pressure ulcer of right hip, stage 3 (principal); G81.94 Hemiplegia, unspecified affecting left nondominant side; E11.622 Type 2 diabetes mellitus with other skin ulcer; L89.151 Pressure ulcer of sacral region, stage 1; E11.52 Type 2 diabetes mellitus with diabetic peripheral angiopathy with gangrene; F17.210 Nicotine dependence, cigarettes, uncomplicated | CPT/HCPCS: 11042; A6021; A6212; G0463 ==

== ENCOUNTER → 2021-09-05 | Outpatient (CLI) | payer MEDICARE, OTHER ==
--- NOTE | 2021-09-05 17:12 | Diagnostic Imaging Report ---
INDICATION: Right hip pain, suspicious of osteomyelitis. TECHNIQUE: AP and oblique views of the right hip are obtained. FINDINGS: No fracture or acute bony abnormality is seen. There is no lytic or blastic lesion seen. There are vascular calcifications noted. There are postop changes of the lumbosacral junction. IMPRESSION: No acute abnormality of the right hip. Dictated by: Dictated on workstation # [id number]
== END ==
LOC: RAD 15:13
PROVIDERS: ATTEND Family Medicine
DX: L89.213 Pressure ulcer of right hip, stage 3 (principal)
CPT/HCPCS: 36415; 73502; 85652; 86141

== ENCOUNTER → 2021-09-05 | Outpatient (CLI) | payer MEDICARE, MEDICAID, OTHER | LOC: WOUNDCARE 14:33 | PROVIDERS: ATTEND Family Medicine | DX: L89.213 Pressure ulcer of right hip, stage 3 (principal); G81.94 Hemiplegia, unspecified affecting left nondominant side; E11.622 Type 2 diabetes mellitus with other skin ulcer; L89.151 Pressure ulcer of sacral region, stage 1; E11.52 Type 2 diabetes mellitus with diabetic peripheral angiopathy with gangrene; F17.210 Nicotine dependence, cigarettes, uncomplicated | CPT/HCPCS: 11042; A6212; G0463 ==

== ENCOUNTER → 2021-09-12 | Outpatient (CLI) | payer MEDICARE, OTHER | LOC: WOUNDCARE 14:34 | PROVIDERS: ATTEND Family Medicine | DX: L89.213 Pressure ulcer of right hip, stage 3 (principal); L89.151 Pressure ulcer of sacral region, stage 1; G81.94 Hemiplegia, unspecified affecting left nondominant side; E11.622 Type 2 diabetes mellitus with other skin ulcer; F17.210 Nicotine dependence, cigarettes, uncomplicated; E11.52 Type 2 diabetes mellitus with diabetic peripheral angiopathy with gangrene | CPT/HCPCS: 11042; 97605; A9272; G0463 ==

== ENCOUNTER → 2021-09-19 | Outpatient (CLI) | payer MEDICARE, OTHER | LOC: WOUNDCARE 14:41 | PROVIDERS: ATTEND Family Medicine | DX: L89.213 Pressure ulcer of right hip, stage 3 (principal); G81.94 Hemiplegia, unspecified affecting left nondominant side; E11.622 Type 2 diabetes mellitus with other skin ulcer; L89.151 Pressure ulcer of sacral region, stage 1; E11.52 Type 2 diabetes mellitus with diabetic peripheral angiopathy with gangrene; F17.210 Nicotine dependence, cigarettes, uncomplicated | CPT/HCPCS: 11042; 97607; A9272; G0463 ==

== ENCOUNTER → 2021-10-03 | Outpatient (CLI) | payer MEDICARE, OTHER | LOC: WOUNDCARE 14:15 | PROVIDERS: ATTEND Family Medicine | DX: L89.213 Pressure ulcer of right hip, stage 3 (principal); G81.94 Hemiplegia, unspecified affecting left nondominant side; E11.622 Type 2 diabetes mellitus with other skin ulcer; E11.52 Type 2 diabetes mellitus with diabetic peripheral angiopathy with gangrene; F17.210 Nicotine dependence, cigarettes, uncomplicated | CPT/HCPCS: 11042; A6197; A6212; G0463 ==

== ENCOUNTER → 2021-10-03 | Outpatient (CLI) | payer MEDICARE, OTHER ==
[2021-10-03 15:40] LABS: BASOPHILS # (AUTO) 0.1 10^3/uL (0.0-0.1); BASOPHILS % (AUTO) 1 % (0-10); EOSINOPHILS # (AUTO) 0.5 10^3/uL (0.0-0.3); EOSINOPHILS % (AUTO) 4 % (0-10); HEMATOCRIT 50 % (40-54); LYMPHOCYTES # (AUTO) 3.5 10^3/uL (1.0-4.0); LYMPHOCYTES % (AUTO) 26 % (12-44); MEAN CORPUSCULAR HEMOGLOBIN 32 pg (25-34); MEAN CORPUSCULAR HGB CONC 34 g/dL (32-36); MEAN CORPUSCULAR VOLUME 92 fL (80-99); MEAN PLATELET VOLUME 9.7 fL (9.0-12.2); MONOCYTES # (AUTO) 1.1 10^3/uL (0.0-1.0); MONOCYTES % (AUTO) 8 % (0-12); NEUTROPHILS # (AUTO) 8.1 10^3/uL (1.8-7.8); NEUTROPHILS % (AUTO) 61 % (42-75); PLATELET COUNT 380 10^3/uL (130-400); WHITE BLOOD COUNT 13.3 10^3/uL (4.3-11.0)
[2021-10-03 15:50] LABS: POTASSIUM 3.9 MMOL/L (3.6-5.0)
[2021-10-03 15:51] LABS: CALCIUM 9.5 MG/DL (8.5-10.1)
[2021-10-03 15:53] LABS: TOTAL PROTEIN 7.4 GM/DL (6.4-8.2)
[2021-10-03 15:54] LABS: BILIRUBIN,TOTAL 0.3 MG/DL (0.1-1.0)
[2021-10-03 15:56] LABS: CREATININE SERUM 0.82 MG/DL (0.60-1.30)
== END ==
LOC: LAB 15:03
PROVIDERS: ATTEND Family Medicine
DX: L89.213 Pressure ulcer of right hip, stage 3 (principal)
CPT/HCPCS: 36415; 80053; 83036; 85025

== ENCOUNTER → 2021-10-10 | Outpatient (CLI) | payer MEDICARE, MEDICAID, OTHER | LOC: WOUNDCARE 14:24 | PROVIDERS: ATTEND Family Medicine | DX: L89.213 Pressure ulcer of right hip, stage 3 (principal); G81.94 Hemiplegia, unspecified affecting left nondominant side; E11.622 Type 2 diabetes mellitus with other skin ulcer; E11.52 Type 2 diabetes mellitus with diabetic peripheral angiopathy with gangrene; F17.210 Nicotine dependence, cigarettes, uncomplicated | CPT/HCPCS: 99211 ==

== ENCOUNTER → 2021-12-23 | Outpatient (CLI) | payer MEDICARE, MEDICAID, OTHER | LOC: WOUNDCARE 09:00 | PROVIDERS: ATTEND Family Medicine | DX: L89.301 Pressure ulcer of unspecified buttock, stage 1 (principal); L24.A0 Irritant contact dermatitis due to friction or contact with body fluids, unspecified; E11.9 Type 2 diabetes mellitus without complications; T65.222A Toxic effect of tobacco cigarettes, intentional self-harm, initial encounter; G81.04 Flaccid hemiplegia affecting left nondominant side | CPT/HCPCS: 99213 ==